=== PATIENT | female | born 1965 | race Caucasian/White ===

== ENCOUNTER 2020-03-30 14:15 | Emergency (ER) | payer MEDICAID ==
[~2020-03-30] VITALS: Ht 160 cm; Wt 90.7 kg
[2020-03-30 14:33] LABS: BASOPHILS % (AUTO) 0 % (0-10); EOSINOPHILS # (AUTO) 0.2 10^3/uL (0.0-0.3); EOSINOPHILS % (AUTO) 3 % (0-10); HEMATOCRIT 41 % (35-52); HEMOGLOBIN 14.3 G/DL (11.5-16.0); LYMPHOCYTES # (AUTO) 2.7 X 10^3 (1.0-4.0); LYMPHOCYTES % (AUTO) 42 % (12-44); MEAN CORPUSCULAR HEMOGLOBIN 31 PG (25-34); MEAN CORPUSCULAR HGB CONC 35 G/DL (32-36); MEAN CORPUSCULAR VOLUME 87 FL (80-99); MEAN PLATELET VOLUME 11.1 FL (7.4-10.4); MONOCYTES # (AUTO) 0.7 X 10^3 (0.0-1.0); MONOCYTES % (AUTO) 10 % (0-12); NEUTROPHILS # (AUTO) 2.9 X 10^3 (1.8-7.8); NEUTROPHILS % (AUTO) 44 % (42-75); PLATELET COUNT 255 10^3/uL (130-400); RED CELL DISTRIBUTION WIDTH 12.6 % (10.0-14.5); WHITE BLOOD COUNT 6.5 10^3/uL (4.3-11.0)
[2020-03-30 14:38] LABS: CHLORIDE 107 MMOL/L (98-107); POTASSIUM 4.1 MMOL/L (3.6-5.0); SODIUM 141 MMOL/L (135-145)
[2020-03-30 14:39] LABS: CALCIUM 9.2 MG/DL (8.5-10.1)
[2020-03-30 14:40] LABS: GLUCOSE 84 MG/DL (70-105)
[2020-03-30 14:41] LABS: TOTAL PROTEIN 7.3 GM/DL (6.4-8.2)
[2020-03-30 14:42] LABS: BILIRUBIN,TOTAL 0.2 MG/DL (0.1-1.0); CARBON DIOXIDE 24 MMOL/L (21-32)
[2020-03-30 14:44] LABS: ALKALINE PHOSPHATASE 76 U/L (40-136); CREATININE SERUM 0.84 MG/DL (0.60-1.30); GFR ESTIMATED > 60
[2020-03-30 14:45] LABS: BUN/CREATININE RATIO 20
[2020-03-30 14:47] LABS: ALANINE AMINOTRANSFERASE 21 U/L (0-55); MAGNESIUM 2.2 MG/DL (1.6-2.4)
--- NOTE | 2020-03-30 14:48 | ED General ---
General Chief Complaint: Neurological Problems Stated Complaint: POSS SEIZURE Nursing Triage Note: PT BROUGHT OVER FROM OUTPT REGISTRATION AFTER HAVING A SEIZURE WHILE CHECKING IN. UPON PT ARRIVAL PT IS POSTICTAL BUT WILL ANSWER QUESTIONS. PT COMPLAINS OF PAIN IN HER NECK AND UPPER BACK. C-COLLAR APPLIED. Nursing Sepsis Screen: No Definite Risk Source of Information: Patient Exam Limitations: No Limitations History of Present Illness Date Seen by Provider: Mar 30, 2020 Time Seen by Provider: 14:15 Initial Comments Here after call to outpatient registration for [facility]. Apparently patient was checking in for MRI of lumbar spine when she suddenly collapsed to her right side onto the floor from a seated position. No obvious injury. Patient was apparently apneic for about 15 seconds with eyes fluttering and then began to breathe. No report of turning blue or vomiting. Patient has seizure disorder and is on 3 different seizure medications. Does have history of syncopal episodes or seizure like episodes in the past. She states it's been a while since her last one. Patient had started to slowly began to respond after a few minutes and was answering questions. Does complain of mild headache and neck pain as well as upper back pain but denies other injury. Over time she was able to answer more questions and states that she's taken her meds as directed. She does admit to being nervous about the MRI. Patient reports that she felt the seizure coming on and did say helps to the judicial clerk before slumping over. Patient seen in outpatient registration area initially and transferred to bed via slide board. C-spine was maintained manually remove. C-collar placed after arrival to the ED. Timing/Duration: 1/2 Hour Severity: Moderate Associated Systoms: No Cough, No Fever/Chills; Headaches; No Nausea/Vomiting; Seizure; No Shortness of Air; Syncope; No Weakness Allergies and Home Medications Allergies Coded Allergies: codeine (Verified Allergy, Severe, ITCH, 03/30/20) hydrocodone (Verified Allergy, Severe, ITCH, 03/30/20) tramadol (Verified Allergy, Severe, ITCH, 03/30/20) Patient Home Medication List Home Medication List Reviewed: Yes Review of Systems Review of Systems Constitutional: No chills, No fever EENTM: no symptoms reported Respiratory: no symptoms reported Cardiovascular: see HPI; No chest pain; syncope Gastrointestinal: No abdominal pain, No nausea, No vomiting Genitourinary: no symptoms reported Musculoskeletal: see HPI, back pain, neck pain All Other Systems Reviewed Negative Unless Noted: Yes Past [place]-Xawhbo-Ygxcoq Hx Past Med/Social Hx: Reviewed Nursing Past Med/Soc Hx Patient Social History Alcohol Use: Denies Use Recreational Drug Use: No Smoking Status: Never a Smoker Recent Foreign Travel: No Contact w/Someone Who Travel: No Recent Infectious Disease Expo: No Past Medical History Surgeries: Yes Appendectomy, Gallbladder, Hysterectomy, Orthopedic Respiratory: Yes Asthma Cardiac: Yes High Cholesterol Neurological: Yes Seizure Disorder Genitourinary: No Gastrointestinal: No Musculoskeletal: No Endocrine: No Cancer: No Psychosocial: No Integumentary: No Blood Disorders: No Family Medical History Reviewed Nursing Family Hx Physical Exam Vital Signs Vital Signs - First Documented 03/30/20 14:15 Temp 36.8 Pulse 75 Resp 16 B/P (MAP) 118/99 (105) Pulse Ox 99 O2 Delivery Room Air Capillary Refill : Less Than 3 Seconds Height, Weight, BMI Height: '" Weight: lbs. oz. kg; 35.00 BMI Method: General Appearance: No Apparent Distress, WD/WN HEENT: PERRL/EOMI, Pharynx Normal Neck: No Lymphadenopathy (L), No Lymphadenopathy (R); Tender Lateral, Tender Midline (mid C-spine), Other (C collar placed) Respiratory: Lungs Clear, Normal Breath Sounds Cardiovascular: Regular Rate, Rhythm, No Murmur Gastrointestinal: Non Tender, Soft Back: No Muscle Spasm; Vertebral Tenderness (upper thoracic spine) Extremity: Non Tender, No Calf Tenderness, No Pedal Edema Neurologic/Psychiatric: Alert, Other (initially disoriented but became more inserted over the first several minutes. States that she can feel her seizures. She did feel like she was having a seizure.) Progress/Results/Core Measures Suspected Sepsis Recent Fever Within 48 Hours: No Infection Criteria Present: None New/Unexplained Altered Menta: No Sepsis Screen: No Definite Risk SIRS Temperature: Pulse: 75 Respiratory Rate: 16 Laboratory Tests 03/30/20 14:18: White Blood Count 6.5 Blood Pressure 118 /99 Mean: 105 Laboratory Tests 03/30/20 14:18: Creatinine 0.84, Platelet Count 255, Total Bilirubin 0.2 Results/Orders Lab Results Laboratory Tests Test 03/30/20 14:18 Range/Units White Blood Count 6.5 4.3-11.0 10^3/uL Red Blood Count 4.68 4.35-5.85 10^6/uL Hemoglobin 14.3 11.5-16.0 G/DL Hematocrit 41 35-52 % Mean Corpuscular Volume 87 80-99 FL Mean Corpuscular Hemoglobin 31 25-34 PG Mean Corpuscular Hemoglobin Concent 35 32-36 G/DL Red Cell Distribution Width 12.6 10.0-14.5 % Platelet Count 255 130-400 10^3/uL Mean Platelet Volume 11.1 H 7.4-10.4 FL Neutrophils (%) (Auto) 44 42-75 % Lymphocytes (%) (Auto) 42 12-44 % Monocytes (%) (Auto) 10 0-12 % Eosinophils (%) (Auto) 3 0-10 % Basophils (%) (Auto) 0 0-10 % Neutrophils # (Auto) 2.9 1.8-7.8 X 10^3 Lymphocytes # (Auto) 2.7 1.0-4.0 X 10^3 Monocytes # (Auto) 0.7 0.0-1.0 X 10^3 Eosinophils # (Auto) 0.2 0.0-0.3 10^3/uL Basophils # (Auto) 0.0 0.0-0.1 10^3/uL Sodium Level 141 135-145 MMOL/L Potassium Level 4.1 3.6-5.0 MMOL/L Chloride Level 107 98-107 MMOL/L Carbon Dioxide Level 24 21-32 MMOL/L Anion Gap 10 5-14 MMOL/L Blood Urea Nitrogen 17 7-18 MG/DL Creatinine 0.84 0.60-1.30 MG/DL Estimat Glomerular Filtration Rate > 60 BUN/Creatinine Ratio 20 Glucose Level 84 70-105 MG/DL Calcium Level 9.2 8.5-10.1 MG/DL Corrected Calcium 9.2 8.5-10.1 MG/DL Magnesium Level 2.2 1.6-2.4 MG/DL Total Bilirubin 0.2 0.1-1.0 MG/DL Aspartate Amino Transf (AST/SGOT) 22 5-34 U/L Alanine Aminotransferase (ALT/SGPT) 21 0-55 U/L Alkaline Phosphatase 76 40-136 U/L Total Protein 7.3 6.4-8.2 GM/DL Albumin 4.0 3.2-4.5 GM/DL My Orders Orders - DUSTIN STEVENS MD Cbc With Automated Diff (03/30/20 14:24) Comprehensive Metabolic Panel (03/30/20 14:24) Magnesium (03/30/20 14:24) Ed Iv/Invasive Line Start (03/30/20 14:24) Ct Head/Cervical Spine Wo (03/30/20 14:24) Ct Thoracic Spine Wo (03/30/20 14:24) Vital Signs/I&O 03/30/20 14:15 Temp 36.8 Pulse 75 Resp 16 B/P (MAP) 118/99 (105) Pulse Ox 99 O2 Delivery Room Air Capillary Refill : Less Than 3 Seconds Blood Pressure Mean: 105 Progress Note : Progress Note Seen and evaluated. IV, labs, CT head, C-spine and thoracic spine ordered. LR 1 L bolus. Monitor patient. 1525: C-collar cleared. Patient does complain of some mild upper back pain. C-spine and thoracic spine films are negative as well as CT head. Toradol 30 mg IV. Patient has care worker here who can get her home. Discharged home with return precautions. Patient verbalize understanding instructions and agreement with plan. Diagnostic Imaging Diagonstic Imaging: CT Plain Films/CT/US/NM/MRI: c-spine, head Comments [facility] [place], [place] NAME: SHELIA CULVER [facility] REC#: [id number] PT STATUS: REG ER : 1965 PHYSICIAN: DUSTIN STEVENS MD ADMIT DATE: 03/30/20/ER Signed Date of Exam:03/30/20 CT HEAD/CERVICAL SPINE WO PROCEDURE: CT head and CT cervical spine without contrast. TECHNIQUE: Multiple contiguous axial images were obtained through the brain and cervical spine without the use of intravenous contrast. Sagittal and coronal reformations through the cervical spine were then performed. Auto Exposure Controls were utilized during the CT exam to meet ALARA standards for radiation dose reduction. INDICATION: Seizure. No prior studies are available for comparison. CT HEAD: Ventricles and sulci are within normal limits. No sulcal effacement or midline shift is identified. No acute intra-axial or extra-axial hemorrhage is detected. Cisterns are patent. Visualized paranasal sinuses appear clear. IMPRESSION: No acute intracranial process is detected. CT CERVICAL SPINE: Curvature and alignment of the cervical spine is normal. There is degenerative disc disease C5-C6 and C6-C7 levels with disc space narrowing and marginal spurring. No fracture is identified. Odontoid is intact. Prevertebral tissues are normal. IMPRESSION: Lower cervical spondylosis. No acute bony abnormality is detected. Dictated by: Dictated on workstation # [id number] Dict: 03/30/20 1452 Trans: 03/30/201516 CVB Interpreted by: KATHERINE FISHER MD Electronically signed by: KATHERINE FISHER MD 03/30/201516 Diagonstic Imaging: CT Plain Films/CT/US/NM/MRI: other Comments [facility] [place] [place] NAME: SHELIA CULVER [facility] REC#: [id number] PT STATUS: REG ER : 1965 PHYSICIAN: DUSTIN STEVENS MD ADMIT DATE: 03/30/20/ER Signed Date of Exam:03/30/20 CT THORACIC SPINE WO PROCEDURE: CT thoracic spine without contrast. TECHNIQUE: Multiple axial computerized tomography images were obtained from the base of the thoracic spine to the vertex without intravenous contrast. Auto Exposure Controls were utilized during the CT exam to meet ALARA standards for radiation dose reduction. INDICATION: Seizure and back pain. FINDINGS: Curvature and alignment of the thoracic spine is normal. Vertebral body heights are maintained. No acute compression fracture is seen. Bony canal is widely patent. There is generalized thoracic spondylosis. Paraspinous tissues demonstrate probable nonobstructing calculi in the left kidney. No paraspinous hematoma is detected. IMPRESSION: 1. Thoracic spondylosis. No acute bony abnormality is detected. 2. Nonobstructing left renal calculi. Dictated by: Dictated on workstation # [id number] Dict: 03/30/20 1455 Trans: 03/30/201516 AS6 Interpreted by: KATHERINE FISHER MD Electronically signed by: KATHERINE FISHER MD 03/30/20 151 Departure Impression Primary Impression: Seizure Additional Impression: Upper back pain Disposition: 01 HOME, SELF-CARE Condition: Stable Departure-Patient Inst. Decision time for Depature: 15:30 Referrals: YADIRA ASIF MD Patient Instructions: Seizures, Adult (DC), Upper Back Pain (DC) Add. Discharge Instructions: All discharge instructions reviewed with patient and/or family. Voiced understanding. You may take ibuprofen 600 mg every 8 hours as needed for pain. You may also take Tylenol/acetaminophen 1000 mg every 8 hours as needed for pain. Drink plenty of fluids and follow-up with your Dr. in a few days for recheck. Call your neurologist today or first thing in the morning for further instructions related to your seizures. Let them know that he had a seizure today. You're CT of your head, C-spine and thoracic spine do not show any acute findings. Return for worse pain, fever, vomiting, weakness, breathing problems or other concerns as needed. Continue home medications as previously prescribed. Copy Copies To 1: YADIRA ASIF MD, TIMOTHY D MD Mar 30, 2020 14:48
--- NOTE | 2020-03-30 14:55 | Diagnostic Imaging Report ---
PROCEDURE: CT head and CT cervical spine without contrast. TECHNIQUE: Multiple contiguous axial images were obtained through the brain and cervical spine without the use of intravenous contrast. Sagittal and coronal reformations through the cervical spine were then performed. Auto Exposure Controls were utilized during the CT exam to meet ALARA standards for radiation dose reduction. INDICATION: Seizure. No prior studies are available for comparison. CT HEAD: Ventricles and sulci are within normal limits. No sulcal effacement or midline shift is identified. No acute intra-axial or extra-axial hemorrhage is detected. Cisterns are patent. Visualized paranasal sinuses appear clear. IMPRESSION: No acute intracranial process is detected. CT CERVICAL SPINE: Curvature and alignment of the cervical spine is normal. There is degenerative disc disease C5-C6 and C6-C7 levels with disc space narrowing and marginal spurring. No fracture is identified. Odontoid is intact. Prevertebral tissues are normal. IMPRESSION: Lower cervical spondylosis. No acute bony abnormality is detected. Dictated by: Dictated on workstation # [id number]
--- NOTE | 2020-03-30 14:59 | Diagnostic Imaging Report ---
PROCEDURE: CT thoracic spine without contrast. TECHNIQUE: Multiple axial computerized tomography images were obtained from the base of the thoracic spine to the vertex without intravenous contrast. Auto Exposure Controls were utilized during the CT exam to meet ALARA standards for radiation dose reduction. INDICATION: Seizure and back pain. FINDINGS: Curvature and alignment of the thoracic spine is normal. Vertebral body heights are maintained. No acute compression fracture is seen. Bony canal is widely patent. There is generalized thoracic spondylosis. Paraspinous tissues demonstrate probable nonobstructing calculi in the left kidney. No paraspinous hematoma is detected. IMPRESSION: 1. Thoracic spondylosis. No acute bony abnormality is detected. 2. Nonobstructing left renal calculi. Dictated by: Dictated on workstation # [id number]
[2020-03-30] MEDS ORDERED: KETOROLAC 30 MG/ML VIAL IVP STA (15:29)
--- NOTE | 2020-03-30 15:35 | NUR ---
C-Collar removed by Dr Nolasco at this time.
[2020-03-30 15:49] VITALS: BP 105/66
--- OUTSIDE RECORDS SUMMARY | 2020-03-30 16:37 | XMS REPORT ---
Author Author Riri FLOYD Organization [facility] [address] Address [address] [place] [address] Care Team Providers Care Bureau Director Name Role Phone OZ FLOYD Unavailable PROBLEMS Type Condition ICD9-CM Code [id number] Code Onset Dates Condition S tatus SNOMED Code Problem Edema, unspecified R60.9 Active 7 2244655 Problem Mikayla-rectal abscess K61.1 Active 89716631 Problem Seizure disorder G40.909 Active 128 055783 Problem Other chronic pain G89.29 Active 8 4001697 Problem Slow transit constipation K59.01 Acti ve 96012332 Problem Cough due to bronchospasm J98.01 Acti ve 4237601 Problem Chronic idiopathic constipation K59.04 Active 96970394 Problem Adolescent idiopathic scoliosis of thoracolumbar region M41.125 Active 707290339 Problem Frequent headaches R51 Active 7 73820926 Problem Low back pain M54.5 Active 701340 007 Problem Mild intermittent asthma without complication J45. 20 Active 528329529 Problem Vertigo R42 Active 382558228 Problem Pain in right knee M25.561 Active 3 8989976 Problem Primary insomnia F51.01 Active 397 2004 Problem Mild intermittent asthma with exacerbation J45.21 Active 352276234 Problem Partial symptomatic epilepsy with complex partial seizures, intractable, 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.219 Active 1 87645539 Problem Obesity (BMI 30-39.9) E66.9 Active 580882251 Problem Duodenitis K29.80 Active 30295910 Problem Severe obesity (BMI 35.0-39.9) with comorbidity E6 6.01 Active 30701495852025 Problem Asthma exacerbation J45.901 Active 899618209 Problem Epigastric pain R10.13 Active 7992 2009 Problem Spastic hemiplegia of right dominant side due to noncerebrovascular etiology G81.11 Active 593425298 Problem Gastroesophageal reflux disease without esophagitis K21.9 Active 141398276 Problem Gastroesophageal reflux disease without esophagitis K21.9 Active 593681729 Problem Moderate episode of recurrent major depressive disorder F33.1 Active 973848218 ALLERGIES No Information ENCOUNTERS Encounter Location Date Diagnosis [facility] [address] [id number] [place] [address] Mar, [address] [id number] [place] [address] Mar, Pes anserinus bursitis of le ft knee M70.52 [facility] [address] [place] [id number] [address] Mar, [address] [id number] [address] Feb, [address] [id number], [place] [address] Feb, [address] [id number] [address] Feb, Left leg pain M79.605 and Pe s anserinus bursitis of left knee M70.52 [facility] [address] [place] [address] [address] Dec, [facility] [address] [address] Dec, Acute nonintractable headache, unspecifi ed headache type R51 [facility] [address] [place] [address] [address] Nov, Seizure disorder G40.909 ; Partial sympt omatic epilepsy with complex partial seizures, intractable, 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.219 and Moderate episode of recurrent major depressive disorder F33.[address] [id number], [place] [address] Aug, [facility] [address] [place] [address] [address] Jul, [facility] [address] [place] [address] [address] Jul, [facility] [address] [place] [address] [place] [id number] [address] 04 Jun, 2019 Epigastric abdominal pain R10.13 ; Gastr oesophageal reflux disease without esophagitis K21.9 and Encounter for immunization Z23 [facility] [address] [place] [id number] [address] 06 May, 2019 Epigastric abdominal pain R10.13 and [place] g term use of drug Z79.899 [facility] [address] [place] [address] [place] [id number] [address] Apr, Epigastric abdominal pain R10.13 ; Low b ack pain M54.5 and Pain in right knee M25.561 [facility] [address] [place] [address] [place] [id number] [address] 18 Feb, 2019 [facility] [address] [place] [address] [place] [address] [address] Feb, Diplopia H53.2 [facility] [address] [place] [address] [place] [address] [address] 11 Feb, 2019 Well woman exam Z01.419 and Pre-op exam Z01.818 [facility] [address] [address] [place] [id number] [address] 06 Feb, 2019 [facility] [address] [place] [address] [place] [id number] [place] [address] January, Breast cancer screening by mammogram Z12 .31 [facility] [address] [place] [address] [place] [id number] [address] 17 Dec, 2018 Dental examination Z01.20 and Dental car ies K02.9 [facility] [address] [place] [address] [place] [address] [address] 16 Dec, 2018 Acute pain of left knee M25.562 [facility] [address] [place] [address] [place] [id number] [address] Dec, [facility] [address] [place] [address] [address] Dec, Double vision H53.2 ; Headache above the eye region R51 and Synovial cyst of left knee M71.22 [facility] [address] [place] [address] [place] [id number] [place] [address] Nov, [facility] [address] [place] [address] [place] [address] [address] Oct, Mild intermittent asthma with exacerbati on J45.21 ; Seizure disorder G40.909 ; 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 ; Partial symptomatic epilepsy with complex partial seizures, intractable, 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.219 and Spastic hemiplegia of right dominant side due to noncerebrovascular etiology G81.11 [facility] [address] [place] [address] [place], [place] [address] [address] Oct, [facility] [address] [place] [address] [address] Sep, Cough R05 and Mild intermittent asthma w ith exacerbation J45.21 [facility] [address] [facility] [address] [place] [address] [address] Aug, [facility] [address] [place] [address] [address] Jul, Tinea corporis B35.4 [facility] [address] [place] [address] [place] [address] [address] Jul, [facility] [address] [place] [address] [address] Jul, [facility] [place] [address] [id number] [place] [address] Feb, [facility] [place] [address] [place] [address] Feb, BMI 40.0-44.9, adult Z68.41 ; Slow transit constipation K59.01 ; Pain in right shoulder M25.511 ; Pain in left shoulder M25.512 ; Other chronic pain G89.29 and Primary insomnia F51.01 [facility] [place] [address] [place] [address] Feb, 18 [facility] [address] [facility] [id number] 100[place] [address] Feb, [facility] [place] [address] [place] [address] Dec, 18 [facility] [place] [address] [place] [address] Dec, 18 [facility] [place] [address] [place] [address] Dec, 18 [facility] [place] [address] [place] [address] Nov, 18 Vertigo R42 and Seizure disorder G40.909 [facility] [address] [place] [address] Aug, 17 Dental examination Z01.20 [facility] [place] [address] [place] [address] Jul, 17 Dental examination Z01.20 [facility] [place] [address] [place] [address] Jul, 17 [facility] [place] [address] [place] [address] Jul, 17 [facility] [place] [address] [place] [address] Jul, 17 Dental examination Z01.20 [facility] [place] [address] [place] [address] Jun, 17 [facility] [place] [address] [place] [address] Jun, 17 Dental examination Z01.20 [facility] [place] [address] [place] [address] Jun, 17 [facility] [place] [address] [place] [address] Jun, 17 Dental examination Z01.20 [facility] [place] [address] [place] [address] Jun, 17 Edema, unspecified R60.9 ; Screening for lipoid disorders Z13.220 and Pericardial effusion I31.[address] [address] May, [address] [address] May, 17 Acute costochondritis M94.0 ; Frequent headaches R51 and Seizure disorder G40.[address] [address] May, 17 Pericardial effusion I31.[address] [address] May, [address] [address] Feb, [address] [address] January, 17 Seizure disorder G40.[address] [address] January, 17 Dental examination Z01.[address] [address] Dec, 17 Seizure disorder G40.909 ; Low back pain M54.5 ; Cervical radiculopathy M54.12 ; Mild intermittent asthma without complication J45.20 ; Frequent headaches R51 ; Adolescent idiopathic scoliosis of thoracolumbar region M41.125 and Pain in right knee M25.[address] [address] Nov, [address] [address] Nov, [address] [address] Nov, 17 Epigastric pain R10.13 ; Asthma exacerbation J45.901 and Seizure disorder G40.[address] [address] Oct, 17 Seizure disorder G40.909 ; Chronic idiopathic constipation K59.04 and Cough due to bronchospasm J98.01 [facility] [place] [address] [place] [address] Oct, 17 Duodenitis K29.80 ; Epigastric pain R10.13 ; Seizure disorder G40.909 and Chronic idiopathic constipation K59.04 [facility] [place] [address] [place] [address] Oct, 17 Dental examination Z01.[address] [address] Sep, 17 Duodenitis K29.80 ; Epigastric pain R10.13 ; Seizure disorder G40.909 and Asthma exacerbation J45.901 [facility] [place] [address] [place] [address] Sep, 17 Epigastric pain R10.13 and Seizure disorder G40.[address] [facility] [address] [address] Sep, [address] [address] [address] Aug, 16 Seizure disorder G40.[address] [address] Aug, 16 Seizure disorder G40.909 ; Asthma exacerbation J45.901 and Epigastric pain R10.[address] [address] Aug, 16 Bronchitis J40 ; Asthma exacerbation J45.901 and Epigastric pain R10.13 [facility] [place] [address] [place] [address] Aug, 16 [facility] [address] [address] Aug, 16 [facility] [place] [address] [place] [address] 02 Aug, 16 [facility] [address] [address] Jul, 16 Dental examination Z01.20 [facility] [address] [place] [address] 25 Jun, 16 Acute pain of left knee M25.562 and Mikayla-rectal abscess K61.1 [facility] [address] [place] [address] 04 Jun, 16 [facility] [place] [address] [place] [address] 04 Jun, 16 Dental examination Z01.20 [facility] [address] [place] [address] May, 16 [facility] [address] [place] [address] May, 16 Seizure disorder G40.909 and Partial symptomatic epilepsy with complex partial seizures, not intractable, 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.209 [facility] [place] [address] [place] [address] May, 16 Screening for lipoid disorders Z13.220 and Edema, unspecified R60.9 [facility] [place] [address] [place] [address] Apr, 16 [facility] [address] [address] Apr, 15 [facility] [address] [facility] [id number] [address] [place] [id number] Apr, Dental examination V72.2 [facility] [place] [address] [facility] [id number] [address] [place] [address] Dec, [facility] [place] [address] [facility] [id number] [address] [place] [address] Dec, [facility] [address] [place] [address] Sep, 15 [facility] [place] [address] [facility] [id number] [address] [place] [address] Sep, [facility] [place] [address] [facility] [id number] [address] [place] [address] Jun, [facility] [place] [address] [id number] [address] [place] [address] Jun, [facility] [place] [address] [facility] [place] [address] Jun, 14 [facility] [address] [id number] [address] [place] [address] Jun, [facility] [address] [facility] [id number] [address] [place] [address], [place] [address] May, [facility] [place] [address] [facility] [place] [address] May, 14 [facility] [place] [address] [facility] [place] [address] May, 14 [facility] [address] [facility] [id number] [address] [place] [address] May, [facility] [address] [facility] [id number] [address] [place] [address] Mar, [facility] [place] [address] [place] [address] Mar, 14 [facility] [address] [facility] [id number] [address] [place] [address] Mar, [facility] [place] [address] [place] [address] Mar, 14 [facility] [address] [facility] [id number] [address] [place] [address] Mar, [facility] [address] [facility] [id number] [address] [place] [address] Feb, [facility] [place] [address] [facility] [place] [address] Feb, 14 [facility] [address] [facility] [id number] [address] [place] [address] Feb, [facility] [place] [address] [place] [address] Feb, 14 [facility] [address] [facility] [id number] [address] [place] [address] Feb, [facility] [address] [place] [address] January, 14 [facility] [place] [address] [place] [address] January, [facility] [place] [address] [place] [address] May, [facility] [place] [address] May, 13 [facility] [place] [address] [place] [address] Oct, [facility] [place] [address] [place] [id number] [address] [place] [address] Aug, [facility] [place] [address] [place] [id number] [address] [place] [address] Nov, [facility] [place] [address] [place] [address] Sep, IMMUNIZATIONS No Known Immunizations SOCIAL HISTORY Never Assessed REASON FOR VISIT PLAN OF CARE VITAL SIGNS MEDICATIONS Unknown Medications RESULTS No Results PROCEDURES No Known procedures INSTRUCTIONS MEDICATIONS ADMINISTERED No Known Medications MEDICAL (GENERAL) HISTORY Type Description Date Medical History seizures Medical History hyperlipidemia Medical History constipation Surgical History cholecystectomy Surgical History hysterectomy Surgical History appendectomy Surgical History cyst removal to back 2018 Hospitalization History seizures Hospitalization History surgeries Hospitalization History seizures 2016 Hospitalization History pneumonia 2015
--- OUTSIDE RECORDS SUMMARY | 2020-03-30 16:37 | XMS REPORT ---
Author Author Riri Rodriguez Doctor Organization [facility] Address Unknown Phone Unavailable Care Team Providers Care Supervisor Of Guidance And Testing Name Role Phone Migration, Doctor Unavailable Unavailable PROBLEMS Type Condition ICD9-CM Code [id number] Code Onset Dates Condition S tatus SNOMED Code Problem Duodenitis K29.80 Active 98851147 Problem Asthma exacerbation J45.901 Active 731711586 Problem Chronic idiopathic constipation K59.04 Active 52637409 Problem Epigastric pain R10.13 Active 7992 2009 Problem Mild intermittent asthma without complication J45. 20 Active 084109287 Problem Cough due to bronchospasm J98.01 Acti ve 2728669 Problem Low back pain M54.5 Active 725040 007 Problem Adolescent idiopathic scoliosis of thoracolumbar region M41.125 Active 284720104 Problem Vertigo R42 Active 254435635 Problem Slow transit constipation K59.01 Acti ve 78811701 Problem Other chronic pain G89.29 Active 8 0279443 Problem Gastroesophageal reflux disease without esophagitis K21.9 Active 110108840 Problem Frequent headaches R51 Active 7 06273558 Problem Seizure disorder G40.909 Active 128 751898 Problem Gastroesophageal reflux disease without esophagitis K21.9 Active 421469808 Problem Pain in right knee M25.561 Active 3 2131583 Problem Edema, unspecified R60.9 Active 7 4148130 Problem Mikayla-rectal abscess K61.1 Active 16596740 Problem Primary insomnia F51.01 Active 397 2004 Problem Mild intermittent asthma with exacerbation J45.21 Active 314518188 Problem Spastic hemiplegia of right dominant side due to noncerebrovascular etiology G81.11 Active 527283495 Problem Partial symptomatic epilepsy with complex partial seizures, intractable, 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.219 Active 1 [id number] ALLERGIES No Information ENCOUNTERS Encounter Location Date Diagnosis [address] [place] [address] Aug, [facility] [address] [place] [address] [facility] [address] Jul, [facility] [address] [place] [address] [id number] [address] Jul, [facility] [address] [id number] [address] Jun, Epigastric abdominal pain R10.13 ; Gastroesophageal reflux disease without esophagitis K21.9 and Encounter for immunization Z23 [facility] [address] [place] [address] [id number] [address] May, Epigastric abdominal pain R10.13 and superintendent terminal use of drug Z79.899 [facility] [address] [place] [id number] [address] Apr, Epigastric abdominal pain R10.13 ; Low back pain M54.5 and Pain in right knee M25.561 [facility] [address] [place] [id number] [address] Feb, [facility] [address] [id number] [address] Feb, Diplopia H53.2 [facility] [address] [id number] [address] Feb, Well woman exam Z01.419 and Pre-op exam Z01.818 [facility] [address] [id number] [address] Feb, [facility] [address] [id number] [address] January, Breast cancer screening by mammogram Z12.31 [facility] [address], [place] [address] 17 Dec, 2018 Dental examination Z01.20 and Dental caries K02.9 [facility] [address] [id number] [address] 16 Dec, 2018 Acute pain of left knee M25.562 [facility] [address] [id number] [address] 16 Dec, 2018 [facility] [address] [id number] [address] 09 Dec, 2018 Double vision H53.2 ; Headache above the eye region R51 and Synovial cyst of left knee M71.22 [facility] [address] [id number] [address] Nov, [facility] [address] [place] [id number] [place] [address] Oct, Mild intermittent asthma with exacerbation J45.21 ; Seizure disorder G40.909 ; 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 ; Partial symptomatic epilepsy with complex partial seizures, intractable, 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.219 and Spastic hemiplegia of right dominant side due to noncerebrovascular etiology G81.11 [facility] [address] [id number] [address] Oct, [facility] [address] [id number] [address] Sep, Cough R05 and Mild intermittent asthma with exacerbation J45.21 [facility] [address] [id number] [address] Aug, [facility] [address] [id number] [address] Jul, Tinea corporis B35.4 [facility] [address] [id number] [address] Jul, [facility] [address] [id number] [address] Jul, [facility] [address] [facility] [place] [address] Feb, [facility] [place] [address] [place] [address] Feb, BMI 40.0-44.9, adult Z68.41 ; Slow transit constipation K59.01 ; Pain in right shoulder M25.511 ; Pain in left shoulder M25.512 ; Other chronic pain G89.29 and Primary insomnia F51.01 [facility] [place] [address] [place] [address] Feb, 18 [facility] [address] [facility] [place] [address] Feb, [facility] [place] [address] [place] [address] Dec, 18 [facility] [place] [address] [place] [address] Dec, 18 [facility] [place] [address] [place] [address] Dec, 18 [facility] [place] [address] [place] [address] Nov, 18 Vertigo R42 and Seizure disorder G40.909 [facility] [address] [place] [address] Aug, 17 Dental examination Z01.20 [facility] [place] [address] [place] [address] 16 Jul, 17 Dental examination Z01.20 [facility] [place] [address] [place] [address] Jul, 17 [facility] [place] [address] [place] [address] Jul, 17 [facility] [place] [address] [place] [address] Jul, 17 Dental examination Z01.20 [facility] [place] [address] [place] [address] 30 Jun, 17 [facility] [place] [address] [place] [address] Jun, 17 Dental examination Z01.20 [facility] [place] [address] [place] [address] Jun, 17 [facility] [place] [address] [place] [address] Jun, 17 Dental examination Z01.20 [facility] [place] [address] [place] [address] Jun, 17 Edema, unspecified R60.9 ; Screening for lipoid disorders Z13.220 and Pericardial effusion I31.[address] [address] May, [address] [address] May, 17 Acute costochondritis M94.0 ; Frequent headaches R51 and Seizure disorder G40.[address] [address] May, 17 Pericardial effusion I31.[address] [address] May, [address] [address] Feb, [address] [address] January, 17 Seizure disorder G40.[address] [address] January, 17 Dental examination Z01.[address] [address] Dec, 17 Seizure disorder G40.909 ; Low back pain M54.5 ; Cervical radiculopathy M54.12 ; Mild intermittent asthma without complication J45.20 ; Frequent headaches R51 ; Adolescent idiopathic scoliosis of thoracolumbar region M41.125 and Pain in right knee M25.[address] [address] Nov, [address] [address] Nov, [address] [address] Nov, 17 Epigastric pain R10.13 ; Asthma exacerbation J45.901 and Seizure disorder G40.[address] [address] Oct, 17 Seizure disorder G40.909 ; Chronic idiopathic constipation K59.04 and Cough due to bronchospasm J98.01 [facility] [place] [address] [place] [address] 01 Oct, 17 Duodenitis K29.80 ; Epigastric pain R10.13 ; Seizure disorder G40.909 and Chronic idiopathic constipation K59.04 [facility] [address] [place] [address] Oct, 17 Dental examination Z01.[address] [address] Sep, 17 Duodenitis K29.80 ; Epigastric pain R10.13 ; Seizure disorder G40.909 and Asthma exacerbation J45.901 [facility] [address] [place] [address] Sep, 17 Epigastric pain R10.13 and Seizure disorder G40.[address] [address] Sep, 17 [facility] [address] [address] Aug, 16 Seizure disorder G40.909 [facility] [address] [place] [address] 26 Aug, 16 Seizure disorder G40.909 ; Asthma exacerbation J45.901 and Epigastric pain R10.[address] [address] Aug, 16 Bronchitis J40 ; Asthma exacerbation J45.901 and Epigastric pain R10.13 [facility] [place] [address] [place] [address] Aug, 16 [facility] [address] [address] Aug, [address] [address] 02 Aug, [address] [address] Jul, 16 Dental examination Z01.20 [address] [place] [address] [place] [address] Jun, 16 Acute pain of left knee M25.562 and Mikayla-rectal abscess K61.1 [facility] [place] [address] [place] [address] Jun, 16 [facility] [place] [address] [place] [address] Jun, 16 Dental examination Z01.20 [facility] [place] [address] [place] [address] May, 16 [facility] [place] [address] [place] [address] May, 16 Seizure disorder G40.909 and Partial symptomatic epilepsy with complex partial seizures, not intractable, 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.209 [facility] [place] [address] [place] [address] May, 16 Screening for lipoid disorders Z13.220 and Edema, unspecified R60.9 [facility] [address] [place] [address] Apr, 16 [facility] [place] [address] [place] [address] Apr, 15 [facility] [address] [facility] [place] [address] Apr, Dental examination V72.2 [facility] [id number] [place] [address] Dec, [facility] [id number] [place] [address] Dec, [facility] [address] [place] [address] Sep, 15 [facility] [address] [address] Sep, [facility] [address] [address] Jun, [facility] [address] [address] Jun, [facility] [place] [address] [place] [address] Jun, 14 [facility] [address] [facility] [place] [address] Jun, [facility] [address] [facility] [place] [address] May, [facility] [place] [address] [place] [address] May, 14 [facility] [place] [address] [place] [address] May, 14 [facility] [address] [facility] [place] [address] May[facility] [address] [facility] [place] [address] Mar, [facility] [place] [address] [place] [address] Mar, 14 [facility] [address] [facility] [place] [address] Mar, [facility] [place] [address] [place] [address] Mar, 14 [facility] [address] [facility] [place] [address] Mar, [facility] [address] [facility] [place] [address] Feb, [facility] [place] [address] [place] [address] Feb, 14 [facility] [address] [facility] [place] [address] Feb, [facility] [place] [address] [place] [address] Feb, 14 [facility] [address] [facility] [place] [address] Feb, [facility] [place] [address] [place] [address] January, 14 [facility] [address] [facility] [place] [address] January, [facility] [address] [place] [address] May, [facility] [place] [address] [place] [address] May, 13 [facility] [address] [facility] [place] [address] Oct, [facility] [address] [facility] [place] [address] Aug, [facility] [address] [facility] [place] [address] Nov, [facility] [address] [facility] [place] [address] Sep, IMMUNIZATIONS No Known Immunizations SOCIAL HISTORY Never Assessed REASON FOR VISIT PLAN OF CARE VITAL SIGNS Height 61 in 2014-03-18 Weight 218.2 lbs 2014-03-18 Temperature 98.2 degrees Fahrenheit 2014-03-18 Heart Rate 72 bpm 2014-03-18 Respiratory Rate 18 2014-03-18 Blood pressure systolic 130 mmHg 2014-03-18 Blood pressure diastolic 80 mmHg 2014-03-18 MEDICATIONS Unknown Medications RESULTS No Results PROCEDURES Procedure Date Ordered Result Body Site MAMMOGRAM, SCREENING March 18, 2014 URINALYSIS, AUTO, W/O SCOPE March 18, 2014 INSTRUCTIONS MEDICATIONS ADMINISTERED No Known Medications MEDICAL (GENERAL) HISTORY Type Description Date Medical History seizures Medical History hyperlipidemia Medical History constipation Surgical History cholecystectomy Surgical History hysterectomy Surgical History appendectomy Surgical History cyst removal to back 2019 Hospitalization History seizures Hospitalization History surgeries Hospitalization History seizures 2016 Hospitalization History pneumonia 2016
--- OUTSIDE RECORDS SUMMARY | 2020-03-30 16:37 | XMS REPORT ---
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 20 Active 450018991 Problem Cough due to bronchospasm J98.01 Acti ve 4400731 Problem Low back pain M54.5 Active 989061 007 Problem Adolescent idiopathic scoliosis of thoracolumbar region M41.125 Active 259382603 Problem Vertigo R42 Active 214325534 Problem Slow transit constipation K59.01 Acti ve 83013804 Problem Other chronic pain G89.29 Active 8 8066098 Problem Gastroesophageal reflux disease without esophagitis K21.9 Active 032398547 Problem Frequent headaches R51 Active 7 74902087 Problem Seizure disorder G40.909 Active 128 588993 Problem Gastroesophageal reflux disease without esophagitis K21.9 Active 694279008 Problem Pain in right knee M25.561 Active 3 3555645 Problem Edema, unspecified R60.9 Active 7 6195367 Problem Mikayla-rectal abscess K61.1 Active 52423342 Problem Primary insomnia F51.01 Active 397 2004 Problem Mild intermittent asthma with exacerbation J45.21 Active 510550722 Problem Spastic hemiplegia of right dominant side due to noncerebrovascular etiology G81.11 Active 150741454 Problem Partial symptomatic epilepsy with complex partial seizures, intractable, 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.219 Active 1 [id number] ALLERGIES No Information ENCOUNTERS Encounter Location Date Diagnosis [facility] [place] [address] [address] [place] [address] 16 Aug, 2019 [facility] [address] [place] [id number] [place] [address] Jul, [facility] [address] [place] [id number] [address] Jul, [facility] [address] [place] [id number] [address] 04 Jun, 2019 Epigastric abdominal pain R10.13 ; Gastroesophageal reflux disease without esophagitis K21.9 and Encounter for immunization Z23 [facility] [address] [place] [id number] [place] [address] 06 May, 2019 Epigastric abdominal pain R10.13 and group home use of drug Z79.899 [facility] [address] [place] [id number] [address] Apr, Epigastric abdominal pain R10.13 ; Low back pain M54.5 and Pain in right knee M25.561 [facility] [address] [place] [id number] [address] 18 Feb, 2019 [facility] [address] [place], [place] [id number] [address] Feb, Diplopia H53.2 [facility] [address] [place] [id number] [address] 11 Feb, 2019 Well woman exam Z01.419 and Pre-op exam Z01.818 [facility] [address] [place] [id number] [address] Feb, [facility] [address] [place] [id number] [address] January, Breast cancer screening by mammogram Z12.31 [facility] [address] [place] [id number] [address] 17 Dec, 2018 Dental examination Z01.20 and Dental caries K02.9 [facility] [address] [place] [id number] [address] 16 Dec, 2018 Acute pain of left knee M25.562 [facility] [address] [place] [id number] [place] [address] 16 Dec, 2018 [facility] [address] [place], [place] [address] [address] Dec, Double vision H53.2 ; Headache above the eye region R51 and Synovial cyst of left knee M71.22 [facility] [address] [place] [id number] [address] Nov, [facility] [address] [place], [place] [address] [address] Oct, Mild intermittent asthma with exacerbation J45.21 ; Seizure disorder G40.909 ; 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 ; Partial symptomatic epilepsy with complex partial seizures, intractable, 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.219 and Spastic hemiplegia of right dominant side due to noncerebrovascular etiology G81.11 [facility] [address] [place] [id number] [address] Oct, [facility] [address] [place] [id number] [address] Sep, Cough R05 and Mild intermittent asthma with exacerbation J45.21 [facility] [address] [place] [id number] [address] Aug, [facility] [address] [place] [id number] [address] Jul, Tinea corporis B35.4 [facility] [address] [place] [id number] [address] Jul, [facility] [address] [place] [address] [address] Jul, [facility] [address] [facility] [place] [address] Feb, [facility] [address] [place] [address] Feb, 18 BMI 40.0-44.9, adult Z68.41 ; Slow transit constipation K59.01 ; Pain in right shoulder M25.511 ; Pain in left shoulder M25.512 ; Other chronic pain G89.29 and Primary insomnia F51.01 [facility] [place] [address] [place] [address] Feb, 18 [facility] [address] [facility] [place] [address] Feb, [facility] [place] [address] [place] [address] Dec, 18 [facility] [place] [address] [place] [address] Dec, 18 [facility] [place] [address] [place] [address] Dec, 18 [facility] [place] [address] [place] [address] Nov, 18 Vertigo R42 and Seizure disorder G40.909 [facility] [place] [address] [place] [address] Aug, 17 Dental examination Z01.20 [facility] [place] [address] [place] [address] Jul, 17 Dental examination Z01.20 [facility] [place] [address] [place] [address] Jul, 17 [facility] [place] [address] [place] [address] Jul, 17 [facility] [place] [address] [place] [address] Jul, 17 Dental examination Z01.20 [facility] [place] [address] [place] [address] Jun, 17 [facility] [place] [address] [place] [address] Jun, 17 Dental examination Z01.20 [facility] [place] [address] [place] [address] Jun, 17 [facility] [place] [address] [place] [address] 05 Jun, 17 [facility] examination Z01.20 [facility] [address] [place] [address] Jun, 17 Edema, unspecified R60.9 ; Screening for lipoid disorders Z13.220 and Pericardial effusion I31.3 [facility] [address] [place] [address] 27 May, 17 [facility] [address] [address] May, 17 Acute costochondritis M94.0 ; Frequent headaches R51 and Seizure disorder G40.909 [facility] [address] [place] [address] May, 17 Pericardial effusion I31.3 [facility] [address] [place] [address] 19 May, 17 [facility] [address] [address] Feb, [address] [address] January, 17 Seizure disorder G40.[address] [address] January, 17 Dental examination Z01.20 [facility] [address] [address] Dec, 17 Seizure disorder G40.909 ; Low back pain M54.5 ; Cervical radiculopathy M54.12 ; Mild intermittent asthma without complication J45.20 ; Frequent headaches R51 ; Adolescent idiopathic scoliosis of thoracolumbar region M41.125 and Pain in right knee M25.[address] [address] Nov, 17 [facility] [address] [address] Nov, [address] [address] Nov, 17 Epigastric pain R10.13 ; Asthma exacerbation J45.901 and Seizure disorder G40.[address] [place] [address] 28 Oct, 17 Seizure disorder G40.909 ; Chronic idiopathic constipation K59.04 and Cough due to bronchospasm J98.[address] [address] Oct, 17 Duodenitis K29.80 ; Epigastric pain R10.13 ; Seizure disorder G40.909 and Chronic idiopathic constipation K59.[address] [address] Oct, 17 Dental examination Z01.[address] [address] Sep, 17 Duodenitis K29.80 ; Epigastric pain R10.13 ; Seizure disorder G40.909 and Asthma exacerbation J45.[address] [address] Sep, 17 Epigastric pain R10.13 and Seizure disorder G40.[address] [address] Sep, [address] [address] Aug, 16 Seizure disorder G40.[address] [address] Aug, 16 Seizure disorder G40.909 ; Asthma exacerbation J45.901 and Epigastric pain R10.[address] [address] 15 Aug, 16 Bronchitis J40 ; Asthma exacerbation J45.901 and Epigastric pain R10.[address] [address] Aug, [address] [address] Aug, [address] [address] Aug, [address] [place] [address] 04 Jul, 16 Dental examination Z01.20 [facility] [address] [place] [address] Jun, 16 Acute pain of left knee M25.562 and Mikayla-rectal abscess K61.1 [facility] [address] [place] [address] Jun, 16 [facility] [address] [place] [address] Jun, 16 Dental examination Z01.20 [facility] [address] [place] [address] May, 16 [facility] [place] [address] [place] [address] May, 16 Seizure disorder G40.909 and Partial symptomatic epilepsy with complex partial seizures, not intractable, 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.209 [facility] [address] [address] May, 16 Screening for lipoid disorders Z13.220 and Edema, unspecified R60.9 [facility] [address] [address] Apr, 16 [facility] [address] [address] Apr, 15 [facility] [address] [facility] [place] [id number] Apr, Dental examination V72.2 [facility] [address] [facility] [place] [address] Dec, [facility] [address] [address] Dec, [facility] [address] [place] [address] Sep, 15 [facility] [address] [address] Sep, [facility] [address] [address] Jun, [facility] [address] [facility] [place] [address] Jun, 2013 [facility] [place] [address] [place] [address] Jun, 14 [facility] [address] [facility] [place] [address] Jun, [facility] [address] [facility] [place] [address] May, [facility] [place] [address] [place] [address] May, 14 [facility] [place] [address] [place] [address] May, 14 [facility] [address] [facility] [place] [address] May, [facility] [address] [facility] [place] [address] Mar, [facility] [place] [address] [place] [address] Mar, 14 [facility] [address] [facility] [place] [address] Mar, [facility] [place] [address] [place] [address] Mar, 14 [facility] [address] [facility] [place] [address] Mar, [facility] [address] [facility] [place] [address] Feb, [facility] [place] [address] [place] [address] Feb, 14 [facility] [id number] [place] [address] Feb, [facility] [place] [address] [place] [address] Feb, 14 [facility] [address] [facility] [place] [address] Feb, [facility] [place] [address] [place] [address] January, 14 [facility] [address] [facility] [place] [address] January, [facility] [address] [place] [address] May, 13 [facility] [place] [address] May, 13 [place] [address] [facility] [place] [address] Oct, [place] [address] [place] [id number] [place] [address] Aug, [place] [address] [facility] [place] [address] Nov, [place] [id number] [place] [address] Sep, IMMUNIZATIONS No Known Immunizations SOCIAL HISTORY [...]
--- OUTSIDE RECORDS SUMMARY | 2020-03-30 16:37 | XMS REPORT ---
Author Author Riri Rodriguez Doctor Organization [facility] Address Unknown Phone Unavailable Care Team Providers Care Suit Maker Name Role Phone Migration, Doctor Unavailable Unavailable PROBLEMS Type Condition ICD9-CM Code VXS16-SE Code Onset Dates Condition S tatus SNOMED Code Problem Duodenitis K29.80 Active 25099337 Problem Asthma exacerbation J45.901 Active 068090912 Problem Chronic idiopathic constipation K59.04 Active 57435527 Problem Epigastric pain R10.13 Active 7992 2009 Problem Mild intermittent asthma without complication J45. 20 Active 762341641 Problem Cough due to bronchospasm J98.01 Acti ve 2962890 Problem Low back pain M54.5 Active 731490 007 Problem Adolescent idiopathic scoliosis of thoracolumbar region M41.125 Active 334761199 Problem Vertigo R42 Active 471852198 Problem Slow transit constipation K59.01 Acti ve 32724642 Problem Other chronic pain G89.29 Active 8 1749579 Problem Gastroesophageal reflux disease without esophagitis K21.9 Active 385420551 Problem Frequent headaches R51 Active 7 37447514 Problem Seizure disorder G40.909 Active 128 488604 Problem Gastroesophageal reflux disease without esophagitis K21.9 Active 143590413 Problem Pain in right knee M25.561 Active 3 4366577 Problem Edema, unspecified R60.9 Active 7 7277438 Problem Mikayla-rectal abscess K61.1 Active 57043713 Problem Primary insomnia F51.01 Active 397 2004 Problem Mild intermittent asthma with exacerbation J45.21 Active 051168761 Problem Spastic hemiplegia of right dominant side due to noncerebrovascular etiology G81.11 Active 570977234 Problem Partial symptomatic epilepsy with complex partial seizures, intractable, 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.219 Active 1 [id number] ALLERGIES No Information ENCOUNTERS Encounter Location Date Diagnosis [address] [place] [address] Aug, [facility] [address] [facility] [address] Jul, [facility] [address] [id number] [address] Jul, [facility] [address] [id number] [address] Jun, Epigastric abdominal pain R10.13 ; Gastroesophageal reflux disease without esophagitis K21.9 and Encounter for immunization Z23 [facility] [address] [id number] [address] May, Epigastric abdominal pain R10.13 and 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 [facility] [address] [place] [address] Apr, Epigastric abdominal pain R10.13 ; Low back pain M54.5 and Pain in right knee M25.561 [facility] [address] [place] [address] Feb, [facility] [address] [id number] [address] Feb, Diplopia H53.2 [facility] [address] [id number] [address] Feb, Well woman exam Z01.419 and Pre-op exam Z01.818 [facility] [address] [id number] [address] Feb, [facility] [address] [id number] [address] January, Breast cancer screening by mammogram Z12.31 [facility] [address] [address] 17 Dec, 2018 Dental examination Z01.20 and Dental caries K02.9 [facility] [address] [id number] [address] 16 Dec, 2018 Acute pain of left knee M25.562 [facility] [address] [place] [address] 16 Dec, 2018 [facility] [address] [place] [address] 09 Dec, 2018 Double vision H53.2 ; Headache above the eye region R51 and Synovial cyst of left knee M71.22 [facility] [address] [id number] [address] Nov, [facility] [address] [place] [id number] [place] [address] Oct, Mild intermittent asthma with exacerbation J45.21 ; Seizure disorder G40.909 ; 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 ; Partial symptomatic epilepsy with complex partial seizures, intractable, 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.219 and Spastic hemiplegia of right dominant side due to noncerebrovascular etiology G81.11 [facility] [address] [id number] [address] Oct, [facility] [address] [place] [address] Sep, Cough R05 and Mild intermittent asthma with exacerbation J45.21 [facility] [address] [place] [address] Aug, [facility] [address] [id number] [address] Jul, Tinea corporis B35.4 [facility] [address] [id number] [address] Jul, [facility] [address] [id number] [address] Jul, [facility] [address] [facility] [place] [address] Feb, [facility] [place] [address] [place] [address] Feb, BMI 40.0-44.9, adult Z68.41 ; Slow transit constipation K59.01 ; Pain in right shoulder M25.511 ; Pain in left shoulder M25.512 ; Other chronic pain G89.29 and Primary insomnia F51.01 [facility] [place] [address] [place] [address] Feb, 18 [facility] [address] [facility] [place] [address] Feb, [facility] [address] [place] [address] Dec, 18 [facility] [address] [place] [address] Dec, 18 [facility] [address] [place] [address] Dec, 18 [facility] [place] [address] [place] [address] Nov, 18 Vertigo R42 and Seizure disorder G40.909 [facility] [address] [place] [address] Aug, 17 Dental examination Z01.20 [facility] [place] [address] [place] [address] 16 Jul, 17 Dental examination Z01.20 [facility] [address] [place] [address] Jul, 17 [facility] [address] [place] [address] Jul, 17 [facility] [address] [place] [address] Jul, 17 Dental examination Z01.20 [facility] [place] [address] [place] [address] 30 Jun, 17 [facility] [address] [place] [address] Jun, 17 Dental examination Z01.20 [facility] [place] [address] [place] [address] Jun, 17 [facility] [address] [place] [address] Jun, 17 Dental examination Z01.20 [facility] [place] [address] [place] [address] Jun, 17 Edema, unspecified R60.9 ; Screening for lipoid disorders Z13.220 and Pericardial effusion I31.[address] [address] May, [address] [address] May, 17 Acute costochondritis M94.0 ; Frequent headaches R51 and Seizure disorder G40.[address] [address] May, 17 Pericardial effusion I31.[address] [address] May, [address] [address] Feb, [address] [address] January, 17 Seizure disorder G40.[address] [address] January, 17 Dental examination Z01.[address] [address] Dec, 17 Seizure disorder G40.909 ; Low back pain M54.5 ; Cervical radiculopathy M54.12 ; Mild intermittent asthma without complication J45.20 ; Frequent headaches R51 ; Adolescent idiopathic scoliosis of thoracolumbar region M41.125 and Pain in right knee M25.[address] [address] Nov, [address] [address] Nov, [address] [address] Nov, 17 Epigastric pain R10.13 ; Asthma exacerbation J45.901 and Seizure disorder G40.[address] [address] Oct, 17 Seizure disorder G40.909 ; Chronic idiopathic constipation K59.04 and Cough due to bronchospasm J98.01 [facility] [place] [address] [place] [address] 01 Oct, 17 Duodenitis K29.80 ; Epigastric pain R10.13 ; Seizure disorder G40.909 and Chronic idiopathic constipation K59.04 [facility] [address] [place] [address] Oct, 17 Dental examination Z01.[address] [address] Sep, 17 Duodenitis K29.80 ; Epigastric pain R10.13 ; Seizure disorder G40.909 and Asthma exacerbation J45.901 [facility] [address] [place] [address] Sep, 17 Epigastric pain R10.13 and Seizure disorder G40.[address] [address] Sep, [facility] [address] [address] Aug, 16 Seizure disorder G40.909 [facility] [address] [place] [address] 26 Aug, 16 Seizure disorder G40.909 ; Asthma exacerbation J45.901 and Epigastric pain R10.[address] [address] Aug, 16 Bronchitis J40 ; Asthma exacerbation J45.901 and Epigastric pain R10.13 [facility] [place] [address] [place] [address] Aug, 16 [facility] [address] [address] Aug, [address] [address] 02 Aug, [address] [address] Jul, 16 Dental examination Z01.20 [address] [place] [address] Jun, 16 Acute pain of left knee M25.562 and Mikayla-rectal abscess K61.1 [facility] [place] [address] [place] [address] Jun, 16 [facility] [place] [address] [place] [address] Jun, 16 Dental examination Z01.20 [facility] [place] [address] [place] [address] May, 16 [facility] [place] [address] [place] [address] May, 16 Seizure disorder G40.909 and Partial symptomatic epilepsy with complex partial seizures, not intractable, 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.209 [facility] [place] [address] [place] [address] May, 16 Screening for lipoid disorders Z13.220 and Edema, unspecified R60.9 [facility] [address] [place] [address] Apr, 16 [facility] [place] [address] [place] [address] Apr, 15 [facility] [address] [facility] [place] [id number] Apr, Dental examination V72.2 [facility] [id number] [place] [address] Dec, [facility] [id number] [place] [address] Dec, [facility] [address] [place] [address] Sep, 15 [facility] [address] [address] Sep, [facility] [address] [address] Jun, [facility] [address] [address] Jun, [facility] [address] [facility] [place] [address] Jun, 14 [facility] [address] [id number] [place] [address] Jun, [facility] [address] [id number] [place] [address] May, [facility] [address] [facility] [place] [address] May, 14 [facility] [address] [facility] [place] [address] May, 14 [facility] [address] [id number] [place] [address] May[facility] [address] [id number] [place] [address] Mar, [facility] [place] [address] [place] [address] Mar, 14 [facility] [address] [id number] [place] [address] Mar, [facility] [address] [place] [address] Mar, 14 [facility] [address] [id number] [place] [address] Mar, [facility] [address] [id number] [place] [address] Feb, [facility] [address] [place] [address] Feb, 14 [facility] [address] [id number] [place] [address] Feb, [facility] [address] [place] [address] Feb, 14 [facility] [address] [id number] [place] [address] Feb, [facility] [address] [place] [address] January, 14 [facility] [address] [id number] [place] [address] January, [facility] [address] [place] [address] May, [facility] [address] [place] [address] May, 13 [facility] [address] [id number] [place] [address] Oct, [facility] [address] [id number] [place] [address] Aug, [facility] [address] [id number] [place] [address] Nov, [facility] [address] [id number] [place] [address] Sep, IMMUNIZATIONS No Known Immunizations SOCIAL HISTORY Never Assessed REASON FOR VISIT PLAN OF CARE VITAL SIGNS Height 61 in 2014-03-14 Weight 218 lbs 2014-03-14 Temperature 97.9 degrees Fahrenheit 2014-03-14 Heart Rate 76 bpm 2014-03-14 Respiratory Rate 18 2014-03-14 Blood pressure systolic 124 mmHg 2014-03-14 Blood pressure diastolic 80 mmHg 2014-03-14 MEDICATIONS Unknown Medications RESULTS No Results PROCEDURES Procedure Date Ordered Result Body Site TEST FOR BLOOD, FECES March 14, 2014 X-RAY EXAM OF WRIST March 14, 2014 INSTRUCTIONS MEDICATIONS ADMINISTERED No Known Medications MEDICAL (GENERAL) HISTORY Type Description Date Medical History seizures Medical History hyperlipidemia Medical History constipation Surgical History cholecystectomy Surgical History hysterectomy Surgical History appendectomy Surgical History cyst removal to back 2019 Hospitalization History seizures Hospitalization History surgeries Hospitalization History seizures 2015 Hospitalization History pneumonia 2015
--- OUTSIDE RECORDS SUMMARY | 2020-03-30 16:37 | XMS REPORT ---
Author Author Riri FLOYD Organization [facility] [address] Address [address] [place] [address] Care Team Providers Care Appointment Scheduler Name Role Phone OZ FLOYD Unavailable PROBLEMS Type Condition ICD9-CM Code TVZ99-KB Code Onset Dates Condition S tatus SNOMED Code Problem Edema, unspecified R60.9 Active 7 9602768 Problem Mikayla-rectal abscess K61.1 Active 64640165 Problem Seizure disorder G40.909 Active 128 381215 Problem Other chronic pain G89.29 Active 8 1880827 Problem Slow transit constipation K59.01 Acti ve 84598892 Problem Cough due to bronchospasm J98.01 Acti ve 5815669 Problem Chronic idiopathic constipation K59.04 Active 97761283 Problem Adolescent idiopathic scoliosis of thoracolumbar region M41.125 Active 800002078 Problem Frequent headaches R51 Active 7 75480170 Problem Low back pain M54.5 Active 961747 007 Problem Mild intermittent asthma without complication J45. 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.219 Active 1 90203855 Problem Obesity (BMI 30-39.9) E66.9 Active 240663534 Problem Duodenitis K29.80 Active 76554993 Problem Severe obesity (BMI 35.0-39.9) with comorbidity E6 6.01 Active 30638500354408 Problem Asthma exacerbation J45.901 Active 167687362 Problem Epigastric pain R10.13 Active 7992 2009 Problem Spastic hemiplegia of right dominant side due to noncerebrovascular etiology G81.11 Active 475214925 Problem Gastroesophageal reflux disease without esophagitis K21.9 Active 724429222 Problem Gastroesophageal reflux disease without esophagitis K21.9 Active 354659753 Problem Moderate episode of recurrent major depressive disorder F33.1 Active 280793335 ALLERGIES No Information ENCOUNTERS Encounter Location Date Diagnosis [facility] [place] [address] [id number] [place] [address] Mar, [address] [id number] [place] [address] Mar, Pes anserinus bursitis of le ft knee M70.52 [facility] [address] [place] [id number] [address] Mar, [address] [id number] [address] Feb, [address] [id number], [place] [address] Feb, [address] [id number] [address] Feb, Left leg pain M79.605 and Pe s anserinus bursitis of left knee M70.52 [facility] [address] [place] [address], [place] [address] Dec, [facility] [address], [place] [address] Dec, Acute nonintractable headache, unspecifi ed headache type R51 [facility] [address] [place] [address]65[address], [place] [address] Nov, Seizure disorder G40.909 ; Partial sympt omatic epilepsy with complex partial seizures, intractable, 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.219 and Moderate episode of recurrent major depressive disorder F33.[address] [id number] [address] Aug, [facility] [address] [place] [address], [place] [address] Jul, [facility] [address] [place] [address], [place] [address] Jul, [facility] [address] [place] [address] [place], [place] [id number] [address] 04 Jun, 2019 Epigastric abdominal pain R10.13 ; Gastr oesophageal reflux disease without esophagitis K21.9 and Encounter for immunization Z23 [facility] [address] [place] [id number] [address] 06 May, 2019 Epigastric abdominal pain R10.13 and Franklin g term use of drug Z79.899 [facility] [address] [place] [address] [place] [id number] [address] Apr, Epigastric abdominal pain R10.13 ; Low b ack pain M54.5 and Pain in right knee M25.561 [facility] [address] [address] [place] [id number] [address] 18 Feb, 2019 [facility] [address] [place] [address] [place] [address] [address] Feb, Diplopia H53.2 [facility] [address] [place] [address] [place] [address] [address] 11 Feb, 2019 Well woman exam Z01.419 and Pre-op exam Z01.818 [facility] [address] [place] [id number] [address] 06 Feb, 2019 [facility] [address] [address] [place] [id number] [address] January, Breast cancer screening by mammogram Z12 .31 [facility] [address] [place] [address] [place] [id number] [address] 17 Dec, 2018 Dental examination Z01.20 and Dental car ies K02.9 [facility] [address] [place] [address] [address] 16 Dec, 2018 Acute pain of left knee M25.562 [facility] [address] [place] [address] [place] [id number] [address] Dec, [facility] [address] [place] [address]65100[place], [place] [address] Dec, Double vision H53.2 ; Headache above the eye region R51 and Synovial cyst of left knee M71.22 [facility] [address] [place] [address] [place] [id number] [address] Nov, [facility] [address] [place] [address] [place] [address], [place] [address] Oct, Mild intermittent asthma with exacerbati on J45.21 ; Seizure disorder G40.909 ; 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 ; Partial symptomatic epilepsy with complex partial seizures, intractable, 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.219 and Spastic hemiplegia of right dominant side due to noncerebrovascular etiology G81.11 [facility] [address] [place] [address] [place] [address], [place] [address] Oct, [facility] [address] [place] [address] [address] Sep, Cough R05 and Mild intermittent asthma w ith exacerbation J45.21 [facility] [address] [facility] [address] [place] [address], [place] [address] Aug, [facility] [address] [place] [address], [place] [address] Jul, Tinea corporis B35.4 [facility] [address] [place] [address] [address] Jul, [facility] [address] [place] [address], [place] [address] Jul, [facility] [place] [id number] [place] [address] Feb, [facility] [place] [address] [place] [address] Feb, BMI 40.0-44.9, adult Z68.41 ; Slow transit constipation K59.01 ; Pain in right shoulder M25.511 ; Pain in left shoulder M25.512 ; Other chronic pain G89.29 and Primary insomnia F51.01 [facility] [place] [address] [place] [address] Feb, 18 [facility] [address] [facility] [id number] [address] [address] Feb, [facility] [place] [address] [place] [address] Dec, 18 [facility] [place] [address] [place] [address] Dec, 18 [facility] [place] [address] [place] [address] Dec, 18 [facility] [place] [address] [place] [address] Nov, 18 Vertigo R42 and Seizure disorder G40.909 [facility] [address] [place] [address] Aug, 17 Dental examination Z01.20 [facility] [place] [address] [place] [address] Jul, 17 Dental examination Z01.20 [facility] [place] [address] [place] [address] Jul, 17 [facility] [place] [address] [place] [address] Jul, 17 [facility] [place] [address] [place] [address] Jul, 17 Dental examination Z01.20 [facility] [place] [address] [place] [address] Jun, 17 [facility] [place] [address] [place] [address] Jun, 17 Dental examination Z01.20 [facility] [place] [address] [place] [address] Jun, 17 [facility] [place] [address] [place] [address] Jun, 17 Dental examination Z01.20 [facility] [place] [address] [place] [address] Jun, 17 Edema, unspecified R60.9 ; Screening for lipoid disorders Z13.220 and Pericardial effusion I31.[address] [address] May, [address] [address] May, 17 Acute costochondritis M94.0 ; Frequent headaches R51 and Seizure disorder G40.[address] [address] May, 17 Pericardial effusion I31.[address] [address] May, [address] [address] Feb, [address] [address] January, 17 Seizure disorder G40.[address] [address] January, 17 Dental examination Z01.[address] [address] Dec, 17 Seizure disorder G40.909 ; Low back pain M54.5 ; Cervical radiculopathy M54.12 ; Mild intermittent asthma without complication J45.20 ; Frequent headaches R51 ; Adolescent idiopathic scoliosis of thoracolumbar region M41.125 and Pain in right knee M25.[address] [address] Nov, [address] [address] Nov, [address] [address] Nov, 17 Epigastric pain R10.13 ; Asthma exacerbation J45.901 and Seizure disorder G40.[address] [address] Oct, 17 Seizure disorder G40.909 ; Chronic idiopathic constipation K59.04 and Cough due to bronchospasm J98.01 [facility] [place] [address] [place] [address] Oct, 17 Duodenitis K29.80 ; Epigastric pain R10.13 ; Seizure disorder G40.909 and Chronic idiopathic constipation K59.04 [facility] [place] [address] [place] [address] Oct, 17 Dental examination Z01.[address] [address] Sep, 17 Duodenitis K29.80 ; Epigastric pain R10.13 ; Seizure disorder G40.909 and Asthma exacerbation J45.901 [facility] [place] [address] [place] [address] Sep, 17 Epigastric pain R10.13 and Seizure disorder G40.909 [facility] [address] [address] Sep, [address] [address] Aug, 16 Seizure disorder G40.[address] [address] Aug, 16 Seizure disorder G40.909 ; Asthma exacerbation J45.901 and Epigastric pain R10.[address] [address] Aug, 16 Bronchitis J40 ; Asthma exacerbation J45.901 and Epigastric pain R10.13 [facility] [place] [address] [place] [address] Aug, 16 [facility] [address] [address] Aug, 16 [facility] [place] [address] [place] [address] 02 Aug, 16 [facility] [address] [address] Jul, 16 Dental examination Z01.20 [facility] [address] [place] [address] 25 Jun, 16 Acute pain of left knee M25.562 and Mikayla-rectal abscess K61.1 [facility] [address] [place] [address] 04 Jun, 16 [facility] [place] [address] [place] [address] 04 Jun, 16 Dental examination Z01.20 [facility] [address] [place] [address] May, 16 [facility] [address] [place] [address] May, 16 Seizure disorder G40.909 and Partial symptomatic epilepsy with complex partial seizures, not intractable, 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.209 [facility] [place] [address] [place] [address] May, 16 Screening for lipoid disorders Z13.220 and Edema, unspecified R60.9 [facility] [place] [address] [place] [address] Apr, 16 [facility] [address] [address] Apr, 15 [facility] [address] [facility] [id number] [address] [place] [id number] Apr, Dental examination V72.2 [facility] [place] [address] [facility] [id number] [address] [place] [address] Dec, [facility] [place] [address] [facility] [id number] [address] [place] [address] Dec, [facility] [address] [place] [address] Sep, 15 [facility] [place] [address] [facility] [id number] [address] [place] [address] Sep, [facility] [place] [address] [facility] [id number] [address] [place] [address] Jun, [facility] [place] [address] [id number] [address] [place] [address] Jun, [facility] [place] [address] [facility] [place] [address] Jun, 14 [facility] [address] [id number] [address] [place] [address] Jun, [facility] [address] [facility] [id number] [address] [place] [address], [place] [address] May, [facility] [place] [address] [place] [facility] [place] [address] May, 14 [facility] [place] [address] [place] [facility] [place] [address] May, 14 [facility] [address] [facility] [id number] [address] [place] [address] May, [facility] [address] [facility] [id number] [address] [place] [address] Mar, [facility] [place] [address] [place] [address] Mar, 14 [facility] [address] [facility] [id number] [address] [place] [address] Mar, [facility] [place] [address] [place] [address] Mar, 14 [facility] [address] [facility] [id number] [address] [place] [address] Mar, [facility] [address] [facility] [id number] [address] [place] [address] Feb, [facility] [place] [address] [facility] [place] [address] Feb, 14 [facility] [address] [facility] [id number] [address] [place] [address] Feb, [facility] [place] [address] [place] [address] Feb, 14 [facility] [address] [facility] [id number] [address] [place] [address] Feb, [facility] [place] [address] [place] [address] January, 14 [facility] [place] [address] [id number] [place] [address] January, [facility] [place] [address] [place] [address] May, [facility] [place] [address] May, 13 [facility] [place] [address] [facility] [id number] [address] [place] [address] Oct, [facility] [place] [address] [facility] [id number] [address] [place] [address] Aug, [facility] [place] [address] [id number] [place] [address] Nov, [facility] [place] [id number] [place] [address] Sep, IMMUNIZATIONS No Known Immunizations SOCIAL HISTORY Never Assessed REASON FOR VISIT PLAN OF CARE VITAL SIGNS Height 61 in 2013-06-02 Weight 200 lbs 2013-06-02 Temperature 98 degrees Fahrenheit 2013-06-02 Heart Rate 76 bpm 2013-06-02 Blood pressure systolic 120 mmHg 2013-06-02 Blood pressure diastolic 62 mmHg 2013-06-02 MEDICATIONS Unknown Medications RESULTS No Results PROCEDURES No Known procedures INSTRUCTIONS MEDICATIONS ADMINISTERED No Known Medications MEDICAL (GENERAL) HISTORY Type Description Date Medical History seizures Medical History hyperlipidemia Medical History constipation Surgical History cholecystectomy Surgical History hysterectomy Surgical History appendectomy Surgical History cyst removal to back 2019 Hospitalization History seizures Hospitalization History surgeries Hospitalization History seizures 2015 Hospitalization History pneumonia 2016
--- OUTSIDE RECORDS SUMMARY | 2020-03-30 16:37 | XMS REPORT ---
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 Problem list No authorized problems tracked for continuity of care are available for this vis it. Encounters No authorized problems tracked for encounter diagnoses are available for this vi sit. Medications No medications recorded for this patient visit Allergies, adverse reactions, alerts No allergy information is available for this patient. Immunizations No immunizations recorded for this patient visit Relevant diagnostic tests and/or laboratory data RESULTS Radiology Results [id number] MRI C-SPINE W/WO CONT PACs Image DATE OF EXAM: Dec 05 2015 MRI 0051-MRI C SPINE W/WO CO NTRAST : RADIOLOGY REPORT DATE OF SERVICE: 12/05/15 HISTORY: Patient has progressive right a rm and hand weakness, degenerative disc disease, questioned sp inal stenosis. Patient fell on October-2014. MRI OF THE CERVICAL SPINE WITH AND WITHO UT CONTRAST 1150 HOURS Multiplanar multisequence study was perf ormed. The patient received 15 mL of Magnevist contrast intravenously f or contrast portion of the study. Vertebrae align normally and have normal signal intensity. There is moderate degenerative spurring anteriorl y at C6-C7. There is mild interspace narrowing at C5-C6 interspace . Facet joints align normally and appear normal. At C5-C6 there is mil d disc bulge of 1 to 2 mm. No spinal canal stenosis is seen and there is no foraminal narrowing at all on either right or left. There is a haris te bulge of the C6-C7 disc not causing any canal stenosis or foraminal narrowing. The cervical cord has normal signal. Remaining discs all appea r normal. There is no central canal stenosis or foraminal narrowing at any other level. Cervicomedullary junction is at normal l evel. No abnormal enhancement is seen following contrast administration. IMPRESSION: Mild disc bulge at C5-C6 and C6-C7 not causing canal stenosis or foraminal narrowing. Degener ative spurring at C6-C7. Otherwise negative study. DO NEVA Ryan/juan 12/05/2015 11:56:11/07 12:00:41 cc:Dr. Kentrell Oh This document has been electronically Signed by: On: DATE OF EXAM: Dec 05 2015 MRI 0051-MRI C SPINE W/WO CO NTRAST : RADIOLOGY REPORT DATE OF SERVICE: 12/05/15 HISTORY: Patient has progressive right a rm and hand weakness, degenerative disc disease, questioned sp inal stenosis. Patient fell on October-2014. MRI OF THE CERVICAL SPINE WITH AND WITHO UT CONTRAST 1150 HOURS Multiplanar multisequence study was perf ormed. The patient received 15 mL of Magnevist contrast intravenously f or contrast portion of the study. Vertebrae align normally and have normal signal intensity. There is moderate degenerative spurring anteriorl y at C6-C7. There is mild interspace narrowing at C5-C6 interspace . Facet joints align normally and appear normal. At C5-C6 there is mil d disc bulge of 1 to 2 mm. No spinal canal stenosis is seen and there is no foraminal narrowing at all on either right or left. There is a haris te bulge of the C6-C7 disc not causing any canal stenosis or foraminal narrowing. The cervical cord has normal signal. Remaining discs all appea r normal. There is no central canal stenosis or foraminal narrowing at any other level. Cervicomedullary junction is at normal l evel. No abnormal enhancement is seen following contrast administration. IMPRESSION: Mild disc bulge at C5-C6 and C6-C7 not causing canal stenosis or foraminal narrowing. Degener ative spurring at C6-C7. Otherwise negative study. DO NEVA Ryan/juan 12/05/2015 11:56:11/07 12:00:41 cc:Dr. Kentrell Oh This document has been electronically Signed by: MANDI LEAVITT DO On: Dec 05 20155:07P Result Amended on 2015-12-05 at 17:07:39 . Previous status was [facility]. History of procedures Procedure Code Code Type Description Date Performed Performing Physician 12901 CPT-4 MRI NECK SPINE W/O & W/DYE 12-05-2015 KENTRELL CARVAJALH 89881 CPT-4 EEG AWAKE AND DROWSY 12-05-2015 [place] A[address]79 CPT-4 DANI-BASE MR CONTRAST NOS,1ML 12-05-2015 KENTRELL CARVAJALH Functional status No functional or cognitive status observations are available for this visit. Vital signs No authorized vital signs are available for this visit. Social history No Social History or smoking status observations were recorded for this visit. ( Unknown if ever smoked.) Treatment Plan No treatment plan text is available for this visit. Hospital discharge instructions No discharge instruction text is available for this visit.
--- OUTSIDE RECORDS SUMMARY | 2020-03-30 16:37 | XMS REPORT ---
Author Author Riri Rodriguez Doctor Organization [facility] Address Unknown Phone Unavailable Care Team Providers Care Lab Technician Name Role Phone Migration, Doctor Unavailable Unavailable PROBLEMS Type Condition ICD9-CM Code LWE35-MY Code Onset Dates Condition S tatus SNOMED Code Problem Epigastric pain R10.13 Active 7992 2009 Problem Duodenitis K29.80 Active 40331812 Problem Cough due to bronchospasm J98.01 Acti ve 4068511 Problem Chronic idiopathic constipation K59.04 Active 04699193 Problem Mild intermittent asthma without complication J45. 20 Active 589402927 Problem Adolescent idiopathic scoliosis of thoracolumbar region M41.125 Active 520466786 Problem Pain in right knee M25.561 Active 3 0584755 Problem Edema, unspecified R60.9 Active 7 6716650 Problem Low back pain M54.5 Active 866744 007 Problem Slow transit constipation K59.01 Acti ve 72252322 Problem Other chronic pain G89.29 Active 8 2279164 Problem Primary insomnia F51.01 Active 397 2004 Problem Gastroesophageal reflux disease without esophagitis K21.9 Active 305355802 Problem Vertigo R42 Active 661542275 Problem Mikayla-rectal abscess K61.1 Active 10350223 Problem Moderate episode of recurrent major depressive disorder F33.1 Active 058597115 Problem Frequent headaches R51 Active 7 77439360 Problem Seizure disorder G40.909 Active 128 549822 Problem Asthma exacerbation J45.901 Active 251549918 Problem Mild intermittent asthma with exacerbation J45.21 Active 540973458 Problem Spastic hemiplegia of right dominant side due to noncerebrovascular etiology G81.11 Active 705501173 Problem Partial symptomatic epilepsy with complex partial seizures, intractable, 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.219 Active 1 55769169 Problem Gastroesophageal reflux disease without esophagitis K21.9 Active 490747483 ALLERGIES No Information ENCOUNTERS Encounter Location Date Diagnosis [facility] [address] [facility] [id number] [place] [address] 16 Nov, 2019 Seizure disorder G40.909 ; Partial sympt omatic epilepsy with complex partial seizures, intractable, 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.219 and Moderate episode of recurrent major depressive disorder F33.1 [facility] [place] [address] [id number] [place] [address] 16 Aug, 2019 [facility] [address] [place] [address] [facility] [id number] [place] [address] Jul, [facility] [address] [place] [address] [facility] [id number] [place] [address] Jul, [facility] [address] [place] [address] [facility] [id number] [place] [address] 04 Jun, 2019 Epigastric abdominal pain R10.13 ; Gastr oesophageal reflux disease without esophagitis K21.9 and Encounter for immunization Z23 [facility] [address] [place] [address] [facility] [id number] [place] [address] May, Epigastric abdominal pain R10.13 and [place] g term use of drug Z79.899 [facility] [address] [place] [address] [facility] [id number] [place] [address] Apr, Epigastric abdominal pain R10.13 ; Low b ack pain M54.5 and Pain in right knee M25.561 [facility] [address] [place] [address] [facility] [id number] [place] [address] 18 Feb, 2019 [facility] [address] [place] [address] [place] [id number] [place] [address] Feb, Diplopia H53.2 [facility] [address] [place] [address] [facility] [id number] [place] [address] 11 Feb, 2019 Well woman exam Z01.419 and Pre-op exam Z01.818 [facility] [address] [place] [address] [place] [id number] [place] [address] 06 Feb, 2019 [facility] [address] [place] [address] [facility] [id number] [place] [address] January, Breast cancer screening by mammogram Z12 .31 [facility] [address] [place] [address] [address] 17 Dec, 2018 Dental examination Z01.20 and Dental car ies K02.9 [facility] [address] [place] [id number] [address] 16 Dec, 2018 Acute pain of left knee M25.562 [facility] [address] [place] [address]00565100[place] [address] Dec, [facility] [address] [place] [address] [place], [place] [id number] [address] 09 Dec, 2018 Double vision H53.2 ; Headache above the eye region R51 and Synovial cyst of left knee M71.22 [facility] [address] [place] [address] [place], [place] [address] [address] Nov, [facility] [address] [place] [address] [place] [address] [address] Oct, Mild intermittent asthma with exacerbati on J45.21 ; Seizure disorder G40.909 ; 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 ; Partial symptomatic epilepsy with complex partial seizures, intractable, 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.219 and Spastic hemiplegia of right dominant side due to noncerebrovascular etiology G81.11 [facility] [address] [place] [address] [place] [id number] [address] Oct, [facility] [address] [place] [address] [place] [address] [address] Sep, Cough R05 and Mild intermittent asthma w ith exacerbation J45.21 [facility] [address] [place] [address] [place] [address] [address] Aug, [facility] [address] [place] [address] [place] [address] [address] Jul, Tinea corporis B35.4 [facility] [address] [place] [address] [place] [address] [address] Jul, [facility] [address] [place] [id number] [place] [address] Jul, [facility] [address] [facility] [id number] [place] [address] Feb, [facility] [address] [address] Feb, 18 BMI 40.0-44.9, adult Z68.41 ; Slow transit constipation K59.01 ; Pain in right shoulder M25.511 ; Pain in left shoulder M25.512 ; Other chronic pain G89.29 and Primary insomnia F51.01 [facility] [address] [place] [address] Feb, 18 [facility] [address] [facility] [id number] [place] [address] Feb, Shanika [address] [address] Dec, 18 [facility] [place] [address] [place] [address] Dec, 18 [facility] [address] [place] [address] Dec, 18 [facility] [address] [place] [address] Nov, 18 Vertigo R42 and Seizure disorder G40.[address] [address] [address] Aug, 17 Dental examination Z01.20 [facility] [address] [place] [address] Jul, 17 Dental examination Z01.20 [facility] [place] [address] [place] [address] Jul, 17 [facility] [place] [address] [place] [address] Jul, 17 [facility] [place] [address] [place] [address] Jul, 17 Dental examination Z01.20 [facility] [address] [place] [address] 30 Oct, 20 17 [facility] [place] [address] [place] [address] Jun, 20 17 Dental examination Z01.20 [facility] [address] [place] [address] Jun, 20 17 [facility] [place] [address] [place] [address] 05 Jun, 20 17 Dental examination Z01.[address] [address] [address] 02 Jun, 20 17 Edema, unspecified R60.9 ; Screening for lipoid disorders Z13.220 and Pericardial effusion I31.[address] [address] [address] Sep, 20 [address] [address] May, 17 Acute costochondritis M94.0 ; Frequent headaches R51 and Seizure disorder G40.909 [facility] [address] [address] Sep, 20 17 Pericardial effusion I31.[address] [address] [address] 19 May, 20 [address] [address] Feb, [address] [address] [address] 27 January, 17 Seizure disorder G40.[address] [address] January, 17 [facility]01.20 [facility] [address] [address] Dec, 17 Seizure disorder G40.909 ; Low back pain M54.5 ; Cervical radiculopathy M54.12 ; Mild intermittent asthma without complication J45.20 ; Frequent headaches R51 ; Adolescent idiopathic scoliosis of thoracolumbar region M41.125 and Pain in right knee M25.561 [facility] [address] [address] Nov, 17 [facility] [address] [place] [address] Nov, [address] [address] Nov, 17 Epigastric pain R10.13 ; Asthma exacerbation J45.901 and Seizure disorder G40.909 [facility] [address] [place] [address] Oct, 17 Seizure disorder G40.909 ; Chronic idiopathic constipation K59.04 and Cough due to bronchospasm J98.[address] [address] Oct, 17 Duodenitis K29.80 ; Epigastric pain R10.13 ; Seizure disorder G40.909 and Chronic idiopathic constipation K59.[address] [address] Oct, 17 Dental examination Z01.[address] [address] Sep, 17 Duodenitis K29.80 ; Epigastric pain R10.13 ; Seizure disorder G40.909 and Asthma exacerbation J45.[address] [address] Sep, 17 Epigastric pain R10.13 and Seizure disorder G40.[address] [address] Sep, [address] [address] Aug, 16 Seizure disorder G40.[address] [address] Aug, 16 Seizure disorder G40.909 ; Asthma exacerbation J45.901 and Epigastric pain R10.13 [facility] [address] [place] [address] Aug, 16 Bronchitis J40 ; Asthma exacerbation J45.901 and Epigastric pain R10.13 [facility] [place] [address] [place] [address] 02 Aug, 16 [facility] [place] [address] [place] [address] 02 Aug, 16 [facility] [place] [address] [place] [address] 02 Aug, 16 [facility] [place] [address] [place] [address] 04 Jul, 16 Dental examination Z01.20 [facility] [place] [address] [place] [address] 25 Jun, 16 Acute pain of left knee M25.562 and Mikayla-rectal abscess K61.1 [facility] [address] [place] [address] 04 Jun, 16 [facility] [place] [address] [place] [address] 04 Jun, 16 Dental examination Z01.20 [facility] [place] [address] [place] [address] 07 May, 16 [facility] [place] [address] [place] [address] 07 May, 16 Seizure disorder G40.909 and Partial symptomatic epilepsy with complex partial seizures, not intractable, 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.209 [facility] [address] [address] 02 May, 16 Screening for lipoid disorders Z13.220 and Edema, unspecified R60.9 [facility] [address] [place] [address] Apr, 16 [facility] [place] [address] [place] [address] Apr, 15 [facility] [address] [facility] [id number] [address] [place] [id number] Apr, Dental examination V72.2 [facility] [address] [facility] [id number] [address] [place] [address] Dec, [facility] [address] [facility] [id number] [address] [place] [address] Dec, [facility] [place] [address] [place] [address] Sep, 15 [facility] [address] [id number] [address] [place] [address] Sep, [facility] [address] [facility] [id number] [address] [place] [address] Jun, [facility] [address] [facility] [id number] [address] [place] [address] Jun, [facility] [place] [address] [place] [address] Jun, 14 [facility] [address] [facility] [id number] [address] [place] [address] Jun, [facility] [address] [facility] [id number] [address] [place] [address] May, [facility] [place] [address] [place] [address] May, 14 [facility] [place] [address] [place] [address] May, 14 [facility] [address] [facility] [id number] [address] [place] [address] May, [facility] [address] [facility] [id number] [address] [place] [address] Mar, [facility] [place] [address] [place] [address] Mar, 14 [facility] [address] [facility] [id number] [address] [place] [address] Mar, [facility] [place] [address] [place] [address] Mar, 14 [facility] [address] [facility] [id number] [address] [place] [address] Mar, [facility] [address] [facility] [id number] [address] [place] [address] Feb, [facility] [place] [address] [place] [address] Feb, 14 [facility] [address] [place] [address] Feb, [facility] [place] [address] [place] [address] Feb, 14 [facility] [address] [place] [address] Feb, [facility] [place] [address] [place] [address] January, 14 [facility] [address] [place] [id number] [address] [place] [address] January, [facility] [place] [address] [place] [address] May, 13 [facility] [address] [place] [address] May, 13 [facility] [address] [place] [address] Oct, [facility] [address] [place] [id number] [address] [place] [address] Aug, [facility] [address] [place] [address] Nov, [facility] [address] [place] [address] Sep, IMMUNIZATIONS No Known Immunizations SOCIAL HISTORY [...]
--- OUTSIDE RECORDS SUMMARY | 2020-03-30 16:37 | XMS REPORT ---
Author Author Riri Rodriguez Doctor Organization [facility] Address Unknown Phone Unavailable Care Team Providers Care Chief Executive Name Role Phone Migration, Doctor Unavailable Unavailable PROBLEMS Type Condition ICD9-CM Code HXI33-ND Code Onset Dates Condition S tatus SNOMED Code Problem Duodenitis K29.80 Active 38268580 Problem Asthma exacerbation J45.901 Active 249043128 Problem Chronic idiopathic constipation K59.04 Active 35663180 Problem Epigastric pain R10.13 Active 7992 2009 Problem Mild intermittent asthma without complication J45. 20 Active 552605265 Problem Cough due to bronchospasm J98.01 Acti ve 3277760 Problem Low back pain M54.5 Active 480841 007 Problem Adolescent idiopathic scoliosis of thoracolumbar region M41.125 Active 800806672 Problem Vertigo R42 Active 111425832 Problem Slow transit constipation K59.01 Acti ve 53173586 Problem Other chronic pain G89.29 Active 8 8864297 Problem Gastroesophageal reflux disease without esophagitis K21.9 Active 841291021 Problem Frequent headaches R51 Active 7 59626215 Problem Seizure disorder G40.909 Active 128 982161 Problem Gastroesophageal reflux disease without esophagitis K21.9 Active 257705132 Problem Pain in right knee M25.561 Active 3 3551551 Problem Edema, unspecified R60.9 Active 7 0047044 Problem Mikayla-rectal abscess K61.1 Active 66686735 Problem Primary insomnia F51.01 Active 397 2004 Problem Mild intermittent asthma with exacerbation J45.21 Active 765906056 Problem Spastic hemiplegia of right dominant side due to noncerebrovascular etiology G81.11 Active 893470214 Problem Partial symptomatic epilepsy with complex partial seizures, intractable, 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.219 Active 1 [id number] ALLERGIES No Information ENCOUNTERS Encounter Location Date Diagnosis [address] [place] [address] Aug, [facility] [address] [place] [address] [facility] [address] Jul, [facility] [address] [place] [address] [address] Jul, [facility] [address] [place], [place] [address] [address] Jun, Epigastric abdominal pain R10.13 ; Gastroesophageal reflux disease without esophagitis K21.9 and Encounter for immunization Z23 [facility] [address] [place] [id number] [address] May, Epigastric abdominal pain R10.13 and 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 [facility] [address] [place] [address] [address] Apr, Epigastric abdominal pain R10.13 ; Low back pain M54.5 and Pain in right knee M25.561 [facility] [address] [place] [id number] [address] Feb, [facility] [address] [place] [address] [address] Feb, Diplopia H53.2 [facility] [address] [place] [address] [address] Feb, Well woman exam Z01.419 and Pre-op exam Z01.818 [facility] [address] [place] [id number] [address] Feb, [facility] [address] [place] [address] [address] January, Breast cancer screening by mammogram Z12.31 [facility] [address], [place] [address] 17 Dec, 2018 Dental examination Z01.20 and Dental caries K02.9 [facility] [address] [place] [id number] [address] 16 Dec, 2018 Acute pain of left knee M25.562 [facility] [address] [place] [id number] [address] 16 Dec, 2018 [facility] [address] [place] [id number] [address] 09 Dec, 2018 Double vision H53.2 ; Headache above the eye region R51 and Synovial cyst of left knee M71.22 [facility] [address] [place] [address] [address] Nov, [facility] [address] [place] [id number] [place] [address] Oct, Mild intermittent asthma with exacerbation J45.21 ; Seizure disorder G40.909 ; 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 ; Partial symptomatic epilepsy with complex partial seizures, intractable, 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.219 and Spastic hemiplegia of right dominant side due to noncerebrovascular etiology G81.11 [facility] [address] [place] [address] [address] Oct, [facility] [address] [place] [address] [address] Sep, Cough R05 and Mild intermittent asthma with exacerbation J45.21 [facility] [address] [place] [id number] [address] Aug, [facility] [address] [place] [address] [address] Jul, Tinea corporis B35.4 [facility] [address] [place] [address] [address] Jul, [facility] [address] [place] [address] [address] Jul, [facility] [address] [facility] [place] [address] Feb, [facility] [place] [address] [place] [address] Feb, BMI 40.0-44.9, adult Z68.41 ; Slow transit constipation K59.01 ; Pain in right shoulder M25.511 ; Pain in left shoulder M25.512 ; Other chronic pain G89.29 and Primary insomnia F51.01 [facility] [place] [address] [place] [address] Feb, 18 [facility] [address] [facility] [place] [address] Feb, [facility] [place] [address] [place] [address] Dec, 18 [facility] [place] [address] [place] [address] Dec, 18 [facility] [place] [address] [place] [address] Dec, 18 [facility] [place] [address] [place] [address] Nov, 18 Vertigo R42 and Seizure disorder G40.909 [facility] [address] [place] [address] Aug, 17 Dental examination Z01.20 [facility] [place] [address] [place] [address] 16 Jul, 17 Dental examination Z01.20 [facility] [place] [address] [place] [address] Jul, 17 [facility] [place] [address] [place] [address] Jul, 17 [facility] [place] [address] [place] [address] Jul, 17 Dental examination Z01.20 [facility] [place] [address] [place] [address] 30 Jun, 17 [facility] [place] [address] [place] [address] Jun, 17 Dental examination Z01.20 [facility] [place] [address] [place] [address] Jun, 17 [facility] [place] [address] [place] [address] Jun, 17 Dental examination Z01.20 [facility] [place] [address] [place] [address] Jun, 17 Edema, unspecified R60.9 ; Screening for lipoid disorders Z13.220 and Pericardial effusion I31.[address] [address] May, [address] [address] May, 17 Acute costochondritis M94.0 ; Frequent headaches R51 and Seizure disorder G40.[address] [address] May, 17 Pericardial effusion I31.[address] [address] May, [address] [address] Feb, [address] [address] January, 17 Seizure disorder G40.[address] [address] January, 17 Dental examination Z01.[address] [address] Dec, 17 Seizure disorder G40.909 ; Low back pain M54.5 ; Cervical radiculopathy M54.12 ; Mild intermittent asthma without complication J45.20 ; Frequent headaches R51 ; Adolescent idiopathic scoliosis of thoracolumbar region M41.125 and Pain in right knee M25.[address] [address] Nov, [address] [address] Nov, [address] [address] Nov, 17 Epigastric pain R10.13 ; Asthma exacerbation J45.901 and Seizure disorder G40.[address] [address] Oct, 17 Seizure disorder G40.909 ; Chronic idiopathic constipation K59.04 and Cough due to bronchospasm J98.01 [facility] [place] [address] [place] [address] 01 Oct, 17 Duodenitis K29.80 ; Epigastric pain R10.13 ; Seizure disorder G40.909 and Chronic idiopathic constipation K59.04 [facility] [address] [place] [address] Oct, 17 Dental examination Z01.[address] [address] Sep, 17 Duodenitis K29.80 ; Epigastric pain R10.13 ; Seizure disorder G40.909 and Asthma exacerbation J45.901 [facility] [address] [place] [address] Sep, 17 Epigastric pain R10.13 and Seizure disorder G40.[address] [address] Sep, [facility] [address] [address] Aug, 16 Seizure disorder G40.909 [facility] [address] [place] [address] 26 Aug, 16 Seizure disorder G40.909 ; Asthma exacerbation J45.901 and Epigastric pain R10.[address] [address] Aug, 16 Bronchitis J40 ; Asthma exacerbation J45.901 and Epigastric pain R10.13 [facility] [place] [address] [place] [address] Aug, 16 [facility] [address] [address] Aug, [address] [address] 02 Aug, [address] [address] Jul, 16 Dental examination Z01.20 [address] [place] [address] Jun, 16 Acute pain of left knee M25.562 and Mikayla-rectal abscess K61.1 [facility] [place] [address] [place] [address] Jun, 16 [facility] [place] [address] [place] [address] Jun, 16 Dental examination Z01.20 [facility] [place] [address] [place] [address] May, 16 [facility] [place] [address] [place] [address] May, 16 Seizure disorder G40.909 and Partial symptomatic epilepsy with complex partial seizures, not intractable, 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.209 [facility] [place] [address] [place] [address] May, 16 Screening for lipoid disorders Z13.220 and Edema, unspecified R60.9 [facility] [address] [place] [address] Apr, 16 [facility] [place] [address] [place] [address] Apr, 15 [facility] [address] [facility] [place] [address] Apr, Dental examination V72.2 [facility] [id number] [place] [address] Dec, [facility] [id number] [place] [address] Dec, [facility] [address] [place] [address] Sep, 15 [facility] [address] [address] Sep, [facility] [address] [address] Jun, [facility] [address] [address] Jun, [facility] [place] [address] [facility] [place] [address] Jun, 14 [facility] [address] [id number] [place] [address] Jun, [facility] [address] [id number] [place] [address] May, [facility] [place] [address] [facility] [place] [address] May, 14 [facility] [place] [address] [facility] [place] [address] May, 14 [facility] [address] [id number] [place] [address] May, [facility] [address] [id number] [place] [address] Mar, [facility] [place] [address] [place] [address] Mar, 14 [facility] [address] [id number] [place] [address] Mar, [facility] [place] [address] [place] [address] Mar, 14 [facility] [address] [id number] [place] [address] Mar, [facility] [address] [id number] [place] [address] Feb, [facility] [place] [address] [place] [address] Feb, 14 [facility] [address] [id number] [place] [address] Feb, [facility] [place] [address] [place] [address] Feb, 14 [facility] [address] [id number] [place] [address] Feb, [facility] [place] [address] [place] [address] January, 14 [facility] [address] [id number] [place] [address] January, [address] [place] [address] [place] [address] May, [facility] [place] [address] [place] [address] May, [facility] [address] [id number] [place] [address] Oct, [facility] [address] [id number] [place] [address] Aug, [facility] [address] [id number] [place] [address] Nov, [facility] [address] [id number] [place] [address] Sep, IMMUNIZATIONS No Known Immunizations SOCIAL HISTORY Never Assessed REASON FOR VISIT PLAN OF CARE VITAL SIGNS Height 61 in 2014-01-18 Weight 218 lbs 2014-01-18 Temperature 98.2 degrees Fahrenheit 2014-01-18 Heart Rate 76 bpm 2014-01-18 Respiratory Rate 20 2014-01-18 Blood pressure systolic 102 mmHg 2014-01-18 Blood pressure diastolic 68 mmHg 2014-01-18 MEDICATIONS Unknown Medications RESULTS No Results PROCEDURES [...]
--- OUTSIDE RECORDS SUMMARY | 2020-03-30 16:37 | XMS REPORT ---
Author Author [facility] Medic al Staff, SHELIA Olivares Organization [facility] Address [address] [place], [place] [address] Phone [phone] Summary purpose TRANSITION OF CARE AUTO GENERATION [...] tests and/or laboratory data RESULTS Radiology Results [id number] MRI C-SPINE W/WO CONT PACs Image DATE [...] 2015-12-05 at 17:07:39 . Previous status was [place]. History of procedures No procedures recorded for this patient visit. Functional status No functional or cognitive status [...]
--- OUTSIDE RECORDS SUMMARY | 2020-03-30 16:37 | XMS REPORT ---
Author Author Riri FLOYD Organization [facility] [address] [facility] Address [address] [place] [address] Care Team Providers Care Infrastructure Architect Name Role Phone OZ FLOYD Unavailable PROBLEMS Type Condition ICD9-CM Code SAJ76-OP Code Onset Dates Condition S tatus SNOMED Code Problem Epigastric pain R10.13 Active 7992 2009 Problem Duodenitis K29.80 Active 75142938 Problem Cough due to bronchospasm J98.01 Acti ve 2006807 Problem Chronic idiopathic constipation K59.04 Active 82443886 Problem Mild intermittent asthma without complication J45. 20 Active 412292760 Problem Adolescent idiopathic scoliosis of thoracolumbar region M41.125 Active 543232035 Problem Pain in right knee M25.561 Active 3 6274471 Problem Edema, unspecified R60.9 Active 7 0034091 Problem Low back pain M54.5 Active 040343 007 Problem Slow transit constipation K59.01 Acti ve 79658705 Problem Other chronic pain G89.29 Active 8 7571651 Problem Primary insomnia F51.01 Active 397 2004 Problem Gastroesophageal reflux disease without esophagitis K21.9 Active 593170244 Problem Vertigo R42 Active 807193217 Problem Mikayla-rectal abscess K61.1 Active 94740571 Problem Moderate episode of recurrent major depressive disorder F33.1 Active 761400898 Problem Frequent headaches R51 Active 7 57190277 Problem Seizure disorder G40.909 Active 128 937063 Problem Asthma exacerbation J45.901 Active 784215426 Problem Mild intermittent asthma with exacerbation J45.21 Active 992106769 Problem Spastic hemiplegia of right dominant side due to noncerebrovascular etiology G81.11 Active 202098362 Problem Partial symptomatic epilepsy with complex partial seizures, intractable, 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.219 Active 1 27654434 Problem Gastroesophageal reflux disease without esophagitis K21.9 Active [id number] ALLERGIES No Information ENCOUNTERS Encounter Location Date Diagnosis [facility] [place] [facility] [address] [facility] [id number] [address] 24 Dec, 2019 Acute nonintractable headache, unspecifi ed headache type R51 [facility] [address] [place] [id number] [address] 16 Nov, 2019 Seizure disorder G40.909 ; Partial sympt omatic epilepsy with complex partial seizures, intractable, 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.219 and Moderate episode of recurrent major depressive disorder F33.[address] [id number] [place] [address] 16 Aug, 2019 [facility] [address] [place] [id number] [address] Jul, [facility] [address] [place] [id number] [address] 06 Jul, 2019 [facility] [address] [place] [id number] [address] 04 Jun, 2019 Epigastric abdominal pain R10.13 ; Gastr oesophageal reflux disease without esophagitis K21.9 and Encounter for immunization Z23 [facility] [address] [place] [address] [address] 06 May, 2019 Epigastric abdominal pain R10.13 and Franklin g term use of drug Z79.899 [facility] [address] [place] [id number] [address] Apr, Epigastric abdominal pain R10.13 ; Low b ack pain M54.5 and Pain in right knee M25.561 [facility] [address] [place] [id number] [address] 18 Feb, 2019 [facility] [address] [place] [address] [address] Feb, Diplopia H53.2 [facility] [address] [place] [id number] [address] 11 Feb, 2019 Well woman exam Z01.419 and Pre-op exam Z01.818 [facility] [address] [place] [address] [place] [id number] [address] Feb, [facility] [address] [place] [address] [place] [id number] [address] January, Breast cancer screening by mammogram Z12 .31 [facility] [address] [place] [address] [place] [id number] [address] 17 Dec, 2018 Dental examination Z01.20 and Dental car ies K02.9 [facility] [address] [place] [address] [place] [id number] [address] 16 Dec, 2018 Acute pain of left knee M25.562 [facility] [address] [place] [address] [place] [id number] [address] Dec, [facility] [address] [place] [address] [place] [id number] [address] Dec, Double vision H53.2 ; Headache above the eye region R51 and Synovial cyst of left knee M71.22 [facility] [address] [place] [address] [place] [id number] [address] Nov, [facility] [address] [place] [address] [place] [id number] [address] Oct, Mild intermittent asthma with exacerbati on J45.21 ; Seizure disorder G40.909 ; 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 ; Partial symptomatic epilepsy with complex partial seizures, intractable, 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.219 and Spastic hemiplegia of right dominant side due to noncerebrovascular etiology G81.11 [facility] [address] [place] [address] [place], [place] [id number] [address] Oct, [facility] [address] [place] [address] [place] [id number] [address] Sep, Cough R05 and Mild intermittent asthma w ith exacerbation J45.21 [facility] [address] [place] [address] [place] [id number] [address] Aug, [facility] [address] [place] [address] [place] [id number] [address] Jul, Tinea corporis B35.4 [facility] [address] [place] [id number] [place] [address] Jul, [facility] [address] [place] [id number] [place] [address] Jul, [place] [id number] [place] [address] Feb, [facility] [place] [address] [place] [address] Feb, 18 BMI 40.0-44.9, adult Z68.41 ; Slow transit constipation K59.01 ; Pain in right shoulder M25.511 ; Pain in left shoulder M25.512 ; Other chronic pain G89.29 and Primary insomnia F51.01 [facility] [place] [address] [place] [address] Feb, 18 [place] [id number] [place] [id number] [place] [address] Feb, [facility] [place] [address] [place] [address] Dec, 18 [facility] [place] [address] [place] [address] Dec, 18 [facility] [place] [address] [place] [address] Dec, 18 [facility] [place] [address] [place] [address] Nov, 18 Vertigo R42 and Seizure disorder G40.909 [facility] [place] [address] [place] [address] Aug, 17 Dental examination Z01.20 [facility] [place] [address] [place] [address] Jul, 17 Dental examination Z01.20 [facility] [place] [address] [place] [address] Jul, [address] [address] Jul, 17 [facility] [address] [address] Jul, 17 Dental examination Z01.[address] [address] 30 Jun, 20 17 [facility] [address] [address] Jun, 17 [facility] examination Z01.20 [facility] [address] [address] Jun, 17 [facility] [address] [address] 05 Jun, 17 Dental examination Z01.20 [facility] [address] [address] 02 Jun, 17 Edema, unspecified R60.9 ; Screening for lipoid disorders Z13.220 and Pericardial effusion I31.[address] [address] May, 20 17 [facility] [address] [address] May, 17 Acute costochondritis M94.0 ; Frequent headaches R51 and Seizure disorder G40.[address] [address] May, 20 17 Pericardial effusion I31.[address] [address] May, 20 17 [facility] [address] [address] Feb, [address] [address] 27 January, 17 Seizure disorder G40.[address] [address] 16 January, 17 Dental examination Z01.[address] [address] Dec, 17 Seizure disorder G40.909 ; Low back pain M54.5 ; Cervical radiculopathy M54.12 ; Mild intermittent asthma without complication J45.20 ; Frequent headaches R51 ; Adolescent idiopathic scoliosis of thoracolumbar region M41.125 and Pain in right knee M25.[address] [address] Nov, [address] [address] Nov, [address] [address] Nov, 17 Epigastric pain R10.13 ; Asthma exacerbation J45.901 and Seizure disorder G40.[address] [address] Oct, 17 Seizure disorder G40.909 ; Chronic idiopathic constipation K59.04 and Cough due to bronchospasm J98.[address] [address] Oct, 17 Duodenitis K29.80 ; Epigastric pain R10.13 ; Seizure disorder G40.909 and Chronic idiopathic constipation K59.[address] [address] Oct, 17 Dental examination Z01.[address] [address] Sep, 17 Duodenitis K29.80 ; Epigastric pain R10.13 ; Seizure disorder G40.909 and Asthma exacerbation J45.[address] [address] Sep, 17 Epigastric pain R10.13 and Seizure disorder G40.[address] [address] Sep, [address] [address] Aug, 16 Seizure disorder G40.[address] [address] Aug, 16 Seizure disorder G40.909 ; Asthma exacerbation J45.901 and Epigastric pain R10.13 [facility] [place] [address] [place] [address] Aug, 16 Bronchitis J40 ; Asthma exacerbation J45.901 and Epigastric pain R10.13 [facility] [place] [address] [place] [address] Aug, 16 [facility] [place] [address] [place] [address] Aug, 16 [facility] [place] [address] [place] [address] Aug, 16 [facility] [place] [address] [place] [address] Jul, 16 Dental examination Z01.20 [facility] [address] [address] Jun, 16 Acute pain of left knee M25.562 and Mikayla-rectal abscess K61.1 [facility] [address] [address] 04 Jun, 16 [facility] [address] [address] 04 Jun, 16 Dental examination Z01.20 [facility] [place] [address] [place] [address] 07 May, 16 [facility] [address] [address] May, 16 Seizure disorder G40.909 and Partial symptomatic epilepsy with complex partial seizures, not intractable, 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.[address] [address] May, 16 Screening for lipoid disorders Z13.220 and Edema, unspecified R60.9 [facility] [place] [address] [place] [address] Apr, 16 [facility] [address] [address] Apr, 15 [facility] [address] [facility] [id number] [address] [place] [id number] Apr, Dental examination V72.2 [facility] [address] [facility] [id number] [address] [place] [address] Dec, [facility] [address] [facility] [id number] [address] [place] [address] Dec, [facility] [place] [address] [place] [address] Sep, 15 [facility] [address] [facility] [id number] [address] [place] [address] Sep, [facility] [address] [facility] [id number] [address] [place] [address] Jun, [facility] [address] [facility] [id number] [address] [place] [address] Jun, [facility] [place] [address] [place] [address] Jun, 14 [facility] [address] [facility] [id number] [address] [place] [address] Jun, [facility] [address] [facility] [id number] [address] [place] [address] May, [facility] [place] [address] [place] [address] May, 14 [facility] [place] [address] [place] [address] May, 14 [facility] [address] [facility] [id number] [address] [place] [address] May, [facility] [address] [facility] [id number] [address] [place] [address] Mar, [facility] [place] [address] [place] [address] Mar, 14 [facility] [address] [facility] [id number] [address] [place] [address] Mar, [facility] [place] [address] [place] [address] Mar, 14 [facility] [address] [facility] [id number] [address] [place] [address] Mar, [facility] [address] [place] [id number] [place] [address] Feb, [facility] [place] [address] [place] [address] Feb, 14 [facility] [address] [place] [address] Feb, [facility] [place] [address] [place] [address] Feb, 14 [facility] [address] [place] [id number] [address] [place] [address] Feb, [facility] [place] [address] [place] [address] January, 14 [facility] [address] [place] [address] January, [facility] [place] [address] [place] [address] May, 13 [facility] [place] [address] [place] [address] May, 13 [facility] [address] [place] [id number] [place] [address] Oct, [facility] [address] [place] [address] Aug, [facility] [address] [place] [id number] [place] [address] Nov, [facility] [address] [place] [address] Sep, IMMUNIZATIONS No Known Immunizations SOCIAL HISTORY Never Assessed REASON FOR VISIT PLAN OF CARE VITAL SIGNS MEDICATIONS No Known Medications RESULTS No Results PROCEDURES No Known [...]
--- OUTSIDE RECORDS SUMMARY | 2020-03-30 16:38 | XMS REPORT ---
Author Author Riri FLOYD Organization [facility] [address] [place] [address] Care Team Providers Care Button Sawyer Name Role Phone OZ FLOYD Unavailable PROBLEMS Type Condition ICD9-CM Code [id number] Code Onset Dates Condition S tatus SNOMED Code Problem Mikayla-rectal abscess K61.1 Active 49717297 Problem Seizure disorder G40.909 Active 128 306849 Problem Duodenitis K29.80 Active 77785406 Problem Asthma exacerbation J45.901 Active 232257509 Problem Chronic idiopathic constipation K59.04 Active 67865872 Problem Epigastric pain R10.13 Active 7992 2009 Problem Adolescent idiopathic scoliosis of thoracolumbar region M41.125 Active 105509982 Problem Cough due to bronchospasm J98.01 Acti ve 3930690 Problem Mild intermittent asthma without complication J45. 20 Active 821426221 Problem Frequent headaches R51 Active 7 59536713 Problem Vertigo R42 Active 635996591 Problem Spastic hemiplegia of right dominant side due to noncerebrovascular etiology G81.11 Active 169817733 Problem Pain in right knee M25.561 Active 3 2298314 Problem Partial symptomatic epilepsy with complex partial seizures, intractable, 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.219 Active 1 61740818 Problem Low back pain M54.5 Active 577281 007 Problem Edema, unspecified R60.9 Active 7 4042724 Problem Slow transit constipation K59.01 Acti ve 84857519 Problem Other chronic pain G89.29 Active 8 0230507 Problem Primary insomnia F51.01 Active 397 2004 Problem Mild intermittent asthma with exacerbation J45.21 Active 206136665 ALLERGIES No Information ENCOUNTERS Encounter Location Date Diagnosis [facility] [address] [place] [address] 18 Feb, [facility] [address] [place] [address] 11 Feb, 19 Diplopia H53.2 [facility] [address] [address] 11 Feb, 19 Well woman exam Z01.419 and Pre-op exam Z01.818 [facility] [address] [place] [address] 06 Feb, 19 [facility] [address] [address] January, 19 Breast cancer screening by mammogram Z12.31 [facility] [address] [address] 17 Dec, 19 Dental examination Z01.20 and Dental caries K02.[address] [address] 16 Dec, 19 Acute pain of left knee M25.562 [facility] [address] [place] [address] 16 Dec, 19 [facility] [address] [place] [address] Dec, 19 Double vision H53.2 ; Headache above the eye region R51 and Synovial cyst of left knee M71.22 [facility] [address] [place] [address] Nov, [address] [address] 27 Oct, 19 Mild intermittent asthma with exacerbation J45.21 ; Seizure disorder G40.909 ; 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 ; Partial symptomatic epilepsy with complex partial seizures, intractable, 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.219 and Spastic hemiplegia of right dominant side due to noncerebrovascular etiology G81.11 [facility] [address] [place] [address] Oct, [address] [address] Sep, 19 Cough R05 and Mild intermittent asthma with exacerbation J45.21 [facility] [address] [place] [address] Aug, 18 [facility] [address] [place] [address] Jul, 18 Tinea corporis B35.[address] [facility] [address] [place] [address] Jul, [address] [facility] [address] [place] [address] Jul, 18 [facility] [address] [place] [id number] [address] [place] [address] Feb, [facility] [address] [place] [address] Feb, 18 BMI 40.0-44.9, adult Z68.41 ; Slow transit constipation K59.01 ; Pain in right shoulder M25.511 ; Pain in left shoulder M25.512 ; Other chronic pain G89.29 and Primary insomnia F51.01 [facility] [place] [address] [place] [address] Feb, 18 [place] [id number] [place] [id number] [address] [place] [address] Feb, [facility] [place] [address] [place] [address] Dec, 18 [facility] [place] [address] [place] [address] Dec, 18 [facility] [place] [address] [place] [address] Dec, 18 [facility] [place] [address] [place] [address] Nov, 18 Vertigo R42 and Seizure disorder G40.909 [facility] [place] [address] [place] [address] Aug, 17 Dental examination Z01.20 [facility] [address] [place] [address] Jul, 17 Dental examination Z01.20 [facility] [address] [place] [address] Jul, 17 [facility] [place] [address] [place] [address] Jul, 17 [facility] [place] [address] [place] [address] Jul, 17 Dental examination Z01.20 [facility] [place] [address] [place] [address] 30 Jun, 17 [facility] [place] [address] [place] [address] Jun, 20 17 Dental examination Z01.20 [facility] [place] [address] [place] [address] Jun, 17 [facility] [place] [address] [place] [address] 05 Jun, 17 Dental examination Z01.[address] [facility] [address] [address] 02 Jun, 17 Edema, unspecified R60.9 ; Screening for lipoid disorders Z13.220 and Pericardial effusion I31.3 [facility] [address] [address] May, 17 [facility] [address] [address] May, 17 Acute costochondritis M94.0 ; Frequent headaches R51 and Seizure disorder G40.909 [facility] [address] [address] May, 17 Pericardial effusion I31.3 [facility] [address] [address] May, 17 [facility] [address] [address] Feb, [address] [address] [address] 27 January, 17 Seizure disorder G40.909 [facility] [address] [address] 16 January, 17 Dental examination Z01.20 [facility] [address] [address] Dec, 17 Seizure disorder G40.909 ; Low back pain M54.5 ; Cervical radiculopathy M54.12 ; Mild intermittent asthma without complication J45.20 ; Frequent headaches R51 ; Adolescent idiopathic scoliosis of thoracolumbar region M41.125 and Pain in right knee M25.[address] [address] Nov, [address] [address] Nov, [address] [address] Nov, 17 Epigastric pain R10.13 ; Asthma exacerbation J45.901 and Seizure disorder G40.[address] [address] Oct, 17 Seizure disorder G40.909 ; Chronic idiopathic constipation K59.04 and Cough due to bronchospasm J98.[address] [address] Oct, 17 Duodenitis K29.80 ; Epigastric pain R10.13 ; Seizure disorder G40.909 and Chronic idiopathic constipation K59.[address] [address] Oct, 17 Dental examination Z01.[address] [address] Sep, 17 Duodenitis K29.80 ; Epigastric pain R10.13 ; Seizure disorder G40.909 and Asthma exacerbation J45.[address] [address] Sep, 17 Epigastric pain R10.13 and Seizure disorder G40.[address] [address] Sep, [address] [address] Aug, 16 Seizure disorder G40.[address] [address] Aug, 16 Seizure disorder G40.909 ; Asthma exacerbation J45.901 and Epigastric pain R10.13 [facility] [place] [address] [place] [address] 15 Aug, 16 Bronchitis J40 ; Asthma exacerbation J45.901 and Epigastric pain R10.13 [facility] [address] [address] [place] [address] 02 Aug, 16 [facility] [address] [address] [place] [address] Aug, 16 [facility] [place] [address] [place] [address] Aug, 16 [facility] [address] [address] Jul, 16 Dental examination Z01.[address] [address] Jun, 16 Acute pain of left knee M25.562 and Mikayla-rectal abscess K61.1 [facility] [address] [address] 04 Jun, 16 [facility] [address] [address] 04 Jun, 16 Dental examination Z01.20 [facility] [place] [address] [place] [address] 07 May, 16 [facility] [address] [address] 07 May, 16 Seizure disorder G40.909 and Partial symptomatic epilepsy with complex partial seizures, not intractable, 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.209 [facility] [address] [address] 02 May, 16 Screening for lipoid disorders Z13.220 and Edema, unspecified R60.9 [facility] [address] [address] Apr, 16 [facility] [address] [address] Apr, 15 [facility] [address] [facility] [id number] [place] [id number] Apr, Dental examination V72.2 [facility] [address] [id number] [address] [place] [address] Dec, [facility] [address] [facility] [id number] [address] [place] [address] Dec, [facility] [place] [address] [place] [address] Sep, 15 [facility] [address] [facility] [id number] [address] [place] [address] Sep, [facility] [address] [facility] [id number] [address] [place] [address] Jun, [facility] [address] [facility] [id number] [address] [place] [address] Jun, [facility] [place] [address] [place] [address] Jun, 14 [facility] [address] [facility] [id number] [address] [place] [address] Jun, [facility] [address] [facility] [id number] [address] [place] [address] May, [facility] [place] [address] [place] [address] May, 14 [facility] [place] [address] [place] [address] May, 14 [facility] [address] [facility] [id number] [address] [place] [address] May, [facility] [address] [facility] [id number] [address] [place] [address] Mar, [facility] [place] [address] [place] [address] Mar, 14 [facility] [address] [facility] [id number] [address] [place] [address] Mar, [facility] [place] [address] [place] [address] Mar, 14 [facility] [address] [facility] [id number] [address] [place] [address] Mar, [facility] [address] [facility] [id number] [address] [place] [phone] Feb, [facility] [place] [address] [place] [address] Feb, 14 [facility] [address] [facility] [id number] [address] [place] [address] Feb, [facility] [place] [address] [place] [address] Feb, 14 [facility] [address] [facility] [id number] [address] [place] [address] Feb, [facility] [place] [address] [place] [address] January, 14 [facility] [address] [place] [id number] [address] [place] [address] January, [facility] [place] [address] May, 13 [facility] [address] [place] [address] May, 13 [facility] [address] [place] [id number] [address] [place] [phone] Oct, [facility] [address] [place] [id number] [address] [place] [address] Aug, [facility] [address] [facility] [id number] [address] [place] [address] Nov, [facility] [address] [facility] [id number] [address] [place] [address] Sep, IMMUNIZATIONS No Known Immunizations SOCIAL HISTORY [...]
--- OUTSIDE RECORDS SUMMARY | 2020-03-30 16:38 | XMS REPORT ---
Author Author Riri Rodriguez Doctor Organization [facility] Address Unknown Phone Unavailable Care Team Providers Care Public Administration Teacher Name Role Phone Migration, Doctor Unavailable Unavailable PROBLEMS Type Condition ICD9-CM Code ZHR85-OD Code Onset Dates Condition S tatus SNOMED Code Problem Mikayla-rectal abscess K61.1 Active 38265814 Problem Seizure disorder G40.909 Active 128 059852 Problem Duodenitis K29.80 Active 11951026 Problem Asthma exacerbation J45.901 Active 741422108 Problem Chronic idiopathic constipation K59.04 Active 01134395 Problem Epigastric pain R10.13 Active 7992 2009 Problem Adolescent idiopathic scoliosis of thoracolumbar region M41.125 Active 408160137 Problem Cough due to bronchospasm J98.01 Acti ve 3954383 Problem Mild intermittent asthma without complication J45. 20 Active 922475916 Problem Frequent headaches R51 Active 7 56398268 Problem Vertigo R42 Active 282224599 Problem Spastic hemiplegia of right dominant side due to noncerebrovascular etiology G81.11 Active 823448338 Problem Pain in right knee M25.561 Active 3 4286137 Problem Partial symptomatic epilepsy with complex partial seizures, intractable, 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.219 Active 1 89797580 Problem Low back pain M54.5 Active 932823 007 Problem Edema, unspecified R60.9 Active 7 4740502 Problem Slow transit constipation K59.01 Acti ve 54722533 Problem Other chronic pain G89.29 Active 8 9569884 Problem Primary insomnia F51.01 Active 397 2004 Problem Mild intermittent asthma with exacerbation J45.21 Active 240884995 ALLERGIES Substance Reaction Event Type Date Status Tramadol Unknown Drug Allergy Dec, Active Surgical Tape And Bandaids Unknown Non Drug Allergy Dec, 15 Active ENCOUNTERS Encounter Location Date Diagnosis [facility] [address] [place] [address] 18 Feb, [facility] [address] [place] [address] 11 Marito, 20 19 Diplopia H53.2 [facility] [address] [address] 11 Feb, 19 Well woman exam Z01.419 and Pre-op exam Z01.818 [facility] [address] [place] [id number] 06 Feb, 19 [facility] [address] [place] [phone] January, 19 Breast cancer screening by mammogram Z12.31 [facility] [address] [address] 17 Dec, 19 Dental examination Z01.20 and Dental caries K02.[address] [address] 16 Dec, 19 Acute pain of left knee M25.562 [facility] [address] [place] [address] 16 Dec, [address] [address] Dec, 19 Double vision H53.2 ; Headache above the eye region R51 and Synovial cyst of left knee M71.22 [facility] [address] [place] [address] Nov, [address] [address] 27 Oct, 19 Mild intermittent asthma with exacerbation J45.21 ; Seizure disorder G40.909 ; 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 ; Partial symptomatic epilepsy with complex partial seizures, intractable, 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.219 and Spastic hemiplegia of right dominant side due to noncerebrovascular etiology G81.11 [facility] [address] [place] [address] Oct, [address] [address] Sep, 19 Cough R05 and Mild intermittent asthma with exacerbation J45.21 [facility] [address] [place] [address] Aug, [address] [address] Jul, 18 Tinea corporis B35.4 [facility] [address] [place] [address] Jul, 18 [facility] [address] [place] [address] Jul, 18 [facility] [address] [id number] [address] [place] [address] Feb, [facility] [address] [place] [address] Feb, 18 BMI 40.0-44.9, adult Z68.41 ; Slow transit constipation K59.01 ; Pain in right shoulder M25.511 ; Pain in left shoulder M25.512 ; Other chronic pain G89.29 and Primary insomnia F51.01 [facility] [address] [place] [address] Feb, 18 [facility] [address] [id number] [address] [place] [address] Feb, [facility] [address] [place] [address] Dec, 18 [facility] [address] [place] [address] Dec, 18 [facility] [place] [address] [place] [address] Dec, 18 [facility] [address] [place] [address] Nov, 18 Vertigo R42 and Seizure disorder G40.909 [facility] [address] [place] [address] Aug, 17 Dental examination Z01.20 [facility] [place] [address] [place] [address] Jul, 17 Dental examination Z01.20 [facility] [place] [address] [place] [address] Jul, 17 [facility] [place] [address] [place] [address] 03 Nov, 20 17 [facility] [place] [address] [place] [address] 03 Jul, 17 Dental examination Z01.20 [facility] [address] [place] [address] 30 Jun, 20 17 [facility] [place] [address] [place] [address] 27 Jun, 20 17 Dental examination Z01.20 [facility] [address] [place] [address] 27 Jun, 20 17 [facility] [address] [place] [address] 05 Jun, 20 17 Dental examination Z01.20 [facility] [address] [address] 02 Jun, 20 17 Edema, unspecified R60.9 ; Screening for lipoid disorders Z13.220 and [facility]icardial effusion I31.3 [facility] [address] [address] Sep, [address] [facility] [address] [address] May, 17 Acute costochondritis M94.0 ; Frequent headaches R51 and Seizure disorder G40.909 [facility] [address] [address] May, 20 17 Pericardial effusion I31.3 [facility] [address] [address] 19 May, 20 17 [facility] [place] [address] [place] [address] Feb, [address] [address] 27 January, 17 Seizure disorder G40.909 [facility] [address] [address] 16 January, 17 Dental examination Z01.20 [facility] [address] [address] Dec, 17 Seizure disorder G40.909 ; Low back pain M54.5 ; Cervical radiculopathy M54.12 ; Mild intermittent asthma without complication J45.20 ; Frequent headaches R51 ; Adolescent idiopathic scoliosis of thoracolumbar region M41.125 and Pain in right knee M25.[address] [address] Nov, [address] [address] Nov, [address] [address] Nov, 17 Epigastric pain R10.13 ; Asthma exacerbation J45.901 and Seizure disorder G40.[address] [address] Oct, 17 Seizure disorder G40.909 ; Chronic idiopathic constipation K59.04 and Cough due to bronchospasm J98.[address] [address] Oct, 17 Duodenitis K29.80 ; Epigastric pain R10.13 ; Seizure disorder G40.909 and Chronic idiopathic constipation K59.[address] [address] Oct, 17 Dental examination Z01.[address] [address] Sep, 17 Duodenitis K29.80 ; Epigastric pain R10.13 ; Seizure disorder G40.909 and Asthma exacerbation J45.[address] [address] Sep, 17 Epigastric pain R10.13 and Seizure disorder G40.[address] [address] Sep, [address] [address] Aug, 16 Seizure disorder G40.[address] [address] Aug, 16 Seizure disorder G40.909 ; Asthma exacerbation J45.901 and Epigastric pain R10.13 [facility] [address] [place] [address] 15 Aug, 16 Bronchitis J40 ; Asthma exacerbation J45.901 and Epigastric pain R10.13 [facility] [address] [place] [address] 02 Aug, 16 [facility] [address] [address] Aug, 16 [facility] [address] [place] [address] Aug, 16 [facility] [address] [address] Jul, 16 Dental examination Z01.20 [facility] [address] [address] Jun, 16 Acute pain of left knee M25.562 and Mikayla-rectal abscess K61.1 [facility] [address] [address] 04 Jun, 16 [facility] [address] [address] 04 Jun, 16 Dental examination Z01.20 [facility] [address] [address] 07 May, 16 [facility] [address] [address] May, 16 Seizure disorder G40.909 and Partial symptomatic epilepsy with complex partial seizures, not intractable, 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.[address] [address] 02 May, 16 Screening for lipoid disorders Z13.220 and Edema, unspecified R60.[address] [address] Apr, 16 [facility] [address] [address] Apr, 15 [facility] [address] [facility] [id number] [place] [id number] Apr, Dental examination V72.2 [facility] [address] [id number] [address] [place] [address] Dec, [facility] [address] [facility] [id number] [address] [place] [address] Dec, [facility] [place] [address] [place] [address] Sep, 15 [facility] [address] [id number] [address] [place] [phone] Sep, [facility] [address] [facility] [facility] [id number] [address] [place] [phone] Jun, [facility] [address] [facility] [address] [facility] [id number] [address] [place] [address] Jun, [facility] [place] [address] [place] [address] Jun, 14 [facility] [address] [facility] [facility] [id number] [address] [place] [phone] Jun, [facility] [address] [facility] [address] [facility] [id number] [address] [place] [phone] May, [facility] [place] [address] [place] [address] May, 14 [facility] [place] [address] [place] [address] May, 14 [facility] [address] [facility] [facility] [id number] [address] [place] [phone] May, [facility] [address] [facility] [address] [facility] [id number] [address] [place] [address] Mar, [facility] [place] [address] [place] [address] Mar, 14 [facility] [address] [facility] [facility] [id number] [address] [place] [phone] Mar, [facility] [place] [address] [place] [address] Mar, 14 [facility] [address] [id number] [address] [place] [address] Mar, [facility] [address] [id number] [address] [place] [address] Feb, [facility] [place] [address] [place] [address] Feb, [address] [place] [address] [id number] [address] [place] [address] Feb, [facility] [address] [place] [address] Feb, 14 [place] [address] [id number] [address] [place] [address] Feb, [facility] [place] [address] [place] [address] January, 14 [place] [address] [place] [address] January, [facility] [address] [place] [address] May, 13 [facility] [place] [address] May, 13 [place] [address] [id number] [address] [place] [address] Oct, [place] [address] [place] [address] Aug, [place] [address] [id number] [address] [place] [address] Nov, [place] [address] [id number] [address] [place] [phone] Sep, IMMUNIZATIONS No Known Immunizations SOCIAL HISTORY Never Assessed REASON FOR VISIT EMR-[facility] [place] PLAN OF CARE VITAL SIGNS MEDICATIONS Medication Instructions Dosage Frequency Start Date End Date Duration S tatus Meloxicam 15 mg 0.5 Tablet 1-2 times per day Take with food as needed for pain and inflamation January, Active Levetiracetam 500 mg Take 1 tablet by mouth q12h May, Active Bactrim DS 800-160 mg 1 tablet by Oral route 2 times p er day for 7 day(s) Feb, Active cetirizine 10 mg 1 tablet by Oral route 1 daily January, Active Neurontin 100 mg 1-3 capsule by Oral route 3 times per day PRN for pain May, Active RESULTS No Results PROCEDURES No Known procedures [...]
--- OUTSIDE RECORDS SUMMARY | 2020-03-30 16:38 | XMS REPORT ---
Author Author Riri FLOYD Organization [facility] [address] [place] [address] Care Team Providers Care Manager Law Name Role Phone OZ FLOYD Unavailable PROBLEMS Type Condition ICD9-CM Code [id number] Code Onset Dates Condition S tatus SNOMED Code Problem Scoliosis (and kyphoscoliosis), idiopathic 737.30 Active 56290805 Problem Pain in joint, ankle and foot 719.47 Active 404562061 Problem Chronic idiopathic constipation K59.04 Active 12807329 Problem Pain in joint, forearm 719.43 Active 120460786 Problem Cough due to bronchospasm J98.01 Acti ve 3249973 Problem Pain in joint, upper arm 719.42 Activ e 353273812 Problem Mild intermittent asthma without complication J45. 20 Active 558040799 Problem Low back pain M54.5 Active 578272 007 Problem Frequent headaches R51 Active 7 68701023 Problem Primary insomnia F51.01 Active 397 2004 Problem Other chronic pain G89.29 Active 8 7674580 Problem Unspecified urinary calculus 592.9 A ctive 854343225 Problem Lumbago 724.2 Active 365352207 Problem Unspecified urticaria 708.9 Active 903578838 Problem Adolescent idiopathic scoliosis of thoracolumbar region M41.125 Active 230761155 Problem Pain in right knee M25.561 Active 3 0619569 Problem Slow transit constipation K59.01 Acti ve 91848660 Problem Vertigo R42 Active 909731049 Problem Edema, unspecified R60.9 Active 7 1444341 Problem Seizure disorder G40.909 Active 128 669875 Problem Unspecified hemorrhoids without mention of complication 45 5.6 Active 35688804 Problem Delirium due to conditions classified elsewhere 293.0 Active 7131670 Problem Duodenitis K29.80 Active 05123950 Problem Epigastric pain R10.13 Active 7992 2009 Problem Mikayla-rectal abscess K61.1 Active 08544897 Problem Asthma exacerbation J45.901 Active 977744332 ALLERGIES No Information ENCOUNTERS Encounter Location Date Diagnosis [facility] [address] [place] [id number] 17 Aug, 18 [facility] [address] [place] [id number] Jul, [address] [facility] [address] [place] [id number] 17 Jul, 18 [facility] [address] [place] [id number] Jul, 18 [facility] [address] [facility] [id number] [address] [place] [address] Feb, [facility] [address] [place] [address] Feb, 18 BMI 40.0-44.9, adult Z68.41 ; Slow transit constipation K59.01 ; Pain in right shoulder M25.511 ; Pain in left shoulder M25.512 ; Other chronic pain G89.29 and Primary insomnia F51.01 [facility] [address] [place] [address] Feb, 18 [facility] [address] [place] [id number] [address] [place] [address] Feb, [facility] [address] [place] [phone] Dec, 18 [facility] [address] [place] [address] Dec, 18 [facility] [address] [place] [id number] Dec, 18 [facility] [address] [place] [address] Nov, 18 Vertigo R42 and Seizure disorder G40.909 [facility] [address] [place] [address] Aug, 17 Dental examination Z01.20 [facility] [address] [place] [address] 16 Nov, 20 17 Dental examination Z01.20 [facility] [address] [place] [address] Jul, 17 [facility] [address] [place] [address] Jul, 17 [facility] [address] [place] [address] Jul, 17 Dental examination Z01.20 [facility] [address] [place] [address] 30 Jun, 20 17 [facility] [address] [place] [address] Jun, 20 17 Dental examination Z01.20 [facility] [address] [place] [address] Jun, 20 17 [facility] [address] [place] [address] Jun, 17 Dental examination Z01.20 [facility] [address] [place] [address] 02 Jun, 20 17 Edema, unspecified R60.9 ; Screening for lipoid disorders Z13.220 and Pericardial effusion I31.[address] [facility] [address] [address] Sep, 20 17 [facility] [address] [place] [address] May, 20 17 Acute costochondritis M94.0 ; Frequent headaches R51 and Seizure disorder G40.909 [facility] [place] [address] [place] [address] Sep, 20 17 Pericardial effusion I31.3 [facility] [address] [place] [address] 19 May, 20 17 [facility] [address] [place] [address] Feb, 17 [facility] [address] [place] [address] 27 January, 17 Seizure disorder G40.909 [facility] [place] [address] [place] [address] January, 17 Dental examination Z01.20 [facility] [address] [place] [address] Dec, 17 Seizure disorder G40.909 ; Low back pain M54.5 ; Cervical radiculopathy M54.12 ; Mild intermittent asthma without complication J45.20 ; Frequent headaches R51 ; Adolescent idiopathic scoliosis of thoracolumbar region M41.125 and Pain in right knee M25.561 [facility] [address] [place] [address] Nov, [address] [address] Nov, [address] [address] Nov, 17 Epigastric pain R10.13 ; Asthma exacerbation J45.901 and Seizure disorder G40.[address] [address] Oct, 17 Seizure disorder G40.909 ; Chronic idiopathic constipation K59.04 and Cough due to bronchospasm J98.[address] [address] Oct, 17 Duodenitis K29.80 ; Epigastric pain R10.13 ; Seizure disorder G40.909 and Chronic idiopathic constipation K59.[address] [address] Oct, 17 Dental examination Z01.20 [facility] [address] [place] [address] Sep, 17 Duodenitis K29.80 ; Epigastric pain R10.13 ; Seizure disorder G40.909 and Asthma exacerbation J45.[address] [address] Sep, 17 Epigastric pain R10.13 and Seizure disorder G40.[address] [address] Sep, [address] [address] Aug, 16 Seizure disorder G40.909 [facility] [address] [place] [address] Aug, 16 Seizure disorder G40.909 ; Asthma exacerbation J45.901 and Epigastric pain R10.13 [facility] [address] [place] [address] 15 Aug, 16 Bronchitis J40 ; Asthma exacerbation J45.901 and Epigastric pain R10.13 [facility] [address] [place] [address] Aug, 16 [facility] [address] [address] Aug, 16 [facility] [address] [address] Aug, 16 [facility] [address] [address] Jul, 16 Dental examination Z01.[address] [address] Jun, 16 Acute pain of left knee M25.562 and Mikayla-rectal abscess K61.[address] [address] 04 Jun, 16 [facility] [address] [address] 04 Jun, 16 Dental examination Z01.20 [facility] [address] [place] [address] May, 16 [facility] [address] [address] 07 May, 16 Seizure disorder G40.909 and Partial symptomatic epilepsy with complex partial seizures, not intractable, 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.209 [facility] [address] [address] May, 16 Screening for lipoid disorders Z13.220 and Edema, unspecified R60.[address] [address] Apr, 16 [facility] [address] [place] [address] Apr, 15 [facility] [address] [id number] [address] [place] [id number] Apr, Dental examination V72.2 [facility] [address] [facility] [id number] [address] [place] [address] Dec, [facility] [address] [facility] [id number] [address] [place] [address] Dec, [facility] [address] [place] [address] Sep, 15 [facility] [address] [id number] [address] [place] [address] Sep, [facility] [address] [facility] [id number] [address] [place] [phone] Jun, [facility] [address] [facility] [id number] [address] [place] [address] Jun, [facility] [address] [place] [address] Jun, 14 [facility] [address] [facility] [id number] [address] [place] [address] Jun, [facility] [address] [facility] [id number] [address] [place] [address] May, [facility] [address] [place] [address] May, 14 [facility] [address] [place] [address] May, [address] [facility] [address] [facility] [id number] [address] [place] [address] May, [facility] [address] [facility] [id number] [address] [place] [address] Mar, [facility] [address] [place] [address] Mar, 14 [facility] [address] [facility] [id number] [address] [place] [address] Mar, [facility] [address] [place] [address] Mar, 14 [facility] [address] [facility] [id number] [address] [place] [address] Mar, [facility] [address] [facility] [id number] [address] [place] [address] Feb, [facility] [address] [place] [address] Feb, 14 [facility] [address] [facility] [id number] [address] [place] [address] Feb, [facility] [address] [place] [address] Feb, 14 [facility] [address] [facility] [id number] [address] [place] [address] Feb, [facility] [address] [place] [address] January, 14 [facility] [address] [facility] [id number] [address] [place] [address] January, [facility] [address] [place] [address] May, 13 [facility] [address] [place] [address] May, 13 [facility] [address] [facility] [id number] [address] [place] [address] Oct, [facility] [address] [facility] [id number] [address] [place] [address] Aug, [facility] [address] [facility] [id number] [address] [place] [address] Nov, [facility] [address] [facility] [id number] [address] [place] [address] Sep, IMMUNIZATIONS No Known Immunizations SOCIAL HISTORY Never Assessed REASON FOR VISIT refill medication PLAN OF CARE VITAL SIGNS MEDICATIONS Medication Instructions Dosage Frequency Start Date End Date Duration S fior Vimpat 200 mg Orally twice a day 1 tablet 12h Feb, 9 0 days Active RESULTS No Results PROCEDURES No Known procedures INSTRUCTIONS MEDICATIONS ADMINISTERED No Known Medications MEDICAL (GENERAL) HISTORY Type Description Date Medical History seizures Medical History hyperlipidemia Medical History constipation Surgical History cholecystectomy Surgical History hysterectomy Surgical History appendectomy Hospitalization History seizures Hospitalization History surgeries Hospitalization History seizures 2015 Hospitalization History pneumonia 2016
--- OUTSIDE RECORDS SUMMARY | 2020-03-30 16:38 | XMS REPORT ---
Author Author Riri Rodriguez Doctor Organization [facility] Address Unknown Phone Unavailable Care Team Providers Care Emergency Physician Name Role Phone Migration, Doctor Unavailable Unavailable PROBLEMS Type Condition ICD9-CM Code GVQ94-PT Code Onset Dates Condition S tatus SNOMED Code Problem Duodenitis K29.80 Active 68720427 Problem Asthma exacerbation J45.901 Active 033192535 Problem Chronic idiopathic constipation K59.04 Active 31584462 Problem Epigastric pain R10.13 Active 7992 2009 Problem Mild intermittent asthma without complication J45. 20 Active 882207276 Problem Cough due to bronchospasm J98.01 Acti ve 8563268 Problem Low back pain M54.5 Active 708212 007 Problem Adolescent idiopathic scoliosis of thoracolumbar region M41.125 Active 937526833 Problem Vertigo R42 Active 562087484 Problem Slow transit constipation K59.01 Acti ve 05433109 Problem Other chronic pain G89.29 Active 8 7674209 Problem Gastroesophageal reflux disease without esophagitis K21.9 Active 940937838 Problem Frequent headaches R51 Active 7 41070613 Problem Seizure disorder G40.909 Active 128 368562 Problem Gastroesophageal reflux disease without esophagitis K21.9 Active 724026990 Problem Pain in right knee M25.561 Active 3 4878361 Problem Edema, unspecified R60.9 Active 7 9292723 Problem Mikayla-rectal abscess K61.1 Active 61356294 Problem Primary insomnia F51.01 Active 397 2004 Problem Mild intermittent asthma with exacerbation J45.21 Active 111829928 Problem Spastic hemiplegia of right dominant side due to noncerebrovascular etiology G81.11 Active 764480691 Problem Partial symptomatic epilepsy with complex partial seizures, intractable, 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.219 Active 1 [id number] ALLERGIES No Information ENCOUNTERS Encounter Location Date Diagnosis [facility] [address] [place] [address] 04 Jun, 19 Epigastric abdominal pain R10.13 ; Gastroesophageal reflux disease without esophagitis K21.9 and Encounter for immunization Z23 [facility] [address] [place] [address] 06 May, 19 Epigastric abdominal pain R10.13 and 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 [facility] [address] [place] [address] Apr, 19 Epigastric abdominal pain R10.13 ; Low back pain M54.5 and Pain in right knee M25.561 [facility] [address] [place] [address] 18 Feb, 19 [facility] [address] [place] [address] Feb, 19 Diplopia H53.2 [facility] [address] [place] [address] Feb, 19 Well woman exam Z01.419 and Pre-op exam Z01.[address] [address] Feb, 19 [facility] [address] [place] [address] January, 19 Breast cancer screening by mammogram Z12.[address] [address] 17 Dec, 19 Dental examination Z01.20 and Dental caries K02.[address] [address] 16 Dec, 19 Acute pain of left knee M25.[address] [address] Dec, [address] [address] Dec, 19 Double vision H53.2 ; Headache above the eye region R51 and Synovial cyst of left knee M71.[address] [address] Nov, [address] [address] Oct, 19 Mild intermittent asthma with exacerbation J45.21 ; Seizure disorder G40.909 ; 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 ; Partial symptomatic epilepsy with complex partial seizures, intractable, 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.219 and Spastic hemiplegia of right dominant side due to noncerebrovascular etiology G81.11 [facility] [address] [place] [address] Oct, 19 [facility] [address] [place] [address] Sep, 19 Cough R05 and Mild intermittent asthma with exacerbation J45.21 [facility] [address] [place] [address] Aug, [address] [address] Jul, 18 Tinea corporis B35.4 [facility] [address] [place] [address] Jul, [address] [address] Jul, 18 [place] [id number] [address] [place] [address] Feb, [address] [address] Feb, 18 BMI 40.0-44.9, adult Z68.41 ; Slow transit constipation K59.01 ; Pain in right shoulder M25.511 ; Pain in left shoulder M25.512 ; Other chronic pain G89.29 and Primary insomnia F51.01 [facility] [address] [place] [address] Feb, [address] [id number] [address] [place] [address] Feb, [facility] [address] [place] [address] Dec, [address] [address] Dec, [address] [address] Dec, [address] [address] 19 Nov, 20 18 Vertigo R42 and Seizure disorder G40.909 [facility] [address] [place] [address] Aug, 17 Dental examination Z01.20 [facility] [place] [address] [place] [address] 16 Jul, 17 Dental examination Z01.20 [facility] [place] [address] [place] [address] Jul, 17 [facility] [place] [address] [place] [address] Jul, [address] [facility] [address] [address] Jul, 17 Dental examination Z01.20 [facility] [place] [address] [place] [address] 30 Jun, 20 [address] [address] [address] Jun, 20 17 Dental examination Z01.20 [facility] [place] [address] [place] [address] 27 Jun, 20 [address] [address] 05 Oct, 20 17 Dental examination Z01.[address] [address] 02 Oct, 20 17 Edema, unspecified R60.9 ; Screening for lipoid disorders Z13.220 and Pericardial effusion I31.3 [facility] [address] [address] 27 Sep, 20 17 [facility] [place] [address] [place] [address] 27 Sep, 20 17 Acute costochondritis M94.0 ; Frequent headaches R51 and Seizure disorder G40.909 [facility] [place] [address] [place] [address] 26 Sep, 20 17 Pericardial effusion I31.3 [facility] [address] [address] 19 Sep, 20 [address] [address] [address] Feb, [address] [address] January, 17 Seizure disorder G40.[address] [address] January, 17 Dental examination Z01.[address] [address] Dec, 17 Seizure disorder G40.909 ; Low back pain M54.5 ; Cervical radiculopathy M54.12 ; Mild intermittent asthma without complication J45.20 ; Frequent headaches R51 ; Adolescent idiopathic scoliosis of thoracolumbar region M41.125 and Pain in right knee M25.[address] [address] Nov, [address] [address] Nov, [address] [address] Nov, 17 Epigastric pain R10.13 ; Asthma exacerbation J45.901 and Seizure disorder G40.[address] [address] Oct, 17 Seizure disorder G40.909 ; Chronic idiopathic constipation K59.04 and Cough due to bronchospasm J98.[address] [address] Oct, 17 Duodenitis K29.80 ; Epigastric pain R10.13 ; Seizure disorder G40.909 and Chronic idiopathic constipation K59.[address] [address] Oct, 17 Dental examination Z01.[address] [address] Sep, 17 Duodenitis K29.80 ; Epigastric pain R10.13 ; Seizure disorder G40.909 and Asthma exacerbation J45.901 [facility] [place] [address] [place] [address] Sep, 17 Epigastric pain R10.13 and Seizure disorder G40.909 [facility] [place] [address] [place] [address] Sep, 17 [facility] [place] [address] [place] [address] Aug, 16 Seizure disorder G40.909 [facility] [address] [place] [address] Aug, 16 Seizure disorder G40.909 ; Asthma exacerbation J45.901 and Epigastric pain R10.13 [facility] [place] [address] [place] [address] Aug, 16 Bronchitis J40 ; Asthma exacerbation J45.901 and Epigastric pain R10.13 [facility] [address] [place] [address] 02 Aug, 16 [facility] [place] [address] [place] [address] Aug, [address] [address] 02 Aug, [address] [address] Jul, 16 Dental examination Z01.[address] [address] Jun, 16 Acute pain of left knee M25.562 and Mikayla-rectal abscess K61.1 [facility] [place] [address] [place] [address] 04 Jun, 16 [facility] [place] [address] [place] [address] 04 Jun, 16 Dental examination Z01.20 [facility] [place] [address] [place] [address] May, 16 [facility] [place] [address] [place] [address] May, 16 Seizure disorder G40.909 and Partial symptomatic epilepsy with complex partial seizures, not intractable, 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.209 [facility] [address] [place] [address] May, 16 Screening for lipoid disorders Z13.220 and Edema, unspecified R60.9 [facility] [address] [address] [place] [address] Apr, 16 [facility] [address] [address] [place] [address] Apr, [address] [facility] [address] [facility] [id number] [address] [place] [id number] Apr, Dental examination V72.2 [facility] [address] [facility] [id number] [address] [place] [address] Dec, [facility] [address] [facility] [id number] [address] [place] [phone] Dec, [facility] [address] [place] [address] Sep, 15 [facility] [address] [facility] [id number] [address] [place] [address] Sep, [facility] [address] [facility] [id number] [address] [place] [address] Jun, [facility] [address] [facility] [id number] [address] [place] [address] Jun, [facility] [place] [address] [place] [address] Jun, 14 [facility] [address] [facility] [id number] [address] [place] [address] Jun, [facility] [address] [facility] [id number] [address] [place] [address] May, [facility] [place] [address] [place] [address] May, 14 [facility] [place] [address] [place] [address] May, 14 [facility] [address] [facility] [id number] [address] [place] [address] May, [facility] [address] [facility] [id number] [address] [place] [address] Mar, [facility] [place] [address] [place] [address] Mar, 14 [facility] [address] [facility] [id number] [address] [place] [address] Mar, [facility] [place] [address] [place] [address] Mar, 14 [facility] [address] [facility] [id number] [address] [place] [address] Mar, [facility] [address] [facility] [id number] [address] [place] [address] Feb, [facility] [place] [address] [place] [address] Feb, 14 [facility] [address] [facility] [id number] [address] [place] [address] Feb, [facility] [place] [address] [place] [address] Feb, 14 [facility] [address] [facility] [id number] [address] [place] [address] Feb, [facility] [place] [address] [place] [address] January, 14 [facility] [address] [facility] [id number] [address] [place] [address] January, [facility] [place] [address] [place] [address] May, 13 [facility] [place] [address] [place] [address] May, 13 [facility] [address] [facility] [id number] [address] [place] [address] Oct, [facility] [address] [facility] [id number] [address] [place] [address] Aug, [facility] [address] [facility] [id number] [address] [place] [phone] Nov, [facility] [address] [facility] [id number] [address] [place] [address] Sep, IMMUNIZATIONS No Known Immunizations SOCIAL HISTORY Never Assessed REASON FOR VISIT PLAN OF CARE VITAL SIGNS Height 61 in 2014-03-07 Weight 214.7 lbs 2014-03-07 Temperature 98.4 degrees Fahrenheit 2014-03-07 Heart Rate 76 bpm 2014-03-07 Respiratory Rate 18 2014-03-07 Blood pressure systolic 108 mmHg 2014-03-07 Blood pressure diastolic 68 mmHg 2014-03-07 MEDICATIONS No Known Medications RESULTS No Results PROCEDURES Procedure Date Ordered Result Body Site X-RAY EXAM OF ELBOW March 07, 2014 INSTRUCTIONS MEDICATIONS ADMINISTERED No Known Medications MEDICAL (GENERAL) HISTORY Type Description Date Medical History seizures Medical History hyperlipidemia Medical History constipation Surgical History cholecystectomy Surgical History hysterectomy Surgical History appendectomy Surgical History cyst removal to back 2018 Hospitalization History seizures Hospitalization History surgeries Hospitalization History seizures 2015 Hospitalization History pneumonia 2015
--- OUTSIDE RECORDS SUMMARY | 2020-03-30 16:38 | XMS REPORT ---
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 Name Role Phone Migration, Doctor Unavailable Unavailable PROBLEMS Type Condition ICD9-CM Code CCE72-WE Code Onset Dates Condition S tatus SNOMED Code Problem Scoliosis (and kyphoscoliosis), idiopathic 737.30 Active 92141236 Problem Pain in joint, forearm 719.43 Active 175912889 Problem Pain in joint, ankle and foot 719.47 Active 005987647 Problem Unspecified urticaria 708.9 Active 740215499 Problem Pain in joint, upper arm 719.42 Activ e 487529588 Problem Unspecified urinary calculus 592.9 A ctive 397033189 Problem Lumbago 724.2 Active 189068513 Problem Pain in right knee M25.561 Active 3 4431243 Problem Low back pain M54.5 Active 988082 007 Problem Mikayla-rectal abscess K61.1 Active 31405549 Problem Seizure disorder G40.909 Active 128 362276 Problem Duodenitis K29.80 Active 87090920 Problem Asthma exacerbation J45.901 Active 659610020 Problem Chronic idiopathic constipation K59.04 Active 41702866 Problem Epigastric pain R10.13 Active 7992 2009 Problem Adolescent idiopathic scoliosis of thoracolumbar region M41.125 Active 156788905 Problem Cough due to bronchospasm J98.01 Acti ve 3816730 Problem Mild intermittent asthma without complication J45. 20 Active 913768037 Problem Frequent headaches R51 Active 7 30394871 Problem Vertigo R42 Active 220104187 Problem Spastic hemiplegia of right dominant side due to noncerebrovascular etiology G81.11 Active 791294618 Problem Delirium due to conditions classified elsewhere 293.0 Active 7969830 Problem Partial symptomatic epilepsy with complex partial seizures, intractable, 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.219 Active 1 93062308 Problem Unspecified hemorrhoids without mention of complication 45 5.6 Active 52234338 Problem Edema, unspecified R60.9 Active 7 3993534 Problem Slow transit constipation K59.01 Acti ve 15933005 Problem Other chronic pain G89.29 Active 8 3162176 Problem Primary insomnia F51.01 Active 397 2004 Problem Mild intermittent asthma with exacerbation J45.21 Active 167616089 ALLERGIES No Information ENCOUNTERS Encounter Location Date Diagnosis [facility] [address] [address] 02 January, Breast cancer screening by mammogram Z12.31 [facility] [address] [address] 17 Dec, 19 Dental examination Z01.20 and Dental caries K02.9 [facility] [address] [place] [address] 16 Dec, 19 Acute pain of left knee M25.562 [facility] [address] [place] [address] 16 Dec, [address] [address] 09 Dec, 19 Double vision H53.2 ; Headache above the eye region R51 and Synovial cyst of left knee M71.22 [facility] [address] [place] [address] Nov, [address] [address] 27 Oct, 19 Mild intermittent asthma with exacerbation J45.21 ; Seizure disorder G40.909 ; 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 ; Partial symptomatic epilepsy with complex partial seizures, intractable, 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.219 and Spastic hemiplegia of right dominant side due to noncerebrovascular etiology G81.11 [facility] [address] [place] [address] 26 Oct, [address] [address] Sep, 19 Cough R05 and Mild intermittent asthma with exacerbation J45.21 [facility] [address] [place] [address] Aug, [address] [address] Jul, 18 Tinea corporis B35.4 [facility] [address] [place] [address] Jul, 18 [facility] [address] [place] [address] Jul, 18 [facility] [address] [id number] [place] [address] Feb, [facility] [place] [address] [place] [address] Feb, 18 BMI 40.0-44.9, adult Z68.41 ; Slow transit constipation K59.01 ; Pain in right shoulder M25.511 ; Pain in left shoulder M25.512 ; Other chronic pain G89.29 and Primary insomnia F51.01 [facility] [place] [address] [place] [address] Feb, 18 [facility] [place] [address] [facility] [id number] [place], [place] [address] Feb, [facility] [place] [place] [address] [place] [address] Dec, 18 [facility] [place] [address] [place] [address] Dec, 18 [facility] [place] [address] [place] [address] Dec, 18 [facility] [place] [address] [place] [address] Nov, 18 Vertigo R42 and Seizure disorder G40.909 [facility] [place] [address] [place] [address] Aug, 17 Dental examination Z01.20 [facility] [place] [address] [place] [address] Jul, 17 Dental examination Z01.20 [facility] [place] [address] [place] [address] Jul, 17 [facility] [place] [address] [place] [address] Jul, 17 [facility] [place] [address] [place] [address] Jul, 17 Dental examination Z01.[address] [address] Jun, 17 [facility] [address] [address] Jun, 17 Dental examination Z01.20 [facility] [address] [address] Jun, 17 [facility] [address] [address] Jun, 17 Dental examination Z01.20 [facility] [address] [address] 02 Jun, 17 Edema, unspecified R60.9 ; Screening for lipoid disorders Z13.220 and Pericardial effusion I31.3 [facility] [address] [address] May, 17 [facility] [address] [address] May, 17 Acute costochondritis M94.0 ; Frequent headaches R51 and Seizure disorder G40.[address] [address] May, 17 Pericardial effusion I31.[address] [address] May, 20 17 [facility] [address] [address] Feb, [address] [address] 27 January, 17 Seizure disorder G40.[address] [address] January, 17 Dental examination Z01.20 [facility] [address] [address] Dec, 17 Seizure disorder G40.909 ; Low back pain M54.5 ; Cervical radiculopathy M54.12 ; Mild intermittent asthma without complication J45.20 ; Frequent headaches R51 ; Adolescent idiopathic scoliosis of thoracolumbar region M41.125 and Pain in right knee M25.561 [facility] [address] [place] [address] Nov, 17 [facility] [address] [place] [address] Nov, 17 [facility] [address] [place] [address] Nov, 17 Epigastric pain R10.13 ; Asthma exacerbation J45.901 and Seizure disorder G40.909 [facility] [address] [place] [address] Oct, 17 Seizure disorder G40.909 ; Chronic idiopathic constipation K59.04 and Cough due to bronchospasm J98.[address] [address] Oct, 17 Duodenitis K29.80 ; Epigastric pain R10.13 ; Seizure disorder G40.909 and Chronic idiopathic constipation K59.04 [facility] [address] [place] [address] Oct, 17 Dental examination Z01.[address] [address] Sep, 17 Duodenitis K29.80 ; Epigastric pain R10.13 ; Seizure disorder G40.909 and Asthma exacerbation J45.[address] [address] Sep, 17 Epigastric pain R10.13 and Seizure disorder G40.[address] [address] Sep, [address] [address] Aug, 16 Seizure disorder G40.[address] [address] Aug, 16 Seizure disorder G40.909 ; Asthma exacerbation J45.901 and Epigastric pain R10.[address] [place] [address] 15 Aug, 16 Bronchitis J40 ; Asthma exacerbation J45.901 and Epigastric pain R10.13 [facility] [place] [address] [place] [address] 02 Aug, 16 [facility] [address] [place] [address] 02 Aug, 16 [facility] [place] [address] [place] [address] 02 Aug, 16 [facility] [place] [address] [place] [address] 04 Jul, 16 Dental examination Z01.20 Br[facility] [place] [address] [place] [address] Jun, 16 Acute pain of left knee M25.562 and Mikayla-rectal abscess K61.1 [facility] [place] [address] [place] [address] 04 Jun, 16 [facility] [place] [address] [place] [address] 04 Jun, 16 Dental examination Z01.20 Br[facility] [place] [address] [place] [address] 07 May, 16 [facility] [address] [address] 07 May, 16 Seizure disorder G40.909 and Partial symptomatic epilepsy with complex partial seizures, not intractable, 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.209 [facility] [place] [address] [place] [address] 02 May, 16 Screening for lipoid disorders Z13.220 and Edema, unspecified R60.9 [facility] [place] [address] [place] [address] Apr, 16 [facility] [address] [address] Apr, 15 [facility] [address] [id number] [address] [place] [phone] Apr, Dental examination V72.2 [facility] [place] [address] [facility] [id number] [address] [place] [address] 14 Dec, 2014 [facility] [address] [facility] [id number] [address] [place] [address] Dec, [facility] [place] [address] [place] [address] Sep, 15 [facility] [address] [facility] [id number] [address] [place] [address] Sep, [facility] [address] [facility] [id number] [address] [place] [address] Jun, [facility] [address] [facility] [id number] [address] [place] [address] Jun, [facility] [place] [address] [place] [address] Jun, 14 [facility] [address] [facility] [id number] [address] [place] [address] Jun, [facility] [address] [facility] [id number] [address] [place] [address] May, [facility] [place] [address] [place] [address] May, 14 [facility] [place] [address] [place] [address] May, 14 [facility] [address] [facility] [id number] [address] [place] [address] May, [facility] [address] [facility] [id number] [address] [place] [address] Mar, [facility] [place] [address] [place] [address] Mar, 14 [facility] [address] [facility] [id number] [address] [place] [address] Mar, [facility] [place] [address] [place] [address] Mar, 14 [facility] [address] [facility] [id number] [address] [place] [address] Mar, [facility] [address] [facility] [id number] [address] [place] [address] Feb, Brinda [place] [address] [place] [address] Feb, 14 [facility] [address] [facility] [id number] [address] [place] [address] Feb, [facility] [address] [place] [address] Feb, 14 [facility] [address] [facility] [id number] [address] [place] [address] Feb, [facility] [place] [address] January, 14 [facility] [address] [facility] [id number] [address] [place] [address] January, [facility] [place] [address] [place] [address] May, 13 [facility] [place] [address] [place] [address] May, 13 [facility] [address] [facility] [id number] [address] [place] [address] Oct, [facility] [address] [facility] [id number] [address] [place] [address] Aug, [facility] [address] [facility] [id number] [address] [place] [address] Nov, [facility] [address] [facility] [id number] [address] [place] [address] Sep, IMMUNIZATIONS No Known Immunizations SOCIAL HISTORY Never Assessed REASON FOR VISIT [place] [place] VITAL SIGNS MEDICATIONS Unknown [...]
--- OUTSIDE RECORDS SUMMARY | 2020-03-30 16:38 | XMS REPORT ---
Author Author Riri FLOYD Organization [facility] [address] [facility] Address [address] [place] [address] Care Team Providers Care Prop Sawyer Name Role Phone OZ FLOYD Unavailable PROBLEMS Type Condition ICD9-CM Code [id number] Code Onset Dates Condition S tatus SNOMED Code Problem Mikayla-rectal abscess K61.1 Active 01134041 Problem Seizure disorder G40.909 Active 128 825273 Problem Duodenitis K29.80 Active 60766732 Problem Asthma exacerbation J45.901 Active 605993310 Problem Chronic idiopathic constipation K59.04 Active 09567091 Problem Epigastric pain R10.13 Active 7992 2009 Problem Adolescent idiopathic scoliosis of thoracolumbar region M41.125 Active 210683655 Problem Cough due to bronchospasm J98.01 Acti ve 6871605 Problem Mild intermittent asthma without complication J45. 20 Active 662594698 Problem Frequent headaches R51 Active 7 97754334 Problem Vertigo R42 Active 514943993 Problem Spastic hemiplegia of right dominant side due to noncerebrovascular etiology G81.11 Active 536122489 Problem Pain in right knee M25.561 Active 3 1780426 Problem Partial symptomatic epilepsy with complex partial seizures, intractable, 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.219 Active 1 78441224 Problem Low back pain M54.5 Active 414396 007 Problem Edema, unspecified R60.9 Active 7 8426406 Problem Slow transit constipation K59.01 Acti ve 59362333 Problem Other chronic pain G89.29 Active 8 3703681 Problem Primary insomnia F51.01 Active 397 2004 Problem Mild intermittent asthma with exacerbation J45.21 Active 753369278 ALLERGIES Substance Reaction Event Type Date Status Codeine Sulfate itching Drug Allergy Oct, Active Tramadol Unknown Drug Allergy Oct, Active Surgical Tape And Bandaids Unknown Non Drug Allergy Oct, 20 19 Active ENCOUNTERS Encounter Location Date Diagnosis [facility] [address] [address] 18 Feb, 19 [facility] [address] [address] Feb, 19 Diplopia H53.[address] [facility] [address] [address] 11 Feb, 19 Well woman exam Z01.419 and Pre-op exam Z01.[address] [facility] [address] [address] 06 Feb, [address] [facility] [address] [address] January, 19 Breast cancer screening by mammogram Z12.[address] [facility] [address] [place] [phone] 17 Dec, 19 Dental examination Z01.20 and Dental caries K02.[address] [facility] [address] [place] [address] Dec, 19 Acute pain of left knee M25.[address] [facility] [address] [place] [address] Dec, [address] [address] Dec, 19 Double vision H53.2 ; Headache above the eye region R51 and Synovial cyst of left knee M71.[address] 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 [address] [place] [address] Oct, [address] [facility] [address] [address] Sep, 19 Cough R05 and Mild intermittent asthma with exacerbation J45.[address] [facility] [address] [place] [address] 17 Aug, [address] [facility] [address] [place] [address] Jul, 18 Tinea corporis B35.[address] [facility] [address] [place] [address] Jul, [address] [facility] [address] [place] [address] Jul, 18 [facility] [address] [facility] [id number] [address] [place] [address] Feb, [address] [address] Feb, 18 BMI 40.0-44.9, adult Z68.41 ; Slow transit constipation K59.01 ; Pain in right shoulder M25.511 ; Pain in left shoulder M25.512 ; Other chronic pain G89.29 and Primary insomnia F51.01 [facility] [address] [place] [address] Feb, 18 [facility] [address] [facility] [id number] [address] [place] [address] Feb, [facility] [address] [place] [address] Dec, [address] [address] Dec, 18 [facility] [address] [place] [address] Dec, 18 [facility] [address] [place] [address] Nov, 18 Vertigo R42 and Seizure disorder G40.909 [facility] [address] [place] [address] Aug, 17 Dental examination Z01.20 [facility] [address] [place] [address] Jul, 17 Dental examination Z01.20 [facility] [address] [place] [address] Jul, 17 [facility] [address] [place] [address] Jul, 17 [facility] [address] [place] [address] Jul, 17 Dental examination Z01.20 [facility] [address] [place] [address] 30 Jun, 20 17 [facility] [address] [place] [address] Jun, 20 17 Dental examination Z01.20 [facility] [address] [place] [address] Jun, 17 [facility] [address] [place] [address] Jun, 17 Dental examination Z01.20 [facility] [address] [place] [address] 02 Jun, 20 17 Edema, unspecified R60.9 ; Screening for lipoid disorders Z13.220 and Pericardial effusion I31.3 [facility] [address] [place] [address] Sep, 20 17 [facility] [address] [place] [address] May, 20 17 Acute costochondritis M94.0 ; Frequent headaches R51 and Seizure disorder G40.[address] [facility] [address] [address] Sep, 20 17 Pericardial effusion I31.3 [facility] [address] [place] [address] 19 May, 20 17 [facility] [address] [place] [address] Feb, 17 [facility] [address] [place] [address] 27 January, 17 Seizure disorder G40.909 [facility] [address] [place] [address] 16 January, 17 Dental examination Z01.20 [facility] [address] [place] [address] Dec, 17 Seizure disorder G40.909 ; Low back pain M54.5 ; Cervical radiculopathy M54.12 ; Mild intermittent asthma without complication J45.20 ; Frequent headaches R51 ; Adolescent idiopathic scoliosis of thoracolumbar region M41.125 and Pain in right knee M25.[address] [address] Nov, [address] [address] Nov, [address] [address] Nov, 17 Epigastric pain R10.13 ; Asthma exacerbation J45.901 and Seizure disorder G40.[address] [address] Oct, 17 Seizure disorder G40.909 ; Chronic idiopathic constipation K59.04 and Cough due to bronchospasm J98.[address] [address] Oct, 17 Duodenitis K29.80 ; Epigastric pain R10.13 ; Seizure disorder G40.909 and Chronic idiopathic constipation K59.[address] [address] Oct, 17 Dental examination Z01.[address] [address] Sep, 17 Duodenitis K29.80 ; Epigastric pain R10.13 ; Seizure disorder G40.909 and Asthma exacerbation J45.[address] [address] Sep, 17 Epigastric pain R10.13 and Seizure disorder G40.[address] [address] Sep, [address] [address] Aug, 16 Seizure disorder G40.909 [facility] [address] [place] [address] Aug, 16 Seizure disorder G40.909 ; Asthma exacerbation J45.901 and Epigastric pain R10.13 [facility] [address] [place] [address] Aug, 16 Bronchitis J40 ; Asthma exacerbation J45.901 and Epigastric pain R10.13 [facility] [address] [place] [address] Aug, 16 [facility] [address] [place] [address] Aug, 16 [facility] [address] [address] Aug, 16 [facility] [address] [address] Jul, 16 Dental examination Z01.20 [facility] [address] [address] Jun, 16 Acute pain of left knee M25.562 and Mikayla-rectal abscess K61.1 [facility] [address] [address] 04 Jun, 16 [facility] [address] [address] 04 Jun, 16 Dental examination Z01.[address] [address] 07 May, 16 [facility] [address] [address] May, 16 Seizure disorder G40.909 and Partial symptomatic epilepsy with complex partial seizures, not intractable, 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.209 [facility] [address] [address] May, 16 Screening for lipoid disorders Z13.220 and Edema, unspecified R60.[address] [facility] [address] [place] [address] Apr, 16 [facility] [address] [place] [address] Apr, 15 [facility] [address] [id number] [address] [place] [id number] Apr, Dental examination V72.2 [facility] [address] [id number] [address] [place] [phone] Dec, [facility] [address] [facility] [id number] [address] [place] [phone] Dec, [facility] [address] [place] [address] Sep, 15 [facility] [address] [id number] [address] [place] [address] Sep, [facility] [address] [facility] [id number] [address] [place] [address] Jun, [facility] [address] [facility] [id number] [address] [place] [address] Jun, [facility] [address] [place] [address] Jun, 14 [facility] [address] [id number] [address] [place] [address] Jun, [facility] [address] [facility] [id number] [address] [place] [address] May, [facility] [address] [place] [address] May, 14 [facility] [address] [place] [address] May, 14 [facility] [address] [facility] [id number] [address] [place] [address] May, [facility] [address] [facility] [id number] [address] [place] [address] Mar, [facility] [address] [place] [address] Mar, 14 [facility] [address] [facility] [id number] [address] [place] [address] Mar, [facility] [address] [place] [address] Mar, 14 [facility] [address] [facility] [id number] [address] [place] [address] Mar, [facility] [address] [facility] [id number] [address] [place] [address] Feb, [facility] [address] [place] [address] Feb, 14 [facility] [address] [facility] [id number] [address] [place] [phone] Feb, [facility] [address] [place] [address] Feb, 14 [facility] [address] [facility] [id number] [address] [place] [address] Feb, [facility] [address] [place] [address] January, 14 [facility] [address] [facility] [id number] [address] [place] [address] January, [facility] [place] [address] May, 13 [facility] [address] [place] [address] May, 13 [facility] [address] [facility] [id number] [address] [place] [phone] Oct, [facility] [address] [facility] [id number] [address] [place] [phone] Aug, [facility] [address] [facility] [id number] [address] [place] [address] Nov, [facility] [address] [facility] [id number] [address] [place] [phone] Sep, IMMUNIZATIONS No Known Immunizations SOCIAL HISTORY Never Assessed REASON FOR VISIT needs papework filled out to see about getting home health-amorrisonlpn PLAN OF CARE Activity Details Follow Up prn Reason:seizure VITAL SIGNS Height 61 in 2018-11-04 Weight 198.2 lbs 2018-11-04 Temperature 96.8 degrees Fahrenheit 2018-11-04 Heart Rate 70 bpm 2018-11-04 Respiratory Rate 18 2018-11-04 BMI 37.45 kg/m2 2018-11-04 Blood pressure systolic 102 mmHg 2018-11-04 Blood pressure diastolic 76 mmHg 2018-11-04 MEDICATIONS Medication Instructions Dosage Frequency Start Date End Date Duration S tatus Potassium Chloride ER 10 MEQ TAKE 1 CAPS ULE BY MOUTH THREE TIMES DAILY WITH FOOD 30 Active PredniSONE 10 MG Orally Once a day Take 4 tabs po x3 da ys, 3 tabs po x3 days, 2 tabs po x3 days, 1 tab po x3 days. 24h Sep, 12 day s Active Cetirizine HCl 10 MG TAKE 1 TABLET BY MOUTH DAILY 30 Active Baclofen 10 mg Orally 2 times a day 1 tablet with food or milk 12h Active Naproxen 500 MG TAKE 1 TABLET BY MOUTH TWICE DAILY WITH FOOD 30 Active Levetiracetam 500 mg Orally Twice a day take 3 tabs 12h May, Active Simvastatin 20 MG TAKE 1 TABLET BY MOUTH DAILY AT BEDTIME 30 Active Aspirin Adult Low Dose 81 MG Orally Once a day 1 tablet 24h Active Vimpat 200 mg Orally twice a day 1 tablet 12h Feb, 9 0 days Active Augmentin 875-125 MG Orally every 12 hrs 1 tablet 12h Sep, 10 day(s) Active Diphenhydramine 25 Oral at hs 1 tab Ac tive B12 Fast Dissolve 1000 Orally daily OTC 1 tablet Active Citalopram Hydrobromide 40 MG TAKE 1 TABLET BY MOUTH DAILY 30 Active Meloxicam 15 MG TAKE 1 TABLET BY MOUTH DAILY 30 Active Nortriptyline HCl Active Montelukast Sodium 10 MG TAKE 1 TABLET BY MOUTH IN THE EVENING 90 Active Zonisamide 100 MG Orally Once a day 1 capsule 24h Active Lorazepam 2 MG Orally Once a day 1 tablet as needed 24h Active Albuterol Sulfate (2.5 MG/3ML) 0.083% Inhalation Three times a day 3 ml as needed 8h Sep, Active Hydrochlorothiazide 25 MG TAKE 1 TABLET BY MOUTH DAILY NEEDED FOR SWELLING. 90 Active RESULTS No Results PROCEDURES No Known [...]
--- OUTSIDE RECORDS SUMMARY | 2020-03-30 16:38 | XMS REPORT ---
Author Author Riri FLOYD Organization [facility] [address] Address [address] [place] [address] Care Team Providers Care Clerk Of Works Name Role Phone OZ FLOYD Unavailable PROBLEMS Type Condition ICD9-CM Code [id number] Code Onset Dates Condition S tatus SNOMED Code Problem Mikayla-rectal abscess K61.1 Active 69024158 Problem Seizure disorder G40.909 Active 128 579864 Problem Duodenitis K29.80 Active 30303107 Problem Asthma exacerbation J45.901 Active 558801565 Problem Chronic idiopathic constipation K59.04 Active 00635491 Problem Epigastric pain R10.13 Active 7992 2009 Problem Adolescent idiopathic scoliosis of thoracolumbar region M41.125 Active 400548461 Problem Cough due to bronchospasm J98.01 Acti ve 1009355 Problem Mild intermittent asthma without complication J45. 20 Active 776947866 Problem Frequent headaches R51 Active 7 49109923 Problem Vertigo R42 Active 218487523 Problem Spastic hemiplegia of right dominant side due to noncerebrovascular etiology G81.11 Active 729475027 Problem Pain in right knee M25.561 Active 3 3816790 Problem Partial symptomatic epilepsy with complex partial seizures, intractable, 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.219 Active 1 86541490 Problem Low back pain M54.5 Active 240280 007 Problem Edema, unspecified R60.9 Active 7 6571799 Problem Slow transit constipation K59.01 Acti ve 21836792 Problem Other chronic pain G89.29 Active 8 0122665 Problem Primary insomnia F51.01 Active 397 2004 Problem Mild intermittent asthma with exacerbation J45.21 Active 259171325 ALLERGIES No Information ENCOUNTERS Encounter Location Date Diagnosis [facility] [address] [place] [address] May, [facility] [address] [place] [address] 23 Aug, 20 19 Epigastric abdominal pain R10.13 ; Low back pain M54.5 and Pain in right knee M25.561 [facility] [address] [address] Feb, 19 [facility] [address] [place] [address] Feb, 19 Diplopia H53.2 [facility] [address] [address] Feb, 19 Well woman exam Z01.419 and Pre-op exam Z01.818 [facility] [address] [place] [address] Feb, 19 [facility] [address] [address] January, 19 Breast cancer screening by mammogram Z12.31 [facility] [address] [address] 17 Dec, 19 Dental examination Z01.20 and Dental caries K02.9 [facility] [address] [address] Dec, 19 Acute pain of left knee M25.562 [facility] [address] [address] Dec, 19 [facility] [address] [place] [address] Dec, 19 Double vision H53.2 ; Headache above the eye region R51 and Synovial cyst of left knee M71.22 [facility] [address] [address] Nov, 19 [facility] [address] [place] [address] Oct, 19 Mild intermittent asthma with exacerbation J45.21 ; Seizure disorder G40.909 ; 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 ; Partial symptomatic epilepsy with complex partial seizures, intractable, 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.219 and Spastic hemiplegia of right dominant side due to noncerebrovascular etiology G81.11 [facility] [address] [address] Oct, 19 [facility] [address] [place] [address] Sep, 19 Cough R05 and Mild intermittent asthma with exacerbation J45.21 [facility] [address] [place] [address] Aug, 18 [facility] [address] [place] [address] Jul, 18 Tinea corporis B35.4 [facility] [address] [place] [address] Jul, 18 [facility] [address] [place] [address] Jul, 18 [facility] [address] [place] [id number] [address] [place] [address] Feb, [facility] [address] [place] [address] Feb, 18 BMI 40.0-44.9, adult Z68.41 ; Slow transit constipation K59.01 ; Pain in right shoulder M25.511 ; Pain in left shoulder M25.512 ; Other chronic pain G89.29 and Primary insomnia F51.[address] [facility] [address] [place] [address] Feb, 18 [facility] [address] [place] [id number] [address] [place] [phone] Feb, [address] [address] Dec, 18 [facility] [place] [address] [place] [address] Dec, 18 [facility] [place] [address] [place] [address] Dec, 18 [facility] [place] [address] [place] [address] Nov, 18 Vertigo R42 and Seizure disorder G40.909 [facility] [place] [address] [place] [address] Aug, 17 Dental examination Z01.20 [facility] [place] [address] [place] [address] 16 Jul, 20 17 Dental examination Z01.20 [facility] [place] [address] [place] [address] Jul, 20 17 [facility] [place] [address] [place] [address] Jul, 20 17 [facility] [place] [address] [place] [address] Jul, 17 Dental examination Z01.20 [facility] [place] [address] [place] [address] 30 Oct, 20 17 [facility] [place] [address] [place] [address] 27 Oct, 20 17 Dental examination Z01.20 [facility] [place] [address] [place] [address] 27 Oct, 20 17 [facility] [place] [address] [place] [address] 05 Jun, 20 17 Dental examination Z01.20 [facility] [place] [address] [place] [address] 02 Jun, 20 17 Edema, unspecified R60.9 ; Screening for lipoid disorders Z13.220 and Pericardial effusion I31.[address] [facility] [address] [address] 27 Sep, 20 [address] [facility] [address] [address] Sep, 20 17 Acute costochondritis M94.0 ; Frequent headaches R51 and Seizure disorder G40.[address] [facility] [address] [address] 26 Sep, 20 17 Pericardial effusion I31.3 [facility] [place] [address] [place] [address] 19 Sep, 20 17 [facility] [place] [address] [place] [address] Feb, 20 17 [facility] [place] [address] [place] [address] 27 January, 17 Seizure disorder G40.909 [facility] [place] [address] [place] [address] January, 17 Dental examination Z01.[address] [address] Dec, 17 Seizure disorder G40.909 ; Low back pain M54.5 ; Cervical radiculopathy M54.12 ; Mild intermittent asthma without complication J45.20 ; Frequent headaches R51 ; Adolescent idiopathic scoliosis of thoracolumbar region M41.125 and Pain in right knee M25.[address] [address] Nov, [address] [address] Nov, [address] [address] Nov, 17 Epigastric pain R10.13 ; Asthma exacerbation J45.901 and Seizure disorder G40.[address] [address] Oct, 17 Seizure disorder G40.909 ; Chronic idiopathic constipation K59.04 and Cough due to bronchospasm J98.[address] [address] Oct, 17 Duodenitis K29.80 ; Epigastric pain R10.13 ; Seizure disorder G40.909 and Chronic idiopathic constipation K59.[address] [address] Oct, 17 Dental examination Z01.[address] [address] Sep, 17 Duodenitis K29.80 ; Epigastric pain R10.13 ; Seizure disorder G40.909 and Asthma exacerbation J45.[address] [address] Sep, 17 Epigastric pain R10.13 and Seizure disorder G40.[address] [address] Sep, 17 [facility] [place] [address] [place] [address] Aug, 16 Seizure disorder G40.909 [facility] [place] [address] [place] [address] Aug, 16 Seizure disorder G40.909 ; Asthma exacerbation J45.901 and Epigastric pain R10.13 [facility] [place] [address] [place] [address] Aug, 16 Bronchitis J40 ; Asthma exacerbation J45.901 and Epigastric pain R10.13 [facility] [place] [address] [place] [address] Aug, 16 [facility] [place] [address] [place] [address] Aug, 16 [facility] [place] [address] [place] [address] Aug, 16 [facility] [place] [address] [place] [address] Jul, 16 Dental examination Z01.20 [facility] [place] [address] [place] [address] Jun, 16 Acute pain of left knee M25.562 and Mikayla-rectal abscess K61.[address] [facility] [address] [address] 04 Jun, 16 [facility] [address] [address] 04 Jun, 16 Dental examination Z01.20 [facility] [place] [address] [place] [address] May, 16 [facility] [place] [address] [place] [address] 07 May, 16 Seizure disorder G40.909 and Partial symptomatic epilepsy with complex partial seizures, not intractable, 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.209 [facility] [place] [address] [place] [address] 02 May, 16 Screening for lipoid disorders Z13.220 and Edema, unspecified R60.9 [facility] [place] [address] [place] [address] [place] [address] Apr, 16 [facility] [place] [address] [place] [address] Apr, 15 [facility] [address] [id number] [address] [place] [id number] Apr, Dental examination V72.2 [facility] [address] [facility] [id number] [address] [place] [phone] Dec, [facility] [address] [facility] [id number] [address] [place] [phone] Dec, [facility] [place] [address] [place] [address] Sep, 15 [facility] [address] [facility] [id number] [address] [place] [phone] Sep, [facility] [address] [facility] [id number] [address] [place] [phone] Jun, [facility] [address] [facility] [id number] [address] [place] [phone] Jun, [facility] [place] [address] [place] [address] Jun, 14 [facility] [address] [facility] [id number] [address] [place] [phone] Jun, [facility] [address] [facility] [id number] [address] [place] [phone] May, [facility] [place] [address] [place] [address] May, 14 [facility] [place] [address] [place] [address] May, 14 [facility] [address] [facility] [id number] [address] [place] [phone] May, [facility] [address] [facility] [id number] [address] [place] [phone] Mar, [facility] [place] [address] [place] [address] Mar, 14 [facility] [address] [facility] [id number] [address] [place] [phone] Mar, [facility] [place] [address] [place] [address] Mar, 14 [facility] [address] [facility] [id number] [address] [place] [address], [place] [address] Mar, [facility] [address] [facility] [id number] [address] [place] [phone] Feb, [facility] [place] [address] [place] [address] Feb, 14 [facility] [address] [facility] [id number] [address] [place] [phone] Feb, [facility] [place] [address] [place] [address] Feb, 14 [facility] [address] [facility] [id number] [address] [place] [phone] Feb, [facility] [place] [address] [place] [address] January, 14 [facility] [address] [facility] [id number] [address] [place] [phone] January, [facility] [place] [address] [place] [address] May, 13 [facility] [place] [address] [place] [address] May, 13 [facility] [address] [facility] [id number] [address] [place] [phone] Oct, [facility] [address] [facility] [id number] [address] [place] [phone] Aug, [facility] [address] [facility] [id number] [address] [place] [phone] Nov, [facility] [address] [facility] [id number] [address] [place] [phone] Sep, IMMUNIZATIONS No Known Immunizations SOCIAL HISTORY [...]
--- OUTSIDE RECORDS SUMMARY | 2020-03-30 16:38 | XMS REPORT ---
Author Author Riri Rodriguez Doctor Organization [facility] Address Unknown Phone Unavailable Care Team Providers Care [facility] Name Role Phone Migration, Doctor Unavailable Unavailable PROBLEMS Type Condition ICD9-CM Code NHL51-DJ Code Onset Dates Condition S tatus SNOMED Code Problem Mikayla-rectal abscess K61.1 Active 36976527 Problem Seizure disorder G40.909 Active 128 053889 Problem Duodenitis K29.80 Active 41210117 Problem Asthma exacerbation J45.901 Active 745331247 Problem Chronic idiopathic constipation K59.04 Active 13130530 Problem Epigastric pain R10.13 Active 7992 2009 Problem Adolescent idiopathic scoliosis of thoracolumbar region M41.125 Active 712753606 Problem Cough due to bronchospasm J98.01 Acti ve 4408185 Problem Mild intermittent asthma without complication J45. 20 Active 573763639 Problem Frequent headaches R51 Active 7 95700129 Problem Vertigo R42 Active 303346944 Problem Spastic hemiplegia of right dominant side due to noncerebrovascular etiology G81.11 Active 617210351 Problem Pain in right knee M25.561 Active 3 4487970 Problem Partial symptomatic epilepsy with complex partial seizures, intractable, 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.219 Active 1 74328593 Problem Low back pain M54.5 Active 310255 007 Problem Edema, unspecified R60.9 Active 7 4295455 Problem Slow transit constipation K59.01 Acti ve 00193962 Problem Other chronic pain G89.29 Active 8 3714347 Problem Primary insomnia F51.01 Active 397 2004 Problem Mild intermittent asthma with exacerbation J45.21 Active 843928851 ALLERGIES No Information ENCOUNTERS Encounter Location Date Diagnosis [facility] [address] [place] [address] 18 Feb, [facility] [address] [place] [address] Feb, Diplopia H53.2 [facility] [address] [place] [address] Feb, 19 Well woman exam Z01.419 and Pre-op exam Z01.818 [facility] [address] [address] 06 Feb, 19 [facility] [address] [place] [address] January, 19 Breast cancer screening by mammogram Z12.31 [facility] [address] [address] 17 Dec, 19 Dental examination Z01.20 and Dental caries K02.9 [facility] [address] [address] 16 Dec, 19 Acute pain of left knee M25.562 [facility] [address] [place] [address] 16 Dec, 19 [facility] [address] [place] [address] Dec, 19 Double vision H53.2 ; Headache above the eye region R51 and Synovial cyst of left knee M71.22 [facility] [address] [address] Nov, 19 [facility] [address] [place] [address] Oct, 19 Mild intermittent asthma with exacerbation J45.21 ; Seizure disorder G40.909 ; 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 ; Partial symptomatic epilepsy with complex partial seizures, intractable, 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.219 and Spastic hemiplegia of right dominant side due to noncerebrovascular etiology G81.11 [facility] [address] [place] [address] Oct, 19 [facility] [address] [place] [address] Sep, 19 Cough R05 and Mild intermittent asthma with exacerbation J45.21 [facility] [address] [address] Aug, 18 [facility] [address] [place] [address] Jul, 18 Tinea corporis B35.4 [facility] [address] [place], [place] [address], [place] [address] Jul, [address] [place] [address] Jul, 18 [facility] [address] [facility] [id number] [address] [place] [address] Feb, [facility] [address] [place] [address] Feb, 18 BMI 40.0-44.9, adult Z68.41 ; Slow transit constipation K59.01 ; Pain in right shoulder M25.511 ; Pain in left shoulder M25.512 ; Other chronic pain G89.29 and Primary insomnia F51.01 [facility] [place] [address] [place] [address] Feb, 18 [facility] [address] [facility] [id number] [address] [address] Feb, [facility] [place] [address] [place] [phone] Dec, 18 [facility] [place] [address] [place] [address] Dec, 18 [facility] [place] [address] [place] [address] Dec, 18 [facility] [place] [address] [place] [address] Nov, 18 Vertigo R42 and Seizure disorder G40.909 [facility] [place] [address] [place] [address] Aug, 17 Dental examination Z01.20 [facility] [address] [place] [address] Jul, 17 Dental examination Z01.20 [facility] [place] [address] [place] [address] Jul, 17 [facility] [address] [address] [place] [address] Jul, 17 [facility] [place] [place] [address] 03 Nov, 20 17 Dental examination Z01.20 [facility] [place] [address] [place] [address] 30 Jun, 20 17 [facility] [address] [address] Jun, 20 17 Dental examination Z01.20 [facility]Shan[facility] [place] [address] [place] [address] 27 Jun, 20 17 [facility] [address] [address] 05 Jun, 20 17 Dental examination Z01.[address] [address] 02 Jun, 20 17 Edema, unspecified R60.9 ; Screening for lipoid disorders Z13.220 and Pericardial effusion I31.3 [facility] [address] [address] 27 Sep, 20 17 [facility] [address] [address] May, 20 17 Acute costochondritis M94.0 ; Frequent headaches R51 and Seizure disorder G40.909 [facility] [address] [address] 26 Sep, 20 17 Pericardial effusion I31.3 [facility] [address] [address] 19 May, 20 17 [facility] [address] [address] Feb, 17 [facility] [address] [address] 27 January, 17 Seizure disorder G40.909 [facility] [address] [address] 16 January, 17 Dental examination Z01.20 [facility] [address] [address] Dec, 17 Seizure disorder G40.909 ; Low back pain M54.5 ; Cervical radiculopathy M54.12 ; Mild intermittent asthma without complication J45.20 ; Frequent headaches R51 ; Adolescent idiopathic scoliosis of thoracolumbar region M41.125 and Pain in right knee M25.561 [facility] [place] [address] [place] [address] Nov, 17 [facility] [address] [place] [address] Nov, 17 [facility] [place] [address] [place] [address] Nov, 17 Epigastric pain R10.13 ; Asthma exacerbation J45.901 and Seizure disorder G40.909 [facility] [address] [place] [address] Oct, 17 Seizure disorder G40.909 ; Chronic idiopathic constipation K59.04 and Cough due to bronchospasm J98.[address] [address] Oct, 17 Duodenitis K29.80 ; Epigastric pain R10.13 ; Seizure disorder G40.909 and Chronic idiopathic constipation K59.04 [facility] [address] [place] [address] Oct, 17 Dental examination Z01.20 [facility] [address] [place] [address] Sep, 17 Duodenitis K29.80 ; Epigastric pain R10.13 ; Seizure disorder G40.909 and Asthma exacerbation J45.[address] [address] Sep, 17 Epigastric pain R10.13 and Seizure disorder G40.[address] [address] 04 Sep, [address] [address] Aug, 16 Seizure disorder G40.909 [facility] [address] [place] [address] Aug, 16 Seizure disorder G40.909 ; Asthma exacerbation J45.901 and Epigastric pain R10.13 [facility] [address] [place] [address] 15 Aug, 16 Bronchitis J40 ; Asthma exacerbation J45.901 and Epigastric pain R10.13 [facility] [place] [address] [place] [id number] 02 Aug, 16 [facility] [place] [address] [place] [address] 02 Aug, 16 [facility] [place] [address] [place] [address] 02 Aug, 16 [facility] [place] [address] [place] [address] Jul, 16 Dental examination Z01.20 [facility] [place] [address] [place] [address] Jun, 16 Acute pain of left knee M25.562 and Mikayla-rectal abscess K61.1 [facility] [place] [address] [place] [address] 04 Jun, 16 [facility] [place] [address] [place] [address] 04 Jun, 16 Dental examination Z01.20 [facility] [place] [address] [place] [address] 07 May, 16 [facility] [address] [address] 07 May, 16 Seizure disorder G40.909 and Partial symptomatic epilepsy with complex partial seizures, not intractable, 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.209 [facility] [address] [address] 02 May, 16 Screening for lipoid disorders Z13.220 and Edema, unspecified R60.9 [facility] [place] [address] [place] [address] Apr, 16 [facility] [place] [address] [place] [address] Apr, 15 [facility] [address] [id number] [place] [id number] 04 Apr, 2015 Dental examination V72.2 [facility] [address] [id number] [address] [address] Dec, [facility] [address] [facility] [id number] [address] [place] [address] Dec, [facility] [address] [place] [address] Sep, 15 [facility] [address] [id number] [address] [place] [phone] Sep, [facility] [address] [facility] [id number] [address] [place] [phone] Jun, [facility] [address] [facility] [id number] [address] [place] [phone] Jun, [facility] [address] [place] [address] Jun, 14 [facility] [address] [facility] [id number] [address] [place] [phone] Jun, [facility] [address] [facility] [id number] [address] [place] [address] May, [facility] [address] [place] [address] May, 14 [facility] [address] [place] [address] May, 14 [facility] [address] [facility] [id number] [address] [place] [phone] May, [facility] [address] [facility] [id number] [address] [place] [phone] Mar, [facility] [address] [place] [address] Mar, 14 [facility] [address] [facility] [id number] [address] [place] [phone] Mar, [facility] [address] [place] [address] Mar, 14 [facility] [address] [facility] [id number] [address] [place] [phone] Mar, [facility] [address] [facility] [id number] [address] [place] [phone] Feb, [facility] [address] [place] [address] Feb, 14 [facility] [address] [facility] [id number] [address] [place] [phone] Feb, [facility] [address] [place] [address] Feb, 14 [facility] [address] [facility] [id number] [address] [place] [phone] Feb, [facility] [address] [place] [address] January, 14 [facility] [address] [facility] [id number] [address] [place] [phone] January, [facility] [address] May, 13 [facility] [address] [place] [address] May, 13 [facility] [address] [facility] [id number] [address] [place] [phone] Oct, [facility] [address] [facility] [id number] [address] [place] [phone] Aug, [facility] [address] [place] [id number] [address] [place] [phone] Nov, [facility] [address] [place] [id number] [address] [place] [address] Sep, IMMUNIZATIONS No Known Immunizations SOCIAL HISTORY [...]
--- OUTSIDE RECORDS SUMMARY | 2020-03-30 16:38 | XMS REPORT ---
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 20 Active 159412360 Problem Cough due to bronchospasm J98.01 Acti ve 3847123 Problem Low back pain M54.5 Active 973113 007 Problem Adolescent idiopathic scoliosis of thoracolumbar region M41.125 Active 477085706 Problem Vertigo R42 Active 146965325 Problem Slow transit constipation K59.01 Acti ve 36923682 Problem Other chronic pain G89.29 Active 8 3821815 Problem Gastroesophageal reflux disease without esophagitis K21.9 Active 149922535 Problem Frequent headaches R51 Active 7 24312155 Problem Seizure disorder G40.909 Active 128 713426 Problem Gastroesophageal reflux disease without esophagitis K21.9 Active 368800586 Problem Pain in right knee M25.561 Active 3 7564557 Problem Edema, unspecified R60.9 Active 7 9831401 Problem Mikayla-rectal abscess K61.1 Active 93039427 Problem Primary insomnia F51.01 Active 397 2004 Problem Mild intermittent asthma with exacerbation J45.21 Active 346528861 Problem Spastic hemiplegia of right dominant side due to noncerebrovascular etiology G81.11 Active 714917694 Problem Partial symptomatic epilepsy with complex partial seizures, intractable, 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.219 Active 1 24068423 ALLERGIES No Information ENCOUNTERS Encounter Location Date Diagnosis [facility] [address] [place] [place] [address] 16 Aug, 2019 [facility] [address] [place] [id number] [address] Jul, [facility] [address] [place] [id number] [address] Jul, [facility] [address] [place] [id number] [address] 04 Jun, 2019 Epigastric abdominal pain R10.13 ; Gastroesophageal reflux disease without esophagitis K21.9 and Encounter for immunization Z23 [facility] [address] [place] [id number] [address] 06 May, 2019 Epigastric abdominal pain R10.13 and FCI use of drug Z79.899 [facility] [address] [place] [id number] [address] Apr, Epigastric abdominal pain R10.13 ; Low back pain M54.5 and Pain in right knee M25.561 [facility] [address] [place] [id number] [address] 18 Feb, 2019 [facility] [address] [place] [id number] [address] Feb, Diplopia H53.2 [facility] [address] [place] [id number] [address] 11 Feb, 2019 Well woman exam Z01.419 and Pre-op exam Z01.818 [facility] [address] [place] [id number] [address] Feb, [facility] [address] [place] [id number] [address] January, Breast cancer screening by mammogram Z12.31 [facility] [address] [place] [id number] [address] 17 Dec, 2018 Dental examination Z01.20 and Dental caries K02.9 [facility] [address] [place] [id number] [address] 16 Dec, 2018 Acute pain of left knee M25.562 [facility] [address] [place] [id number] [address] 16 Dec, 2018 [facility] [address] [place] [id number] [address] Dec, Double vision H53.2 ; Headache above the eye region R51 and Synovial cyst of left knee M71.22 [facility] [address] [place] [id number] [address] Nov, [facility] [address] [place] [address] [address] Oct, Mild intermittent asthma with exacerbation J45.21 ; Seizure disorder G40.909 ; 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 ; Partial symptomatic epilepsy with complex partial seizures, intractable, 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.219 and Spastic hemiplegia of right dominant side due to noncerebrovascular etiology G81.11 [facility] [address] [place] [id number] [address] Oct, [facility] [address] [place] [id number] [address] Sep, Cough R05 and Mild intermittent asthma with exacerbation J45.21 [facility] [address] [place] [id number] [address] Aug, [facility] [address] [place] [id number] [address] Jul, Tinea corporis B35.4 [facility] [address] [place] [id number] [address] Jul, [facility] [address] [place] [id number] [address] Jul, [facility] [address] [facility] [place] [address] Feb, [facility] [address] [place] [address] Feb, 18 BMI 40.0-44.9, adult Z68.41 ; Slow transit constipation K59.01 ; Pain in right shoulder M25.511 ; Pain in left shoulder M25.512 ; Other chronic pain G89.29 and Primary insomnia F51.01 [facility] [place] [address] [place] [address] Feb, 18 [facility] [address] [facility] [place] [address] Feb, [facility] [place] [address] [place] [address] Dec, 18 [facility] [place] [address] [place] [address] Dec, 18 [facility] [place] [address] [place] [address] Dec, 18 [facility] [place] [address] [place] [address] Nov, 18 Vertigo R42 and Seizure disorder G40.909 [facility] [place] [address] [place] [address] Aug, 17 Dental examination Z01.20 [facility] [place] [address] [place] [address] Jul, 17 Dental examination Z01.20 [facility] [place] [address] [place] [address] Jul, 17 [facility] [place] [address] [place] [address] Jul, 17 [facility] [place] [address] [place] [address] Jul, 17 Dental examination Z01.20 [facility] [place] [address] [place] [address] Jun, 17 [facility] [place] [address] [place] [address] Jun, 17 Dental examination Z01.20 [facility] [place] [address] [place] [address] Jun, 17 [facility] [place] [address] [place] [address] 05 Jun, 17 [facility] examination Z01.20 [facility] [address] [place] [address] Jun, 17 Edema, unspecified R60.9 ; Screening for lipoid disorders Z13.220 and Pericardial effusion I31.3 [facility] [address] [place] [address] 27 May, 17 [facility] [address] [address] May, 17 Acute costochondritis M94.0 ; Frequent headaches R51 and Seizure disorder G40.909 [facility] [address] [place] [address] May, 17 Pericardial effusion I31.3 [facility] [address] [place] [address] 19 May, 17 [facility] [address] [address] Feb, [address] [address] January, 17 Seizure disorder G40.[address] [address] January, 17 Dental examination Z01.20 [facility] [address] [address] Dec, 17 Seizure disorder G40.909 ; Low back pain M54.5 ; Cervical radiculopathy M54.12 ; Mild intermittent asthma without complication J45.20 ; Frequent headaches R51 ; Adolescent idiopathic scoliosis of thoracolumbar region M41.125 and Pain in right knee M25.[address] [address] Nov, 17 [facility] [address] [address] Nov, [address] [address] Nov, 17 Epigastric pain R10.13 ; Asthma exacerbation J45.901 and Seizure disorder G40.[address] [place] [address] 28 Oct, 17 Seizure disorder G40.909 ; Chronic idiopathic constipation K59.04 and Cough due to bronchospasm J98.[address] [address] Oct, 17 Duodenitis K29.80 ; Epigastric pain R10.13 ; Seizure disorder G40.909 and Chronic idiopathic constipation K59.[address] [address] Oct, 17 Dental examination Z01.[address] [address] Sep, 17 Duodenitis K29.80 ; Epigastric pain R10.13 ; Seizure disorder G40.909 and Asthma exacerbation J45.[address] [address] Sep, 17 Epigastric pain R10.13 and Seizure disorder G40.[address] [address] Sep, [address] [address] Aug, 16 Seizure disorder G40.[address] [address] Aug, 16 Seizure disorder G40.909 ; Asthma exacerbation J45.901 and Epigastric pain R10.[address] [address] 15 Aug, 16 Bronchitis J40 ; Asthma exacerbation J45.901 and Epigastric pain R10.[address] [address] Aug, [address] [address] Aug, [address] [address] Aug, [address] [place] [address] 04 Jul, 16 Dental examination Z01.20 [address] [address] [place] [address] Jun, 16 Acute pain of left knee M25.562 and Mikayla-rectal abscess K61.1 [facility] [address] [place] [address] Jun, 16 [facility] [place] [address] [place] [address] Jun, 16 Dental examination Z01.20 [facility] [address] [place] [address] May, 16 [facility] [place] [address] [place] [address] May, 16 Seizure disorder G40.909 and Partial symptomatic epilepsy with complex partial seizures, not intractable, 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.209 [facility] [address] [address] May, 16 Screening for lipoid disorders Z13.220 and Edema, unspecified R60.9 [facility] [address] [address] Apr, 16 [facility] [address] [address] Apr, 15 [facility] [address] [facility] [place] [address] Apr, Dental examination V72.2 [facility] [address] [facility] [place] [address] Dec, [facility] [address] [address] Dec, [facility] [address] [place] [address] Sep, 15 [facility] [address] [address] Sep, [facility] [address] [address] Jun, [facility] [address] [id number] [place] [address] Jun, 2013 [facility] [place] [address] [place] [address] Jun, 14 [facility] [address] [id number] [place] [address] Jun, [facility] [address] [facility] [place] [address] May, [facility] [place] [address] [place] [address] May, 14 [facility] [place] [address] [place] [address] May, 14 [facility] [address] [facility] [place] [address] May, [facility] [address] [facility] [place] [address] Mar, [facility] [place] [address] [place] [address] Mar, 14 [facility] [address] [id number] [place] [address] Mar, [facility] [place] [address] [place] [address] Mar, 14 [facility] [address] [facility] [place] [address] Mar, [facility] [address] [id number] [place] [address] Feb, [facility] [place] [address] [place] [address] Feb, 14 [facility] [id number] [place] [address] Feb, [facility] [place] [address] [place] [address] Feb, 14 [facility] [address] [facility] [place] [address] Feb, [facility] [place] [address] [place] [address] January, 14 [facility] [address] [facility] [place] [address] January, [facility] [address] [place] [address] May, 13 [facility] [place] [address] May, 13 [facility] [address] [facility] [place] [address] Oct, [facility] [id number] [place] [address] Aug, [facility] [address] [facility] [place] [address] Nov, [facility] [address] [facility] [place] [address] Sep, IMMUNIZATIONS No Known Immunizations SOCIAL HISTORY Never Assessed REASON FOR VISIT PLAN OF CARE VITAL SIGNS Height 61 in 2014-02-08 Weight 219.2 lbs 2014-02-08 Temperature 98.3 degrees Fahrenheit 2014-02-08 Heart Rate 76 bpm 2014-02-08 Respiratory Rate 20 2014-02-08 Blood pressure systolic 140 mmHg 2014-02-08 Blood pressure diastolic 80 mmHg 2014-02-08 MEDICATIONS Unknown Medications RESULTS No Results PROCEDURES Procedure Date Ordered Result Body Site URINE CULTURE/COLONY COUNT February 08, 2014 URINALYSIS, AUTO, W/O SCOPE February 08, 2014 INSTRUCTIONS MEDICATIONS ADMINISTERED No Known Medications MEDICAL (GENERAL) HISTORY Type Description Date Medical History seizures Medical History hyperlipidemia Medical History constipation Surgical History cholecystectomy Surgical History hysterectomy Surgical History appendectomy Surgical History cyst removal to back 2019 Hospitalization History seizures Hospitalization History surgeries Hospitalization History seizures 2016 Hospitalization History pneumonia 2016
--- OUTSIDE RECORDS SUMMARY | 2020-03-30 16:39 | XMS REPORT ---
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 OZ FLOYD Unavailable PROBLEMS Type Condition ICD9-CM Code RNA07-JQ Code Onset Dates Condition S tatus SNOMED Code Problem Duodenitis K29.80 Active 10447857 Problem Chronic idiopathic constipation K59.04 Active 26378455 Problem Epigastric pain R10.13 Active 7992 2009 Problem Pain in right knee M25.561 Active 3 7086861 Problem Pain in joint, forearm 719.43 Active 668862998 Problem Low back pain M54.5 Active 806656 007 Problem Pain in joint, ankle and foot 719.47 Active 843853391 Problem Scoliosis (and kyphoscoliosis), idiopathic 737.30 Active 26376895 Problem Adolescent idiopathic scoliosis of thoracolumbar region M41.125 Active 096109666 Problem Cough due to bronchospasm J98.01 Acti ve 2715437 Problem Frequent headaches R51 Active 7 41074483 Problem Mild intermittent asthma without complication J45. 20 Active 420160366 Problem Lumbago 724.2 Active 089506679 Problem Unspecified urinary calculus 592.9 A ctive 668431213 Problem Pain in joint, upper arm 719.42 Activ e 995918203 Problem Unspecified urticaria 708.9 Active 623951953 Problem Edema, unspecified R60.9 Active 7 4204093 Problem Seizure disorder G40.909 Active 128 097959 Problem Unspecified hemorrhoids without mention of complication 45 5.6 Active 36111942 Problem Mikayla-rectal abscess K61.1 Active 19440191 Problem Delirium due to conditions classified elsewhere 293.0 Active 4989586 Problem Asthma exacerbation J45.901 Active 256743656 ALLERGIES Substance Reaction Event Type Date Status Tramadol Unknown Drug Allergy Aug, Active Surgical Tape And Bandaids Unknown Non Drug Allergy Aug, 16 Active SOCIAL HISTORY No smoking Hx information available PLAN OF CARE Activity Details Follow Up 4 Weeks Reason: VITAL SIGNS Height 61 in 2016-09-02 Weight 250.2 lbs 2016-09-02 Temperature 98.2 degrees Fahrenheit 2016-09-02 Heart Rate 84 bpm 2016-09-02 Respiratory Rate 16 2016-09-02 Oximetry 95 % 2016-09-02 BMI 47.27 kg/m2 2016-09-02 Blood pressure systolic 118 mmHg 2016-09-02 Blood pressure diastolic 78 mmHg 2016-09-02 MEDICATIONS Medication Instructions Dosage Frequency Start Date End Date Duration S anthonyus Ergocalciferol 69815 iu Orally 1 time per week Active Montelukast Sodium 10 MG Orally Once a day 1 tablet in the evening 24h Active Baclofen 10 mg Orally 2 times a day 1 tablet with food or milk 12h Active Citalopram Hydrobromide 40 mg Orally Once a day 1 tablet 24h Active Potassium Chloride 10 MEQ Orally three times per day 1 capsule with fo od Active Hydrochlorothiazide 25 MG TAKE 1 TABLET DAILY NEEDED FOR SWELLING. 90 Active Lacosamide 200 MG Orally twice a day 1 tablet 12h Active cetirizine 10 mg 1 tablet by Oral route 1 daily January, Active Ramelteon 8 MG Orally Once a day 1 tablet at bedtime as needed 24h Active Melatonin 3 MG Orally Once a day 2tablet at bedtime as needed with frank d 24h Active Simvastatin 20 MG Orally Once a day 1 tablet in the evening 24h Active Aspirin Adult Low Dose 81 MG Orally Once a day 1 tablet 24h Active Levetiracetam 500 mg Orally Twice a day take 3 tabs 12h May, Active Senna Concentrate 8.6 MG Orally three times per day 1 tablet Active Zonisamide 100 MG Orally Once a day 1 capsule 24h Active Pregabalin 200 mg Orally three times a day 1 capsule 8h Active RESULTS No Results PROCEDURES Procedure Date Ordered Related Diagnosis Body Site MEASURE BLOOD OXYGEN LEVEL Sep 02, 2016 Office Visit, Est Pt., Level 3 Sep 02, 2016 IMMUNIZATIONS No Known Immunizations
--- OUTSIDE RECORDS SUMMARY | 2020-03-30 16:39 | XMS REPORT ---
Author Author Riri FLOYD Organization [facility] [address] [place] Address [address] [place] [address] Care Team Providers Care Field Radio Technician Name Role Phone OZ FLOYD Unavailable PROBLEMS Type Condition ICD9-CM Code BCT22-BK Code Onset Dates Condition S tatus SNOMED Code Problem Scoliosis (and kyphoscoliosis), idiopathic 737.30 Active 97416979 Problem Pain in joint, ankle and foot 719.47 Active 304073942 Problem Chronic idiopathic constipation K59.04 Active 12544965 Problem Pain in joint, forearm 719.43 Active 120188487 Problem Cough due to bronchospasm J98.01 Acti ve 4760002 Problem Pain in joint, upper arm 719.42 Activ e 766135229 Problem Mild intermittent asthma without complication J45. 20 Active 989357749 Problem Low back pain M54.5 Active 769372 007 Problem Frequent headaches R51 Active 7 79599336 Problem Primary insomnia F51.01 Active 397 2004 Problem Other chronic pain G89.29 Active 8 8434871 Problem Unspecified urinary calculus 592.9 A ctive 197132216 Problem Lumbago 724.2 Active 549589966 Problem Unspecified urticaria 708.9 Active 221344917 Problem Adolescent idiopathic scoliosis of thoracolumbar region M41.125 Active 157598248 Problem Pain in right knee M25.561 Active 3 4546717 Problem Slow transit constipation K59.01 Acti ve 07225833 Problem Vertigo R42 Active 775884252 Problem Edema, unspecified R60.9 Active 7 7685188 Problem Seizure disorder G40.909 Active 128 663850 Problem Unspecified hemorrhoids without mention of complication 45 5.6 Active 14143450 Problem Delirium due to conditions classified elsewhere 293.0 Active 8155445 Problem Duodenitis K29.80 Active 64110221 Problem Epigastric pain R10.13 Active 7992 2009 Problem Mikayla-rectal abscess K61.1 Active 32844738 Problem Asthma exacerbation J45.901 Active 221000132 ALLERGIES Substance Reaction Event Type Date Status Codeine Sulfate itching Drug Allergy Nov, Active Tramadol Unknown Drug Allergy Nov, Active Surgical Tape And Bandaids Unknown Non Drug Allergy Nov, 18 Active ENCOUNTERS Encounter Location Date Diagnosis [facility] [address] [facility] [id number] [address] [place] [phone] Feb, [facility] [address] [address] Feb, BMI 40.0-44.9, adult Z68.41 ; Slow transit constipation K59.01 ; Pain in right shoulder M25.511 ; Pain in left shoulder M25.512 ; Other chronic pain G89.29 and Primary insomnia F51.01 [facility] [place] [address] [place] [phone] Feb, [facility] [address] [facility] [id number] [address] [place] [phone] Feb, [facility] [place] [address] [place] [phone] Dec, [facility] [place] [address] [place] [phone] Dec, [facility] [place] [address] [place] [address] Dec, [facility] [place] [address] [place] [address] Nov, Vertigo R42 and Seizure disorder G40.909 [facility] [place] [address] [place] [phone] Aug, Dental examination Z01.20 [facility] [place] [address] [place] [address] Jul, Dental examination Z01.20 [facility] [place] [address] [place] [phone] Jul, [facility] [place] [address] [place] [phone] Jul, [facility] [place] [address] [place] [address] Jul, Dental examination Z01.20 [facility] [place] [address] [place] [address] Jun, [facility] [place] [address] [place] [address] Jun, Dental examination Z01.20 [facility] [place] [address] [place] [phone] Jun, [facility] [place] [address] [place] [phone] Jun, Dental examination Z01.20 [facility] [place] [address] [place] [phone] 02 Jun, 2017 Edema, unspecified R60.9 ; Screening for lipoid disorders Z13.220 and Pericardial effusion I31.3 [facility] [place] [address] [place] [phone] May, [facility] [place] [address] [place] [address] May, Acute costochondritis M94.0 ; Frequent headaches R51 and Seizure disorder G40.909 [facility] [address] [address] May, Pericardial effusion I31.3 [facility] [address] [address] May, [facility] [place] [address] [place] [phone] Feb, [facility] [place] [address] [place] [address] January, Seizure disorder G40.909 [facility] [address] [address] January, Dental examination Z01.20 [facility] [place] [address] [place] [address] Dec, Seizure disorder G40.909 ; Low back pain M54.5 ; Cervical radiculopathy M54.12 ; Mild intermittent asthma without complication J45.20 ; Frequent headaches R51 ; Adolescent idiopathic scoliosis of thoracolumbar region M41.125 and Pain in right knee M25.561 [facility] [place] [address] [place] [phone] Nov, [facility] [place] [address] [place] [address] Nov, [facility] [place] [address] [place] [address] Nov, Epigastric pain R10.13 ; Asthma exacerbation J45.901 and Seizure disorder G40.909 [facility] [place] [address] [place] [address] Oct, Seizure disorder G40.909 ; Chronic idiopathic constipation K59.04 and Cough due to bronchospasm J98.01 [facility] [place] [address] [place] [address] Oct, Duodenitis K29.80 ; Epigastric pain R10.13 ; Seizure disorder G40.909 and Chronic idiopathic constipation K59.04 [facility] [address] [address] Oct, Dental examination Z01.20 [facility] [address] [address] Sep, Duodenitis K29.80 ; Epigastric pain R10.13 ; Seizure disorder G40.909 and Asthma exacerbation J45.901 [facility] [address] [address] Sep, Epigastric pain R10.13 and Seizure disorder G40.[address] [address] Sep, [facility] [address] [address] Aug, Seizure disorder G40.909 [facility] [address] [address] Aug, Seizure disorder G40.909 ; Asthma exacerbation J45.901 and Epigastric pain R10.13 [facility] [address] [address] Aug, Bronchitis J40 ; Asthma exacerbation J45.901 and Epigastric pain R10.13 [facility] [address] [address] Aug, [facility] [place] [address] Aug, [facility] [address] [address] Aug, [facility] [address] [address] Jul, Dental examination Z01.[address] [address] Jun, Acute pain of left knee M25.562 and Mikayla-rectal abscess K61.1 [facility] [place] [address] [place] [address] Jun, [facility] [place] [address] [place] [phone] Jun, Dental examination Z01.20 [facility] [place] [address] [place] [address] May, [facility] [place] [address] [place] [address] May, Seizure disorder G40.909 and Partial symptomatic epilepsy with complex partial seizures, not intractable, 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.209 [facility] [place] [address] [place] [address] May, Screening for lipoid disorders Z13.220 and Edema, unspecified R60.9 [facility] [place] [address] [place] [phone] Apr, [facility] [place] [address] [place] [phone] Apr, [facility] [address] [id number] [address] [place] [id number] Apr, Dental examination V72.2 [facility] [address] [id number] [address] [place] [phone] Dec, [facility] [address] [id number] [address] [place] [phone] Dec, [facility] [place] [address] [place] [phone] Sep, [facility] [address] [id number] [address] [place] [phone] Sep, [facility] [address] [facility] [id number] [address] [place] [phone] Jun, [facility] [address] [id number] [address] [place] [phone] Jun, [facility] [place] [address] [place] [phone] Jun, [facility] [address] [id number] [address] [place] [phone] Jun, [facility] [address] [id number] [address] [place] [address], [place] [address] May, [facility] [place] [address] [place] [address] May, [facility] [place] [address] [facility] [place] [address] May, [facility] [address] [id number] [address] [place] [address], [place] [address] May, [facility] [address] [id number] [address] [place] [address], [place] [address] Mar, [facility] [place] [address] [place] [address] Mar, [facility] [address] [id number] [address] [place] [address], [place] [address] Mar, [facility] [place] [address] [place] [address] Mar, [facility] [address] [id number] [address] [place] [phone] Mar, [facility] [address] [id number] [address] [place] [address], [place] [address] Feb, [facility] [place] [address] [place] [address] Feb, [facility] [address] [id number] [address] [place] [phone] Feb, [facility] [place] [address] [facility] [place] [address] Feb, [facility] [address] [id number] [address] [place] [phone] Feb, [facility] [place] [address] [facility] [place] [address] January, [facility] [address] [id number] [address] [place] [address], [place] [address] January, [facility] [place] [address] [facility] [place] [address] May, [facility] [place] [address] [facility] [place] [address] May, [facility] [address] [id number] [address] [place] [phone] Oct, [facility] [address] [facility] [id number] [address] [place] [phone] Aug, [facility] [address] [facility] [id number] [address] [place] [phone] Nov, [facility] [address] [facility] [id number] [address] [place] [phone] Sep, IMMUNIZATIONS No Known Immunizations SOCIAL HISTORY Never Assessed REASON FOR VISIT Dizziness- feels like the room is spinning for a few weeks Shima Lopez RN, Fell o ut of bed this am when getting up to go to the bathroom PLAN OF CARE Activity Details Follow Up 4 Weeks Reason:vertigo VITAL SIGNS Height 61 in 2017-11-24 Weight 207 lbs 2017-11-24 Temperature 98.8 degrees Fahrenheit 2017-11-24 Heart Rate 88 bpm 2017-11-24 Respiratory Rate 18 2017-11-24 BMI 39.11 kg/m2 2017-11-24 Blood pressure systolic 98 mmHg 2017-11-24 Blood pressure diastolic 62 mmHg 2017-11-24 MEDICATIONS Medication Instructions Dosage Frequency Start Date End Date Duration S tatus Ranitidine HCl 150 MG TAKE 1 TABLET BY MOUTH TWICE DAILY 30 Not-Taking Cetirizine HCl 10 MG TAKE 1 TABLET BY MOUTH DAILY 30 Active Melatonin 3 MG Orally Once a day 2tablet at bedtime as needed with frank d 24h Active Hydrochlorothiazide 25 MG TAKE 1 TABLET BY MOUTH DAILY NEEDED FOR SWELLING. 90 Active Ramelteon 8 MG Orally Once a day 1 tablet at bedtime as needed 24h Not-Taking Levetiracetam 500 mg Orally Twice a day take 3 tabs 12h May, Active Baclofen 10 mg Orally 2 times a day 1 tablet with food or milk 12h Active PredniSONE 20 MG two a day for 3 days then one a day Not-Taking Potassium Chloride 10 MEQ Orally three times per day 1 capsule with fo od Active cetirizine 10 mg 1 tablet by Oral route 1 daily January, Active Zonisamide 100 MG Orally Once a day 1 capsule 24h Active Potassium Chloride ER 10 MEQ TAKE 1 CAPSULE BY MOUTH THREE T IMES DAILY 30 Not-Taking Senna Concentrate 8.6 MG Orally three times per day 1 tablet Active Citalopram Hydrobromide 40 MG TAKE 1 TABLET BY MOUTH DAILY 30 Active Vimpat 200 mg Orally twice a day 1 tablet 12h Feb, 9 0 days Active Simvastatin 20 mg TAKE 1 TABLET AT BEDTIME. Active Aspirin Adult Low Dose 81 MG Orally Once a day 1 tablet 24h Active Magic Mouthwash Apply medicated swab to sore areas of the mouth to numb the pain As needed Dip cotton swab into medication January, As needed Not-Taking Meloxicam 15 MG TAKE 1 TABLET BY MOUTH DAILY 30 Active Lacosamide 200 mg Orally twice a day 1 tablet 12h 30 days Not-Taking Diphenhydramine 25 Oral at hs 1 tab Ac tive Nortriptyline HCl Active Ergocalciferol 98824 iu Orally 1 time per week Not-Taking Symbicort 160-4.5 MCG/ACT Inhalation Twice a day 2 puffs 12h Sep, Not-Taking Pregabalin 200 mg Orally three times a day 1 capsule 8h Not-Taking Montelukast Sodium 10 mg TAKE 1 TABLET BY MOUTH DAILY IN [facility] Active Sucralfate 1 GM 1 tablet on an empty stomach 30 minutes before meals and at bedtime Orally 9 Not-Taking Lorazepam 2 MG Orally Once a day 1 tablet as needed 24h Active Lansoprazole 30 MG Orally 2 times a day 1 capsule 12h Not-Taking Omeprazole 40 MG Orally Once a day 1 capsule 24h Not-Taking Potassium Chloride 10 MEQ Orally three times per day 1 capsule with fo od Not-Taking RESULTS No Results PROCEDURES No Known procedures INSTRUCTIONS MEDICATIONS ADMINISTERED No Known Medications MEDICAL (GENERAL) HISTORY Type Description Date Medical History seizures Medical History hyperlipidemia Medical History constipation Surgical History cholecystectomy Surgical History hysterectomy Surgical History appendectomy Hospitalization History seizures Hospitalization History surgeries Hospitalization History seizures 2015 Hospitalization History pneumonia 2015
--- OUTSIDE RECORDS SUMMARY | 2020-03-30 16:39 | XMS REPORT ---
Author Author Riir FLOYD Organization [facility] Address [address] [place] [address] Care Team Providers Care Intake Specialist Name Role Phone OZ FLOYD Unavailable PROBLEMS Type Condition ICD9-CM Code [id number] Code Onset Dates Condition S tatus SNOMED Code Problem Duodenitis K29.80 Active 85863932 Problem Chronic idiopathic constipation K59.04 Active 29551048 Problem Epigastric pain R10.13 Active 7992 2009 Problem Pain in right knee M25.561 Active 3 8927037 Problem Pain in joint, forearm 719.43 Active 519294438 Problem Low back pain M54.5 Active 677105 007 Problem Pain in joint, ankle and foot 719.47 Active 532586788 Problem Scoliosis (and kyphoscoliosis), idiopathic 737.30 Active 50599386 Problem Adolescent idiopathic scoliosis of thoracolumbar region M41.125 Active 274933668 Problem Cough due to bronchospasm J98.01 Acti ve 6483403 Problem Frequent headaches R51 Active 7 43282940 Problem Mild intermittent asthma without complication J45. 20 Active 543108729 Problem Lumbago 724.2 Active 949694525 Problem Unspecified urinary calculus 592.9 A ctive 183920882 Problem Pain in joint, upper arm 719.42 Activ e 768506552 Problem Unspecified urticaria 708.9 Active 857324146 Problem Edema, unspecified R60.9 Active 7 8692137 Problem Seizure disorder G40.909 Active 128 599682 Problem Unspecified hemorrhoids without mention of complication 45 5.6 Active 86138549 Problem Mikayla-rectal abscess K61.1 Active 76040243 Problem Delirium due to conditions classified elsewhere 293.0 Active 8709179 Problem Asthma exacerbation J45.901 Active 952253143 ALLERGIES Substance Reaction Event Type Date Status Tramadol Unknown Drug Allergy Oct, Active Surgical Tape And Bandaids Unknown Non Drug Allergy 01 Feb, 20 17 Active SOCIAL HISTORY Never Assessed PLAN OF CARE Activity Details Follow Up 4 Weeks Reason:BOWELS AND ME DS VITAL SIGNS Height 61 in 2016-10-09 Weight 245 lbs 2016-10-09 Temperature 98.2 degrees Fahrenheit 2016-10-09 Heart Rate 71 bpm 2016-10-09 Respiratory Rate 20 2016-10-09 BMI 46.29 kg/m2 2016-10-09 Blood pressure systolic 124 mmHg 2016-10-09 Blood pressure diastolic 86 mmHg 2016-10-09 MEDICATIONS Medication Instructions Dosage Frequency Start Date End Date Duration S tatus Ergocalciferol 81385 iu Orally 1 time per week Active Sucralfate 1 GM Orally 30 minutes before meals and at be dtime 1 tablet on an empty stomach Active Hydrochlorothiazide 25 MG TAKE 1 TABLET DAILY NEEDED FOR SWELLING. 90 Active Potassium Chloride 10 MEQ Orally three times per day 1 capsule with fo od Active Zonisamide 100 MG Orally Once a day 1 capsule 24h Active Melatonin 3 MG Orally Once a day 2tablet at bedtime as needed with frank d 24h Active Simvastatin 20 MG Orally Once a day 1 tablet in the evening 24h Active cetirizine 10 mg 1 tablet by Oral route 1 daily January, Active Lacosamide 200 mg Orally twice a day 1 tablet 12h 30 days Active Meloxicam 15 MG TAKE 1 TABLET BY MOUTH DAILY 30 Active Ramelteon 8 MG Orally Once a day 1 tablet at bedtime as needed 24h Active Citalopram Hydrobromide 40 MG TAKE 1 TABLET BY MOUTH DAILY 30 Active Pregabalin 200 mg Orally three times a day 1 capsule 8h Active Aspirin Adult Low Dose 81 MG Orally Once a day 1 tablet 24h Active Symbicort 160-4.5 MCG/ACT Inhalation Twice a day 2 puffs 12h Sep, Active Senna Concentrate 8.6 MG Orally three times per day 1 tablet Active Baclofen 10 mg Orally 2 times a day 1 tablet with food or milk 12h Active Montelukast Sodium 10 MG TAKE 1 TABLET BY MOUTH IN THE EVENING 30 Active Ranitidine 1 tablet Oral 2 times a day 1 tab 150 mg 12h Active Levetiracetam 500 mg Orally Twice a day take 3 tabs 12h May, Active Omeprazole 40 MG Orally Once a day 1 capsule 24h Active RESULTS No Results PROCEDURES No Known procedures IMMUNIZATIONS No Known Immunizations MEDICAL (GENERAL) HISTORY Type Description Date Medical History seizures Medical History hyperlipidemia Medical History constipation Surgical History cholecystectomy Surgical History hysterectomy Surgical History appendectomy Hospitalization History seizures Hospitalization History surgeries Hospitalization History seizures 2016 Hospitalization History pneumonia 2016
--- OUTSIDE RECORDS SUMMARY | 2020-03-30 16:39 | XMS REPORT ---
Author Author Riri FLOYD Organization [facility] [address] [place] Address [address] [place] [address] Care Team Providers Care Phlebotomist Medical Lab Assistant Name Role Phone OZ FLOYD Unavailable PROBLEMS Type Condition ICD9-CM Code UKP89-GQ Code Onset Dates Condition S tatus SNOMED Code Problem Scoliosis (and kyphoscoliosis), idiopathic 737.30 Active 17634793 Problem Pain in joint, ankle and foot 719.47 Active 032079054 Problem Chronic idiopathic constipation K59.04 Active 82190408 Problem Pain in joint, forearm 719.43 Active 749757391 Problem Cough due to bronchospasm J98.01 Acti ve 2755321 Problem Pain in joint, upper arm 719.42 Activ e 002759374 Problem Mild intermittent asthma without complication J45. 20 Active 402323437 Problem Low back pain M54.5 Active 059360 007 Problem Frequent headaches R51 Active 7 25602859 Problem Primary insomnia F51.01 Active 397 2004 Problem Other chronic pain G89.29 Active 8 8091022 Problem Unspecified urinary calculus 592.9 A ctive 283532514 Problem Lumbago 724.2 Active 440843596 Problem Unspecified urticaria 708.9 Active 086725109 Problem Adolescent idiopathic scoliosis of thoracolumbar region M41.125 Active 097300784 Problem Pain in right knee M25.561 Active 3 9573995 Problem Slow transit constipation K59.01 Acti ve 56678220 Problem Vertigo R42 Active 200857314 Problem Edema, unspecified R60.9 Active 7 1843423 Problem Seizure disorder G40.909 Active 128 796827 Problem Unspecified hemorrhoids without mention of complication 45 5.6 Active 93453897 Problem Delirium due to conditions classified elsewhere 293.0 Active 9477967 Problem Duodenitis K29.80 Active 56575559 Problem Epigastric pain R10.13 Active 7992 2009 Problem Mikayla-rectal abscess K61.1 Active 97834194 Problem Asthma exacerbation J45.901 Active 070637462 ALLERGIES No Information ENCOUNTERS Encounter Location Date Diagnosis [facility] [address] [facility] [id number] [address] [place] [address] Feb, [facility] [address] [address] Feb, BMI 40.0-44.9, adult Z68.41 ; Slow transit constipation K59.01 ; Pain in right shoulder M25.511 ; Pain in left shoulder M25.512 ; Other chronic pain G89.29 and Primary insomnia F51.01 [facility] [place] [address] [place] [address] Feb, [facility] [address] [facility] [id number] [address] [place] [address] Feb, [facility] [place] [address] [place] [address] Dec, [facility] [place] [address] [place] [address] Dec, [facility] [place] [address] [place] [address] Dec, [facility] [place] [address] [place] [address] Nov, Vertigo R42 and Seizure disorder G40.909 [facility] [place] [address] [place] [address] Aug, Dental examination Z01.20 [facility] [place] [address] [place] [address] Jul, Dental examination Z01.20 [facility] [place] [address] [place] [address] Jul, [facility] [place] [address] [place] [address] Jul, [facility] [place] [address] [place] [address] Jul, Dental examination Z01.20 [facility] [place] [address] [place] [address] Jun, [facility] [place] [address] [place] [address] Jun, Dental examination Z01.20 [facility] [place] [address] [place] [address] Jun, [facility] [place] [address] [place] [address] Jun, Dental examination Z01.20 [facility] [place] [address] [place] [address] 02 Jun, 2017 Edema, unspecified R60.9 ; Screening for lipoid disorders Z13.220 and Pericardial effusion I31.3 [facility] [address] [address] May, [facility] [address] [address] May, Acute costochondritis M94.0 ; Frequent headaches R51 and Seizure disorder G40.909 [facility] [address] [address] May, Pericardial effusion I31.3 [facility] [address] [address] May, [facility] [address] [address] Feb, [facility] [address] [address] January, Seizure disorder G40.[address] [address] January, Dental examination Z01.[address] [address] Dec, Seizure disorder G40.909 ; Low back pain M54.5 ; Cervical radiculopathy M54.12 ; Mild intermittent asthma without complication J45.20 ; Frequent headaches R51 ; Adolescent idiopathic scoliosis of thoracolumbar region M41.125 and Pain in right knee M25.[address] [address] Nov, [facility] [address] [address] Nov, [address] [address] Nov, Epigastric pain R10.13 ; Asthma exacerbation J45.901 and Seizure disorder G40.[address] [address] Oct, Seizure disorder G40.909 ; Chronic idiopathic constipation K59.04 and Cough due to bronchospasm J98.01 [facility] [place] [address] [place] [address] Oct, Duodenitis K29.80 ; Epigastric pain R10.13 ; Seizure disorder G40.909 and Chronic idiopathic constipation K59.04 [facility] [place] [address] [place] [address] Oct, Dental examination Z01.20 [facility] [place] [address] [place] [address] Sep, Duodenitis K29.80 ; Epigastric pain R10.13 ; Seizure disorder G40.909 and Asthma exacerbation J45.901 [facility] [address] [address] Sep, Epigastric pain R10.13 and Seizure disorder G40.909 [facility] [address] [address] Sep, [facility] [address] [address] Aug, Seizure disorder G40.909 [facility] [address] [address] Aug, Seizure disorder G40.909 ; Asthma exacerbation J45.901 and Epigastric pain R10.13 [facility] [address] [address] Aug, Bronchitis J40 ; Asthma exacerbation J45.901 and Epigastric pain R10.13 [facility] [address] [address] Aug, [facility] [address] [address] Aug, [facility] [address] [address] Aug, [facility] [address] [address] Jul, Dental examination Z01.[address] [address] Jun, Acute pain of left knee M25.562 and Mikayla-rectal abscess K61.1 [facility] [address] [address] Jun, [facility] [address] [address] Jun, Dental examination Z01.20 [facility] [place] [address] [place] [address] May, [facility] [place] [address] [place] [address] May, Seizure disorder G40.909 and Partial symptomatic epilepsy with complex partial seizures, not intractable, 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.209 [facility] [place] [address] [place] [address] May, Screening for lipoid disorders Z13.220 and Edema, unspecified R60.9 [facility] [place] [address] [place] [address] Apr, [facility] [place] [address] [place] [address] Apr, [facility] [address] [facility] [id number] [address] [place] [id number] Apr, Dental examination V72.2 [facility] [address] [facility] [id number] [address] [place] [address] Dec, [facility] [address] [facility] [id number] [address] [place] [address] Dec, [facility] [place] [address] [place] [address] Sep, [facility] [address] [facility] [id number] [address] [place] [address] Sep, [facility] [address] [facility] [id number] [address] [place] [address] Jun, [facility] [address] [facility] [id number] [address] [place] [address] Jun, [facility] [place] [address] [place] [address] Jun, [facility] [address] [facility] [id number] [address] [place] [address] Jun, [facility] [address] [facility] [id number] [address] [place] [address] May, [facility] [place] [address] [place] [address] May, [facility] [place] [address] [place] [address] May, [facility] [address] [id number] [address] [place] [address], [place] [address] May, [facility] [address] [id number] [address] [place] [address], [place] [address] Mar, [facility] [place] [address] [place] [address] Mar, [facility] [address] [id number] [address] [place] [address], [place] [address] Mar, [facility] [place] [address] [place] [address] Mar, [facility] [address] [id number] [address] [place] [address] Mar, [facility] [address] [id number] [address] [place] [address], [place] [address] Feb, [facility] [place] [address] [place] [address] Feb, [facility] [address] [facility] [id number] [address] [place] [address] Feb, [facility] [place] [address] [place] [address] Feb, [facility] [address] [id number] [address] [place] [address] Feb, [facility] [place] [address] [place] [address] January, [facility] [address] [id number] [address] [place] [address], [place] [address] January, [facility] [place] [address] [facility] [place] [address] May, [facility] [place] [address] [facility] [place] [address] May, [facility] [address] [id number] [address] [place] [address] Oct, [facility] [address] [id number] [address] [place] [address] Aug, [facility] [address] [facility] [id number] [address] [place] [address] Nov, [facility] [address] [facility] [id number] [address] [place] [address] Sep, IMMUNIZATIONS No Known Immunizations SOCIAL HISTORY Never Assessed REASON FOR VISIT Repository meds PLAN OF CARE VITAL SIGNS MEDICATIONS Medication Instructions Dosage Frequency Start Date End Date Duration S tatus Zonisamide 100 MG Orally Once a day 1 capsule 24h Active Levetiracetam 500 mg Orally Twice a day take 3 tabs 12h 25 May, 2013 Active RESULTS No Results PROCEDURES No Known procedures INSTRUCTIONS MEDICATIONS ADMINISTERED No Known Medications MEDICAL (GENERAL) HISTORY Type Description Date Medical History seizures Medical History hyperlipidemia Medical History constipation Surgical History cholecystectomy Surgical History hysterectomy Surgical History appendectomy Hospitalization History seizures Hospitalization History surgeries Hospitalization History seizures 2015 Hospitalization History pneumonia 2015
--- OUTSIDE RECORDS SUMMARY | 2020-03-30 16:39 | XMS REPORT ---
Author Author Riri FLOYD Organization [facility] [address] Address [address] [place] [address] Care Team Providers Care Patient Observation Assistant Name Role Phone OZ FLOYD Unavailable PROBLEMS Type Condition ICD9-CM Code DGF21-ZG Code Onset Dates Condition S tatus SNOMED Code Problem Scoliosis (and kyphoscoliosis), idiopathic 737.30 Active 51248378 Problem Pain in joint, ankle and foot 719.47 Active 566049734 Problem Chronic idiopathic constipation K59.04 Active 55765022 Problem Pain in joint, forearm 719.43 Active 898863280 Problem Cough due to bronchospasm J98.01 Acti ve 4347021 Problem Pain in joint, upper arm 719.42 Activ e 275461242 Problem Mild intermittent asthma without complication J45. 20 Active 842646432 Problem Low back pain M54.5 Active 955449 007 Problem Frequent headaches R51 Active 7 08814390 Problem Primary insomnia F51.01 Active 397 2004 Problem Other chronic pain G89.29 Active 8 0101584 Problem Unspecified urinary calculus 592.9 A ctive 900195848 Problem Lumbago 724.2 Active 171282123 Problem Unspecified urticaria 708.9 Active 478390892 Problem Adolescent idiopathic scoliosis of thoracolumbar region M41.125 Active 697242264 Problem Pain in right knee M25.561 Active 3 6713595 Problem Slow transit constipation K59.01 Acti ve 32860604 Problem Vertigo R42 Active 519166282 Problem Edema, unspecified R60.9 Active 7 5005043 Problem Seizure disorder G40.909 Active 128 916223 Problem Unspecified hemorrhoids without mention of complication 45 5.6 Active 69786185 Problem Delirium due to conditions classified elsewhere 293.0 Active 2194532 Problem Duodenitis K29.80 Active 28636221 Problem Epigastric pain R10.13 Active 7992 2009 Problem Mikayla-rectal abscess K61.1 Active 20827021 Problem Asthma exacerbation J45.901 Active 512725901 ALLERGIES No Information ENCOUNTERS Encounter Location Date Diagnosis [facility] [address] [facility] [id number] [address] [place] [address] Feb, [address] [address] Feb, 18 BMI 40.0-44.9, adult Z68.41 ; Slow transit constipation K59.01 ; Pain in right shoulder M25.511 ; Pain in left shoulder M25.512 ; Other chronic pain G89.29 and Primary insomnia F51.[address] [address] Feb, 18 [facility] [address] [facility] [id number] [address] [place] [address] Feb, [address] [address] Dec, [address] [address] Dec, [address] [address] Dec, [address] [address] Nov, 18 Vertigo R42 and Seizure disorder G40.[address] [address] Aug, 17 Dental examination Z01.[address] [address] Jul, 17 Dental examination Z01.[address] [address] Jul, [address] [address] Jul, [address] [address] Jul, 17 Dental examination Z01.[address] [address] Jun, [address] [address] 27 Jun, 20 17 Dental examination Z01.[address] [address] 27 Jun, [address] [address] 05 Jun, 20 17 Dental examination Z01.[address] [address] 02 Jun, 20 17 Edema, unspecified R60.9 ; Screening for lipoid disorders Z13.220 and Pericardial effusion I31.[address] [address] 27 Sep, [address] [address] 27 May, 20 17 Acute costochondritis M94.0 ; Frequent headaches R51 and Seizure disorder G40.[address] [address] 26 May, 20 17 Pericardial effusion I31.[address] [address] 19 May, [address] [address] Feb, [address] [address] 27 January, 17 Seizure disorder G40.[address] [address] 16 January, 17 Dental examination Z01.[address] [address] Dec, 17 Seizure disorder G40.909 ; Low back pain M54.5 ; Cervical radiculopathy M54.12 ; Mild intermittent asthma without complication J45.20 ; Frequent headaches R51 ; Adolescent idiopathic scoliosis of thoracolumbar region M41.125 and Pain in right knee M25.[address] [address] Nov, [address] [address] Nov, [address] [address] Nov, 17 Epigastric pain R10.13 ; Asthma exacerbation J45.901 and Seizure disorder G40.[address] [address] 28 Oct, 17 Seizure disorder G40.909 ; Chronic idiopathic constipation K59.04 and Cough due to bronchospasm J98.[address] [address] Oct, 17 Duodenitis K29.80 ; Epigastric pain R10.13 ; Seizure disorder G40.909 and Chronic idiopathic constipation K59.[address] [address] Oct, 17 Dental examination Z01.[address] [address] Sep, 17 Duodenitis K29.80 ; Epigastric pain R10.13 ; Seizure disorder G40.909 and Asthma exacerbation J45.[address] [address] Sep, 17 Epigastric pain R10.13 and Seizure disorder G40.[address] [address] Sep, [address] [address] Aug, 16 Seizure disorder G40.[address] [address] Aug, 16 Seizure disorder G40.909 ; Asthma exacerbation J45.901 and Epigastric pain R10.[address] [address] 15 Aug, 16 Bronchitis J40 ; Asthma exacerbation J45.901 and Epigastric pain R10.[address] [address] Aug, [address] [address] Aug, [address] [address] 02 Aug, 16 [facility] [address] [place] [address] 04 Jul, 16 Dental examination Z01.[address] [address] Jun, 16 Acute pain of left knee M25.562 and Mikayla-rectal abscess K61.[address] [address] 04 Jun, [address] [address] 04 Jun, 16 Dental examination Z01.[address] [address] 07 May, [address] [address] 07 May, 16 Seizure disorder G40.909 and Partial symptomatic epilepsy with complex partial seizures, not intractable, 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.[address] [address] 02 May, 16 Screening for lipoid disorders Z13.220 and Edema, unspecified R60.[address] [address] Apr, [address] [address] Apr, 15 [facility] [address] [place] [id number] [address] [place] [id number] Apr, Dental examination V72.2 [facility] [address] [place] [id number] [address] [place] [address] Dec, [facility] [address] [place] [id number] [address] [place] [address] Dec, [address] [address] Sep, 15 [facility] [address] [place] [id number] [address] [place] [address] Sep, [facility] [address] [place] [id number] [address] [place] [address] Jun, [facility] [address] [facility] [id number] [address] [place] [address] Jun, [facility] [place] [address] [facility] [place] [address] Jun, 14 [facility] [address] [facility] [id number] [address] [place] [address] Jun, [facility] [address] [facility] [id number] [address] [place] [address] May, [facility] [place] [address] [place] [address] May, 14 [facility] [place] [address] [place] [address] May, 14 [facility] [address] [facility] [id number] [address] [place] [address] May, [facility] [address] [facility] [id number] [address] [place] [address] Mar, [facility] [place] [address] [place] [address] Mar, 14 [facility] [address] [facility] [id number] [address] [place] [address] Mar, [facility] [place] [address] [place] [address] Mar, 14 [facility] [address] [facility] [id number] [address] [place] [address] Mar, [facility] [address] [facility] [id number] [address] [place] [address] Feb, [facility] [place] [address] [place] [address] Feb, 14 [facility] [address] [facility] [id number] [address] [place] [address] Feb, [facility] [place] [address] [place] [address] Feb, 14 [facility] [address] [facility] [id number] [address] [place] [address] Feb, [facility] [address] [place] [address] January, [address] [place] [address] [facility] [id number] [address] [place] [address] January, [facility] [place] [address] May, [place] [address] [place] [address] May, [address] [place] [address] [facility] [id number] [address] [place] [address] Oct, [place] [address] [facility] [id number] [address] [place] [address] Aug, [place] [address] [facility] [id number] [address] [place] [address] Nov, [place] [address] [facility] [id number] [address] [place] [address] Sep, IMMUNIZATIONS No Known Immunizations SOCIAL HISTORY Never Assessed REASON FOR VISIT medication PLAN OF CARE VITAL SIGNS MEDICATIONS Medication Instructions Dosage Frequency Start Date End Date Duration S tatus Melatonin 3 MG Orally Once a day 2tablet at bedtime as needed with frank d 24h Unknown Aspirin Adult Low Dose 81 MG Orally Once a day 1 tablet 24h Unknown Sucralfate 1 GM 1 tablet on an empty stomach 30 minutes before meals and at bedtime Orally 9 Unknown Potassium Chloride ER 10 MEQ TAKE 1 CAPS ULE BY MOUTH THREE TIMES DAILY WITH FOOD 30 Unknown Omeprazole 40 MG Orally Once a day 1 capsule 24h Unknown Simvastatin 20 MG TAKE 1 TABLET BY MOUTH DAILY AT BEDTIME 30 Unknown Levetiracetam 500 mg Orally Twice a day take 3 tabs 12h 25 May, 2013 Unknown Lansoprazole 30 MG Orally 2 times a day 1 capsule 12h Unknown Meloxicam 15 MG TAKE 1 TABLET BY MOUTH DAILY 30 Unknown Zonisamide 100 MG Orally Once a day 1 capsule 24h Unknown Citalopram Hydrobromide 40 MG TAKE 1 TABLET BY MOUTH DAILY 30 Unknown Diphenhydramine 25 Oral at hs 1 tab Un known Potassium Chloride 10 MEQ Orally three times per day 1 capsule with fo od Unknown Magic Mouthwash Apply medicated swab to sore areas of the mouth to numb the pain As needed Dip cotton swab into medication January, As needed Unknown Baclofen 10 mg Orally 2 times a day 1 tablet with food or milk 12h Unknown Pregabalin 200 mg Orally three times a day 1 capsule 8h Unknown B12 Fast Dissolve 1000 Orally daily OTC 1 tablet Unknown Vimpat 200 mg Orally twice a day 1 tablet 12h 21 Feb, 2017 9 0 days Unknown Montelukast Sodium 10 mg TAKE 1 TABLET BY MOUTH DAILY IN THE KATY STEPHANE Unknown Potassium Chloride 10 MEQ Orally three times per day 1 capsule with fo od Unknown Ramelteon 8 MG Orally Once a day 1 tablet at bedtime as needed 24h Unknown Nortriptyline HCl Unknow n cetirizine 10 mg 1 tablet by Oral route 1 daily January, Unknown Cetirizine HCl 10 MG TAKE 1 TABLET BY MOUTH DAILY 30 Unknown Symbicort 160-4.5 MCG/ACT Inhalation Twice a day 2 puffs 12h Sep, Unknown Ranitidine HCl 150 MG TAKE 1 TABLET BY MOUTH TWICE DAILY 30 Unknown PredniSONE 20 MG two a day for 3 days then one a day Unknown Senokot S 8.6-50 MG Orally Once a day 1 tablet in the evening as ne eded 24h Feb, Unknown Potassium Chloride ER 10 MEQ TAKE 1 CAPSULE BY MOUTH THREE T IMES DAILY 30 Unknown Ergocalciferol 36053 iu Orally 1 time per week Unknown Senna Concentrate 8.6 MG Orally three times per day 1 tablet Unknown Lacosamide 200 mg Orally twice a day 1 tablet 12h 30 days Unknown Hydrochlorothiazide 25 MG TAKE 1 TABLET BY MOUTH DAILY NEEDED FOR SWELLING. 90 Unknown Lorazepam 2 MG Orally Once a day 1 tablet as needed 24h Unknown RESULTS No Results PROCEDURES No Known procedures INSTRUCTIONS MEDICATIONS ADMINISTERED No Known Medications MEDICAL (GENERAL) HISTORY Type Description Date Medical History seizures Medical History hyperlipidemia Medical History constipation Surgical History cholecystectomy Surgical History hysterectomy Surgical History appendectomy Hospitalization History seizures Hospitalization History surgeries Hospitalization History seizures 2015 Hospitalization History pneumonia 2015
--- OUTSIDE RECORDS SUMMARY | 2020-03-30 16:39 | XMS REPORT ---
Author Author Riri FLOYD Organization [facility] [address] Address [address] [place] [address] Care Team Providers Care Loan Assistant Name Role Phone OZ FLOYD Unavailable PROBLEMS Type Condition ICD9-CM Code [id number] Code Onset Dates Condition S tatus SNOMED Code Problem Scoliosis (and kyphoscoliosis), idiopathic 737.30 Active 47634871 Problem Pain in joint, ankle and foot 719.47 Active 948773386 Problem Chronic idiopathic constipation K59.04 Active 35002908 Problem Pain in joint, forearm 719.43 Active 135935812 Problem Cough due to bronchospasm J98.01 Acti ve 6867994 Problem Pain in joint, upper arm 719.42 Activ e 241790656 Problem Mild intermittent asthma without complication J45. 20 Active 783396584 Problem Low back pain M54.5 Active 884571 007 Problem Frequent headaches R51 Active 7 72843901 Problem Primary insomnia F51.01 Active 397 2004 Problem Other chronic pain G89.29 Active 8 7854123 Problem Unspecified urinary calculus 592.9 A ctive 533533648 Problem Lumbago 724.2 Active 673170464 Problem Unspecified urticaria 708.9 Active 507489760 Problem Adolescent idiopathic scoliosis of thoracolumbar region M41.125 Active 303308235 Problem Pain in right knee M25.561 Active 3 6497620 Problem Slow transit constipation K59.01 Acti ve 61941559 Problem Vertigo R42 Active 876080347 Problem Edema, unspecified R60.9 Active 7 7432755 Problem Seizure disorder G40.909 Active 128 862719 Problem Unspecified hemorrhoids without mention of complication 45 5.6 Active 20367433 Problem Delirium due to conditions classified elsewhere 293.0 Active 9951080 Problem Duodenitis K29.80 Active 23042579 Problem Epigastric pain R10.13 Active 7992 2009 Problem Mikayla-rectal abscess K61.1 Active 83430163 Problem Asthma exacerbation J45.901 Active 824524877 ALLERGIES No Information ENCOUNTERS Encounter Location Date Diagnosis [facility] [address] [facility] [id number] [address] [place] [address] Feb, [facility] [address] [address] Feb, BMI 40.0-44.9, adult Z68.41 ; Slow transit constipation K59.01 ; Pain in right shoulder M25.511 ; Pain in left shoulder M25.512 ; Other chronic pain G89.29 and Primary insomnia F51.01 [facility] [place] [address] [place] [address] Feb, [facility] [address] [facility] [id number] [address] [place] [address] Feb, [facility] [place] [address] [place] [address] Dec, [facility] [place] [address] [place] [address] Dec, [facility] [place] [address] [place] [address] Dec, [facility] [place] [address] [place] [address] Nov, Vertigo R42 and Seizure disorder G40.909 [facility] [place] [address] [place] [address] Aug, Dental examination Z01.20 [facility] [place] [address] [place] [address] Jul, Dental examination Z01.20 [facility] [place] [address] [place] [address] Jul, [facility] [place] [address] [place] [address] Jul, [facility] [place] [address] [place] [address] Jul, Dental examination Z01.20 [facility] [place] [address] [place] [address] Jun, [facility] [place] [address] [place] [address] Jun, Dental examination Z01.20 [facility] [place] [address] [place] [address] Jun, [facility] [place] [address] [place] [address] Jun, Dental examination Z01.20 [facility] [place] [address] [place] [address] 02 Jun, 2017 Edema, unspecified R60.9 ; Screening for lipoid disorders Z13.220 and Pericardial effusion I31.3 [facility] [address] [address] May, [facility] [address] [address] May, Acute costochondritis M94.0 ; Frequent headaches R51 and Seizure disorder G40.909 [facility] [address] [address] May, Pericardial effusion I31.3 [facility] [address] [address] May, [facility] [address] [address] Feb, [facility] [address] [address] January, Seizure disorder G40.[address] [address] January, Dental examination Z01.[address] [address] Dec, Seizure disorder G40.909 ; Low back pain M54.5 ; Cervical radiculopathy M54.12 ; Mild intermittent asthma without complication J45.20 ; Frequent headaches R51 ; Adolescent idiopathic scoliosis of thoracolumbar region M41.125 and Pain in right knee M25.[address] [address] Nov, [facility] [address] [address] Nov, [address] [address] Nov, Epigastric pain R10.13 ; Asthma exacerbation J45.901 and Seizure disorder G40.[address] [address] Oct, Seizure disorder G40.909 ; Chronic idiopathic constipation K59.04 and Cough due to bronchospasm J98.01 [facility] [place] [address] [place] [address] Oct, Duodenitis K29.80 ; Epigastric pain R10.13 ; Seizure disorder G40.909 and Chronic idiopathic constipation K59.04 [facility] [place] [address] [place] [address] Oct, Dental examination Z01.20 [facility] [place] [address] [place] [address] Sep, Duodenitis K29.80 ; Epigastric pain R10.13 ; Seizure disorder G40.909 and Asthma exacerbation J45.901 [facility] [address] [address] Sep, Epigastric pain R10.13 and Seizure disorder G40.909 [facility] [address] [address] Sep, [facility] [address] [address] Aug, Seizure disorder G40.909 [facility] [address] [address] Aug, Seizure disorder G40.909 ; Asthma exacerbation J45.901 and Epigastric pain R10.13 [facility] [address] [address] Aug, Bronchitis J40 ; Asthma exacerbation J45.901 and Epigastric pain R10.13 [facility] [address] [address] Aug, [facility] [address] [address] Aug, [facility] [address] [address] Aug, [facility] [address] [address] Jul, Dental examination Z01.[address] [address] Jun, Acute pain of left knee M25.562 and Mikayla-rectal abscess K61.1 [facility] [address] [address] Jun, [facility] [address] [address] Jun, Dental examination Z01.20 [facility] [place] [address] [place] [address] May, [facility] [place] [address] [place] [address] May, Seizure disorder G40.909 and Partial symptomatic epilepsy with complex partial seizures, not intractable, 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.209 [facility] [place] [address] [place] [address] May, Screening for lipoid disorders Z13.220 and Edema, unspecified R60.9 [facility] [place] [address] [place] [address] Apr, [facility] [place] [address] [place] [address] Apr, [facility] [address] [facility] [id number] [address] [place] [phone] Apr, Dental examination V72.2 [facility] [address] [facility] [id number] [address] [place] [phone] Dec, [facility] [address] [facility] [id number] [address] [place] [address] Dec, [facility] [place] [address] [place] [address] Sep, [facility] [address] [facility] [id number] [address] [place] [phone] Sep, [facility] [address] [facility] [id number] [address] [place] [phone] Jun, [facility] [address] [facility] [id number] [address] [place] [phone] Jun, [facility] [place] [address] [place] [address] Jun, [facility] [address] [facility] [id number] [address] [place] [phone] Jun, [facility] [address] [facility] [id number] [address] [place] [address] May, [facility] [place] [address] [place] [address] May, [facility] [place] [address] [place] [address] May, [facility] [address] [id number] [address] [place] [address], [place] [address] May, [facility] [address] [id number] [address] [place] [address], [place] [address] Mar, [facility] [place] [address] [place] [address] Mar, [facility] [address] [id number] [address] [place] [address], [place] [address] Mar, [facility] [place] [address] [place] [address] Mar, [facility] [address] [id number] [address] [place] [phone] Mar, [facility] [address] [id number] [address] [place] [address], [place] [address] Feb, [facility] [place] [address] [place] [address] Feb, [facility] [address] [facility] [id number] [address] [place] [address] Feb, [facility] [place] [address] [place] [address] Feb, [facility] [address] [id number] [address] [place] [phone] Feb, [facility] [place] [address] [place] [address] January, [facility] [address] [id number] [address] [place] [address], [place] [address] January, [facility] [place] [address] [place] [address] May, [facility] [place] [address] [place] [address] May, [facility] [address] [id number] [address] [place] [phone] Oct, [facility] [address] [id number] [address] [place] [address] Aug, [facility] [address] [facility] [id number] [address] [place] [phone] Nov, [facility] [address] [facility] [id number] [address] [place] [address] Sep, IMMUNIZATIONS No Known Immunizations SOCIAL HISTORY Never Assessed REASON FOR VISIT refill vimpat PLAN OF CARE VITAL SIGNS MEDICATIONS Medication [...]
--- OUTSIDE RECORDS SUMMARY | 2020-03-30 16:39 | XMS REPORT ---
Author Author Riri FLOYD Organization [facility] [address] Address [address] [place] [address] Care Team Providers Care Tank Setter Helper Name Role Phone OZ FLOYD Unavailable PROBLEMS Type Condition ICD9-CM Code [id number] Code Onset Dates Condition S tatus SNOMED Code Problem Scoliosis (and kyphoscoliosis), idiopathic 737.30 Active 28386379 Problem Pain in joint, ankle and foot 719.47 Active 076750862 Problem Chronic idiopathic constipation K59.04 Active 73838297 Problem Pain in joint, forearm 719.43 Active 516625739 Problem Cough due to bronchospasm J98.01 Acti ve 2327522 Problem Pain in joint, upper arm 719.42 Activ e 404002323 Problem Mild intermittent asthma without complication J45. 20 Active 487251743 Problem Low back pain M54.5 Active 734603 007 Problem Frequent headaches R51 Active 7 32500261 Problem Primary insomnia F51.01 Active 397 2004 Problem Other chronic pain G89.29 Active 8 2379906 Problem Unspecified urinary calculus 592.9 A ctive 804140363 Problem Lumbago 724.2 Active 739702095 Problem Unspecified urticaria 708.9 Active 162343580 Problem Adolescent idiopathic scoliosis of thoracolumbar region M41.125 Active 523435064 Problem Pain in right knee M25.561 Active 3 5505076 Problem Slow transit constipation K59.01 Acti ve 65994627 Problem Vertigo R42 Active 920398139 Problem Edema, unspecified R60.9 Active 7 2780470 Problem Seizure disorder G40.909 Active 128 547167 Problem Unspecified hemorrhoids without mention of complication 45 5.6 Active 59883075 Problem Delirium due to conditions classified elsewhere 293.0 Active 7039252 Problem Duodenitis K29.80 Active 78542661 Problem Epigastric pain R10.13 Active 7992 2009 Problem Mikayla-rectal abscess K61.1 Active 47421657 Problem Asthma exacerbation J45.901 Active 264428135 ALLERGIES Substance Reaction Event Type Date Status Codeine Sulfate itching Drug Allergy Feb, Active Tramadol Unknown Drug Allergy Feb, Active Surgical Tape And Bandaids Unknown Non Drug Allergy Feb, 18 Active ENCOUNTERS Encounter Location Date Diagnosis [facility] [address] [place] [id number] [place] [address] Feb, [address] [address] Feb, 18 BMI 40.0-44.9, adult Z68.41 ; Slow transit constipation K59.01 ; Pain in right shoulder M25.511 ; Pain in left shoulder M25.512 ; Other chronic pain G89.29 and Primary insomnia F51.[address] [address] Feb, [address] [id number] [address] [place] [address] Feb, [address] [address] Dec, [address] [address] Dec, [address] [address] Dec, [address] [address] Nov, 18 Vertigo R42 and Seizure disorder G40.[address] [address] Aug, 17 Dental examination Z01.[address] [address] Jul, 17 Dental examination Z01.[address] [address] 03 Jul, [address] [address] Jul, [address] [address] Jul, 17 Dental examination Z01.[address] [address] 30 Oct, [address] [address] 27 Jun, 20 17 Dental examination Z01.[address] [address] 27 Oct, [address] [address] 05 Jun, 20 17 Dental examination Z01.[address] [address] 02 Oct, 20 17 Edema, unspecified R60.9 ; Screening for lipoid disorders Z13.220 and Pericardial effusion I31.[address] [address] 27 Sep, [address] [address] 27 Sep, 17 Acute costochondritis M94.0 ; Frequent headaches R51 and Seizure disorder G40.[address] [address] 26 Sep, 20 17 Pericardial effusion I31.[address] [address] 19 May, [address] [address] Feb, [address] [address] 27 January, 17 Seizure disorder G40.[address] [address] 16 January, 17 Dental examination Z01.[address] [address] 10 Dec, 17 Seizure disorder G40.909 ; Low back pain M54.5 ; Cervical radiculopathy M54.12 ; Mild intermittent asthma without complication J45.20 ; Frequent headaches R51 ; Adolescent idiopathic scoliosis of thoracolumbar region M41.125 and Pain in right knee M25.[address] [address] Nov, 17 [facility] [address] [place] [address] Nov, [address] [address] Nov, 17 Epigastric pain R10.13 ; Asthma exacerbation J45.901 and Seizure disorder G40.[address] [address] Oct, 17 Seizure disorder G40.909 ; Chronic idiopathic constipation K59.04 and Cough due to bronchospasm J98.[address] [address] Oct, 17 Duodenitis K29.80 ; Epigastric pain R10.13 ; Seizure disorder G40.909 and Chronic idiopathic constipation K59.[address] [address] Oct, 17 Dental examination Z01.[address] [address] Sep, 17 Duodenitis K29.80 ; Epigastric pain R10.13 ; Seizure disorder G40.909 and Asthma exacerbation J45.[address] [address] Sep, 17 Epigastric pain R10.13 and Seizure disorder G40.[address] [address] Sep, [address] [address] Aug, 16 Seizure disorder G40.[address] [address] Aug, 16 Seizure disorder G40.909 ; Asthma exacerbation J45.901 and Epigastric pain R10.[address] [address] Aug, 16 Bronchitis J40 ; Asthma exacerbation J45.901 and Epigastric pain R10.[address] [address] Aug, 16 [place] [address] [place] [address] 02 Aug, [address] [address] Aug, [address] [address] 04 Jul, 16 Dental examination Z01.[address] [address] 25 Jun, 16 Acute pain of left knee M25.562 and Mikayla-rectal abscess K61.[address] [address] Jun, [address] [address] 04 Jun, 16 Dental examination Z01.[address] [address] 07 May, [address] [address] 07 May, 16 Seizure disorder G40.909 and Partial symptomatic epilepsy with complex partial seizures, not intractable, 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.[address] [address] May, 16 Screening for lipoid disorders Z13.220 and Edema, unspecified R60.[address] [address] Apr, [address] [address] Apr, 15 [facility] [address] [facility] [id number] [address] [place] [id number] Apr, Dental examination V72.2 [facility] [address] [facility] [id number] [address] [place] [address] Dec, [facility] [address] [facility] [id number] [address] [place] [address] Dec, [address] [address] Sep, 15 [facility] [address] [facility] [id number] [address] [place] [address] Sep, [facility] [address] [id number] [address] [place] [address], [place] [address] Jun, [facility] [address] [facility] [id number] [address] [place] [address], [place] [address] Jun, [facility] [place] [address] [place] [address] Jun, 14 [facility] [address] [facility] [id number] [address] [place] [address] Jun, [facility] [address] [id number] [address] [place] [address] May, [facility] [place] [address] [place] [address] May, 14 [facility] [place] [address] [place] [address] May, 14 [facility] [address] [facility] [id number] [address] [place] [address] May, [facility] [address] [facility] [id number] [address] [place] [address] Mar, [facility] [place] [address] [place] [address] Mar, 14 [facility] [address] [facility] [id number] [address] [place] [address] Mar, [facility] [place] [address] [place] [address] Mar, 14 [facility] [address] [facility] [id number] [address] [place] [address] Mar, [facility] [address] [facility] [id number] [address] [place] [address] Feb, [facility] [place] [address] [place] [address] Feb, 14 [facility] [address] [facility] [id number] [address] [place] [address] Feb, [facility] [place] [address] [place] [address] Feb, 14 [place] [address] [facility] [id number] [address] [place] [address] Feb, [facility] [address] January, 14 [place] [address] [facility] [id number] [address] [place] [address] January, [facility] [place] [address] May, [address] [address] May, 13 [place] [address] [facility] [id number] [address] [place] [address] Oct, [place] [address] [place] [id number] [address] [place] [address] Aug, [place] [address] [place] [id number] [address] [place] [address] Nov, [place] [address] [place] [id number] [address] [place] [address] Sep, IMMUNIZATIONS No Known Immunizations SOCIAL HISTORY Never Assessed REASON FOR VISIT Has recently gotten health insurance needs medication refills, bilateral shoulde r roberta Lopez RN PLAN OF CARE Activity Details Follow Up 4 Weeks Reason: VITAL SIGNS Height 61 in 2018-03-03 Weight 213.6 lbs 2018-03-03 Temperature 98 degrees Fahrenheit 2018-03-03 Heart Rate 78 bpm 2018-03-03 Respiratory Rate 20 2018-03-03 BMI 40.35 kg/m2 2018-03-03 Blood pressure systolic 128 mmHg 2018-03-03 Blood pressure diastolic 86 mmHg 2018-03-03 MEDICATIONS Medication Instructions Dosage Frequency Start Date End Date Duration S tatus Melatonin 3 MG Orally Once a day 2tablet at bedtime as needed with frank d 24h Active B12 Fast Dissolve 1000 Orally daily OTC 1 tablet Active Symbicort 160-4.5 MCG/ACT Inhalation Twice a day 2 puffs 12h 25 Sep, 2016 Not-Taking Potassium Chloride ER 10 MEQ TAKE 1 CAPS ULE BY MOUTH THREE TIMES DAILY WITH FOOD 30 Active Omeprazole 40 MG Orally Once a day 1 capsule 24h Not-Taking Citalopram Hydrobromide 40 MG TAKE 1 TABLET BY MOUTH DAILY 30 Active Montelukast Sodium 10 mg TAKE 1 TABLET BY MOUTH DAILY IN THE KATY STEPHANE Active Lacosamide 200 mg Orally twice a day 1 tablet 12h 30 days Not-Taking Levetiracetam 500 mg Orally Twice a day take 3 tabs 12h 25 May, 2013 Active Simvastatin 20 MG TAKE 1 TABLET BY MOUTH DAILY AT BEDTIME 30 Active Nortriptyline HCl Active Hydrochlorothiazide 25 MG TAKE 1 TABLET BY MOUTH DAILY NEEDED FOR SWELLING. 90 Active Potassium Chloride 10 MEQ Orally three times per day 1 capsule with fo od Active Sucralfate 1 GM 1 tablet on an empty stomach 30 minutes before meals and at bedtime Orally 9 Not-Taking Aspirin Adult Low Dose 81 MG Orally Once a day 1 tablet 24h Active Diphenhydramine 25 Oral at hs 1 tab Ac tive Meloxicam 15 MG TAKE 1 TABLET BY MOUTH DAILY 30 Active Senokot S 8.6-50 MG Orally Once a day 1 tablet in the evening as ne eded 24h Feb, Active Zonisamide 100 MG Orally Once a day 1 capsule 24h Active Lansoprazole 30 MG Orally 2 times a day 1 capsule 12h Not-Taking Ramelteon 8 MG Orally Once a day 1 tablet at bedtime as needed 24h Not-Taking Baclofen 10 mg Orally 2 times a day 1 tablet with food or milk 12h Active Ergocalciferol 31288 iu Orally 1 time per week Not-Taking Cetirizine HCl 10 MG TAKE 1 TABLET BY MOUTH DAILY 30 Active Magic Mouthwash Apply medicated swab to sore areas of the mouth to numb the pain As needed Dip cotton swab into medication January, As needed Not-Taking Potassium Chloride 10 MEQ Orally three times per day 1 capsule with fo od Not-Taking PredniSONE 20 MG two a day for 3 days then one a day Not-Taking Vimpat 200 mg Orally twice a day 1 tablet 12h Feb, 9 0 days Active Potassium Chloride ER 10 MEQ TAKE 1 CAPSULE BY MOUTH THREE T IMES DAILY 30 Not-Taking Pregabalin 200 mg Orally three times a day 1 capsule 8h Not-Taking Lorazepam 2 MG Orally Once a day 1 tablet as needed 24h Active Ranitidine HCl 150 MG TAKE 1 TABLET BY MOUTH TWICE DAILY 30 Not-Taking cetirizine 10 mg 1 tablet by Oral route 1 daily January, Active Senna Concentrate 8.6 MG Orally three times per day 1 tablet Active RESULTS No Results PROCEDURES No Known procedures INSTRUCTIONS MEDICATIONS ADMINISTERED No Known Medications MEDICAL (GENERAL) HISTORY Type Description Date Medical History seizures Medical History hyperlipidemia Medical History constipation Surgical History cholecystectomy Surgical History hysterectomy Surgical History appendectomy Hospitalization History seizures Hospitalization History surgeries Hospitalization History seizures 2015 Hospitalization History pneumonia 2015
--- OUTSIDE RECORDS SUMMARY | 2020-03-30 16:39 | XMS REPORT ---
Author Author Riri FLOYD Organization [facility] [address] Address [address] [place] [address] Care Team Providers Care Gas Mask Inspector Name Role Phone OZ FLOYD Unavailable PROBLEMS Type Condition ICD9-CM Code VZI48-UX Code Onset Dates Condition S tatus SNOMED Code Problem Scoliosis (and kyphoscoliosis), idiopathic 737.30 Active 27032134 Problem Pain in joint, ankle and foot 719.47 Active 876358892 Problem Chronic idiopathic constipation K59.04 Active 89436100 Problem Pain in joint, forearm 719.43 Active 424575953 Problem Cough due to bronchospasm J98.01 Acti ve 6990786 Problem Pain in joint, upper arm 719.42 Activ e 944607749 Problem Mild intermittent asthma without complication J45. 20 Active 297335166 Problem Low back pain M54.5 Active 468899 007 Problem Frequent headaches R51 Active 7 35227336 Problem Primary insomnia F51.01 Active 397 2004 Problem Other chronic pain G89.29 Active 8 6034651 Problem Unspecified urinary calculus 592.9 A ctive 583038682 Problem Lumbago 724.2 Active 797495071 Problem Unspecified urticaria 708.9 Active 292661940 Problem Adolescent idiopathic scoliosis of thoracolumbar region M41.125 Active 348726546 Problem Pain in right knee M25.561 Active 3 7129748 Problem Slow transit constipation K59.01 Acti ve 10530291 Problem Vertigo R42 Active 458250671 Problem Edema, unspecified R60.9 Active 7 3099517 Problem Seizure disorder G40.909 Active 128 763075 Problem Unspecified hemorrhoids without mention of complication 45 5.6 Active 13970095 Problem Delirium due to conditions classified elsewhere 293.0 Active 6234092 Problem Duodenitis K29.80 Active 92489887 Problem Epigastric pain R10.13 Active 7992 2009 Problem Mikayla-rectal abscess K61.1 Active 77541840 Problem Asthma exacerbation J45.901 Active 361684093 ALLERGIES No Information ENCOUNTERS Encounter Location Date Diagnosis [facility] [address] [facility] [id number] [address] [place] [address] Feb, [facility] [address] [address] Feb, BMI 40.0-44.9, adult Z68.41 ; Slow transit constipation K59.01 ; Pain in right shoulder M25.511 ; Pain in left shoulder M25.512 ; Other chronic pain G89.29 and Primary insomnia F51.01 [facility] [place] [address] [place] [address] Feb, [facility] [address] [facility] [id number] [address] [place] [address] Feb, [facility] [place] [address] [place] [address] Dec, [facility] [place] [address] [place] [address] Dec, [facility] [place] [address] [place] [address] Dec, [facility] [place] [address] [place] [address] Nov, Vertigo R42 and Seizure disorder G40.909 [facility] [place] [address] [place] [address] Aug, Dental examination Z01.20 [facility] [place] [address] [place] [address] Jul, Dental examination Z01.20 [facility] [place] [address] [place] [address] Jul, [facility] [place] [address] [place] [address] Jul, [facility] [place] [address] [place] [address] Jul, Dental examination Z01.20 [facility] [place] [address] [place] [address] Jun, [facility] [place] [address] [place] [address] Jun, Dental examination Z01.20 [facility] [place] [address] [place] [address] Jun, [facility] [place] [address] [place] [address] Jun, Dental examination Z01.20 [facility] [place] [address] [place] [address] 02 Jun, 2017 Edema, unspecified R60.9 ; Screening for lipoid disorders Z13.220 and Pericardial effusion I31.3 [facility] [address] [address] May, [facility] [address] [address] May, Acute costochondritis M94.0 ; Frequent headaches R51 and Seizure disorder G40.909 [facility] [address] [address] May, Pericardial effusion I31.3 [facility] [address] [address] May, [facility] [address] [address] Feb, [facility] [address] [address] January, Seizure disorder G40.[address] [address] January, Dental examination Z01.[address] [address] Dec, Seizure disorder G40.909 ; Low back pain M54.5 ; Cervical radiculopathy M54.12 ; Mild intermittent asthma without complication J45.20 ; Frequent headaches R51 ; Adolescent idiopathic scoliosis of thoracolumbar region M41.125 and Pain in right knee M25.[address] [address] Nov, [facility] [address] [address] Nov, [address] [address] Nov, Epigastric pain R10.13 ; Asthma exacerbation J45.901 and Seizure disorder G40.[address] [address] Oct, Seizure disorder G40.909 ; Chronic idiopathic constipation K59.04 and Cough due to bronchospasm J98.01 [facility] [place] [address] [place] [address] Oct, Duodenitis K29.80 ; Epigastric pain R10.13 ; Seizure disorder G40.909 and Chronic idiopathic constipation K59.04 [facility] [place] [address] [place] [address] Oct, Dental examination Z01.20 [facility] [place] [address] [place] [address] Sep, Duodenitis K29.80 ; Epigastric pain R10.13 ; Seizure disorder G40.909 and Asthma exacerbation J45.901 [facility] [address] [address] Sep, Epigastric pain R10.13 and Seizure disorder G40.909 [facility] [address] [address] Sep, [facility] [address] [address] Aug, Seizure disorder G40.909 [facility] [address] [address] Aug, Seizure disorder G40.909 ; Asthma exacerbation J45.901 and Epigastric pain R10.13 [facility] [address] [address] Aug, Bronchitis J40 ; Asthma exacerbation J45.901 and Epigastric pain R10.13 [facility] [address] [address] Aug, [facility] [address] [address] Aug, [facility] [address] [address] Aug, [facility] [address] [address] Jul, Dental examination Z01.[address] [address] Jun, Acute pain of left knee M25.562 and Mikayla-rectal abscess K61.1 [facility] [address] [address] Jun, [facility] [address] [address] Jun, Dental examination Z01.20 [facility] [place] [address] [place] [address] May, [facility] [place] [address] [place] [address] May, Seizure disorder G40.909 and Partial symptomatic epilepsy with complex partial seizures, not intractable, 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.209 [facility] [place] [address] [place] [address] May, Screening for lipoid disorders Z13.220 and Edema, unspecified R60.9 [facility] [place] [address] [place] [address] Apr, [facility] [place] [address] [place] [address] Apr, [facility] [address] [facility] [id number] [address] [place] [id number] Apr, Dental examination V72.2 [facility] [address] [facility] [id number] [address] [place] [address] Dec, [facility] [address] [facility] [id number] [address] [place] [address] Dec, [facility] [place] [address] [place] [address] Sep, [facility] [address] [facility] [id number] [address] [place] [address] Sep, [facility] [address] [facility] [id number] [address] [place] [address] Jun, [facility] [address] [facility] [id number] [address] [place] [address] Jun, [facility] [place] [address] [place] [address] Jun, [facility] [address] [facility] [id number] [address] [place] [address] Jun, [facility] [address] [facility] [id number] [address] [place] [address] May, [facility] [place] [address] [place] [address] May, [facility] [place] [address] [place] [address] May, [facility] [address] [id number] [address] [place] [address], [place] [address] May, [facility] [address] [id number] [address] [place] [address], [place] [address] Mar, [facility] [place] [address] [place] [address] Mar, [facility] [address] [id number] [address] [place] [address], [place] [address] Mar, [facility] [place] [address] [place] [address] Mar, [facility] [address] [id number] [address] [place] [address] Mar, [facility] [address] [id number] [address] [place] [address], [place] [address] Feb, [facility] [place] [address] [place] [address] Feb, [facility] [address] [facility] [id number] [address] [place] [address] Feb, [facility] [place] [address] [place] [address] Feb, [facility] [address] [id number] [address] [place] [address] Feb, [facility] [place] [address] [place] [address] January, [facility] [address] [id number] [address] [place] [address], [place] [address] January, [facility] [place] [address] [place] [address] May, [facility] [place] [address] [place] [address] May, [facility] [address] [id number] [address] [place] [address] Oct, [facility] [address] [id number] [address] [place] [address] Aug, [facility] [address] [facility] [id number] [address] [place] [address] Nov, [facility] [address] [facility] [id number] [address] [place] [address] Sep, IMMUNIZATIONS No Known Immunizations SOCIAL HISTORY Never Assessed REASON FOR VISIT PALS script PLAN OF CARE VITAL SIGNS MEDICATIONS Unknown [...]
--- OUTSIDE RECORDS SUMMARY | 2020-03-30 16:39 | XMS REPORT ---
Author Author Riri FLOYD Organization [facility] [address] Address [address] [place] [address] Care Team Providers Care Program Director Air Talent Name Role Phone OZ FLOYD Unavailable PROBLEMS Type Condition ICD9-CM Code GDN07-AB Code Onset Dates Condition S tatus SNOMED Code Problem Scoliosis (and kyphoscoliosis), idiopathic 737.30 Active 70893127 Problem Pain in joint, ankle and foot 719.47 Active 081814216 Problem Chronic idiopathic constipation K59.04 Active 08690460 Problem Pain in joint, forearm 719.43 Active 180345952 Problem Cough due to bronchospasm J98.01 Acti ve 4695817 Problem Pain in joint, upper arm 719.42 Activ e 694864086 Problem Mild intermittent asthma without complication J45. 20 Active 846548671 Problem Low back pain M54.5 Active 204766 007 Problem Frequent headaches R51 Active 7 96172911 Problem Primary insomnia F51.01 Active 397 2004 Problem Other chronic pain G89.29 Active 8 7091202 Problem Unspecified urinary calculus 592.9 A ctive 034911662 Problem Lumbago 724.2 Active 823387781 Problem Unspecified urticaria 708.9 Active 404928720 Problem Adolescent idiopathic scoliosis of thoracolumbar region M41.125 Active 609808926 Problem Pain in right knee M25.561 Active 3 0191974 Problem Slow transit constipation K59.01 Acti ve 58276873 Problem Vertigo R42 Active 455557410 Problem Edema, unspecified R60.9 Active 7 4419150 Problem Seizure disorder G40.909 Active 128 841161 Problem Unspecified hemorrhoids without mention of complication 45 5.6 Active 07962850 Problem Delirium due to conditions classified elsewhere 293.0 Active 9957794 Problem Duodenitis K29.80 Active 66858136 Problem Epigastric pain R10.13 Active 7992 2009 Problem Mikayla-rectal abscess K61.1 Active 24990914 Problem Asthma exacerbation J45.901 Active 094766185 ALLERGIES No Information ENCOUNTERS Encounter Location Date Diagnosis [facility] [address] [place] [address] Jul, 18 [facility] [address] [place] [address] Jul, 18 [facility] [id number] [place] [address] Feb, [facility] [address] [place] [address] Feb, 18 BMI 40.0-44.9, adult Z68.41 ; Slow transit constipation K59.01 ; Pain in right shoulder M25.511 ; Pain in left shoulder M25.512 ; Other chronic pain G89.29 and Primary insomnia F51.01 [facility] [address] [place] [address] Feb, 18 [facility] [address] [id number] [place] [address] Feb, [facility] [place] [address] [place] [address] Dec, 18 [facility] [place] [address] [place] [address] Dec, 18 [facility] [place] [address] [place] [address] Dec, 18 [facility] [address] [place] [address] Nov, 18 Vertigo R42 and Seizure disorder G40.[address] [address] Aug, 17 Dental examination Z01.20 [facility] [place] [address] [place] [address] Jul, 17 Dental examination Z01.20 [facility] [place] [address] [place] [address] Jul, 17 [facility] [place] [address] [place] [address] Jul, 17 [facility] [place] [address] [place] [address] Jul, 17 Dental examination Z01.20 [facility] [place] [address] [place] [address] 30 Jun, [address] [address] [address] Jun, 17 Dental examination Z01.20 [facility] [place] [address] [place] [address] Jun, 17 [facility] [address] [address] 05 Jun, 17 Dental examination Z01.[address] [facility] [address] [address] 02 Jun, 17 Edema, unspecified R60.9 ; Screening for lipoid disorders Z13.220 and Pericardial effusion I31.3 [facility] [address] [address] Sep, 17 [facility] [address] [address] May, 17 Acute costochondritis M94.0 ; Frequent headaches R51 and Seizure disorder G40.909 [facility] [address] [address] May, 20 17 Pericardial effusion I31.3 [facility] [address] [address] May, 20 17 [facility] [address] [address] Feb, 17 [facility] [address] [address] 27 January, 17 Seizure disorder G40.909 [facility] [address] [address] 16 January, 17 Dental examination Z01.20 [facility] [address] [address] Dec, 17 Seizure disorder G40.909 ; Low back pain M54.5 ; Cervical radiculopathy M54.12 ; Mild intermittent asthma without complication J45.20 ; Frequent headaches R51 ; Adolescent idiopathic scoliosis of thoracolumbar region M41.125 and Pain in right knee M25.[address] [address] Nov, [address] [address] Nov, [address] [address] Nov, 17 Epigastric pain R10.13 ; Asthma exacerbation J45.901 and Seizure disorder G40.[address] [address] Oct, 17 Seizure disorder G40.909 ; Chronic idiopathic constipation K59.04 and Cough due to bronchospasm J98.[address] [address] Oct, 17 Duodenitis K29.80 ; Epigastric pain R10.13 ; Seizure disorder G40.909 and Chronic idiopathic constipation K59.[address] [address] Oct, 17 Dental examination Z01.[address] [address] Sep, 17 Duodenitis K29.80 ; Epigastric pain R10.13 ; Seizure disorder G40.909 and Asthma exacerbation J45.[address] [address] Sep, 17 Epigastric pain R10.13 and Seizure disorder G40.[address] [address] Sep, [address] [address] Aug, 16 Seizure disorder G40.[address] [address] Aug, 16 Seizure disorder G40.909 ; Asthma exacerbation J45.901 and Epigastric pain R10.[address] [facility] [address] [place] [address] 15 Aug, 16 Bronchitis J40 ; Asthma exacerbation J45.901 and Epigastric pain R10.[address] [facility] [address] [place] [address] 02 Aug, 16 [facility] [place] [address] [place] [address] Aug, 16 [facility] [place] [address] [place] [address] 02 Aug, 16 [facility] [address] [address] Jul, 16 Dental examination Z01.20 [facility] [place] [address] [place] [address] Jun, 16 Acute pain of left knee M25.562 and Mikayla-rectal abscess K61.1 [facility] [address] [address] 04 Jun, 16 [facility] [address] [address] 04 Jun, 16 Dental examination Z01.[address] [address] 07 May, 16 [facility] [address] [address] 07 May, 16 Seizure disorder G40.909 and Partial symptomatic epilepsy with complex partial seizures, not intractable, 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.209 [facility] [address] [address] 02 May, 16 Screening for lipoid disorders Z13.220 and Edema, unspecified R60.9 [facility] [address] [address] Apr, 16 [facility] [address] [address] Apr, 15 [facility] [address] [facility] [id number] [place] [id number] Apr, Dental examination V72.2 [facility] [address] [id number] [address] [place] [address] Dec, [facility] [address] [facility] [id number] [address] [place] [address] Dec, [facility] [place] [address] [place] [address] Sep, 15 [facility] [address] [id number] [address] [place] [address] Sep, [facility] [address] [facility] [id number] [address] [place] [address] Jun, [facility] [address] [facility] [id number] [address] [place] [address] Jun, [facility] [place] [address] [place] [address] Jun, 14 [facility] [address] [facility] [id number] [address] [place] [address] Jun, [facility] [address] [facility] [id number] [address] [place] [address] May, [facility] [place] [address] [place] [address] May, 14 [facility] [place] [address] [place] [address] May, 14 [facility] [address] [facility] [id number] [address] [place] [address] May, [facility] [address] [facility] [id number] [address] [place] [address] Mar, [facility] [place] [address] [place] [address] Mar, 14 [facility] [address] [facility] [id number] [address] [place] [address] Mar, [facility] [place] [address] [place] [address] Mar, 14 [facility] [address] [place] [address] Mar, [facility] [address] [id number] [address] [place] [address] Feb, [facility] [place] [address] [place] [address] Feb, 14 [facility] [address] [id number] [address] [place] [address] Feb, [facility] [place] [address] [place] [address] Feb, 14 [facility] [address] [id number] [address] [place] [address] Feb, [facility] [place] [address] [place] [address] January, 14 [facility] [address] [id number] [address] [place] [address] January, [facility] [place] [address] [place] [address] May, [address] [facility] [address] [place] [address] May, 13 [facility] [address] [place] [address] Oct, [facility] [address] [place] [address] Aug, [facility] [address] [id number] [address] [place] [address] Nov, [facility] [address] [place] [address] Sep, IMMUNIZATIONS No Known Immunizations SOCIAL HISTORY Never Assessed REASON FOR VISIT Requests return call PLAN OF CARE VITAL SIGNS MEDICATIONS Unknown [...]
--- OUTSIDE RECORDS SUMMARY | 2020-03-30 16:39 | XMS REPORT ---
Author Author Riri FLOYD Organization [facility] [address] Address [address] [place] [address] Care Team Providers Care Monotyper Name Role Phone OZ FLOYD Unavailable PROBLEMS Type Condition ICD9-CM Code CPU07-NS Code Onset Dates Condition S tatus SNOMED Code Problem Scoliosis (and kyphoscoliosis), idiopathic 737.30 Active 30360403 Problem Pain in joint, ankle and foot 719.47 Active 057056139 Problem Chronic idiopathic constipation K59.04 Active 76345429 Problem Pain in joint, forearm 719.43 Active 208371232 Problem Cough due to bronchospasm J98.01 Acti ve 1509692 Problem Pain in joint, upper arm 719.42 Activ e 504085368 Problem Mild intermittent asthma without complication J45. 20 Active 560719680 Problem Low back pain M54.5 Active 178204 007 Problem Frequent headaches R51 Active 7 68200295 Problem Primary insomnia F51.01 Active 397 2004 Problem Other chronic pain G89.29 Active 8 4809841 Problem Unspecified urinary calculus 592.9 A ctive 513490237 Problem Lumbago 724.2 Active 727843893 Problem Unspecified urticaria 708.9 Active 415045545 Problem Adolescent idiopathic scoliosis of thoracolumbar region M41.125 Active 580096418 Problem Pain in right knee M25.561 Active 3 6736632 Problem Slow transit constipation K59.01 Acti ve 90063491 Problem Vertigo R42 Active 375758025 Problem Edema, unspecified R60.9 Active 7 8360605 Problem Seizure disorder G40.909 Active 128 339676 Problem Unspecified hemorrhoids without mention of complication 45 5.6 Active 37248874 Problem Delirium due to conditions classified elsewhere 293.0 Active 0327326 Problem Duodenitis K29.80 Active 10850837 Problem Epigastric pain R10.13 Active 7992 2009 Problem Mikayla-rectal abscess K61.1 Active 17898686 Problem Asthma exacerbation J45.901 Active 708667685 ALLERGIES No Information ENCOUNTERS Encounter Location Date Diagnosis [facility] [address] [facility] [id number] [address] [place] [address] Feb, [address] [address] Feb, 18 BMI 40.0-44.9, adult Z68.41 ; Slow transit constipation K59.01 ; Pain in right shoulder M25.511 ; Pain in left shoulder M25.512 ; Other chronic pain G89.29 and Primary insomnia F51.[address] [address] Feb, 18 [facility] [address] [facility] [id number] [address] [place] [address] Feb, [address] [address] Dec, [address] [address] Dec, [address] [address] Dec, [address] [address] Nov, 18 Vertigo R42 and Seizure disorder G40.[address] [address] Aug, 17 Dental examination Z01.[address] [address] Jul, 17 Dental examination Z01.[address] [address] Jul, [address] [address] Jul, [address] [address] Jul, 17 Dental examination Z01.[address] [address] Jun, [address] [address] 27 Jun, 20 17 Dental examination Z01.[address] [address] 27 Jun, [address] [address] 05 Jun, 20 17 Dental examination Z01.[address] [address] 02 Jun, 20 17 Edema, unspecified R60.9 ; Screening for lipoid disorders Z13.220 and Pericardial effusion I31.[address] [address] 27 Sep, [address] [address] 27 May, 20 17 Acute costochondritis M94.0 ; Frequent headaches R51 and Seizure disorder G40.[address] [address] 26 May, 20 17 Pericardial effusion I31.[address] [address] 19 May, [address] [address] Feb, [address] [address] 27 January, 17 Seizure disorder G40.[address] [address] 16 January, 17 Dental examination Z01.[address] [address] Dec, 17 Seizure disorder G40.909 ; Low back pain M54.5 ; Cervical radiculopathy M54.12 ; Mild intermittent asthma without complication J45.20 ; Frequent headaches R51 ; Adolescent idiopathic scoliosis of thoracolumbar region M41.125 and Pain in right knee M25.[address] [address] Nov, [address] [address] Nov, [address] [address] Nov, 17 Epigastric pain R10.13 ; Asthma exacerbation J45.901 and Seizure disorder G40.[address] [address] 28 Oct, 17 Seizure disorder G40.909 ; Chronic idiopathic constipation K59.04 and Cough due to bronchospasm J98.[address] [address] Oct, 17 Duodenitis K29.80 ; Epigastric pain R10.13 ; Seizure disorder G40.909 and Chronic idiopathic constipation K59.[address] [address] Oct, 17 Dental examination Z01.[address] [address] Sep, 17 Duodenitis K29.80 ; Epigastric pain R10.13 ; Seizure disorder G40.909 and Asthma exacerbation J45.[address] [address] Sep, 17 Epigastric pain R10.13 and Seizure disorder G40.[address] [address] Sep, [address] [address] Aug, 16 Seizure disorder G40.[address] [address] Aug, 16 Seizure disorder G40.909 ; Asthma exacerbation J45.901 and Epigastric pain R10.[address] [address] 15 Aug, 16 Bronchitis J40 ; Asthma exacerbation J45.901 and Epigastric pain R10.[address] [address] Aug, [address] [address] Aug, [address] [address] 02 Aug, 16 [facility] [address] [place] [address] 04 Jul, 16 Dental examination Z01.[address] [address] Jun, 16 Acute pain of left knee M25.562 and Mikayla-rectal abscess K61.[address] [address] 04 Jun, [address] [address] 04 Jun, 16 Dental examination Z01.[address] [address] 07 May, [address] [address] 07 May, 16 Seizure disorder G40.909 and Partial symptomatic epilepsy with complex partial seizures, not intractable, 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.[address] [address] 02 May, 16 Screening for lipoid disorders Z13.220 and Edema, unspecified R60.[address] [address] Apr, [address] [address] Apr, 15 [facility] [address] [id number] [address] [place] [id number] Apr, Dental examination V72.2 [facility] [address] [place] [id number] [address] [place] [address] Dec, [facility] [address] [place] [id number] [address] [place] [address] Dec, [address] [address] Sep, 15 [facility] [address] [place] [id number] [address] [place] [address] Sep, [facility] [address] [place] [id number] [address] [place] [address] Jun, [facility] [address] [facility] [id number] [address] [place] [address] Jun, [facility] [address] [place] [facility] [place] [address] Jun, 14 [facility] [address] [facility] [id number] [address] [place] [address] Jun, [facility] [address] [facility] [id number] [address] [place] [address] May, [facility] [address] [place] [address] May, 14 [facility] [address] [facility] [place] [address] May, 14 [facility] [address] [facility] [id number] [address] [place] [address] May, [facility] [address] [facility] [id number] [address] [place] [address] Mar, [facility] [address] [place] [address] Mar, 14 [facility] [address] [facility] [id number] [address] [place] [address] Mar, [facility] [address] [place] [address] Mar, 14 [facility] [address] [facility] [id number] [address] [place] [address] Mar, [facility] [address] [facility] [id number] [address] [place] [address] Feb, [facility] [address] [place] [address] Feb, 14 [facility] [address] [facility] [id number] [address] [place] [address] Feb, [facility] [address] [place] [address] Feb, 14 [facility] [address] [facility] [id number] [address] [place] [address] Feb, [facility] [address] [place] [address] January, 14 [facility] [address] [facility] [id number] [address] [place] [address] January, [place] [address] May, [address] [place] [address] [place] [address] May, 13 [facility] [address] [facility] [id number] [address] [place] [address] Oct, [place] [address] [facility] [id number] [address] [place] [address] Aug, [place] [address] [facility] [id number] [address] [place] [address] Nov, [place] [address] [facility] [id number] [address] [place] [address] Sep, IMMUNIZATIONS No Known Immunizations SOCIAL HISTORY Never Assessed REASON FOR VISIT Refill request PLAN OF CARE VITAL SIGNS MEDICATIONS Medication [...]
--- OUTSIDE RECORDS SUMMARY | 2020-03-30 16:40 | XMS REPORT ---
Author Author Riri FLOYD Organization [facility] Address [address] [place] [address] Care Team Providers Care Flatcar Whacker Name Role Phone OZ FLOYD Unavailable PROBLEMS Type Condition ICD9-CM Code GBD28-SC Code Onset Dates Condition S tatus SNOMED Code Problem Duodenitis K29.80 Active 62711748 Problem Chronic idiopathic constipation K59.04 Active 25043255 Problem Epigastric pain R10.13 Active 7992 2009 Problem Pain in right knee M25.561 Active 3 5517480 Problem Pain in joint, forearm 719.43 Active 938870796 Problem Low back pain M54.5 Active 841804 007 Problem Pain in joint, ankle and foot 719.47 Active 664053684 Problem Scoliosis (and kyphoscoliosis), idiopathic 737.30 Active 40423790 Problem Adolescent idiopathic scoliosis of thoracolumbar region M41.125 Active 246316137 Problem Cough due to bronchospasm J98.01 Acti ve 9197176 Problem Frequent headaches R51 Active 7 80587357 Problem Mild intermittent asthma without complication J45. 20 Active 308875604 Problem Lumbago 724.2 Active 572875832 Problem Unspecified urinary calculus 592.9 A ctive 022856118 Problem Pain in joint, upper arm 719.42 Activ e 690684476 Problem Unspecified urticaria 708.9 Active 076910382 Problem Edema, unspecified R60.9 Active 7 0432317 Problem Seizure disorder G40.909 Active 128 919527 Problem Unspecified hemorrhoids without mention of complication 45 5.6 Active 79911167 Problem Mikayla-rectal abscess K61.1 Active 58661414 Problem Delirium due to conditions classified elsewhere 293.0 Active 9081387 Problem Asthma exacerbation J45.901 Active 952978713 ALLERGIES Substance Reaction Event Type Date Status Tramadol Unknown Drug Allergy Sep, Active Surgical Tape And Bandaids Unknown Non Drug Allergy 10 Abdulkadir, 20 17 Active SOCIAL HISTORY No smoking Hx information available PLAN OF CARE Activity Details Follow Up 1 Weeks Reason: VITAL SIGNS Height 61 in 2016-09-17 Weight 250.1 lbs 2016-09-17 Temperature 98.6 degrees Fahrenheit 2016-09-17 Heart Rate 100 bpm 2016-09-17 Respiratory Rate 16 2016-09-17 BMI 47.25 kg/m2 2016-09-17 Blood pressure systolic 120 mmHg 2016-09-17 Blood pressure diastolic 86 mmHg 2016-09-17 MEDICATIONS Medication Instructions Dosage Frequency Start Date End Date Duration S tatus Hydrochlorothiazide 25 MG TAKE 1 TABLET DAILY NEEDED FOR SWELLING. 90 Active Senna Concentrate 8.6 MG Orally three times per day 1 tablet Active Meloxicam 15 MG TAKE 1 TABLET BY MOUTH DAILY 30 Active Citalopram Hydrobromide 40 MG TAKE 1 TABLET BY MOUTH DAILY 30 Active Simvastatin 20 MG Orally Once a day 1 tablet in the evening 24h Active Omeprazole 40 MG Orally Once a day 1 capsule 24h Active Ramelteon 8 MG Orally Once a day 1 tablet at bedtime as needed 24h Active Baclofen 10 mg Orally 2 times a day 1 tablet with food or milk 12h Active Aspirin Adult Low Dose 81 MG Orally Once a day 1 tablet 24h Active Montelukast Sodium 10 MG TAKE 1 TABLET BY MOUTH IN THE EVENING 30 Active Nexium 40 MG Orally Once a day 1 capsule 24h Sep, 30 day(s) Active Lacosamide 200 mg Orally twice a day 1 tablet 12h 30 days Active Potassium Chloride 10 MEQ Orally three times per day 1 capsule with fo od Active Levetiracetam 500 mg Orally Twice a day take 3 tabs 12h May, Active Pregabalin 200 mg Orally three times a day 1 capsule 8h Active Ergocalciferol 57391 iu Orally 1 time per week Active Zonisamide 100 MG Orally Once a day 1 capsule 24h Active Melatonin 3 MG Orally Once a day 2tablet at bedtime as needed with frank d 24h Active cetirizine 10 mg 1 tablet by Oral route 1 daily January, Active RESULTS No Results PROCEDURES Procedure Date Ordered Related Diagnosis Body Site Office Visit, Est Pt., Level 3 Sep 17, 2016 IMMUNIZATIONS No Known Immunizations
--- OUTSIDE RECORDS SUMMARY | 2020-03-30 16:40 | XMS REPORT ---
Author Author Riri FLOYD Organization [facility] Address [address] [place] [address] Care Team Providers Care Can Capper Name Role Phone OZ FLOYD Unavailable PROBLEMS Type Condition ICD9-CM Code ZKI70-QF Code Onset Dates Condition S tatus SNOMED Code Problem Duodenitis K29.80 Active 54283493 Problem Chronic idiopathic constipation K59.04 Active 67800784 Problem Epigastric pain R10.13 Active 7992 2009 Problem Pain in right knee M25.561 Active 3 8463202 Problem Pain in joint, forearm 719.43 Active 352254506 Problem Low back pain M54.5 Active 001992 007 Problem Pain in joint, ankle and foot 719.47 Active 419489271 Problem Scoliosis (and kyphoscoliosis), idiopathic 737.30 Active 66786697 Problem Adolescent idiopathic scoliosis of thoracolumbar region M41.125 Active 437096134 Problem Cough due to bronchospasm J98.01 Acti ve 5075650 Problem Frequent headaches R51 Active 7 41383452 Problem Mild intermittent asthma without complication J45. 20 Active 317312203 Problem Lumbago 724.2 Active 748689076 Problem Unspecified urinary calculus 592.9 A ctive 002251939 Problem Pain in joint, upper arm 719.42 Activ e 566785390 Problem Unspecified urticaria 708.9 Active 017837392 Problem Edema, unspecified R60.9 Active 7 4399369 Problem Seizure disorder G40.909 Active 128 725845 Problem Unspecified hemorrhoids without mention of complication 45 5.6 Active 92364973 Problem Mikayla-rectal abscess K61.1 Active 87979852 Problem Delirium due to conditions classified elsewhere 293.0 Active 1118539 Problem Asthma exacerbation J45.901 Active 677124074 ALLERGIES No Information SOCIAL HISTORY Never Assessed PLAN OF CARE VITAL SIGNS MEDICATIONS No [...]
--- OUTSIDE RECORDS SUMMARY | 2020-03-30 16:40 | XMS REPORT ---
Author Author Riri DUMAS Organization [facility] [place] Address [address] [place] [address] Care Team Providers Care Nutrition Services Worker Name Role Phone PUSHPA DUMAS Unavailable PROBLEMS Type Condition ICD9-CM Code ANE14-XZ Code Onset Dates Condition S tatus SNOMED Code Problem Epigastric pain R10.13 Active 7992 2009 Problem Cough due to bronchospasm J98.01 Acti ve 2163776 Problem Chronic idiopathic constipation K59.04 Active 25296340 Problem Vertigo R42 Active 825390177 Problem Pain in joint, upper arm 719.42 Activ e 884240871 Problem Adolescent idiopathic scoliosis of thoracolumbar region M41.125 Active 872640632 Problem Pain in joint, forearm 719.43 Active 618992948 Problem Pain in joint, ankle and foot 719.47 Active 621550407 Problem Frequent headaches R51 Active 7 52941241 Problem Mild intermittent asthma without complication J45. 20 Active 917090904 Problem Pain in right knee M25.561 Active 3 6827298 Problem Low back pain M54.5 Active 972842 007 Problem Unspecified urinary calculus 592.9 A ctive 954357004 Problem Unspecified hemorrhoids without mention of complication 45 5.6 Active 23205912 Problem Unspecified urticaria 708.9 Active 909925189 Problem Lumbago 724.2 Active 814506725 Problem Seizure disorder G40.909 Active 128 106219 Problem Mikayla-rectal abscess K61.1 Active 53650824 Problem Delirium due to conditions classified elsewhere 293.0 Active 1608106 Problem Asthma exacerbation J45.901 Active 178516920 Problem Scoliosis (and kyphoscoliosis), idiopathic 737.30 Active 62529727 Problem Edema, unspecified R60.9 Active 7 9060972 Problem Duodenitis K29.80 Active 02656909 ALLERGIES Substance Reaction Event Type Date Status Codeine Sulfate itching Drug Allergy Jun, Active Tramadol Unknown Drug Allergy Jun, Active Surgical Tape And Bandaids Unknown Non Drug Allergy Jun, 17 Active ENCOUNTERS Encounter Location Date Diagnosis [facility] [place] [address] [facility] [address] [id number] [place] [address] 195906 Dec, [facility] [place] [address] [facility] [address] [id number] [place] [address] 560792 Dec, [facility] [place] [address] [facility] [address] [id number] [place] [address] 428148 Dec, [facility] [place] [address] [facility] [address] [id number] [place] [address] 304133 Nov, Vertigo R42 and Seizure disorder G40.[address] [facility] [place] [address] [facility] [address] [id number] [place] [address] 863926 Aug, Dental examination Z01.[address] [facility] [place] [address] [facility] [address] [id number] [place] [address] 381020 Jul, Dental examination Z01.[address] [facility] [place] [address] [facility] [address] [id number] [place] [address] 004605 Jul, [facility] [place] [address] [facility] [address] [id number] [place] [address] 165997 Jul, [facility] [place] [address] [facility] [address] [id number] [place] [address] 094167 Jul, Dental examination Z01.[address] [facility] [place] [address] [facility] [address] [id number] [place] [address] 467668 Jun, [facility] [place] [address] [facility] [address] [id number] [place] [address] 985224 Jun, Dental examination Z01.[address] [facility] [place] [address] [facility] [address] [id number] [place] [address] 684366 Jun, [facility] [place] [address] [facility] [address] [id number] [place] [address] 067677 Jun, Dental examination Z01.[address] [facility] [place] [address] [facility] [address] [id number] [place] [address] 697382 Jun, Edema, unspecified R60.9 ; Screening for lipoid disorders Z13.220 and Pericardial effusion I31.[address] [facility] [place] [address] [facility] [address] [id number] [place] [address] 393944 May, [facility] [place] [address] [place] [address] [address] [id number] [place] [address] 582752 May, Acute costochondritis M94.0 ; Frequent headaches R51 and Seizure disorder G40.909 [facility] [place] [address] [place] [address] [address] [id number] [place] [address] 247662 May, Pericardial effusion I31.3 [facility] [place] [address] [place] [address] [address] [id number] [place] [address] 943706 May, [facility] [place] [address] [place] [address] [address] [id number] [place] [address] 645906 Feb, [facility] [place] [address] [place] [address] [address] [id number] [place] [address] 553571 January, Seizure disorder G40.909 [facility] [place] [address] [place] [address] [address] [id number] [place] [address] 862832 January, Dental examination Z01.20 [facility] [place] [address] [place] [address] [address] [id number] [place] [address] 185317 Dec, Seizure disorder G40.909 ; Low back pain M54.5 ; Cervical radiculopathy M54.12 ; Mild intermittent asthma without complication J45.20 ; Frequent headaches R51 ; Adolescent idiopathic scoliosis of thoracolumbar region M41.125 and Pain in right knee M25.561 [facility] [place] [address] [place] [address] [address] [id number] [place] [address] 744593 Nov, [facility] [place] [address] [place] [address] [address] [id number] [place] [address] 877474 Nov, [facility] [place] [address] [place] [address] [address] [id number] [place] [address] 601847 Nov, Epigastric pain R10.13 ; Asthma exacerbation J45.901 and Seizure disorder G40.909 [facility] [place] [address] [place] [address] [address] [id number] [place] [address] 642896 Oct, Seizure disorder G40.909 ; Chronic idiopathic constipation K59.04 and Cough due to bronchospasm J98.[address] [facility] [place] [address] [facility] [address] [id number] [place] [address] 061743 Oct, Duodenitis K29.80 ; Epigastric pain R10.13 ; Seizure disorder G40.909 and Chronic idiopathic constipation K59.[address] [facility] [place] [address] [facility] [address] [id number] [place] [address] 675958 Oct, Dental examination Z01.[address] [facility] [place] [address] [facility] [address] [id number] [place] [address] 226289 Sep, Duodenitis K29.80 ; Epigastric pain R10.13 ; Seizure disorder G40.909 and Asthma exacerbation J45.[address] [facility] [place] [address] [facility] [address] [id number] [place] [address] 526846 Sep, Epigastric pain R10.13 and Seizure disorder G40.[address] [facility] [place] [address] [facility] [address] [id number] [place] [address] 016670 Sep, [facility] [place] [address] [facility] [address] [id number] [place] [address] 376144 Aug, Seizure disorder G40.[address] [facility] [place] [address] [facility] [address] [id number] [place] [address] 985395 Aug, Seizure disorder G40.909 ; Asthma exacerbation J45.901 and Epigastric pain R10.[address] [facility] [place] [address] [facility] [address] [id number] [place] [address] 824997 Aug, Bronchitis J40 ; Asthma exacerbation J45.901 and Epigastric pain R10.[address] [facility] [place] [address] [facility] [address] [id number] [place] [address] 245372 Aug, [facility] [place] [address] [facility] [address] [id number] [place] [address] 944120 Aug, [facility] [place] [address] [facility] [address] [id number] [place] [address] 477758 Aug, [facility] [place] [address] [facility] [address] [id number] [place] [address] 964773 Jul, Dental examination Z01.[address] [facility] [place] [address] [facility] [address] [id number] [place] [address] 043440 Jun, Acute pain of left knee M25.562 and Mikayla-rectal abscess K61.[address] [facility] [place] [address] [facility] [address] [id number] [place] [address] 750048 Jun, [facility] [place] [address] [facility] [address] [id number] [place] [address] 462378 Jun, Dental examination Z01.[address] [facility] [place] [address] [facility] [address] [id number] [place] [address] 383585 May, [facility] [place] [address] [facility] [address] [id number] [place] [address] 112346 May, Seizure disorder G40.909 and Partial symptomatic epilepsy with complex partial seizures, not intractable, 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.[address] [facility] [place] [address] [facility] [address] [id number] [place] [address] 042246 May, Screening for lipoid disorders Z13.220 and Edema, unspecified R60.[address] [facility] [place] [address] [facility] [address] [id number] [place] [address] 797232 Apr, [facility] [place] [address] [facility] [address] [id number] [place] [address] 781190 Apr, [facility] [address] [facility] [id number] [address] [place] [address] [id number] Apr, Dental examination V72.2 [facility] [address] [facility] [id number] [address] [place] [phone] Dec, [facility] [address] [facility] [id number] [address] [place] [phone] Dec, [facility] [address] [facility] [address] [id number] [place] [address] 452523 Sep, [facility] [address] [facility] [id number] [address] [place] [phone] Sep, [facility] [address] [facility] [id number] [address] [place] [phone] Jun, [facility] [address] [facility] [id number] [address] [place] [phone] Jun, [facility] [place] [address] [id number] [place] [address] 651573 Jun, [facility] [address] [id number] [address] [place] [address], [place] [address] Jun, [facility] [address] [id number] [address] [place] [address], [place] [address] May, [facility] [place] [address] [id number] [place] [address] 288950 May, [facility] [place] [address] [id number] [place] [address] [id number] May, [facility] [address] [id number] [address] [place] [address], [place] [address] May, [facility] [address] [id number] [address] [place] [address], [place] [address] Mar, [facility] [place] [address] [id number] [place] [address] [id number] Mar, [facility] [address] [id number] [address] [place] [address], [place] [address] Mar, [facility] [place] [address] [facility] [address] [id number] [place] [address] 732813 Mar, [facility] [address] [id number] [address] [place] [phone] Mar, [facility] [address] [id number] [address] [place] [address], [place] [address] Feb, [facility] [place] [address] [id number] [place] [address] 909027 Feb, [facility] [address] [id number] [address] [place] [address], [place] [address] Feb, [facility] [place] [address] [id number] [place] [address] 182121 Feb, [facility] [address] [id number] [address] [place] [phone] Feb, [facility] [place] [address] [facility] [address] [id number] [place] [address] 163864 January, [facility] [address] [facility] [id number] [address] [place] [phone] January, [facility] [place] [address] [facility] [address] [id number] [place] [address] 228448 May, [facility] [place] [address] [facility] [address] [id number] [place] [address] 938844 May, [facility] [address] [facility] [id number] [address] [place] [phone] Oct, [facility] [address] [facility] [id number] [address] [place] [phone] Aug, [facility] [address] [facility] [id number] [address] [place] [phone] Nov, [facility] [address] [facility] [id number] [address] [place] [phone] Sep, IMMUNIZATIONS No Known Immunizations SOCIAL HISTORY Never Assessed REASON FOR VISIT Extractions PLAN OF CARE Activity Details Follow Up prn Reason:45 min extraction VITAL SIGNS Height 61 in 2017-06-12 Blood pressure systolic 131 mmHg 2017-06-12 Blood pressure diastolic 91 mmHg 2017-06-12 MEDICATIONS Medication Instructions Dosage Frequency Start Date End Date Duration S tatus Symbicort 160-4.5 MCG/ACT Inhalation Twice a day 2 puffs 12h Sep, Active Ranitidine HCl 150 MG TAKE 1 TABLET BY MOUTH TWICE DAILY 30 Active Melatonin 3 MG Orally Once a day 2tablet at bedtime as needed with frank d 24h Active Montelukast Sodium 10 MG TAKE 1 TABLET BY MOUTH DAILY IN [facility] Active Ergocalciferol 05710 iu Orally 1 time per week Active cetirizine 10 mg 1 tablet by Oral route 1 daily January, Active Simvastatin 20 MG TAKE 1 TABLET AT BEDTIME. 30 Active Levetiracetam 500 mg Orally Twice a day take 3 tabs 12h May, Active Baclofen 10 mg Orally 2 times a day 1 tablet with food or milk 12h Active Zonisamide 100 MG Orally Once a day 1 capsule 24h Active Lacosamide 200 mg Orally twice a day 1 tablet 12h 30 days Active PredniSONE 20 MG two a day for 3 days then one a day Active Senna Concentrate 8.6 MG Orally three times per day 1 tablet Active Pregabalin 200 mg Orally three times a day 1 capsule 8h Active Aspirin Adult Low Dose 81 MG Orally Once a day 1 tablet 24h Active Vimpat 200 mg Orally twice a day 1 tablet 12h Feb, 9 0 days Active Magic Mouthwash Apply medicated swab to sore areas of the mouth to numb the pain As needed Dip cotton swab into medication January, As needed Active Omeprazole 40 MG Orally Once a day 1 capsule 24h Active Potassium Chloride 10 MEQ Orally three times per day 1 capsule with fo od Active Citalopram Hydrobromide 40 MG TAKE 1 TABLET BY MOUTH DAILY 30 Active Meloxicam 15 MG TAKE 1 TABLET BY MOUTH DAILY 30 Active Hydrochlorothiazide 25 MG TAKE 1 TABLET BY MOUTH DAILY NEEDED FOR SWELLING. 90 Active Ramelteon 8 MG Orally Once a day 1 tablet at bedtime as needed 24h Active Lansoprazole 30 MG Orally 2 times a day 1 capsule 12h Active Sucralfate 1 GM 1 tablet on an empty stomach 30 minutes before meals and at bedtime Orally 9 Active Cetirizine HCl 10 MG TAKE 1 TABLET BY MOUTH DAILY 30 Active RESULTS No Results PROCEDURES Procedure Date Ordered Result Body Site EXTRAC ERUPTED TOOTH/EXPOSED ROOT Jun 12, 2017 EXTRAC ERUPTED TOOTH/EXPOSED ROOT Jun 12, 2017 EXTRAC ERUPTED TOOTH/EXPOSED ROOT Jun 12, 2017 EXTRAC ERUPTED TOOTH/EXPOSED ROOT Jun 12, 2017 Billing Notes on claim Jun 12, 2017 INSTRUCTIONS MEDICATIONS ADMINISTERED No Known Medications MEDICAL (GENERAL) HISTORY Type Description Date Medical History seizures Medical History hyperlipidemia Medical History constipation Surgical History cholecystectomy Surgical History hysterectomy Surgical History appendectomy Hospitalization History seizures Hospitalization History surgeries Hospitalization History seizures 2015 Hospitalization History pneumonia 2015
--- OUTSIDE RECORDS SUMMARY | 2020-03-30 16:40 | XMS REPORT ---
Author Author Riri DUMAS [facility] [place] Address [address] [place] [address] Care Team Providers Care County Director Name Role Phone PUSHPA DUMAS Unavailable PROBLEMS Type Condition ICD9-CM Code AWZ36-CO Code Onset Dates Condition S tatus SNOMED Code Problem Epigastric pain R10.13 Active 7992 2009 Problem Cough due to bronchospasm J98.01 Acti ve 3593019 Problem Chronic idiopathic constipation K59.04 Active 90590626 Problem Vertigo R42 Active 980805536 Problem Pain in joint, upper arm 719.42 Activ e 525933576 Problem Adolescent idiopathic scoliosis of thoracolumbar region M41.125 Active 963065839 Problem Pain in joint, forearm 719.43 Active 900292527 Problem Pain in joint, ankle and foot 719.47 Active 360253090 Problem Frequent headaches R51 Active 7 38235472 Problem Mild intermittent asthma without complication J45. 20 Active 612374346 Problem Pain in right knee M25.561 Active 3 0380146 Problem Low back pain M54.5 Active 493271 007 Problem Unspecified urinary calculus 592.9 A ctive 431734107 Problem Unspecified hemorrhoids without mention of complication 45 5.6 Active 29432502 Problem Unspecified urticaria 708.9 Active 097863025 Problem Lumbago 724.2 Active 047305222 Problem Seizure disorder G40.909 Active 128 383759 Problem Mikayla-rectal abscess K61.1 Active 83185134 Problem Delirium due to conditions classified elsewhere 293.0 Active 2234887 Problem Asthma exacerbation J45.901 Active 650483062 Problem Scoliosis (and kyphoscoliosis), idiopathic 737.30 Active 96958412 Problem Edema, unspecified R60.9 Active 7 1010366 Problem Duodenitis K29.80 Active 67001252 ALLERGIES Substance Reaction Event Type Date Status Codeine Sulfate itching Drug Allergy Jul, Active Tramadol Unknown Drug Allergy Jul, Active Surgical Tape And Bandaids Unknown Non Drug Allergy Jul, 17 Active ENCOUNTERS Encounter Location Date Diagnosis [facility] [place] [address] [facility] [address] [id number] [place] [address] 902116 Dec, [facility] [place] [address] [facility] [address] [id number] [place] [address] 157057 Dec, [facility] [place] [address] [facility] [address] [id number] [place] [address] 155094 Dec, [facility] [place] [address] [facility] [address] [id number] [place] [address] 264453 Nov, Vertigo R42 and Seizure disorder G40.909 [facility] [place] [address] [facility] [address] [id number] [place] [address] 303228 Aug, Dental examination Z01.20 [facility] [place] [address] [facility] [address] [id number] [place] [address] 613305 Jul, Dental examination Z01.20 [facility] [place] [address] [facility] [address] [id number] [place] [address] 327142 Jul, [facility] [place] [address] [facility] [address] [id number] [place] [address] 161000 Jul, [facility] [place] [address] [facility] [address] [id number] [place] [address] 177712 Jul, Dental examination Z01.20 [facility] [place] [address] [facility] [address] [id number] [place] [address] 140599 Jun, [facility] [place] [address] [facility] [address] [id number] [place] [address] 883189 Jun, Dental examination Z01.20 [facility] [place] [address] [facility] [address] [id number] [place] [address] 625914 Jun, [facility] [place] [address] [facility] [address] [id number] [place] [address] 860344 Jun, Dental examination Z01.20 [facility] [place] [address] [facility] [address] [id number] [place] [address] 831991 Jun, Edema, unspecified R60.9 ; Screening for lipoid disorders Z13.220 and Pericardial effusion I31.3 [facility] [place] [address] [facility] [address] [id number] [place] [address] 163228 May, [facility] [place] [address] [place] [address] [address] [id number] [place] [address] 588500 May, Acute costochondritis M94.0 ; Frequent headaches R51 and Seizure disorder G40.909 [facility] [place] [address] [place] [address] [address] [id number] [place] [address] 636086 May, Pericardial effusion I31.[address] [facility] [place] [address] [place] [address] [address] [id number] [place] [address] 961800 May, [facility] [place] [address] [place] [address] [address] [id number] [place] [address] 663962 Feb, [facility] [place] [address] [place] [address] [address] [id number] [place] [address] 049460 January, Seizure disorder G40.909 [facility] [place] [address] [place] [address] [address] [id number] [place] [address] 458489 January, Dental examination Z01.20 [facility] [place] [address] [place] [address] [address] [id number] [place] [address] 778691 Dec, Seizure disorder G40.909 ; Low back pain M54.5 ; Cervical radiculopathy M54.12 ; Mild intermittent asthma without complication J45.20 ; Frequent headaches R51 ; Adolescent idiopathic scoliosis of thoracolumbar region M41.125 and Pain in right knee M25.561 [facility] [place] [address] [place] [address] [address] [id number] [place] [address] 376699 Nov, [facility] [place] [address] [place] [address] [address] [id number] [place] [address] 791809 Nov, [facility] [place] [address] [place] [address] [address] [id number] [place] [address] 779014 Nov, Epigastric pain R10.13 ; Asthma exacerbation J45.901 and Seizure disorder G40.909 [facility] [place] [address] [place] [address] [address] [id number] [place] [address] 343033 Oct, Seizure disorder G40.909 ; Chronic idiopathic constipation K59.04 and Cough due to bronchospasm J98.01 [facility] [place] [address] [facility] [address] [id number] [place] [address] 834697 Oct, Duodenitis K29.80 ; Epigastric pain R10.13 ; Seizure disorder G40.909 and Chronic idiopathic constipation K59.04 [facility] [place] [address] [facility] [address] [id number] [place] [address] 171419 Oct, Dental examination Z01.20 [facility] [place] [address] [facility] [address] [id number] [place] [address] 042667 Sep, Duodenitis K29.80 ; Epigastric pain R10.13 ; Seizure disorder G40.909 and Asthma exacerbation J45.901 [facility] [place] [address] [facility] [address] [id number] [place] [address] 137879 Sep, Epigastric pain R10.13 and Seizure disorder G40.909 [facility] [place] [address] [facility] [address] [id number] [place] [address] 130054 Sep, [facility] [place] [address] [facility] [address] [id number] [place] [address] 691090 Aug, Seizure disorder G40.909 [facility] [place] [address] [facility] [address] [id number] [place] [address] 400480 Aug, Seizure disorder G40.909 ; Asthma exacerbation J45.901 and Epigastric pain R10.13 [facility] [place] [address] [facility] [address] [id number] [place] [address] 073010 Aug, Bronchitis J40 ; Asthma exacerbation J45.901 and Epigastric pain R10.13 [facility] [place] [address] [facility] [address] [id number] [place] [address] 211399 Aug, [facility] [place] [address] [facility] [address] [id number] [place] [address] 886830 Aug, [facility] [place] [address] [facility] [address] [id number] [place] [address] 213262 Aug, [facility] [place] [address] [facility] [address] [id number] [place] [address] 386753 Jul, Dental examination Z01.20 [facility] [place] [address] [facility] [address] [id number] [place] [address] 338311 Jun, Acute pain of left knee M25.562 and Mikayla-rectal abscess K61.1 [facility] [place] [address] [facility] [address] [id number] [place] [address] 451697 Jun, [facility] [place] [address] [facility] [address] [id number] [place] [address] 507766 Jun, Dental examination Z01.20 [facility] [place] [address] [facility] [address] [id number] [place] [address] 993362 May, [facility] [place] [address] [facility] [address] [id number] [place] [address] 166590 May, Seizure disorder G40.909 and Partial symptomatic epilepsy with complex partial seizures, not intractable, 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.209 [facility] [place] [address] [facility] [address] [id number] [place] [address] 744701 May, Screening for lipoid disorders Z13.220 and Edema, unspecified R60.9 [facility] [place] [address] [facility] [address] [id number] [place] [address] 306921 Apr, [facility] [place] [address] [facility] [address] [id number] [place] [address] 919428 Apr, [facility] [address] [facility] [id number] [address] [place] [address] [id number] Apr, Dental examination V72.2 [facility] [address] [facility] [id number] [address] [place] [phone] Dec, [facility] [address] [facility] [id number] [address] [place] [phone] Dec, [facility] [address] [facility] [id number] [place], [place] [address] 994551 Sep, [facility] [address] [facility] [id number] [address] [place] [phone] Sep, [facility] [address] [facility] [id number] [address] [place] [phone] Jun, [facility] [address] [facility] [id number] [address] [place] [phone] Jun, [facility] [place] [address] [id number] [place] [address] 678201 Jun, [facility] [address] [id number] [address] [place] [address], [place] [address] Jun, [facility] [address] [id number] [address] [place] [address], [place] [address] May, [facility] [place] [address] [id number] [place] [address] 751496 May, [facility] [place] [address] [id number] [place] [address] 421782 May, [facility] [address] [id number] [address] [place] [address], [place] [address] May, [facility] [address] [id number] [address] [place] [address], [place] [address] Mar, [facility] [place] [address] [id number] [place] [address] [id number] Mar, [facility] [address] [id number] [address] [place] [address], [place] [address] Mar, [facility] [place] [address] [facility] [address] [id number] [place] [address] [id number] Mar, [facility] [address] [id number] [address] [place] [phone] Mar, [facility] [address] [id number] [address] [place] [address], [place] [address] Feb, [facility] [place] [address] [id number] [place] [address] 765165 Feb, [facility] [address] [id number] [address] [place] [address], [place] [address] Feb, [facility] [place] [address] [id number] [place] [address] 475834 Feb, [facility] [address] [id number] [address] [place] [phone] Feb, [facility] [place] [address] [facility] [id number] [place] [address] [id number] January, [facility] [address] [facility] [id number] [address] [place] [phone] January, [facility] [place] [address] [facility] [address] [id number] [place], [place] [address] 644869 May, [facility] [place] [address] [facility] [id number] [place] [address] 159692 May, [facility] [address] [facility] [id number] [address] [place] [phone] Oct, [facility] [address] [facility] [id number] [address] [place] [phone] Aug, [facility] [address] [facility] [id number] [address] [place] [phone] Nov, [facility] [address] [facility] [id number] [address] [place] [phone] Sep, IMMUNIZATIONS No Known Immunizations SOCIAL HISTORY Never Assessed REASON FOR VISIT bone spur PLAN OF CARE Activity Details Follow Up prn Reason:As needed VITAL SIGNS MEDICATIONS Medication Instructions Dosage Frequency Start Date End Date Duration S tatus Omeprazole 40 MG Orally Once a day 1 capsule 24h Active Zonisamide 100 MG Orally Once a day 1 capsule 24h Active Baclofen 10 mg Orally 2 times a day 1 tablet with food or milk 12h Active Hydrochlorothiazide 25 MG TAKE 1 TABLET BY MOUTH DAILY NEEDED FOR SWELLING. 90 Active cetirizine 10 mg 1 tablet by Oral route 1 daily January, Active Magic Mouthwash Apply medicated swab to sore areas of the mouth to numb the pain As needed Dip cotton swab into medication January, As needed Active Lacosamide 200 mg Orally twice a day 1 tablet 12h 30 days Active Pregabalin 200 mg Orally three times a day 1 capsule 8h Active Ranitidine HCl 150 MG TAKE 1 TABLET BY MOUTH TWICE DAILY 30 Active Sucralfate 1 GM 1 tablet on an empty stomach 30 minutes before meals and at bedtime Orally 9 Active Symbicort 160-4.5 MCG/ACT Inhalation Twice a day 2 puffs 12h 25 Sep, 2016 Active Ergocalciferol 20230 iu Orally 1 time per week Active Citalopram Hydrobromide 40 MG TAKE 1 TABLET BY MOUTH DAILY 30 Active Meloxicam 15 MG TAKE 1 TABLET BY MOUTH DAILY 30 Active Cetirizine HCl 10 MG TAKE 1 TABLET BY MOUTH DAILY 30 Active PredniSONE 20 MG two a day for 3 days then one a day Active Potassium Chloride 10 MEQ Orally three times per day 1 capsule with fo od Active Montelukast Sodium 10 mg TAKE 1 TABLET BY MOUTH DAILY IN [facility] Active Simvastatin 20 MG TAKE 1 TABLET AT BEDTIME. 30 Active Lansoprazole 30 MG Orally 2 times a day 1 capsule 12h Active Aspirin Adult Low Dose 81 MG Orally Once a day 1 tablet 24h Active Melatonin 3 MG Orally Once a day 2tablet at bedtime as needed with frank d 24h Active Levetiracetam 500 mg Orally Twice a day take 3 tabs 12h 25 May, 2013 Active Vimpat 200 mg Orally twice a day 1 tablet 12h Feb, 9 0 days Active Ramelteon 8 MG Orally Once a day 1 tablet at bedtime as needed 24h Active Potassium Chloride ER 10 MEQ TAKE 1 CAPSULE BY MOUTH THREE T IMES DAILY 30 Active Senna Concentrate 8.6 MG Orally three times per day 1 tablet Active RESULTS No Results PROCEDURES Procedure Date Ordered Result Body Site Dental no charge Jul 24, 2017 INSTRUCTIONS MEDICATIONS ADMINISTERED No Known Medications MEDICAL (GENERAL) HISTORY Type Description Date Medical History seizures Medical History hyperlipidemia Medical History constipation Surgical History cholecystectomy Surgical History hysterectomy Surgical History appendectomy Hospitalization History seizures Hospitalization History surgeries Hospitalization History seizures 2015 Hospitalization History pneumonia 2015
--- OUTSIDE RECORDS SUMMARY | 2020-03-30 16:40 | XMS REPORT ---
Author Author Riri FLOYD Organization [facility] Address [address] [place] [address] Care Team Providers Care Spinning Doffer Name Role Phone OZ FLOYD Unavailable PROBLEMS Type Condition ICD9-CM Code [id number] Code Onset Dates Condition S tatus SNOMED Code Problem Epigastric pain R10.13 Active 7992 2009 Problem Cough due to bronchospasm J98.01 Acti ve 9417420 Problem Chronic idiopathic constipation K59.04 Active 53762703 Problem Vertigo R42 Active 905544134 Problem Pain in joint, upper arm 719.42 Activ e 178909937 Problem Adolescent idiopathic scoliosis of thoracolumbar region M41.125 Active 210464619 Problem Pain in joint, forearm 719.43 Active 764041102 Problem Pain in joint, ankle and foot 719.47 Active 483518490 Problem Frequent headaches R51 Active 7 29596719 Problem Mild intermittent asthma without complication J45. 20 Active 789499507 Problem Pain in right knee M25.561 Active 3 8622067 Problem Low back pain M54.5 Active 169998 007 Problem Unspecified urinary calculus 592.9 A ctive 683836708 Problem Unspecified hemorrhoids without mention of complication 45 5.6 Active 16288803 Problem Unspecified urticaria 708.9 Active 241812026 Problem Lumbago 724.2 Active 574569789 Problem Seizure disorder G40.909 Active 128 145870 Problem Mikayla-rectal abscess K61.1 Active 74981782 Problem Delirium due to conditions classified elsewhere 293.0 Active 6183790 Problem Asthma exacerbation J45.901 Active 050263358 Problem Scoliosis (and kyphoscoliosis), idiopathic 737.30 Active 46747101 Problem Edema, unspecified R60.9 Active 7 5215650 Problem Duodenitis K29.80 Active 90353362 ALLERGIES No Information ENCOUNTERS Encounter Location Date Diagnosis [facility] [place] [address] [facility] [address] [id number] [place] [address] 091952 Dec, [facility] [place] [address] [facility] [address] [id number] [place] [address] 856773 Dec, [facility] [place] [address] [facility] [address] [id number] [place] [address] 569165 Dec, [facility] [place] [address] [facility] [address] [id number] [place] [address] 189614 Nov, Vertigo R42 and Seizure disorder G40.909 [facility] [place] [address] [facility] [address] [id number] [place] [address] 340732 Aug, Dental examination Z01.20 [facility] [place] [address] [facility] [address] [id number] [place] [address] 532024 Jul, Dental examination Z01.20 [facility] [place] [address] [facility] [address] [id number] [place] [address] 241253 Jul, [facility] [place] [address] [facility] [address] [id number] [place] [address] 161191 Jul, [facility] [place] [address] [facility] [address] [id number] [place] [address] 791004 Jul, Dental examination Z01.20 [facility] [place] [address] [facility] [address] [id number] [place] [address] 234046 Jun, [facility] [place] [address] [facility] [address] [id number] [place] [address] 869661 Jun, Dental examination Z01.20 [facility] [place] [address] [facility] [address] [id number] [place] [address] 557792 Jun, [facility] [place] [address] [facility] [address] [id number] [place] [address] 497930 Jun, Dental examination Z01.20 [facility] [place] [address] [id number] [place] [address] 632072 Jun, Edema, unspecified R60.9 ; Screening for lipoid disorders Z13.220 and Pericardial effusion I31.3 [facility] [place] [address] [facility] [address] [id number] [place] [address] 106044 May, [facility] [place] [address] [facility] [address] [id number] [place], [place] [address] 448280 27 May, 2017 Acute costochondritis M94.0 ; Frequent headaches R51 and Seizure disorder G40.909 [facility] [place] [address] [facility] [address] [id number] [place] [address] 976143 May, Pericardial effusion I31.3 [facility] [place] [address] [place] [address] [address] [id number] [place] [address] 337459 May, [facility] [place] [address] [place] [address] [address] [id number] [place] [address] 282005 Feb, [facility] [place] [address] [place] [address] [address] [id number] [place] [address] 033175 January, Seizure disorder G40.909 [facility] [place] [address] [place] [address] [address] [id number] [place] [address] 100299 January, Dental examination Z01.20 [facility] [place] [address] [place] [address] [address] [id number] [place] [address] 529108 Dec, Seizure disorder G40.909 ; Low back pain M54.5 ; Cervical radiculopathy M54.12 ; Mild intermittent asthma without complication J45.20 ; Frequent headaches R51 ; Adolescent idiopathic scoliosis of thoracolumbar region M41.125 and Pain in right knee M25.561 [facility] [place] [address] [place] [address] [address] [id number] [place] [address] 345685 Nov, [facility] [place] [address] [place] [address] [address] [id number] [place] [address] 868383 Nov, [facility] [place] [address] [place] [address] [address] [id number] [place] [address] 350509 Nov, Epigastric pain R10.13 ; Asthma exacerbation J45.901 and Seizure disorder G40.909 [facility] [place] [address] [place] [address] [address] [id number] [place] [address] 427196 Oct, Seizure disorder G40.909 ; Chronic idiopathic constipation K59.04 and Cough due to bronchospasm J98.01 [facility] [place] [address] [place] [address] [address] [id number] [place] [address] 556389 Oct, Duodenitis K29.80 ; Epigastric pain R10.13 ; Seizure disorder G40.909 and Chronic idiopathic constipation K59.04 [facility] [place] [address] [facility] [address] [id number] [place] [address] 731255 Oct, Dental examination Z01.20 [facility] [place] [address] [facility] [address] [id number] [place] [address] 533373 Sep, Duodenitis K29.80 ; Epigastric pain R10.13 ; Seizure disorder G40.909 and Asthma exacerbation J45.901 [facility] [place] [address] [facility] [address] [id number] [place] [address] 540261 Sep, Epigastric pain R10.13 and Seizure disorder G40.909 [facility] [place] [address] [facility] [address] [id number] [place] [address] 908684 Sep, [facility] [place] [address] [facility] [address] [id number] [place] [address] 728894 Aug, Seizure disorder G40.909 [facility] [place] [address] [place] [address] [address] [id number] [place] [address] 056539 Aug, Seizure disorder G40.909 ; Asthma exacerbation J45.901 and Epigastric pain R10.13 [facility] [place] [address] [facility] [address] [id number] [place] [address] 508013 Aug, Bronchitis J40 ; Asthma exacerbation J45.901 and Epigastric pain R10.13 [facility] [place] [address] [facility] [address] [id number] [place] [address] 890774 Aug, [facility] [place] [address] [facility] [address] [id number] [place] [address] 291913 Aug, [facility] [place] [address] [facility] [address] [id number] [place] [address] 304192 Aug, [facility] [place] [address] [facility] [address] [id number] [place] [address] 097475 Jul, Dental examination Z01.20 [facility] [place] [address] [facility] [address] [id number] [place] [address] 017029 Jun, Acute pain of left knee M25.562 and Mikayla-rectal abscess K61.1 [facility] [place] [address] [place] [address] [address] [id number] [place] [address] 167737 Jun, [facility] [place] [address] [facility] [address] [id number] [place] [address] 906623 Jun, Dental examination Z01.20 [facility] [place] [address] [facility] [address] [id number] [place] [address] 223683 May, [facility] [place] [address] [facility] [address] [id number] [place] [address] 037674 May, Seizure disorder G40.909 and Partial symptomatic epilepsy with complex partial seizures, not intractable, 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.209 [facility] [place] [address] [facility] [address] [id number] [place] [address] 663558 May, Screening for lipoid disorders Z13.220 and Edema, unspecified R60.9 [facility] [place] [address] [facility] [address] [id number] [place] [address] 165437 Apr, [facility] [place] [address] [facility] [address] [id number] [place] [address] 691043 Apr, [facility] [address] [id number] [address] [place] [address] [id number] Apr, Dental examination V72.2 [facility] [address] [facility] [id number] [address] [place] [phone] Dec, [facility] [address] [facility] [id number] [address] [place] [phone] Dec, [facility] [place] [address] [facility] [address] [id number] [place] [address] 008478 Sep, [facility] [address] [facility] [id number] [address] [place] [phone] Sep, [facility] [address] [facility] [id number] [address] [place] [phone] Jun, [facility] [address] [facility] [id number] [address] [place] [phone] Jun, [facility] [place] [address] [facility] [address] [id number] [place] [address] 101867 Jun, [facility] [address] [id number] [facility] [place] [address] Jun, [facility] [address] [id number] [facility] [place] [address] May, [facility] [place] [address] [id number] [place] [address] 335865 May, [facility] [place] [address] [id number] [place] [address] 532070 May, [facility] [address] [id number] [address] [place] [address], [place] [address] May, [facility] [address] [id number] [address] [place] [address], [place] [address] Mar, [facility] [place] [address] [id number] [place] [address] 290402 Mar, [facility] [address] [id number] [address] [place] [address], [place] [address] Mar, [facility] [place] [address] [id number] [place] [address] 414395 Mar, [facility] [address] [id number] [address] [place] [address], [place] [address] Mar, [facility] [address] [id number] [address] [place] [address], [place] [address] Feb, [facility] [place] [address] [id number] [place] [address] 015317 Feb, [facility] [address] [id number] [address] [place] [address], [place] [address] Feb, [facility] [place] [address] [id number] [place] [address] 935801 Feb, [facility] [address] [id number] [address] [place] [address], [place] [address] Feb, [facility] [place] [address] [id number] [place] [address] [id number] January, [facility] [address] [facility] [id number] [address] [place] [address] January, [facility] [place] [address] [facility] [address] [id number] [place] [address] 580548 May, [facility] [place] [address] [facility] [address] [id number] [place] [address] 667056 May, [facility] [address] [facility] [id number] [address] [place] [phone] Oct, [facility] [address] [facility] [id number] [address] [place] [phone] Aug, [facility] [address] [facility] [id number] [address] [place] [phone] Nov, [facility] [address] [facility] [id number] [address] [place] [phone] Sep, IMMUNIZATIONS No Known Immunizations SOCIAL HISTORY Never Assessed REASON FOR VISIT labs. Radha PLAN OF CARE Activity Details Follow Up prn Reason: VITAL SIGNS MEDICATIONS Unknown Medications RESULTS No Results PROCEDURES Procedure Date Ordered Result Body Site ROUTINE VENIPUNCTURE 2017-06-09 N/A LAB NOT BILLED BY [facility] Jun 09, 2017 INSTRUCTIONS MEDICATIONS ADMINISTERED No Known Medications MEDICAL (GENERAL) HISTORY Type Description Date Medical History seizures Medical History hyperlipidemia Medical History constipation Surgical History cholecystectomy Surgical History hysterectomy Surgical History appendectomy Hospitalization History seizures Hospitalization History surgeries Hospitalization History seizures 2016 Hospitalization History pneumonia 2015
--- OUTSIDE RECORDS SUMMARY | 2020-03-30 16:40 | XMS REPORT ---
Author Author Riri FLOYD Organization [facility] Address [address] [place] [address] Care Team Providers Care Track Repairer Helper Name Role Phone OZ FLOYD Unavailable PROBLEMS Type Condition ICD9-CM Code ENF94-GA Code Onset Dates Condition S tatus SNOMED Code Problem Duodenitis K29.80 Active 50876140 Problem Chronic idiopathic constipation K59.04 Active 69403277 Problem Epigastric pain R10.13 Active 7992 2009 Problem Pain in right knee M25.561 Active 3 1124208 Problem Pain in joint, forearm 719.43 Active 386324115 Problem Low back pain M54.5 Active 552038 007 Problem Pain in joint, ankle and foot 719.47 Active 105530761 Problem Scoliosis (and kyphoscoliosis), idiopathic 737.30 Active 99055925 Problem Adolescent idiopathic scoliosis of thoracolumbar region M41.125 Active 857295995 Problem Cough due to bronchospasm J98.01 Acti ve 0183945 Problem Frequent headaches R51 Active 7 63398380 Problem Mild intermittent asthma without complication J45. 20 Active 840879658 Problem Lumbago 724.2 Active 173993924 Problem Unspecified urinary calculus 592.9 A ctive 864164489 Problem Pain in joint, upper arm 719.42 Activ e 937467805 Problem Unspecified urticaria 708.9 Active 128131833 Problem Edema, unspecified R60.9 Active 7 7706856 Problem Seizure disorder G40.909 Active 128 122413 Problem Unspecified hemorrhoids without mention of complication 45 5.6 Active 70323946 Problem Mikayla-rectal abscess K61.1 Active 06324515 Problem Delirium due to conditions classified elsewhere 293.0 Active 1237836 Problem Asthma exacerbation J45.901 Active 369146533 ALLERGIES Unknown Allergies SOCIAL HISTORY No smoking Hx information available PLAN OF CARE VITAL SIGNS MEDICATIONS Unknown Medications RESULTS No Results PROCEDURES No Known procedures IMMUNIZATIONS No Known Immunizations
--- OUTSIDE RECORDS SUMMARY | 2020-03-30 16:40 | XMS REPORT ---
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 Name Role Phone PUSHPA DUMAS Unavailable PROBLEMS Type Condition ICD9-CM Code JXH23-TB Code Onset Dates Condition S tatus SNOMED Code Problem Epigastric pain R10.13 Active 7992 2009 Problem Cough due to bronchospasm J98.01 Acti ve 6522538 Problem Chronic idiopathic constipation K59.04 Active 32462059 Problem Vertigo R42 Active 462804936 Problem Pain in joint, upper arm 719.42 Activ e 886000569 Problem Adolescent idiopathic scoliosis of thoracolumbar region M41.125 Active 032628013 Problem Pain in joint, forearm 719.43 Active 458471016 Problem Pain in joint, ankle and foot 719.47 Active 042935932 Problem Frequent headaches R51 Active 7 22317818 Problem Mild intermittent asthma without complication J45. 20 Active 752123117 Problem Pain in right knee M25.561 Active 3 9279988 Problem Low back pain M54.5 Active 353826 007 Problem Unspecified urinary calculus 592.9 A ctive 488250258 Problem Unspecified hemorrhoids without mention of complication 45 5.6 Active 67898640 Problem Unspecified urticaria 708.9 Active 693635127 Problem Lumbago 724.2 Active 163948444 Problem Seizure disorder G40.909 Active 128 149659 Problem Mikayla-rectal abscess K61.1 Active 07269021 Problem Delirium due to conditions classified elsewhere 293.0 Active 9481669 Problem Asthma exacerbation J45.901 Active 311939603 Problem Scoliosis (and kyphoscoliosis), idiopathic 737.30 Active 52875980 Problem Edema, unspecified R60.9 Active 7 8837105 Problem Duodenitis K29.80 Active 29291409 ALLERGIES Substance Reaction Event Type Date Status Codeine Sulfate itching Drug Allergy January, Active Tramadol Unknown Drug Allergy January, Active Surgical Tape And Bandaids Unknown Non Drug Allergy January, 17 Active ENCOUNTERS Encounter Location Date Diagnosis [facility] [place] [address] [facility] [address] [id number] [place] [address] 952348 Nov, Vertigo R42 and Seizure disorder G40.909 [facility] [place] [address] [facility] [address] [id number] [place] [address] 935090 Aug, Dental examination Z01.20 [facility] [place] [address] [facility] [address] [id number] [place] [address] 007197 Jul, Dental examination Z01.20 [facility] [place] [address] [facility] [address] [id number] [place] [address] 133061 Jul, [facility] [place] [address] [facility] [address] [id number] [place] [address] 473025 Jul, [facility] [place] [address] [facility] [address] [id number] [place] [address] 046429 Jul, Dental examination Z01.20 [facility] [place] [address] [facility] [address] [id number] [place] [address] 250508 Jun, [facility] [place] [address] [facility] [address] [id number] [place] [address] 072329 Jun, Dental examination Z01.20 [facility] [place] [address] [facility] [address] [id number] [place] [address] 794604 Jun, [facility] [place] [address] [facility] [address] [id number] [place] [address] 060308 Jun, Dental examination Z01.20 [facility] [place] [address] [facility] [address] [id number] [place] [address] 743987 Jun, Edema, unspecified R60.9 ; Screening for lipoid disorders Z13.220 and Pericardial effusion I31.3 [facility] [place] [address] [facility] [address] [id number] [place] [address] 015612 May, [facility] [place] [address] [facility] [address] [id number] [place] [address] 644051 May, Acute costochondritis M94.0 ; Frequent headaches R51 and Seizure disorder G40.909 [facility] [place] [address] [facility] [address] [id number] [place] [address] 919674 May, Pericardial effusion I31.3 [facility] [place] [address] [place] [address] [address] [id number] [place] [address] 700473 May, [facility] [place] [address] [place] [address] [address] [id number] [place] [address] 870335 Feb, [facility] [place] [address] [place] [address] [address] [id number] [place] [address] 526362 January, Seizure disorder G40.909 [facility] [place] [address] [place] [address] [address] [id number] [place] [address] 020132 January, Dental examination Z01.20 [facility] [place] [address] [place] [address] [address] [id number] [place] [address] 016834 Dec, Seizure disorder G40.909 ; Low back pain M54.5 ; Cervical radiculopathy M54.12 ; Mild intermittent asthma without complication J45.20 ; Frequent headaches R51 ; Adolescent idiopathic scoliosis of thoracolumbar region M41.125 and Pain in right knee M25.561 [facility] [place] [address] [place] [address] [address] [id number] [place] [address] 244180 Nov, [facility] [place] [address] [place] [address] [address] [id number] [place] [address] 666151 Nov, [facility] [place] [address] [place] [address] [address] [id number] [place] [address] 553203 Nov, Epigastric pain R10.13 ; Asthma exacerbation J45.901 and Seizure disorder G40.909 [facility] [place] [address] [place] [address] [address] [id number] [place] [address] 064494 Oct, Seizure disorder G40.909 ; Chronic idiopathic constipation K59.04 and Cough due to bronchospasm J98.01 [facility] [place] [address] [place] [address] [address] [id number] [place] [address] 051137 Oct, Duodenitis K29.80 ; Epigastric pain R10.13 ; Seizure disorder G40.909 and Chronic idiopathic constipation K59.04 [facility] [place] [address] [place] [address] [address] [id number] [place] [address] 530003 Oct, Dental examination Z01.20 [facility] [place] [address] [facility] [address] [id number] [place] [address] 782675 Sep, Duodenitis K29.80 ; Epigastric pain R10.13 ; Seizure disorder G40.909 and Asthma exacerbation J45.901 [facility] [place] [address] [facility] [address] [id number] [place] [address] 152605 Sep, Epigastric pain R10.13 and Seizure disorder G40.909 [facility] [place] [address] [facility] [address] [id number] [place] [address] 125126 Sep, [facility] [place] [address] [facility] [address] [id number] [place] [address] 119173 Aug, Seizure disorder G40.909 [facility] [place] [address] [facility] [address] [id number] [place] [address] 566432 Aug, Seizure disorder G40.909 ; Asthma exacerbation J45.901 and Epigastric pain R10.13 [facility] [place] [address] [facility] [address] [id number] [place] [address] 412501 Aug, Bronchitis J40 ; Asthma exacerbation J45.901 and Epigastric pain R10.13 [facility] [place] [address] [facility] [address] [id number] [place] [address] 108066 Aug, [facility] [place] [address] [facility] [address] [id number] [place] [address] 026767 Aug, [facility] [place] [address] [facility] [address] [id number] [place] [address] 468041 Aug, [facility] [place] [address] [facility] [address] [id number] [place] [address] 270444 Jul, Dental examination Z01.20 [facility] [place] [address] [facility] [address] [id number] [place] [address] 201759 Jun, Acute pain of left knee M25.562 and Mikayla-rectal abscess K61.1 [facility] [place] [address] [facility] [address] [id number] [place] [address] 455759 Jun, [facility] [place] [address] [facility] [address] [id number] [place] [address] 468301 Jun, Dental examination Z01.20 [facility] [place] [address] [facility] [address] [id number] [place] [address] 250795 May, [facility] [place] [address] [facility] [address] [id number] [place] [address] 422831 May, Seizure disorder G40.909 and Partial symptomatic epilepsy with complex partial seizures, not intractable, 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.209 [facility] [place] [address] [facility] [address] [id number] [place] [address] 000408 May, Screening for lipoid disorders Z13.220 and Edema, unspecified R60.9 [facility] [place] [address] [facility] [address] [id number] [place] [address] 258195 Apr, [facility] [place] [address] [facility] [address] [id number] [place] [address] 258982 Apr, [facility] [address] [id number] [address] [place] [address] [id number] Apr, Dental examination V72.2 [facility] [address] [facility] [id number] [address] [place] [address] Dec, [facility] [address] [facility] [id number] [address] [place] [address] Dec, [facility] [place] [address] [facility] [address] [id number] [place] [address] 436053 Sep, [facility] [address] [facility] [id number] [address] [place] [address] Sep, [facility] [address] [facility] [id number] [address] [place] [address] Jun, [facility] [address] [facility] [id number] [address] [place] [address] Jun, [facility] [place] [address] [facility] [address] [id number] [place] [address] 267354 Jun, [facility] [address] [facility] [id number] [address] [place] [address] Jun, [facility] [address] [id number] [address] [place] [address] May, [facility] [place] [address] [id number] [place] [address] 152968 May, [facility] [place] [address] [id number] [place] [address] 381709 May, [facility] [address] [id number] [address] [address] May, [facility] [address] [id number] [address] [place] [address], [place] [address] Mar, [facility] [place] [address] [facility] [address] [id number] [place] [address] 009343 Mar, [facility] [address] [id number] [address] [place] [address], [place] [address] Mar, [facility] [place] [address] [facility] [address] [id number] [place] [address] [id number] Mar, [facility] [address] [id number] [address] [place] [address], [place] [address] Mar, [facility] [address] [id number] [address] [place] [address], [place] [address] Feb, [facility] [place] [address] [facility] [address] [id number] [place] [address] 825872 Feb, [facility] [address] [id number] [address] [address] Feb, [facility] [place] [address] [facility] [address] [id number] [place] [address] 945428 Feb, [facility] [address] [id number] [place] [address] Feb, [facility] [place] [address] [id number] [place] [address] 587883 January, [facility] [address] [id number] [place] [address] January, [facility] [place] [address] [id number] [place] [address] [id number] May, [facility] [address] [facility] [address] [id number] [place] [address] 861523 May, [facility] [address] [facility] [id number] [address] [place] [address] Oct, [facility] [address] [facility] [id number] [address] [place] [address] Aug, [facility] [address] [facility] [id number] [address] [place] [address] Nov, [facility] [address] [facility] [id number] [address] [place] [address] Sep, IMMUNIZATIONS No Known Immunizations SOCIAL HISTORY Never Assessed REASON FOR VISIT Extractions PLAN OF CARE Activity Details Follow Up TE Reason: VITAL SIGNS Height 61 in 2017-01-16 Blood pressure systolic 115 mmHg 2017-01-16 Blood pressure diastolic 75 mmHg 2017-01-16 MEDICATIONS Medication Instructions Dosage Frequency Start Date End Date Duration S tatus Ranitidine HCl 150 MG Orally 2 times a day 1 tablet 12h Active Simvastatin 20 MG Orally Once a day 1 tablet in the evening 24h Active PredniSONE 20 MG two a day for 3 days then one a day Active Ramelteon 8 MG Orally Once a day 1 tablet at bedtime as needed 24h Active Hydrochlorothiazide 25 MG TAKE 1 TABLET DAILY NEEDED FOR SWELLING. 90 Active cetirizine 10 mg 1 tablet by Oral route 1 daily January, Active Zonisamide 100 MG Orally Once a day 1 capsule 24h Active Sucralfate 1 GM 1 tablet on an empty stomach 30 minutes before meals and at bedtime Orally 9 Active Levetiracetam 500 mg Orally Twice a day take 3 tabs 12h May, Active Aspirin Adult Low Dose 81 MG Orally Once a day 1 tablet 24h Active Potassium Chloride ER 10 MEQ TAKE 1 CAPSULE BY MOUTH THREE T IMES DAILY 30 Active Lacosamide 200 mg Orally twice a day 1 tablet 12h 30 days Active Magic Mouthwash Apply medicated swab to sore areas of the mouth to numb the pain As needed Dip cotton swab into medication January, As needed Active Baclofen 10 mg Orally 2 times a day 1 tablet with food or milk 12h Active Potassium Chloride 10 MEQ Orally three times per day 1 capsule with fo od Active Meloxicam 15 MG TAKE 1 TABLET BY MOUTH DAILY 30 Active Citalopram Hydrobromide 40 MG TAKE 1 TABLET BY MOUTH DAILY 30 Active Montelukast Sodium 10 MG TAKE 1 TABLET BY MOUTH IN THE EVENING 30 Active Senna Concentrate 8.6 MG Orally three times per day 1 tablet Active Ergocalciferol 64478 iu Orally 1 time per week Active Symbicort 160-4.5 MCG/ACT Inhalation Twice a day 2 puffs 12h Sep, Active Cetirizine HCl 10 MG TAKE 1 TABLET BY MOUTH DAILY 30 Active Omeprazole 40 MG Orally Once a day 1 capsule 24h Active Melatonin 3 MG Orally Once a day 2tablet at bedtime as needed with frank d 24h Active Nexium 40 MG Orally Once a day 1 capsule 24h Sep, 30 day(s) Active Pregabalin 200 mg Orally three times a day 1 capsule 8h Active Lansoprazole 30 MG Orally 2 times a day 1 capsule 12h Active RESULTS No Results PROCEDURES Procedure Date Ordered Result Body Site EXTRAC ERUPTED TOOTH/EXPOSED ROOT January 16, 2017 EXTRAC ERUPTED TOOTH/EXPOSED ROOT January 16, 2017 EXTRAC ERUPTED TOOTH/EXPOSED ROOT January 16, 2017 EXTRAC ERUPTED TOOTH/EXPOSED ROOT January 16, 2017 EXTRAC ERUPTED TOOTH/EXPOSED ROOT January 16, 2017 INSTRUCTIONS MEDICATIONS ADMINISTERED No Known Medications MEDICAL (GENERAL) HISTORY Type Description Date Medical History seizures Medical History hyperlipidemia Medical History constipation Surgical History cholecystectomy Surgical History hysterectomy Surgical History appendectomy Hospitalization History seizures Hospitalization History surgeries Hospitalization History seizures 2015 Hospitalization History pneumonia 2015
--- OUTSIDE RECORDS SUMMARY | 2020-03-30 16:40 | XMS REPORT ---
Author Author Riri DUMAS Organization [facility] Address [address] [place] [address] Care Team Providers Care Sewage Disposal Worker Name Role Phone PUSHPA DUMAS Unavailable PROBLEMS Type Condition ICD9-CM Code CKR39-AY Code Onset Dates Condition S tatus SNOMED Code Problem Epigastric pain R10.13 Active 7992 2009 Problem Cough due to bronchospasm J98.01 Acti ve 9034348 Problem Chronic idiopathic constipation K59.04 Active 34114903 Problem Vertigo R42 Active 419193845 Problem Pain in joint, upper arm 719.42 Activ e 284062952 Problem Adolescent idiopathic scoliosis of thoracolumbar region M41.125 Active 087129740 Problem Pain in joint, forearm 719.43 Active 532659738 Problem Pain in joint, ankle and foot 719.47 Active 540138891 Problem Frequent headaches R51 Active 7 16766188 Problem Mild intermittent asthma without complication J45. 20 Active 904913095 Problem Pain in right knee M25.561 Active 3 9524219 Problem Low back pain M54.5 Active 993788 007 Problem Unspecified urinary calculus 592.9 A ctive 764466960 Problem Unspecified hemorrhoids without mention of complication 45 5.6 Active 95714535 Problem Unspecified urticaria 708.9 Active 520295668 Problem Lumbago 724.2 Active 364454776 Problem Seizure disorder G40.909 Active 128 330364 Problem Mikayla-rectal abscess K61.1 Active 08588161 Problem Delirium due to conditions classified elsewhere 293.0 Active 1736536 Problem Asthma exacerbation J45.901 Active 560646277 Problem Scoliosis (and kyphoscoliosis), idiopathic 737.30 Active 91687224 Problem Edema, unspecified R60.9 Active 7 0131016 Problem Duodenitis K29.80 Active 62058968 ALLERGIES Substance Reaction Event Type Date Status Codeine Sulfate itching Drug Allergy Aug, Active Tramadol Unknown Drug Allergy Aug, Active Surgical Tape And Bandaids Unknown Non Drug Allergy Aug, 17 Active ENCOUNTERS Encounter Location Date Diagnosis [facility] [place] [address] [id number] [place] [address]83[address] Feb, [facility] [address] [facility] [id number] [address] [place], [place] [address] Feb, [facility] [place] [address] [id number] [place] [address] 846407 Dec, [facility] [place] [address] [facility] [address] [id number] [place] [address] 636436 Dec, [facility] [place] [address] [id number] [place] [address] 380414 Dec, [facility] [place] [address] [facility] [address] [id number] [place] [address] 238873 Nov, Vertigo R42 and Seizure disorder G40.909 [facility] [place] [address] [facility] [address] [id number] [place] [address] 736279 Aug, Dental examination Z01.20 [facility] [place] [address] [id number] [place] [address] 962801 Jul, Dental examination Z01.20 [facility] [place] [address] [id number] [place] [address] 735760 Jul, [facility] [place] [address] [facility] [address] [id number] [place] [address] 471837 Jul, [facility] [place] [address] [facility] [address] [id number] [place] [address] 053819 Jul, Dental examination Z01.20 [facility] [place] [address] [id number] [place] [address] 126759 Jun, [facility] [place] [address] [id number] [place] [address] 251396 Jun, Dental examination Z01.20 [facility] [place] [address] [id number] [place] [address] 397276 Jun, [facility] [place] [address] [id number] [place] [address] 490525 05 Oct, 2017 Dental examination Z01.20 [facility] [place] [address] [facility] [address] [id number] [place] [address] 660471 02 Jun, 2017 Edema, unspecified R60.9 ; Screening for lipoid disorders Z13.220 and Pericardial effusion I31.3 [facility] [place] [address] [facility] [address] [id number] [place] [address] 120537 May, [facility] [place] [address] [facility] [address] [id number] [place] [address] 228751 May, Acute costochondritis M94.0 ; Frequent headaches R51 and Seizure disorder G40.909 [facility] [place] [address] [facility] [address] [id number] [place] [address] 720178 May, Pericardial effusion I31.3 [facility] [place] [address] [facility] [address] [id number] [place] [address] 348566 May, [facility] [place] [address] [facility] [address] [id number] [place] [address] 265850 Feb, [facility] [place] [address] [facility] [address] [id number] [place] [address] 217873 January, Seizure disorder G40.909 [facility] [place] [address] [facility] [address] [id number] [place] [address] 568035 January, Dental examination Z01.20 [facility] [place] [address] [facility] [address] [id number] [place] [address] 351145 Dec, Seizure disorder G40.909 ; Low back pain M54.5 ; Cervical radiculopathy M54.12 ; Mild intermittent asthma without complication J45.20 ; Frequent headaches R51 ; Adolescent idiopathic scoliosis of thoracolumbar region M41.125 and Pain in right knee M25.561 [facility] [place] [address] [facility] [address] [id number] [place] [address] 145979 Nov, [facility] [place] [address] [facility] [address] [id number] [place] [address] 653991 Nov, [facility] [place] [address] [facility] [address] [id number] [place] [address] 857970 Nov, Epigastric pain R10.13 ; Asthma exacerbation J45.901 and Seizure disorder G40.909 [facility] [place] [address] [facility] [address] [id number] [place] [address] 815020 Oct, Seizure disorder G40.909 ; Chronic idiopathic constipation K59.04 and Cough due to bronchospasm J98.01 [facility] [place] [address] [facility] [address] [id number] [place] [address] 250268 Oct, Duodenitis K29.80 ; Epigastric pain R10.13 ; Seizure disorder G40.909 and Chronic idiopathic constipation K59.04 [facility] [place] [address] [facility] [address] [id number] [place] [address] 553538 Oct, Dental examination Z01.20 [facility] [place] [address] [facility] [address] [id number] [place] [address] 394987 Sep, Duodenitis K29.80 ; Epigastric pain R10.13 ; Seizure disorder G40.909 and Asthma exacerbation J45.901 [facility] [place] [address] [facility] [address] [id number] [place] [address] 151043 Sep, Epigastric pain R10.13 and Seizure disorder G40.909 [facility] [place] [address] [facility] [address] [id number] [place] [address] 820247 Sep, [facility] [place] [address] [facility] [address] [id number] [place] [address] 625307 Aug, Seizure disorder G40.909 [facility] [place] [address] [facility] [address] [id number] [place] [address] 331668 Aug, Seizure disorder G40.909 ; Asthma exacerbation J45.901 and Epigastric pain R10.13 [facility] [place] [address] [facility] [address] [id number] [place] [address] 318653 Aug, Bronchitis J40 ; Asthma exacerbation J45.901 and Epigastric pain R10.13 [facility] [place] [address] [facility] [address] [id number] [place] [address] 072910 Aug, [facility] [place] [address] [facility] [address] [id number] [place] [address] 029777 Aug, [facility] [place] [address] [facility] [address] [id number] [place] [address] 710951 Aug, [facility] [place] [address] [facility] [address] [id number] [place] [address] 647635 Jul, Dental examination Z01.20 [facility] [place] [address] [facility] [address] [id number] [place] [address] 630472 Jun, Acute pain of left knee M25.562 and Mikayla-rectal abscess K61.1 [facility] [place] [address] [facility] [address] [id number] [place] [address] 355791 Jun, [facility] [place] [address] [facility] [address] [id number] [place] [address] 511245 Jun, Dental examination Z01.20 [facility] [place] [address] [facility] [address] [id number] [place] [address] 612114 May, [facility] [place] [address] [facility] [address] [id number] [place] [address] 686168 May, Seizure disorder G40.909 and Partial symptomatic epilepsy with complex partial seizures, not intractable, 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.209 [facility] [place] [address] [facility] [address] [id number] [place] [address] 923570 May, Screening for lipoid disorders Z13.220 and Edema, unspecified R60.9 [facility] [place] [address] [facility] [address] [id number] [place] [address] 396688 Apr, [facility] [place] [address] [facility] [address] [id number] [place] [address] 259832 Apr, [facility] [address] [facility] [id number] [address] [place] [address] [id number] Apr, Dental examination V72.2 [facility] [address] [facility] [id number] [address] [place] [address] Dec, [facility] [address] [facility] [id number] [address] [place] [address] Dec, [facility] [place] [address] [facility] [address] [id number] [place] [address] 129018 Sep, [facility] [address] [facility] [id number] [address] [place] [address] Sep, [facility] [address] [id number] [address] [place] [address], [place] [address] Jun, [facility] [address] [id number] [address] [place] [address], [place] [address] Jun, [facility] [place] [address] [id number] [place] [address] 908812 Jun, [facility] [address] [id number] [address] [place] [address], [place] [address] Jun, [facility] [address] [id number] [address] [place] [address], [place] [address] May, [facility] [place] [address] [id number] [place] [address] 571149 May, [facility] [place] [address] [id number] [place] [address] 554132 May, [facility] [address] [id number] [address] [place] [address], [place] [address] May, [facility] [address] [id number] [address] [place] [address], [place] [address] Mar, [facility] [place] [address] [id number] [place] [address] 377792 Mar, [facility] [address] [id number] [address] [place] [address], [place] [address] Mar, [facility] [place] [address] [id number] [place] [address] 871064 Mar, [facility] [address] [id number] [address] [place] [address], [place] [address] Mar, [facility] [address] [id number] [address] [place] [address], [place] [address] Feb, [facility] [place] [address] [id number] [place] [address] 732254 Feb, [facility] [address] [id number] [address] [place] [address] Feb, [facility] [place] [address] [id number] [place] [address] [id number] Feb, [facility] [address] [facility] [id number] [address] [place] [address] Feb, [facility] [place] [address] [id number] [place] [address] 707060 January, [facility] [address] [facility] [id number] [address] [place] [address] January, [facility] [place] [address] [id number] [place] [address] 687593 May, [facility] [place] [address] [facility] [address] [id number] [place] [address] [id number] May, [facility] [address] [facility] [id number] [address] [place] [address] Oct, [facility] [address] [facility] [id number] [address] [place] [address] Aug, [facility] [address] [facility] [id number] [address] [place] [address] Nov, [facility] [address] [facility] [id number] [address] [place] [address] Sep, IMMUNIZATIONS No Known Immunizations SOCIAL HISTORY Never Assessed REASON FOR VISIT bone fragments PLAN OF CARE Activity Details Follow Up TE Reason: VITAL SIGNS Height 61 in 2017-08-28 Blood pressure systolic 112 mmHg 2017-08-28 Blood pressure diastolic 72 mmHg 2017-08-28 MEDICATIONS Medication Instructions Dosage Frequency Start Date End Date Duration S tatus Hydrochlorothiazide 25 MG TAKE 1 TABLET BY MOUTH DAILY NEEDED FOR SWELLING. 90 Active Baclofen 10 mg Orally 2 times a day 1 tablet with food or milk 12h Active Potassium Chloride 10 MEQ Orally three times per day 1 capsule with fo od Active Zonisamide 100 MG Orally Once a day 1 capsule 24h Active Senna Concentrate 8.6 MG Orally three times per day 1 tablet Active Simvastatin 20 MG TAKE 1 TABLET AT BEDTIME. 30 Active Vimpat 200 mg Orally twice a day 1 tablet 12h Feb, 9 0 days Active Sucralfate 1 GM 1 tablet on an empty stomach 30 minutes before meals and at bedtime Orally 9 Active Meloxicam 15 MG TAKE 1 TABLET BY MOUTH DAILY 30 Active Citalopram Hydrobromide 40 MG TAKE 1 TABLET BY MOUTH DAILY 30 Active Cetirizine HCl 10 MG TAKE 1 TABLET BY MOUTH DAILY 30 Active Omeprazole 40 MG Orally Once a day 1 capsule 24h Active Ergocalciferol 06973 iu Orally 1 time per week Active Potassium Chloride ER 10 MEQ TAKE 1 CAPSULE BY MOUTH THREE T IMES DAILY 30 Active Levetiracetam 500 mg Orally Twice a day take 3 tabs 12h 25 May, 2013 Active Lansoprazole 30 MG Orally 2 times a day 1 capsule 12h Active Symbicort 160-4.5 MCG/ACT Inhalation Twice a day 2 puffs 12h Sep, Active cetirizine 10 mg 1 tablet by Oral route 1 daily January, Active Aspirin Adult Low Dose 81 MG Orally Once a day 1 tablet 24h Active Nortriptyline HCl Active Ramelteon 8 MG Orally Once a day 1 tablet at bedtime as needed 24h Active Lacosamide 200 mg Orally twice a day 1 tablet 12h 30 days Active Pregabalin 200 mg Orally three times a day 1 capsule 8h Active Montelukast Sodium 10 mg TAKE 1 TABLET BY MOUTH DAILY IN [facility] Active PredniSONE 20 MG two a day for 3 days then one a day Active Melatonin 3 MG Orally Once a day 2tablet at bedtime as needed with frank d 24h Active Ranitidine HCl 150 MG TAKE 1 TABLET BY MOUTH TWICE DAILY 30 Active Magic Mouthwash Apply medicated swab to sore areas of the mouth to numb the pain As needed Dip cotton swab into medication January, As needed Active RESULTS No Results PROCEDURES Procedure Date Ordered Result Body Site Dental no charge Aug 28, 2017 INSTRUCTIONS MEDICATIONS ADMINISTERED No Known Medications MEDICAL (GENERAL) HISTORY Type Description Date Medical History seizures Medical History hyperlipidemia Medical History constipation Surgical History cholecystectomy Surgical History hysterectomy Surgical History appendectomy Hospitalization History seizures Hospitalization History surgeries Hospitalization History seizures 2015 Hospitalization History pneumonia 2015
--- OUTSIDE RECORDS SUMMARY | 2020-03-30 16:40 | XMS REPORT ---
Author Author Riri FLOYD Organization [facility] Address [address] [place] [address] Care Team Providers Care Computer Forensics Technician Name Role Phone OZ FLOYD Unavailable PROBLEMS Type Condition ICD9-CM Code MRC03-TE Code Onset Dates Condition S tatus SNOMED Code Problem Epigastric pain R10.13 Active 7992 2009 Problem Cough due to bronchospasm J98.01 Acti ve 8655964 Problem Chronic idiopathic constipation K59.04 Active 51284764 Problem Vertigo R42 Active 727595872 Problem Pain in joint, upper arm 719.42 Activ e 020109533 Problem Adolescent idiopathic scoliosis of thoracolumbar region M41.125 Active 709299947 Problem Pain in joint, forearm 719.43 Active 542422174 Problem Pain in joint, ankle and foot 719.47 Active 582194647 Problem Frequent headaches R51 Active 7 57908532 Problem Mild intermittent asthma without complication J45. 20 Active 704072030 Problem Pain in right knee M25.561 Active 3 1914452 Problem Low back pain M54.5 Active 083956 007 Problem Unspecified urinary calculus 592.9 A ctive 795936135 Problem Unspecified hemorrhoids without mention of complication 45 5.6 Active 88843512 Problem Unspecified urticaria 708.9 Active 420362032 Problem Lumbago 724.2 Active 304862208 Problem Seizure disorder G40.909 Active 128 760081 Problem Mikayla-rectal abscess K61.1 Active 41412829 Problem Delirium due to conditions classified elsewhere 293.0 Active 1195320 Problem Asthma exacerbation J45.901 Active 940165563 Problem Scoliosis (and kyphoscoliosis), idiopathic 737.30 Active 86891481 Problem Edema, unspecified R60.9 Active 7 6995211 Problem Duodenitis K29.80 Active 37563383 ALLERGIES No Information ENCOUNTERS Encounter Location Date Diagnosis [facility] [place] [address] [facility] [address] [id number] [place] [address] 156443 Dec, [facility] [place] [address] [facility] [address] [id number] [place] [address] 278775 Dec, [facility] [place] [address] [facility] [address] [id number] [place] [address] 513437 Dec, [facility] [place] [address] [facility] [address] [id number] [place] [address] 500369 Nov, Vertigo R42 and Seizure disorder G40.[address] [facility] [place] [address] [facility] [address] [id number] [place] [address] 806502 Aug, Dental examination Z01.[address] [facility] [place] [address] [facility] [address] [id number] [place] [address] 790444 Jul, Dental examination Z01.[address] [facility] [place] [address] [facility] [address] [id number] [place] [address] 123814 Jul, [facility] [place] [address] [facility] [address] [id number] [place] [address] 089337 Jul, [facility] [place] [address] [facility] [address] [id number] [place] [address] 453990 Jul, Dental examination Z01.[address] [facility] [place] [address] [facility] [address] [id number] [place] [address] 604236 Jun, [facility] [place] [address] [facility] [address] [id number] [place] [address] 725950 Jun, Dental examination Z01.[address] [facility] [place] [address] [facility] [address] [id number] [place] [address] 320140 Jun, [facility] [place] [address] [facility] [address] [id number] [place] [address] 448268 Jun, Dental examination Z01.20 [facility] [place] [address] [id number] [place] [address] 039409 Jun, Edema, unspecified R60.9 ; Screening for lipoid disorders Z13.220 and Pericardial effusion I31.[address] [facility] [place] [address] [facility] [address] [id number] [place] [address] 199506 May, [facility] [place] [address] [facility] [address] [id number] [place] [address] 221662 27 May, 2017 Acute costochondritis M94.0 ; Frequent headaches R51 and Seizure disorder G40.909 [facility] [place] [address] [facility] [address] [id number] [place] [address] 361404 May, Pericardial effusion I31.[address] [facility] [place] [address] [place] [address] [address] [id number] [place] [address] 344343 May, [facility] [place] [address] [place] [address] [address] [id number] [place] [address] 076565 Feb, [facility] [place] [address] [place] [address] [address] [id number] [place] [address] 480194 January, Seizure disorder G40.909 [facility] [place] [address] [place] [address] [address] [id number] [place] [address] 735634 January, Dental examination Z01.20 [facility] [place] [address] [place] [address] [address] [id number] [place] [address] 083802 Dec, Seizure disorder G40.909 ; Low back pain M54.5 ; Cervical radiculopathy M54.12 ; Mild intermittent asthma without complication J45.20 ; Frequent headaches R51 ; Adolescent idiopathic scoliosis of thoracolumbar region M41.125 and Pain in right knee M25.561 [facility] [place] [address] [place] [address] [address] [id number] [place] [address] 654761 Nov, [facility] [place] [address] [place] [address] [address] [id number] [place] [address] 729074 Nov, [facility] [place] [address] [place] [address] [address] [id number] [place] [address] 702525 Nov, Epigastric pain R10.13 ; Asthma exacerbation J45.901 and Seizure disorder G40.909 [facility] [place] [address] [place] [address] [address] [id number] [place] [address] 995684 Oct, Seizure disorder G40.909 ; Chronic idiopathic constipation K59.04 and Cough due to bronchospasm J98.01 [facility] [place] [address] [place] [address] [address] [id number] [place] [address] 164467 Oct, Duodenitis K29.80 ; Epigastric pain R10.13 ; Seizure disorder G40.909 and Chronic idiopathic constipation K59.[address] [facility] [place] [address] [facility] [address] [id number] [place] [address] 077675 Oct, Dental examination Z01.[address] [facility] [place] [address] [facility] [address] [id number] [place] [address] 505906 Sep, Duodenitis K29.80 ; Epigastric pain R10.13 ; Seizure disorder G40.909 and Asthma exacerbation J45.[address] [facility] [place] [address] [facility] [address] [id number] [place] [address] 374741 Sep, Epigastric pain R10.13 and Seizure disorder G40.[address] [facility] [place] [address] [facility] [address] [id number] [place] [address] 562215 Sep, [facility] [place] [address] [facility] [address] [id number] [place] [address] 215324 Aug, Seizure disorder G40.909 [facility] [place] [address] [place] [address] [address] [id number] [place] [address] 493740 Aug, Seizure disorder G40.909 ; Asthma exacerbation J45.901 and Epigastric pain R10.[address] [facility] [place] [address] [facility] [address] [id number] [place] [address] 307687 Aug, Bronchitis J40 ; Asthma exacerbation J45.901 and Epigastric pain R10.[address] [facility] [place] [address] [facility] [address] [id number] [place] [address] 827673 Aug, [facility] [place] [address] [facility] [address] [id number] [place] [address] 429208 Aug, [facility] [place] [address] [facility] [address] [id number] [place] [address] 737889 Aug, [facility] [place] [address] [facility] [address] [id number] [place] [address] 148334 Jul, Dental examination Z01.20 [facility] [place] [address] [facility] [address] [id number] [place] [address] 783621 Jun, Acute pain of left knee M25.562 and Mikayla-rectal abscess K61.1 [facility] [place] [address] [place] [address] [address] [id number] [place] [address] 613731 Jun, [facility] [place] [address] [facility] [address] [id number] [place] [address] 238489 Jun, Dental examination Z01.[address] [facility] [place] [address] [facility] [address] [id number] [place] [address] 137449 May, [facility] [place] [address] [facility] [address] [id number] [place] [address] 427570 May, Seizure disorder G40.909 and Partial symptomatic epilepsy with complex partial seizures, not intractable, 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.[address] [facility] [place] [address] [facility] [address] [id number] [place] [address] 228965 May, Screening for lipoid disorders Z13.220 and Edema, unspecified R60.[address] [facility] [place] [address] [facility] [address] [id number] [place] [address] 932405 Apr, [facility] [place] [address] [facility] [address] [id number] [place] [address] 888942 Apr, [facility] [address] [id number] [address] [place] [address] [id number] Apr, Dental examination V72.2 [facility] [address] [facility] [id number] [address] [place] [address] Dec, [facility] [address] [facility] [id number] [address] [place] [phone] Dec, [facility] [place] [address] [facility] [address] [id number] [place] [address] 772409 Sep, [facility] [address] [facility] [id number] [address] [place] [address] Sep, [facility] [address] [facility] [id number] [address] [place] [address] Jun, [facility] [address] [facility] [id number] [address] [place] [address] Jun, [facility] [place] [address] [facility] [address] [id number] [place] [address] 915788 Jun, [facility] [address] [id number] [facility] [place] [address] Jun, [facility] [address] [id number] [facility] [address] May, [facility] [place] [address] [id number] [place] [address] 757888 May, [facility] [place] [address] [id number] [place] [address] 025077 May, [facility] [address] [id number] [address] [place] [address], [place] [address] May, [facility] [address] [id number] [address] [place] [address], [place] [address] Mar, [facility] [place] [address] [id number] [place] [address] 369402 Mar, [facility] [address] [id number] [address] [place] [address], [place] [address] Mar, [facility] [place] [address] [id number] [place] [address] 792728 Mar, [facility] [address] [id number] [address] [place] [address], [place] [address] Mar, [facility] [address] [id number] [address] [place] [address], [place] [address] Feb, [facility] [place] [address] [id number] [place] [address] 476492 Feb, [facility] [address] [id number] [address] [place] [address], [place] [address] Feb, [facility] [place] [address] [id number] [place] [address] 499269 Feb, [facility] [address] [id number] [address] [place] [address], [place] [address] Feb, [facility] [place] [address] [id number] [place] [address] 265830 January, [facility] [address] [facility] [id number] [address] [place] [address] January, [facility] [address] [facility] [address] [id number] [place] [address] 673067 May, [facility] [place] [address] [facility] [id number] [place] [address] 714982 May, [facility] [address] [facility] [id number] [address] [place] [phone] Oct, [facility] [address] [facility] [id number] [address] [place] [phone] Aug, [facility] [address] [facility] [id number] [address] [place] [phone] Nov, [facility] [address] [facility] [id number] [address] [place] [address] Sep, IMMUNIZATIONS No Known Immunizations SOCIAL HISTORY Never Assessed REASON FOR VISIT PT Assit Vimpat PLAN OF CARE VITAL SIGNS MEDICATIONS Medication Instructions Dosage Frequency Start Date End Date Duration S tatus Vimpat 200 mg Orally twice a day [...]
--- OUTSIDE RECORDS SUMMARY | 2020-03-30 16:40 | XMS REPORT ---
Author Author Riri FLOYD Organization [employer] Address Unknown Phone Unavailable Care Team Providers Care Clearing Inspector Name Role Phone OZ FLOYD CP Unavailable Allergies No Known Allergies Problems Problem Type Condition Code Onset Dates Condition Statu s Problem Unspecified urinary calculus 592.9 Active Problem Edema 782.3 Active Problem Delirium due to conditions classified elsewhere 293.0 Active Problem Hematuria, unspecified 599.70 Activ e Problem Other screening mammogram V76.12 Ac tive Problem Urinary tract infection, site not specified 599.0 Active Problem Unspecified urticaria 708.9 Active Problem Unspecified hemorrhoids without mention of complicatio n 455.6 Active Problem Other screening breast examination V76.19 Active Problem Routine gynecological examination V72.31 Active Problem Pain in joint, forearm 719.43 Activ e Problem Lumbago 724.2 Active Problem Scoliosis (and kyphoscoliosis), idiopathic 737.30 Active Problem Pain in joint, upper arm 719.42 Act uzair Problem Pain in joint, ankle and foot 719.47 Active Medications No Known Medications Results No Known Results Summary Purpose [employer] Submission
--- OUTSIDE RECORDS SUMMARY | 2020-03-30 16:40 | XMS REPORT ---
Author Author Riri SHARMA [facility] Address [address] [place] [address] Care Team Providers Care Fire And Safety Helper Name Role Phone KARINA SHARMA Unavailable PROBLEMS Type Condition ICD9-CM Code KAR66-KN Code Onset Dates Condition S tatus SNOMED Code Problem Epigastric pain R10.13 Active 7992 2009 Problem Cough due to bronchospasm J98.01 Acti ve 7905613 Problem Chronic idiopathic constipation K59.04 Active 15350207 Problem Vertigo R42 Active 328414704 Problem Pain in joint, upper arm 719.42 Activ e 760212866 Problem Adolescent idiopathic scoliosis of thoracolumbar region M41.125 Active 133233476 Problem Pain in joint, forearm 719.43 Active 659416220 Problem Pain in joint, ankle and foot 719.47 Active 807615390 Problem Frequent headaches R51 Active 7 82267501 Problem Mild intermittent asthma without complication J45. 20 Active 366006377 Problem Pain in right knee M25.561 Active 3 7237643 Problem Low back pain M54.5 Active 552823 007 Problem Unspecified urinary calculus 592.9 A ctive 650270101 Problem Unspecified hemorrhoids without mention of complication 45 5.6 Active 51870911 Problem Unspecified urticaria 708.9 Active 021946604 Problem Lumbago 724.2 Active 706726172 Problem Seizure disorder G40.909 Active 128 385582 Problem Mikayla-rectal abscess K61.1 Active 40685011 Problem Delirium due to conditions classified elsewhere 293.0 Active 1153421 Problem Asthma exacerbation J45.901 Active 932027603 Problem Scoliosis (and kyphoscoliosis), idiopathic 737.30 Active 66046821 Problem Edema, unspecified R60.9 Active 7 5828143 Problem Duodenitis K29.80 Active 75976099 ALLERGIES No Information ENCOUNTERS Encounter Location Date Diagnosis [facility] [place] [address] [facility] [address] [id number] [place] [address] 418347 Dec, [facility] [place] [address] [facility] [address] [id number] [place] [address] 058260 Dec, [facility] [place] [address] [facility] [address] [id number] [place] [address] 547509 Dec, [facility] [place] [address] [facility] [address] [id number] [place] [address] 148580 Nov, Vertigo R42 and Seizure disorder G40.909 [facility] [place] [address] [facility] [address] [id number] [place] [address] 581259 Aug, Dental examination Z01.20 [facility] [place] [address] [facility] [address] [id number] [place] [address] 276999 Jul, Dental examination Z01.20 [facility] [place] [address] [facility] [address] [id number] [place] [address] 420329 Jul, [facility] [place] [address] [facility] [address] [id number] [place] [address] 615288 Jul, [facility] [place] [address] [facility] [address] [id number] [place] [address] 317338 Jul, Dental examination Z01.20 [facility] [place] [address] [facility] [address] [id number] [place] [address] 282385 Jun, [facility] [place] [address] [facility] [address] [id number] [place] [address] 524671 Jun, Dental examination Z01.20 [facility] [place] [address] [facility] [address] [id number] [place] [address] 969192 Jun, [facility] [place] [address] [facility] [address] [id number] [place] [address] 988613 Jun, Dental examination Z01.20 [facility] [place] [address] [facility] [address] [id number] [place] [address] 491541 Jun, Edema, unspecified R60.9 ; Screening for lipoid disorders Z13.220 and Pericardial effusion I31.3 [facility] [place] [address] [facility] [address] [id number] [place] [address] 108585 May, [facility] [place] [address] [facility] [address] [id number] [place] [address] 301838 27 May, 2017 Acute costochondritis M94.0 ; Frequent headaches R51 and Seizure disorder G40.909 [facility] [place] [address] [facility] [address] [id number] [place] [address] 275744 May, Pericardial effusion I31.3 [facility] [place] [address] [facility] [address] [id number] [place] [address] 431332 May, [facility] [place] [address] [place] [address] [address] [id number] [place] [address] 226047 Feb, [facility] [place] [address] [place] [address] [address] [id number] [place] [address] 885837 January, Seizure disorder G40.909 [facility] [place] [address] [place] [address] [address] [id number] [place] [address] 140386 January, Dental examination Z01.20 [facility] [place] [address] [place] [address] [address] [id number] [place] [address] 086396 Dec, Seizure disorder G40.909 ; Low back pain M54.5 ; Cervical radiculopathy M54.12 ; Mild intermittent asthma without complication J45.20 ; Frequent headaches R51 ; Adolescent idiopathic scoliosis of thoracolumbar region M41.125 and Pain in right knee M25.561 [facility] [place] [address] [place] [address] [address] [id number] [place] [address] 228710 Nov, [facility] [place] [address] [place] [address] [address] [id number] [place] [address] 849174 Nov, [facility] [place] [address] [place] [address] [address] [id number] [place] [address] 224421 Nov, Epigastric pain R10.13 ; Asthma exacerbation J45.901 and Seizure disorder G40.909 [facility] [place] [address] [place] [address] [address] [id number] [place] [address] 457642 Oct, Seizure disorder G40.909 ; Chronic idiopathic constipation K59.04 and Cough due to bronchospasm J98.01 [facility] [place] [address] [facility] [address] [id number] [place] [address] 011042 Oct, Duodenitis K29.80 ; Epigastric pain R10.13 ; Seizure disorder G40.909 and Chronic idiopathic constipation K59.04 [facility] [place] [address] [facility] [address] [id number] [place] [address] 799334 Oct, Dental examination Z01.20 [facility] [place] [address] [facility] [address] [id number] [place] [address] 995708 Sep, Duodenitis K29.80 ; Epigastric pain R10.13 ; Seizure disorder G40.909 and Asthma exacerbation J45.901 [facility] [place] [address] [facility] [address] [id number] [place] [address] 962452 Sep, Epigastric pain R10.13 and Seizure disorder G40.909 [facility] [place] [address] [facility] [address] [id number] [place] [address] 464669 Sep, [facility] [place] [address] [facility] [address] [id number] [place] [address] 767328 Aug, Seizure disorder G40.909 [facility] [place] [address] [facility] [address] [id number] [place] [address] 974066 Aug, Seizure disorder G40.909 ; Asthma exacerbation J45.901 and Epigastric pain R10.13 [facility] [place] [address] [facility] [address] [id number] [place] [address] 632488 Aug, Bronchitis J40 ; Asthma exacerbation J45.901 and Epigastric pain R10.13 [facility] [place] [address] [facility] [address] [id number] [place] [address] 885936 Aug, [facility] [place] [address] [facility] [address] [id number] [place] [address] 462142 Aug, [facility] [place] [address] [facility] [address] [id number] [place] [address] 819411 Aug, [facility] [place] [address] [facility] [address] [id number] [place] [address] 483157 Jul, Dental examination Z01.20 [facility] [place] [address] [facility] [address] [id number] [place] [address] 561403 Jun, Acute pain of left knee M25.562 and Mikayla-rectal abscess K61.1 [facility] [place] [address] [facility] [address] [id number] [place] [address] 130212 Jun, [facility] [place] [address] [facility] [address] [id number] [place] [address] 037021 Jun, Dental examination Z01.20 [facility] [place] [address] [facility] [address] [id number] [place] [address] 879999 May, [facility] [place] [address] [facility] [address] [id number] [place] [address] 937089 May, Seizure disorder G40.909 and Partial symptomatic epilepsy with complex partial seizures, not intractable, 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.209 [facility] [place] [address] [facility] [address] [id number] [place] [address] 699573 May, Screening for lipoid disorders Z13.220 and Edema, unspecified R60.9 [facility] [place] [address] [facility] [address] [id number] [place] [address] 567502 Apr, [facility] [place] [address] [facility] [address] [id number] [place] [address] 093185 Apr, [facility] [address] [id number] [address] [place] [address] [phone] Apr, Dental examination V72.2 [facility] [address] [facility] [id number] [address] [place] [phone] Dec, [facility] [address] [facility] [id number] [address] [place] [address] Dec, [facility] [place] [address] [facility] [address] [id number] [place] [address] 241691 Sep, [facility] [address] [facility] [id number] [address] [place] [address] Sep, [facility] [address] [facility] [id number] [address] [place] [phone] Jun, [facility] [address] [facility] [id number] [address] [place] [address] Jun, [facility] [place] [address] [facility] [address] [id number] [place] [address] 317252 Jun, [facility] [address] [id number] [facility] [place] [place] [address] Jun, [facility] [address] [id number] [facility] [place] [place] [address] May, [facility] [place] [address] [id number] [place] [address] 038132 May, [facility] [place] [address] [id number] [place] [address] 204197 May, [facility] [address] [id number] [facility] [place] [place] [address] May, [facility] [address] [id number] [address] [place] [address], [place] [address] Mar, [facility] [place] [address] [id number] [place] [address] 912402 Mar, [facility] [address] [id number] [address] [place] [address], [place] [address] Mar, [facility] [place] [address] [id number] [place] [address] 174402 Mar, [facility] [address] [id number] [address] [place] [address], [place] [address] Mar, [facility] [address] [id number] [address] [place] [address], [place] [address] Feb, [facility] [place] [address] [id number] [place] [address] 770563 Feb, [facility] [address] [id number] [address] [place] [address], [place] [address] Feb, [facility] [place] [address] [id number] [place] [address] 745734 Feb, [facility] [address] [id number] [address] [place] [address], [place] [address] Feb, [facility] [place] [address] [id number] [place] [address] 012618 January, [facility] [address] [facility] [id number] [address] [place] [address] January, [facility] [address] [facility] [address] [id number] [place] [address] 725406 May, [facility] [place] [address] [facility] [address] [id number] [place] [address] 228120 May, [facility] [address] [facility] [id number] [address] [place] [address] Oct, [facility] [address] [facility] [id number] [address] [place] [address] Aug, [facility] [address] [facility] [id number] [address] [place] [phone] Nov, [facility] [address] [facility] [id number] [address] [place] [phone] Sep, IMMUNIZATIONS No Known Immunizations SOCIAL HISTORY [...]
--- OUTSIDE RECORDS SUMMARY | 2020-03-30 16:41 | XMS REPORT ---
Author Author Riri SHARMA Organization [facility] Address [address] [place] [address] Care Team Providers Care Assistant Shift Supervisor Name Role Phone KARINA SHARMA Unavailable PROBLEMS Type Condition ICD9-CM Code REX70-NI Code Onset Dates Condition S tatus SNOMED Code Problem Duodenitis K29.80 Active 75090961 Problem Chronic idiopathic constipation K59.04 Active 95509894 Problem Epigastric pain R10.13 Active 7992 2009 Problem Low back pain M54.5 Active 446180 007 Problem Lumbago 724.2 Active 078005397 Problem Mild intermittent asthma without complication J45. 20 Active 228385805 Problem Pain in joint, forearm 719.43 Active 793122739 Problem Pain in joint, upper arm 719.42 Activ e 593936361 Problem Pain in right knee M25.561 Active 3 7406991 Problem Cough due to bronchospasm J98.01 Acti ve 1255629 Problem Frequent headaches R51 Active 7 88351678 Problem Adolescent idiopathic scoliosis of thoracolumbar region M41.125 Active 044924084 Problem Unspecified urinary calculus 592.9 A ctive 840610293 Problem Delirium due to conditions classified elsewhere 293.0 Active 7396397 Problem Scoliosis (and kyphoscoliosis), idiopathic 737.30 Active 90837674 Problem Pain in joint, ankle and foot 719.47 Active 959206871 Problem Edema, unspecified R60.9 Active 7 5011870 Problem Seizure disorder G40.909 Active 128 296670 Problem Unspecified hemorrhoids without mention of complication 45 5.6 Active 67922557 Problem Mikayla-rectal abscess K61.1 Active 04969593 Problem Unspecified urticaria 708.9 Active 460122538 Problem Asthma exacerbation J45.901 Active 515321716 ALLERGIES Substance Reaction Event Type Date Status Tramadol Unknown Drug Allergy Aug, Active Surgical Tape And Bandaids Unknown Non Drug Allergy Aug, 16 Active SOCIAL HISTORY No smoking Hx information available PLAN OF CARE Activity Details Follow Up prn Reason: VITAL SIGNS Height 61 in 2016-08-22 Weight 248.5 lbs 2016-08-22 Temperature 99.0 degrees Fahrenheit 2016-08-22 Heart Rate 90 bpm 2016-08-22 Respiratory Rate 16 2016-08-22 Head Circumference 90 cm 2016-08-22 BMI 46.95 kg/m2 2016-08-22 Blood pressure systolic 138 mmHg 2016-08-22 Blood pressure diastolic 76 mmHg 2016-08-22 MEDICATIONS Medication Instructions Dosage Frequency Start Date End Date Duration S anthonyus Ergocalciferol 70189 iu Orally 1 time per week Active Ramelteon 8 MG Orally Once a day 1 tablet at bedtime as needed 24h Active Citalopram Hydrobromide 40 mg Orally Once a day 1 tablet 24h Active Melatonin 3 MG Orally Once a day 2tablet at bedtime as needed with frank d 24h Active Montelukast Sodium 10 MG Orally Once a day 1 tablet in the evening 24h Active Hydrochlorothiazide 25 MG TAKE 1 TABLET DAILY NEEDED FOR SWELLING. 90 Active Lacosamide 200 MG Orally twice a day 1 tablet 12h Active Aspirin Adult Low Dose 81 MG Orally Once a day 1 tablet 24h Active Senna Concentrate 8.6 MG Orally three times per day 1 tablet Active Potassium Chloride 10 MEQ Orally three times per day 1 capsule with fo od Active cetirizine 10 mg 1 tablet by Oral route 1 daily January, Active Simvastatin 20 MG Orally Once a day 1 tablet in the evening 24h Active Baclofen 10 mg Orally 2 times a day 1 tablet with food or milk 12h Active Zonisamide 100 MG Orally Once a day 1 capsule 24h Active Amoxicillin 500 MG Orally 4 times a day 1 capsule 6h 10 days Active Levetiracetam 500 mg Orally Twice a day take 3 tabs 12h May, Active Pregabalin 200 mg Orally three times a day 1 capsule 8h Active RESULTS No Results PROCEDURES Procedure Date Ordered Related Diagnosis Body Site Office Visit, Est Pt., Level 3 Aug 22, 2016 IMMUNIZATIONS No Known Immunizations
--- OUTSIDE RECORDS SUMMARY | 2020-03-30 16:41 | XMS REPORT ---
Author Author Riri FLOYD [employer] Address Unknown Phone Unavailable Care Team Providers Care Integrated Program Teacher Name Role Phone OZ FLOYD CP Unavailable Allergies, Adverse Reactions, Alerts Substance Reaction Event Type Tramadol Info Not Available Drug Allergy Surgical Tape And Bandaids Info Not Available Non Drug Priyank rgy Problems Problem Type Condition Code Onset Dates Condition Statu s Problem Unspecified urticaria 708.9 Active Problem Other screening breast examination V76.19 Active Problem Routine gynecological examination V72.31 Active Problem Mikayla-rectal abscess K61.1 Active Assessment Mikayla-rectal abscess K61.1 Active Problem Seizure disorder G40.909 Active Problem Acute pain of left knee M25.562 Acti ve Problem Hematuria, unspecified 599.70 Activ e Problem Other screening mammogram V76.12 Ac tive Problem Edema, unspecified R60.9 Active Problem Urinary tract infection, site not specified 599.0 Active Problem Pain in joint, forearm 719.43 Activ e Problem Lumbago 724.2 Active Assessment Acute pain of left knee M25.562 Acti ve Problem Pain in joint, upper arm 719.42 Act uzair Problem Unspecified urinary calculus 592.9 Active Problem Delirium due to conditions classified elsewhere 293.0 Active Problem Scoliosis (and kyphoscoliosis), idiopathic 737.30 Active Problem Edema 782.3 Active Problem Pain in joint, ankle and foot 719.47 Active Problem Unspecified hemorrhoids without mention of complicatio n 455.6 Active Medications Medication Code System Code Instructions Start Date End Date Status Dosage Hydrochlorothiazide [facility] 28802773845 25 MG TAKE 1 TABLET DAILY NEEDED FOR SWELLING. Citalopram Hydrobromide [facility] [address]-03 40 mg Orally Once a day 1 tablet Montelukast Sodium [facility] [address]-22 10 MG Orally Once a day 1 tablet in the evening cetirizine [facility] [address]-13 10 mg January 18, 2014 1 tablet by Oral route 1 daily Senna Concentrate NDC 0 8.6 MG Orally three times per day 1 tablet Baclofen [facility] [address]-92 10 mg Orally 2 times a day 1 tablet with food or milk Lacosamide [facility] [address]-03 150 MG Orally twice a day 1 tablet Simvastatin [facility] [address]-89 20 MG Orally Once a day 1 tablet in the evening Ramelteon [facility] [address]-38 8 MG Orally Once a day 1 tablet at bedtime as needed Potassium Chloride [facility] [address]-49 10 MEQ Orally three times per d ay 1 capsule with food Cipro [facility] [address]-51 500 MG Orally Twice a day Jul 02, 2016 Jul 12, 2016 1 tablet Levetiracetam [facility] [address]-77 500 mg Orally Twice a day Jun 02 013 take 3 tabs Melatonin [facility] [address]-33 3 MG Orally Once a day 2tablet at bedtime as needed with food Pregabalin [facility] [address]-00 200 mg Orally three times a day 1 capsule Aspirin Adult Low Dose [facility] [address]-70 81 MG Orally Once a day 1 tablet Meloxicam [facility] [address]-58 15 mg Orally 2 times a day January 18, 2014 0.5 Tablet Ergocalciferol [facility] 0 19298 iu Orally 1 time per week not defined Procedures Procedure Coding System Code Date Office Visit, Est Pt., Level 3 CPT-[address] 2015 X-RAY EXAM OF KNEE, 1 OR 2 CPT-4 94404 Jun 092015 Vital Signs Date/Time: Jul 02, 2016 Cardiac Monitoring Heart Rate 84 bpm Weight 255.8 lbs Height 61 in BMI 48.33 Index Blood Pressure Diastolic 70 mmHg Blood Pressure Systolic 118 mmHg Results No Known Results Summary Purpose [employer]ClinicalWorks Submission
--- OUTSIDE RECORDS SUMMARY | 2020-03-30 16:41 | XMS REPORT ---
Author Author Riri FLOYD Organization [facility] Address [address] [place] [address] Care Team Providers Care [place] Attendant Name Role Phone OZ FLOYD Unavailable PROBLEMS Type Condition ICD9-CM Code OJK86-VI Code Onset Dates Condition S tatus SNOMED Code Problem Epigastric pain R10.13 Active 7992 2009 Problem Cough due to bronchospasm J98.01 Acti ve 4276432 Problem Chronic idiopathic constipation K59.04 Active 52089533 Problem Vertigo R42 Active 370285944 Problem Pain in joint, upper arm 719.42 Activ e 961569613 Problem Adolescent idiopathic scoliosis of thoracolumbar region M41.125 Active 554865006 Problem Pain in joint, forearm 719.43 Active 354936920 Problem Pain in joint, ankle and foot 719.47 Active 903924100 Problem Frequent headaches R51 Active 7 63255591 Problem Mild intermittent asthma without complication J45. 20 Active 919432466 Problem Pain in right knee M25.561 Active 3 2375693 Problem Low back pain M54.5 Active 208682 007 Problem Unspecified urinary calculus 592.9 A ctive 107675288 Problem Unspecified hemorrhoids without mention of complication 45 5.6 Active 59936761 Problem Unspecified urticaria 708.9 Active 498423124 Problem Lumbago 724.2 Active 644876324 Problem Seizure disorder G40.909 Active 128 822743 Problem Mikayla-rectal abscess K61.1 Active 80886080 Problem Delirium due to conditions classified elsewhere 293.0 Active 5185584 Problem Asthma exacerbation J45.901 Active 839580546 Problem Scoliosis (and kyphoscoliosis), idiopathic 737.30 Active 32800621 Problem Edema, unspecified R60.9 Active 7 4252573 Problem Duodenitis K29.80 Active 12726342 ALLERGIES No Information ENCOUNTERS Encounter Location Date Diagnosis [facility] [place] [address] [facility] [address] [id number] [place] [address] 6387[address] Dec, [facility] [place] [address] [facility] [address] [id number] [place] [address] 461108 Dec, [facility] [place] [address] [facility] [address] [id number] [place] [address] 857044 Dec, [facility] [place] [address] [facility] [address] [id number] [place] [address] 102936 Nov, Vertigo R42 and Seizure disorder G40.909 [facility] [place] [address] [facility] [address] [id number] [place] [address] 963570 Aug, Dental examination Z01.20 [facility] [place] [address] [facility] [address] [id number] [place] [address] 971824 Jul, Dental examination Z01.20 [facility] [place] [address] [facility] [address] [id number] [place] [address] 022417 Jul, [facility] [place] [address] [facility] [address] [id number] [place] [address] 685630 Jul, [facility] [place] [address] [facility] [address] [id number] [place] [address] 794186 Jul, Dental examination Z01.20 [facility] [place] [address] [facility] [address] [id number] [place] [address] 584315 Jun, [facility] [place] [address] [facility] [address] [id number] [place] [address] 335435 Jun, Dental examination Z01.20 [facility] [place] [address] [facility] [address] [id number] [place] [address] 469318 Jun, [facility] [place] [address] [facility] [address] [id number] [place] [address] 372285 Jun, Dental examination Z01.20 [facility] [place] [address] [id number] [place] [address] 645808 Jun, Edema, unspecified R60.9 ; Screening for lipoid disorders Z13.220 and Pericardial effusion I31.3 [facility] [place] [address] [facility] [address] [id number] [place] [address] 582222 May, [facility] [place] [address] [facility] [address] [id number] [place] [address] 502255 27 May, 2017 Acute costochondritis M94.0 ; Frequent headaches R51 and Seizure disorder G40.909 [facility] [place] [address] [facility] [address] [id number] [place] [address] 809098 May, Pericardial effusion I31.3 [facility] [place] [address] [place] [address] [address] [id number] [place] [address] 836036 May, [facility] [place] [address] [place] [address] [address] [id number] [place] [address] 589620 Feb, [facility] [place] [address] [place] [address] [address] [id number] [place] [address] 046454 January, Seizure disorder G40.909 [facility] [place] [address] [place] [address] [address] [id number] [place] [address] 135056 January, Dental examination Z01.20 [facility] [place] [address] [place] [address] [address] [id number] [place] [address] 099229 Dec, Seizure disorder G40.909 ; Low back pain M54.5 ; Cervical radiculopathy M54.12 ; Mild intermittent asthma without complication J45.20 ; Frequent headaches R51 ; Adolescent idiopathic scoliosis of thoracolumbar region M41.125 and Pain in right knee M25.561 [facility] [place] [address] [place] [address] [address] [id number] [place] [address] 724939 Nov, [facility] [place] [address] [place] [address] [address] [id number] [place] [address] 301272 Nov, [facility] [place] [address] [place] [address] [address] [id number] [place] [address] 438302 Nov, Epigastric pain R10.13 ; Asthma exacerbation J45.901 and Seizure disorder G40.909 [facility] [place] [address] [place] [address] [address] [id number] [place] [address] 150433 Oct, Seizure disorder G40.909 ; Chronic idiopathic constipation K59.04 and Cough due to bronchospasm J98.01 [facility] [place] [address] [place] [address] [address] [id number] [place] [address] 384161 Oct, Duodenitis K29.80 ; Epigastric pain R10.13 ; Seizure disorder G40.909 and Chronic idiopathic constipation K59.04 [facility] [place] [address] [facility] [address] [id number] [place] [address] 950985 Oct, Dental examination Z01.20 [facility] [place] [address] [facility] [address] [id number] [place] [address] 667404 Sep, Duodenitis K29.80 ; Epigastric pain R10.13 ; Seizure disorder G40.909 and Asthma exacerbation J45.901 [facility] [place] [address] [facility] [address] [id number] [place] [address] 980317 Sep, Epigastric pain R10.13 and Seizure disorder G40.909 [facility] [place] [address] [facility] [address] [id number] [place] [address] 891721 Sep, [facility] [place] [address] [facility] [address] [id number] [place] [address] 899829 Aug, Seizure disorder G40.909 [facility] [place] [address] [place] [address] [address] [id number] [place] [address] 189655 Aug, Seizure disorder G40.909 ; Asthma exacerbation J45.901 and Epigastric pain R10.13 [facility] [place] [address] [facility] [address] [id number] [place] [address] 839926 Aug, Bronchitis J40 ; Asthma exacerbation J45.901 and Epigastric pain R10.13 [facility] [place] [address] [facility] [address] [id number] [place] [address] 197174 Aug, [facility] [place] [address] [facility] [address] [id number] [place] [address] 500979 Aug, [facility] [place] [address] [facility] [address] [id number] [place] [address] 335937 Aug, [facility] [place] [address] [facility] [address] [id number] [place] [address] 187301 Jul, Dental examination Z01.20 [facility] [place] [address] [facility] [address] [id number] [place] [address] 296926 Jun, Acute pain of left knee M25.562 and Mikayla-rectal abscess K61.1 [facility] [place] [address] [place] [address] [address] [id number] [place] [address] 428387 Jun, [facility] [place] [address] [facility] [address] [id number] [place] [address] 243681 Jun, Dental examination Z01.20 [facility] [place] [address] [facility] [address] [id number] [place] [address] 394739 May, [facility] [place] [address] [facility] [address] [id number] [place] [address] 152100 May, Seizure disorder G40.909 and Partial symptomatic epilepsy with complex partial seizures, not intractable, 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.209 [facility] [place] [address] [facility] [address] [id number] [place] [address] 931896 May, Screening for lipoid disorders Z13.220 and Edema, unspecified R60.9 [facility] [place] [address] [facility] [address] [id number] [place] [address] 020967 Apr, [facility] [place] [address] [facility] [address] [id number] [place] [address] 581300 Apr, [facility] [address] [id number] [address] [place] [address] [id number] Apr, Dental examination V72.2 [facility] [address] [facility] [id number] [address] [place] [address] Dec, [facility] [address] [facility] [id number] [address] [place] [address] Dec, [facility] [place] [address] [facility] [address] [id number] [place] [address] 384029 Sep, [facility] [address] [facility] [id number] [address] [place] [address] Sep, [facility] [address] [facility] [id number] [address] [place] [address] Jun, [facility] [address] [facility] [id number] [address] [place] [address] Jun, [facility] [place] [address] [facility] [address] [id number] [place] [address] 978774 Jun, [facility] [address] [id number] [facility] [place] [address] Jun, [facility] [address] [id number] [facility] [place] [address] May, [facility] [place] [address] [id number] [place] [address] 435190 May, [facility] [place] [address] [id number] [place] [address] 987731 May, [facility] [address] [id number] [address] [place] [address], [place] [address] May, [facility] [address] [id number] [address] [place] [address], [place] [address] Mar, [facility] [place] [address] [id number] [place] [address] 065402 Mar, [facility] [address] [id number] [address] [place] [address], [place] [address] Mar, [facility] [place] [address] [id number] [place] [address] 102904 Mar, [facility] [address] [id number] [address] [place] [address], [place] [address] Mar, [facility] [address] [id number] [address] [place] [address], [place] [address] Feb, [facility] [place] [address] [id number] [place] [address] 274005 Feb, [facility] [address] [id number] [address] [place] [address], [place] [address] Feb, [facility] [place] [address] [id number] [place] [address] 792681 Feb, [facility] [address] [id number] [address] [place] [address], [place] [address] Feb, [facility] [place] [address] [id number] [place] [address] 942517 January, [facility] [address] [facility] [id number] [address] [place] [address] January, [facility] [address] [facility] [address] [id number] [place] [address] 852423 May, [facility] [place] [address] [facility] [id number] [place] [address] 620730 May, [facility] [address] [facility] [id number] [address] [place] [address] Oct, [facility] [address] [facility] [id number] [address] [place] [address] Aug, [facility] [address] [facility] [id number] [address] [place] [address] Nov, [facility] [address] [facility] [id number] [address] [place] [address] Sep, IMMUNIZATIONS No Known Immunizations SOCIAL HISTORY Never Assessed REASON FOR VISIT PLAN OF CARE VITAL SIGNS MEDICATIONS Medication Instructions Dosage Frequency Start Date End Date Duration S tatus Montelukast Sodium 10 mg TAKE 1 TABLET BY MOUTH DAILY IN THE [facility] Active RESULTS No Results PROCEDURES No Known procedures INSTRUCTIONS MEDICATIONS ADMINISTERED No Known Medications MEDICAL (GENERAL) HISTORY Type Description Date Medical History seizures Medical History hyperlipidemia Medical History constipation Surgical History cholecystectomy Surgical History hysterectomy Surgical History appendectomy Hospitalization History seizures Hospitalization History surgeries Hospitalization History seizures 2016 Hospitalization History pneumonia 2016
--- OUTSIDE RECORDS SUMMARY | 2020-03-30 16:41 | XMS REPORT ---
Author Author Riri MAGALLANES [employer] Address Unknown Phone Unavailable Care Team Providers Care Business Services Representative Name Role Phone GREG MAGALLANES Unavailable Allergies No Known Allergies Problems Problem Type Condition ICD-9 Code Onset Dates Condition Statu s Problem [...] Activ e Problem Lumbago 724.2 Active Assessment Dental examination V72.2 Active Problem Scoliosis (and kyphoscoliosis), idiopathic 737.30 Active Problem Pain in joint, upper arm 719.42 Act uzair Problem Pain in joint, ankle and foot 719.47 Active Medications No Known Medications Procedures Procedure Coding System Code Date INTRAORL-PERIAPICAL 1 FILM 67616 CPT-4 D0220 Apr 11, 2015 INTRAORL-PERIAPICAL EA ADD FILM CPT-4 D0230 Apr 11, 2015 LTD ORAL EVALUATION - PROBLEM FOCUS CPT-4 D0140 Apr 11, 2015 BITEWING - SINGLE FILM CPT-4 D0270 Apr 11, 2 015 Results No Known Results Summary Purpose [employer] Submission
--- OUTSIDE RECORDS SUMMARY | 2020-03-30 16:41 | XMS REPORT ---
Author Author Riri DUMAS Organization [facility] [place] Address [address] [place] [address] Care Team Providers Care Color Checker Roving Or Yarn Name Role Phone PUSHPA DUMAS Unavailable PROBLEMS Type Condition ICD9-CM Code LEU07-[place] Code Onset Dates Condition S tatus SNOMED Code Problem Epigastric pain R10.13 Active 7992 2009 Problem Cough due to bronchospasm J98.01 Acti ve 5360252 Problem Chronic idiopathic constipation K59.04 Active 51487149 Problem Vertigo R42 Active 880428658 Problem Pain in joint, upper arm 719.42 Activ e 817812580 Problem Adolescent idiopathic scoliosis of thoracolumbar region M41.125 Active 274386607 Problem Pain in joint, forearm 719.43 Active 595747447 Problem Pain in joint, ankle and foot 719.47 Active 088491381 Problem Frequent headaches R51 Active 7 62191424 Problem Mild intermittent asthma without complication J45. 20 Active 680683612 Problem Pain in right knee M25.561 Active 3 0227294 Problem Low back pain M54.5 Active 793157 007 Problem Unspecified urinary calculus 592.9 A ctive 869211286 Problem Unspecified hemorrhoids without mention of complication 45 5.6 Active 94523612 Problem Unspecified urticaria 708.9 Active 207612120 Problem Lumbago 724.2 Active 796969357 Problem Seizure disorder G40.909 Active 128 188360 Problem Mikayla-rectal abscess K61.1 Active 23618755 Problem Delirium due to conditions classified elsewhere 293.0 Active 3755478 Problem Asthma exacerbation J45.901 Active 061056240 Problem Scoliosis (and kyphoscoliosis), idiopathic 737.30 Active 73903588 Problem Edema, unspecified R60.9 Active 7 7529830 Problem Duodenitis K29.80 Active 80938104 ALLERGIES Substance Reaction Event Type Date Status Codeine Sulfate itching Drug Allergy Jun, Active Tramadol Unknown Drug Allergy Jun, Active Surgical Tape And Bandaids Unknown Non Drug Allergy Jun, 17 Active ENCOUNTERS Encounter Location Date Diagnosis [facility] [place] [address] [facility] [address] [id number] [place] [address] [id number] Dec, [facility] [place] [address] [facility] [address] [id number] [place] [address] 699576 Dec, [facility] [place] [address] [facility] [address] [id number] [place] [address] 739202 Dec, [facility] [place] [address] [facility] [address] [id number] [place] [address] 119531 Nov, Vertigo R42 and Seizure disorder G40.909 [facility] [place] [address] [facility] [address] [id number] [place] [address] 657087 Aug, Dental examination Z01.20 [facility] [place] [address] [facility] [address] [id number] [place] [address] 531939 Jul, Dental examination Z01.20 [facility] [place] [address] [facility] [address] [id number] [place] [address] 420261 Jul, [facility] [place] [address] [facility] [address] [id number] [place] [address] 046223 Jul, [facility] [place] [address] [facility] [address] [id number] [place] [address] 151301 Jul, Dental examination Z01.20 [facility] [place] [address] [facility] [address] [id number] [place] [address] 748384 Jun, [facility] [place] [address] [facility] [address] [id number] [place] [address] 681529 Jun, Dental examination Z01.20 [facility] [place] [address] [facility] [address] [id number] [place] [address] 069140 Jun, [facility] [place] [address] [facility] [address] [id number] [place] [address] 237262 Jun, Dental examination Z01.20 [facility] [place] [address] [facility] [address] [id number] [place] [address] 810385 Jun, Edema, unspecified R60.9 ; Screening for lipoid disorders Z13.220 and Pericardial effusion I31.3 [facility] [place] [address] [facility] [address] [id number] [place] [address] 289016 May, [facility] [place] [address] [place] [address] [address] [id number] [place] [address] 381281 May, Acute costochondritis M94.0 ; Frequent headaches R51 and Seizure disorder G40.909 [facility] [place] [address] [place] [address] [address] [id number] [place] [address] 257956 May, Pericardial effusion I31.3 [facility] [place] [address] [place] [address] [address] [id number] [place] [address] 281039 May, [facility] [place] [address] [place] [address] [address] [id number] [place] [address] 639709 Feb, [facility] [place] [address] [place] [address] [address] [id number] [place] [address] 541457 January, Seizure disorder G40.909 [facility] [place] [address] [place] [address] [address] [id number] [place] [address] 284910 January, Dental examination Z01.20 [facility] [place] [address] [place] [address] [address] [id number] [place] [address] 745719 Dec, Seizure disorder G40.909 ; Low back pain M54.5 ; Cervical radiculopathy M54.12 ; Mild intermittent asthma without complication J45.20 ; Frequent headaches R51 ; Adolescent idiopathic scoliosis of thoracolumbar region M41.125 and Pain in right knee M25.561 [facility] [place] [address] [place] [address] [address] [id number] [place] [address] 324516 Nov, [facility] [place] [address] [place] [address] [address] [id number] [place] [address] 307142 Nov, [facility] [place] [address] [place] [address] [address] [id number] [place] [address] 188351 Nov, Epigastric pain R10.13 ; Asthma exacerbation J45.901 and Seizure disorder G40.909 [facility] [place] [address] [place] [address] [address] [id number] [place] [address] 504831 Oct, Seizure disorder G40.909 ; Chronic idiopathic constipation K59.04 and Cough due to bronchospasm J98.01 [facility] [place] [address] [facility] [address] [id number] [place] [address] 312420 Oct, Duodenitis K29.80 ; Epigastric pain R10.13 ; Seizure disorder G40.909 and Chronic idiopathic constipation K59.04 [facility] [place] [address] [facility] [address] [id number] [place] [address] 122826 Oct, Dental examination Z01.20 [facility] [place] [address] [facility] [address] [id number] [place] [address] 698466 Sep, Duodenitis K29.80 ; Epigastric pain R10.13 ; Seizure disorder G40.909 and Asthma exacerbation J45.901 [facility] [place] [address] [facility] [address] [id number] [place] [address] 227375 Sep, Epigastric pain R10.13 and Seizure disorder G40.909 [facility] [place] [address] [facility] [address] [id number] [place] [address] 102081 Sep, [facility] [place] [address] [facility] [address] [id number] [place] [address] 952720 Aug, Seizure disorder G40.909 [facility] [place] [address] [facility] [address] [id number] [place] [address] 517664 Aug, Seizure disorder G40.909 ; Asthma exacerbation J45.901 and Epigastric pain R10.13 [facility] [place] [address] [facility] [address] [id number] [place] [address] 556856 Aug, Bronchitis J40 ; Asthma exacerbation J45.901 and Epigastric pain R10.13 [facility] [place] [address] [facility] [address] [id number] [place] [address] 520963 Aug, [facility] [place] [address] [facility] [address] [id number] [place] [address] 150206 Aug, [facility] [place] [address] [facility] [address] [id number] [place] [address] 162960 Aug, [facility] [place] [address] [facility] [address] [id number] [place] [address] 660210 Jul, Dental examination Z01.20 [facility] [place] [address] [facility] [address] [id number] [place] [address] 709199 Jun, Acute pain of left knee M25.562 and Mikayla-rectal abscess K61.1 [facility] [place] [address] [facility] [address] [id number] [place] [address] 256330 Jun, [facility] [place] [address] [facility] [address] [id number] [place] [address] 467154 Jun, Dental examination Z01.20 [facility] [place] [address] [facility] [address] [id number] [place] [address] 609399 May, [facility] [place] [address] [facility] [address] [id number] [place] [address] 096688 May, Seizure disorder G40.909 and Partial symptomatic epilepsy with complex partial seizures, not intractable, 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.209 [facility] [place] [address] [facility] [address] [id number] [place] [address] 077200 May, Screening for lipoid disorders Z13.220 and Edema, unspecified R60.9 [facility] [place] [address] [facility] [address] [id number] [place] [address] 227467 Apr, [facility] [place] [address] [facility] [address] [id number] [place] [address] 787175 Apr, [facility] [address] [facility] [id number] [address] [place] [address] [id number] Apr, Dental examination V72.2 [facility] [place] [address] [facility] [id number] [address] [place] [phone] Dec, [facility] [place] [address] [facility] [id number] [address] [place] [phone] Dec, [facility] [address] [facility] [address] [id number] [place], [place] [address] 502135 Sep, [facility] [place] [address] [facility] [id number] [address] [place] [phone] Sep, [facility] [place] [address] [facility] [id number] [address] [place] [phone] Jun, [facility] [place] [address] [facility] [id number] [address] [place] [phone] Jun, [facility] [place] [address] [id number] [place] [address] 504874 Jun, [facility] [address] [id number] [address] [place] [address], [place] [address] Jun, [facility] [place] [address] [id number] [place] [address] 134044 May, [facility] [address] [id number] [address] [place] [address], [place] [address] May, [facility] [place] [address] [id number] [place] [address] 900440 May, [facility] [address] [id number] [address] [place] [address], [place] [address] May, [facility] [address] [id number] [address] [place] [address], [place] [address] Mar, [facility] [place] [address] [id number] [place] [address] [id number] Mar, [facility] [address] [id number] [address] [place] [address], [place] [address] Mar, [facility] [place] [address] [facility] [address] [id number] [place] [address] 244482 Mar, [facility] [address] [id number] [address] [place] [address], [place] [address] Mar, [facility] [address] [id number] [address] [place] [address], [place] [address] Feb, [facility] [place] [address] [id number] [place] [address] 635920 Feb, [facility] [address] [id number] [address] [place] [address], [place] [address] Feb, [facility] [place] [address] [id number] [place] [address] [id number] Feb, [facility] [address] [facility] [id number] [address] [place] [phone] Feb, [facility] [place] [address] [facility] [address] [id number] [place] [address] 152703 January, [facility] [place] [address] [facility] [id number] [address] [place] [phone] January, [facility] [place] [address] [facility] [address] [id number] [place] [address] 891940 May, [facility] [place] [address] [facility] [address] [id number] [place] [address] 925497 May, [facility] [place] [address] [facility] [id number] [address] [place] [phone] Oct, [facility] [place] [address] [facility] [id number] [address] [place] [phone] Aug, [facility] [place] [address] [facility] [id number] [address] [place] [phone] Nov, [facility] [place] [address] [facility] [id number] [address] [place] [phone] Sep, IMMUNIZATIONS No Known Immunizations SOCIAL HISTORY Never Assessed REASON FOR VISIT pain/thinks its abcess PLAN OF CARE Activity Details Follow Up 1 Week Reason:RECHECK VITAL SIGNS MEDICATIONS Medication Instructions Dosage Frequency Start Date End Date Duration S tatus Zonisamide 100 MG Orally Once a day 1 capsule 24h Active PredniSONE 20 MG two a day for 3 days then one a day Active Hydrochlorothiazide 25 MG TAKE 1 TABLET BY MOUTH DAILY NEEDED FOR SWELLING. 90 Active Potassium Chloride 10 MEQ Orally three times per day 1 capsule with fo od Active Cetirizine HCl 10 MG TAKE 1 TABLET BY MOUTH DAILY 30 Active cetirizine 10 mg 1 tablet by Oral route 1 daily January, Active Ergocalciferol 22411 iu Orally 1 time per week Active Montelukast Sodium 10 MG TAKE 1 TABLET BY MOUTH DAILY IN THE KATY STEPHANE 30 Active Melatonin 3 MG Orally Once a day 2tablet at bedtime as needed with frank d 24h Active Aspirin Adult Low Dose 81 MG Orally Once a day 1 tablet 24h Active Levetiracetam 500 mg Orally Twice a day take 3 tabs 12h May, Active Meloxicam 15 MG TAKE 1 TABLET BY MOUTH DAILY 30 Active Lacosamide 200 mg Orally twice a day 1 tablet 12h 30 days Active Pregabalin 200 mg Orally three times a day 1 capsule 8h Active Ramelteon 8 MG Orally Once a day 1 tablet at bedtime as needed 24h Active Baclofen 10 mg Orally 2 times a day 1 tablet with food or milk 12h Active Simvastatin 20 MG TAKE 1 TABLET AT BEDTIME. 30 Active Magic Mouthwash Apply medicated swab to sore areas of the mouth to numb the pain As needed Dip cotton swab into medication January, As needed Active Symbicort 160-4.5 MCG/ACT Inhalation Twice a day 2 puffs 12h Sep, Active Senna Concentrate 8.6 MG Orally three times per day 1 tablet Active Ranitidine HCl 150 MG TAKE 1 TABLET BY MOUTH TWICE DAILY 30 Active Citalopram Hydrobromide 40 MG TAKE 1 TABLET BY MOUTH DAILY 30 Active Vimpat 200 mg Orally twice a day 1 tablet 12h Feb, 9 0 days Active Omeprazole 40 MG Orally Once a day 1 capsule 24h Active Lansoprazole 30 MG Orally 2 times a day 1 capsule 12h Active Sucralfate 1 GM 1 tablet on an empty stomach 30 minutes before meals and at bedtime Orally 9 Active Potassium Chloride ER 10 MEQ TAKE 1 CAPSULE BY MOUTH THREE T IMES DAILY 30 Active RESULTS No Results PROCEDURES Procedure Date Ordered Result Body Site Dental no charge Jul 04, 2017 INSTRUCTIONS MEDICATIONS ADMINISTERED No Known Medications MEDICAL (GENERAL) HISTORY Type Description Date Medical History seizures Medical History hyperlipidemia Medical History constipation Surgical History cholecystectomy Surgical History hysterectomy Surgical History appendectomy Hospitalization History seizures Hospitalization History surgeries Hospitalization History seizures 2015 Hospitalization History pneumonia 2015
--- OUTSIDE RECORDS SUMMARY | 2020-03-30 16:41 | XMS REPORT ---
Author Author Riri DUMAS Organization [facility] Address [address] [place] [address] Care Team Providers Care Road Design Draftsperson Name Role Phone PUSHPA DUMAS Unavailable PROBLEMS Type Condition ICD9-CM Code [id number] Code Onset Dates Condition S tatus SNOMED Code Problem Epigastric pain R10.13 Active 7992 2009 Problem Cough due to bronchospasm J98.01 Acti ve 0098907 Problem Chronic idiopathic constipation K59.04 Active 59283456 Problem Vertigo R42 Active 238415009 Problem Pain in joint, upper arm 719.42 Activ e 595488261 Problem Adolescent idiopathic scoliosis of thoracolumbar region M41.125 Active 189074881 Problem Pain in joint, forearm 719.43 Active 901296115 Problem Pain in joint, ankle and foot 719.47 Active 115829666 Problem Frequent headaches R51 Active 7 38019508 Problem Mild intermittent asthma without complication J45. 20 Active 776253359 Problem Pain in right knee M25.561 Active 3 9490469 Problem Low back pain M54.5 Active 484773 007 Problem Unspecified urinary calculus 592.9 A ctive 528094941 Problem Unspecified hemorrhoids without mention of complication 45 5.6 Active 05977715 Problem Unspecified urticaria 708.9 Active 251616788 Problem Lumbago 724.2 Active 648634397 Problem Seizure disorder G40.909 Active 128 397558 Problem Mikayla-rectal abscess K61.1 Active 28579464 Problem Delirium due to conditions classified elsewhere 293.0 Active 4830637 Problem Asthma exacerbation J45.901 Active 667036241 Problem Scoliosis (and kyphoscoliosis), idiopathic 737.30 Active 50404942 Problem Edema, unspecified R60.9 Active 7 4815657 Problem Duodenitis K29.80 Active 50318618 ALLERGIES Substance Reaction Event Type Date Status Codeine Sulfate itching Drug Allergy Jul, Active Tramadol Unknown Drug Allergy Jul, Active Surgical Tape And Bandaids Unknown Non Drug Allergy Jul, 17 Active ENCOUNTERS Encounter Location Date Diagnosis [facility] [place] [address] [facility] [address] [id number] [place] [address] 537232 Dec, [facility] [place] [address] [facility] [address] [id number] [place] [address] 495878 Dec, [facility] [place] [address] [facility] [address] [id number] [place] [address] 266109 Dec, [facility] [place] [address] [facility] [address] [id number] [place] [address] 394363 Nov, Vertigo R42 and Seizure disorder G40.909 [facility] [place] [address] [facility] [address] [id number] [place] [address] 903571 Aug, Dental examination Z01.20 [facility] [place] [address] [facility] [address] [id number] [place] [address] 145006 Jul, Dental examination Z01.20 [facility] [place] [address] [facility] [address] [id number] [place] [address] 001126 Jul, [facility] [place] [address] [facility] [address] [id number] [place] [address] 796069 Jul, [facility] [place] [address] [facility] [address] [id number] [place] [address] 321536 Jul, Dental examination Z01.20 [facility] [place] [address] [facility] [address] [id number] [place] [address] 248075 Jun, [facility] [place] [address] [facility] [address] [id number] [place] [address] 477434 Jun, Dental examination Z01.20 [facility] [place] [address] [facility] [address] [id number] [place] [address] 479389 Jun, [facility] [place] [address] [facility] [address] [id number] [place] [address] 845127 Jun, Dental examination Z01.20 [facility] [place] [address] [facility] [address] [id number] [place] [address] 359618 Jun, Edema, unspecified R60.9 ; Screening for lipoid disorders Z13.220 and Pericardial effusion I31.3 [facility] [place] [address] [facility] [address] [id number] [place] [address] 330166 May, [facility] [place] [address] [place] [address] [address] [id number] [place] [address] 600888 May, Acute costochondritis M94.0 ; Frequent headaches R51 and Seizure disorder G40.909 [facility] [place] [address] [place] [address] [address] [id number] [place] [address] 106315 May, Pericardial effusion I31.[address] [facility] [place] [address] [place] [address] [address] [id number] [place] [address] 038140 May, [facility] [place] [address] [place] [address] [address] [id number] [place] [address] 968436 Feb, [facility] [place] [address] [place] [address] [address] [id number] [place] [address] 598286 January, Seizure disorder G40.909 [facility] [place] [address] [place] [address] [address] [id number] [place] [address] 557645 January, Dental examination Z01.20 [facility] [place] [address] [place] [address] [address] [id number] [place] [address] 957877 Dec, Seizure disorder G40.909 ; Low back pain M54.5 ; Cervical radiculopathy M54.12 ; Mild intermittent asthma without complication J45.20 ; Frequent headaches R51 ; Adolescent idiopathic scoliosis of thoracolumbar region M41.125 and Pain in right knee M25.561 [facility] [place] [address] [place] [address] [address] [id number] [place] [address] 240591 Nov, [facility] [place] [address] [place] [address] [address] [id number] [place] [address] 190062 Nov, [facility] [place] [address] [place] [address] [address] [id number] [place] [address] 152842 Nov, Epigastric pain R10.13 ; Asthma exacerbation J45.901 and Seizure disorder G40.909 [facility] [place] [address] [place] [address] [address] [id number] [place] [address] 784154 Oct, Seizure disorder G40.909 ; Chronic idiopathic constipation K59.04 and Cough due to bronchospasm J98.01 [facility] [place] [address] [facility] [address] [id number] [place] [address] 836664 Oct, Duodenitis K29.80 ; Epigastric pain R10.13 ; Seizure disorder G40.909 and Chronic idiopathic constipation K59.04 [facility] [place] [address] [facility] [address] [id number] [place] [address] 395526 Oct, Dental examination Z01.20 [facility] [place] [address] [facility] [address] [id number] [place] [address] 630109 Sep, Duodenitis K29.80 ; Epigastric pain R10.13 ; Seizure disorder G40.909 and Asthma exacerbation J45.901 [facility] [place] [address] [facility] [address] [id number] [place] [address] 078972 Sep, Epigastric pain R10.13 and Seizure disorder G40.909 [facility] [place] [address] [facility] [address] [id number] [place] [address] 698513 Sep, [facility] [place] [address] [facility] [address] [id number] [place] [address] 222494 Aug, Seizure disorder G40.909 [facility] [place] [address] [facility] [address] [id number] [place] [address] 291760 Aug, Seizure disorder G40.909 ; Asthma exacerbation J45.901 and Epigastric pain R10.13 [facility] [place] [address] [facility] [address] [id number] [place] [address] 660421 Aug, Bronchitis J40 ; Asthma exacerbation J45.901 and Epigastric pain R10.13 [facility] [place] [address] [facility] [address] [id number] [place] [address] 585323 Aug, [facility] [place] [address] [facility] [address] [id number] [place] [address] 071595 Aug, [facility] [place] [address] [facility] [address] [id number] [place] [address] 547038 Aug, [facility] [place] [address] [facility] [address] [id number] [place] [address] 789917 Jul, Dental examination Z01.20 [facility] [place] [address] [facility] [address] [id number] [place] [address] 109382 Jun, Acute pain of left knee M25.562 and Miakyla-rectal abscess K61.1 [facility] [place] [address] [facility] [address] [id number] [place] [address] 790013 Jun, [facility] [place] [address] [facility] [address] [id number] [place] [address] 447207 Jun, Dental examination Z01.20 [facility] [place] [address] [facility] [address] [id number] [place] [address] 001037 May, [facility] [place] [address] [facility] [address] [id number] [place] [address] 485987 May, Seizure disorder G40.909 and Partial symptomatic epilepsy with complex partial seizures, not intractable, 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.209 [facility] [place] [address] [facility] [address] [id number] [place] [address] 610594 May, Screening for lipoid disorders Z13.220 and Edema, unspecified R60.9 [facility] [place] [address] [facility] [address] [id number] [place] [address] 686060 Apr, [facility] [place] [address] [facility] [address] [id number] [place] [address] 982590 Apr, [facility] [address] [facility] [id number] [address] [place] [address] [id number] Apr, Dental examination V72.2 [facility] [address] [facility] [id number] [address] [place] [address] Dec, [facility] [address] [facility] [id number] [address] [place] [address] Dec, [facility] [address] [facility] [id number] [place] [address] 059437 Sep, [facility] [address] [facility] [id number] [address] [place] [phone] Sep, [facility] [address] [facility] [id number] [address] [place] [address] Jun, [facility] [address] [facility] [id number] [address] [place] [phone] Jun, [facility] [place] [address] [id number] [place] [address] 614001 Jun, [facility] [address] [id number] [address] [place] [address], [place] [address] Jun, [facility] [address] [id number] [address] [place] [address], [place] [address] May, [facility] [place] [address] [id number] [place] [address] 055615 May, [facility] [place] [address] [id number] [place] [address] 222228 May, [facility] [address] [id number] [address] [place] [address], [place] [address] May, [facility] [address] [id number] [address] [place] [address], [place] [address] Mar, [facility] [place] [address] [id number] [place] [address] [id number] Mar, [facility] [address] [id number] [address] [place] [address], [place] [address] Mar, [facility] [place] [address] [facility] [address] [id number] [place] [address] 050434 Mar, [facility] [address] [id number] [address] [place] [phone] Mar, [facility] [address] [id number] [address] [place] [address], [place] [address] Feb, [facility] [place] [address] [id number] [place] [address] 398046 Feb, [facility] [address] [id number] [address] [place] [address], [place] [address] Feb, [facility] [place] [address] [id number] [place] [address] 581659 Feb, [facility] [address] [id number] [address] [place] [phone] Feb, [facility] [place] [address] [facility] [address] [id number] [place] [address] 855492 January, [facility] [address] [facility] [id number] [address] [place] [address] January, [facility] [place] [address] [facility] [address] [id number] [place] [address] 803738 May, [facility] [place] [address] [facility] [address] [id number] [place] [address] 968304 May, [facility] [address] [facility] [id number] [address] [place] [phone] Oct, [facility] [address] [facility] [id number] [address] [place] [phone] Aug, [facility] [address] [facility] [id number] [address] [place] [phone] Nov, [facility] [address] [facility] [id number] [address] [place] [address] Sep, IMMUNIZATIONS No Known Immunizations SOCIAL HISTORY Never Assessed REASON FOR VISIT recheck PLAN OF CARE VITAL SIGNS MEDICATIONS Medication Instructions Dosage Frequency Start Date End Date Duration S tatus Aspirin Adult Low Dose 81 MG Orally Once a day 1 tablet 24h Active Ranitidine HCl 150 MG TAKE 1 TABLET BY MOUTH TWICE DAILY 30 Active Lansoprazole 30 MG Orally 2 times a day 1 capsule 12h Active PredniSONE 20 MG two a day for 3 days then one a day Active Vimpat 200 mg Orally twice a day 1 tablet 12h Feb, 9 0 days Active Ergocalciferol 32694 iu Orally 1 time per week Active Ramelteon 8 MG Orally Once a day 1 tablet at bedtime as needed 24h Active Potassium Chloride ER 10 MEQ TAKE 1 CAPSULE BY MOUTH THREE T IMES DAILY 30 Active Baclofen 10 mg Orally 2 times a day 1 tablet with food or milk 12h Active Melatonin 3 MG Orally Once a day 2tablet at bedtime as needed with frank d 24h Active cetirizine 10 mg 1 tablet by Oral route 1 daily January, Active Meloxicam 15 MG TAKE 1 TABLET BY MOUTH DAILY 30 Active Lacosamide 200 mg Orally twice a day 1 tablet 12h 30 days Active Omeprazole 40 MG Orally Once a day 1 capsule 24h Active Symbicort 160-4.5 MCG/ACT Inhalation Twice a day 2 puffs 12h Sep, Active Potassium Chloride 10 MEQ Orally three times per day 1 capsule with fo od Active Simvastatin 20 MG TAKE 1 TABLET AT BEDTIME. 30 Active Magic Mouthwash Apply medicated swab to sore areas of the mouth to numb the pain As needed Dip cotton swab into medication January, As needed Active Sucralfate 1 GM 1 tablet on an empty stomach 30 minutes before meals and at bedtime Orally 9 Active Senna Concentrate 8.6 MG Orally three times per day 1 tablet Active Citalopram Hydrobromide 40 MG TAKE 1 TABLET BY MOUTH DAILY 30 Active Montelukast Sodium 10 MG TAKE 1 TABLET BY MOUTH DAILY IN [facility] 30 Active Cetirizine HCl 10 MG TAKE 1 TABLET BY MOUTH DAILY 30 Active Pregabalin 200 mg Orally three times a day 1 capsule 8h Active Levetiracetam 500 mg Orally Twice a day take 3 tabs 12h May, Active Hydrochlorothiazide 25 MG TAKE 1 TABLET BY MOUTH DAILY NEEDED FOR SWELLING. 90 Active Zonisamide 100 MG Orally Once a day 1 capsule 24h Active RESULTS No Results PROCEDURES Procedure Date Ordered Result Body Site Dental no charge Jul 11, 2017 INSTRUCTIONS MEDICATIONS ADMINISTERED No Known Medications MEDICAL (GENERAL) HISTORY Type Description Date Medical History seizures Medical History hyperlipidemia Medical History constipation Surgical History cholecystectomy Surgical History hysterectomy Surgical History appendectomy Hospitalization History seizures Hospitalization History surgeries Hospitalization History seizures 2015 Hospitalization History pneumonia 2015
--- OUTSIDE RECORDS SUMMARY | 2020-03-30 16:41 | XMS REPORT ---
Author Author Riri DUMAS [facility] Address Unknown Phone Unavailable Care Team Providers Care Shellfish Dredge Operator Name Role Phone PUSHPA DUMAS Unavailable Allergies No Known Allergies Problems Problem Type Condition Code Onset Dates Condition Statu s Problem Edema 782.3 Active Problem Unspecified urticaria 708.9 Active Problem Unspecified hemorrhoids without mention of complicatio n 455.6 Active Problem Edema, unspecified R60.9 Active Problem Urinary tract infection, site not specified 599.0 Active Problem Seizure disorder G40.909 Active Problem Other screening breast examination V76.19 Active Problem Routine gynecological examination V72.31 Active Problem Hematuria, unspecified 599.70 Activ e Problem Other screening mammogram V76.12 Ac tive Problem Pain in joint, upper arm 719.42 Act uzair Problem Scoliosis (and kyphoscoliosis), idiopathic 737.30 Active Problem Pain in joint, ankle and foot 719.47 Active Problem Pain in joint, forearm 719.43 Activ e Problem Unspecified urinary calculus 592.9 Active Problem Lumbago 724.2 Active Problem Delirium due to conditions classified elsewhere 293.0 Active Medications No Known Medications Results No Known Results Summary Purpose eClinicalWorks Submission
--- OUTSIDE RECORDS SUMMARY | 2020-03-30 16:41 | XMS REPORT ---
Author Author Riri DUMAS Organization [facility] Address [address] [place] [address] Care Team Providers Care Nurse Quality Name Role Phone PUSHPA DUMAS Unavailable PROBLEMS Type Condition ICD9-CM Code [id number] Code Onset Dates Condition S tatus SNOMED Code Problem Duodenitis K29.80 Active 24385016 Problem Chronic idiopathic constipation K59.04 Active 06047021 Problem Epigastric pain R10.13 Active 7992 2009 Problem Low back pain M54.5 Active 081887 007 Problem Lumbago 724.2 Active 569972322 Problem Mild intermittent asthma without complication J45. 20 Active 414614252 Problem Pain in joint, forearm 719.43 Active 940385963 Problem Pain in joint, upper arm 719.42 Activ e 651617561 Problem Pain in right knee M25.561 Active 3 2611756 Problem Cough due to bronchospasm J98.01 Acti ve 9851886 Problem Frequent headaches R51 Active 7 45236213 Problem Adolescent idiopathic scoliosis of thoracolumbar region M41.125 Active 724504547 Problem Unspecified urinary calculus 592.9 A ctive 503285146 Problem Delirium due to conditions classified elsewhere 293.0 Active 0539349 Problem Scoliosis (and kyphoscoliosis), idiopathic 737.30 Active 17985599 Problem Pain in joint, ankle and foot 719.47 Active 430905381 Problem Edema, unspecified R60.9 Active 7 0966240 Problem Seizure disorder G40.909 Active 128 339564 Problem Unspecified hemorrhoids without mention of complication 45 5.6 Active 36979480 Problem Mikayla-rectal abscess K61.1 Active 81659865 Problem Unspecified urticaria 708.9 Active 234057492 Problem Asthma exacerbation J45.901 Active 898923696 ALLERGIES Substance Reaction Event Type Date Status Tramadol Unknown Drug Allergy Jun, Active Surgical Tape And Bandaids Unknown Non Drug Allergy Jun, 16 Active SOCIAL HISTORY No smoking Hx information available PLAN OF CARE Activity Details Follow Up 30 min extraction #2 pending medical clearance Reason: VITAL SIGNS Height 61 in 2016-06-11 Blood pressure systolic 119 mmHg 2016-06-11 Blood pressure diastolic 73 mmHg 2016-06-11 MEDICATIONS Medication Instructions Dosage Frequency Start Date End Date Duration S tatus Baclofen 10 mg Orally 2 times a day 1 tablet with food or milk 12h Active Ergocalciferol 10782 iu Orally 1 time per week Active Hydrochlorothiazide 25 MG TAKE 1 TABLET DAILY NEEDED FOR SWELLING. 90 Active Aspirin Adult Low Dose 81 MG Orally Once a day 1 tablet 24h Active Melatonin 3 MG Orally Once a day 2tablet at bedtime as needed with frank d 24h Active Pregabalin 200 mg Orally three times a day 1 capsule 8h Active Lacosamide 150 MG Orally twice a day 1 tablet 12h Active Montelukast Sodium 10 MG Orally Once a day 1 tablet in the evening 24h Active Potassium Chloride 10 MEQ Orally three times per day 1 capsule with fo od Active Ramelteon 8 MG Orally Once a day 1 tablet at bedtime as needed 24h Active cetirizine 10 mg 1 tablet by Oral route 1 daily January, Active Senna Concentrate 8.6 MG Orally three times per day 1 tablet Active Meloxicam 15 mg Orally 2 times a day 0.5 Tablet 12h January, Active Citalopram Hydrobromide 40 mg Orally Once a day 1 tablet 24h Active Amoxicillin 500 MG Orally 4 times a day 1 capsule 6h 10 days Active Levetiracetam 500 mg Orally Twice a day take 3 tabs 12h May, Active Simvastatin 20 MG Orally Once a day 1 tablet in the evening 24h Active RESULTS No Results PROCEDURES Procedure Date Ordered Related Diagnosis Body Site LTD ORAL EVALUATION - PROBLEM FOCUS Jun 11, 2016 INTRAORL-PERIAPICAL 1 FILM [id number] Jun 11, 2016 IMMUNIZATIONS No Known Immunizations
--- OUTSIDE RECORDS SUMMARY | 2020-03-30 16:41 | XMS REPORT ---
Author Author Riri MAGANA Organization [facility] Address [address] [place] [address] Care Team Providers Care Exploration Driller Name Role Phone JOSE MAGANA Unavailable PROBLEMS Type Condition ICD9-CM Code ZSF49-TG Code Onset Dates Condition S tatus SNOMED Code Problem Duodenitis K29.80 Active 90028453 Problem Chronic idiopathic constipation K59.04 Active 23516090 Problem Epigastric pain R10.13 Active 7992 2009 Problem Pain in right knee M25.561 Active 3 2372407 Problem Pain in joint, forearm 719.43 Active 522365348 Problem Low back pain M54.5 Active 069826 007 Problem Pain in joint, ankle and foot 719.47 Active 630229269 Problem Scoliosis (and kyphoscoliosis), idiopathic 737.30 Active 87602928 Problem Adolescent idiopathic scoliosis of thoracolumbar region M41.125 Active 999181758 Problem Cough due to bronchospasm J98.01 Acti ve 2413533 Problem Frequent headaches R51 Active 7 31542023 Problem Mild intermittent asthma without complication J45. 20 Active 477193434 Problem Lumbago 724.2 Active 754624451 Problem Unspecified urinary calculus 592.9 A ctive 316902854 Problem Pain in joint, upper arm 719.42 Activ e 062995352 Problem Unspecified urticaria 708.9 Active 302509788 Problem Edema, unspecified R60.9 Active 7 2152704 Problem Seizure disorder G40.909 Active 128 289455 Problem Unspecified hemorrhoids without mention of complication 45 5.6 Active 43912851 Problem Mikayla-rectal abscess K61.1 Active 55073823 Problem Delirium due to conditions classified elsewhere 293.0 Active 0666497 Problem Asthma exacerbation J45.901 Active 941909911 ALLERGIES Substance Reaction Event Type Date Status Tramadol Unknown Drug Allergy Oct, Active Surgical Tape And Bandaids Unknown Non Drug Allergy Oct, 17 Active SOCIAL HISTORY No smoking Hx information available PLAN OF CARE Activity Details Follow Up [place] Reason: VITAL SIGNS Blood pressure systolic 120 mmHg 2016-10-09 Blood pressure diastolic 80 mmHg 2016-10-09 MEDICATIONS Medication Instructions Dosage Frequency Start Date End Date Duration S fior Simvastatin 20 MG Orally Once a day 1 tablet in the evening 24h Active Levetiracetam 500 mg Orally Twice a day take 3 tabs 12h 25 May, 2013 Active Hydrochlorothiazide 25 MG TAKE 1 TABLET DAILY NEEDED FOR SWELLING. 90 Active Potassium Chloride 10 MEQ Orally three times per day 1 capsule with fo od Active Senna Concentrate 8.6 MG Orally three times per day 1 tablet Active Lacosamide 200 mg Orally twice a day 1 tablet 12h 30 days Active Ergocalciferol 79809 iu Orally 1 time per week Active Symbicort 160-4.5 MCG/ACT Inhalation Twice a day 2 puffs 12h Sep, Active Meloxicam 15 MG TAKE 1 TABLET BY MOUTH DAILY 30 Active Melatonin 3 MG Orally Once a day 2tablet at bedtime as needed with frank d 24h Active Citalopram Hydrobromide 40 MG TAKE 1 TABLET BY MOUTH DAILY 30 Active Pregabalin 200 mg Orally three times a day 1 capsule 8h Active Aspirin Adult Low Dose 81 MG Orally Once a day 1 tablet 24h Active Nexium 40 MG Orally Once a day 1 capsule 24h 10 Sep, 2016 30 day(s) Active Ramelteon 8 MG Orally Once a day 1 tablet at bedtime as needed 24h Active cetirizine 10 mg 1 tablet by Oral route 1 daily January, Active Montelukast Sodium 10 MG TAKE 1 TABLET BY MOUTH IN THE EVENING 30 Active Zonisamide 100 MG Orally Once a day 1 capsule 24h Active Baclofen 10 mg Orally 2 times a day 1 tablet with food or milk 12h Active Omeprazole 40 MG Orally Once a day 1 capsule 24h Active RESULTS No Results PROCEDURES Procedure Date Ordered Related Diagnosis Body Site COMP ORAL EVALUATION - NEW/EST PT Oct 09, 2016 INTRAORL-PERIAPICAL 1 FILM 21555 Oct 09, 2016 Billing Notes on claim Oct 09, 2016 PANORAMIC FILM SEE ALSO CODE [id number] Oct 09, 2016 INTRAORL-PERIAPICAL EA ADD FILM Oct 09, 2016 BITEWINGS - THREE FILMS Oct 09, 2016 PROPHYLAXIS - ADULT Oct 09, 2016 IMMUNIZATIONS No Known Immunizations
--- OUTSIDE RECORDS SUMMARY | 2020-03-30 16:41 | XMS REPORT ---
Author Author Riri FLOYD Organization [facility] Address [address] [place] [address] Care Team Providers Care Insurance Account Manager Name Role Phone OZ FLOYD Unavailable PROBLEMS Type Condition ICD9-CM Code NVF48-NA Code Onset Dates Condition S tatus SNOMED Code Problem Epigastric pain R10.13 Active 7992 2009 Problem Cough due to bronchospasm J98.01 Acti ve 3682445 Problem Chronic idiopathic constipation K59.04 Active 98478671 Problem Vertigo R42 Active 141328193 Problem Pain in joint, upper arm 719.42 Activ e 845741956 Problem Adolescent idiopathic scoliosis of thoracolumbar region M41.125 Active 176187991 Problem Pain in joint, forearm 719.43 Active 346015632 Problem Pain in joint, ankle and foot 719.47 Active 738996815 Problem Frequent headaches R51 Active 7 71997920 Problem Mild intermittent asthma without complication J45. 20 Active 495178034 Problem Pain in right knee M25.561 Active 3 8222051 Problem Low back pain M54.5 Active 513116 007 Problem Unspecified urinary calculus 592.9 A ctive 576168852 Problem Unspecified hemorrhoids without mention of complication 45 5.6 Active 83504132 Problem Unspecified urticaria 708.9 Active 750100223 Problem Lumbago 724.2 Active 292573362 Problem Seizure disorder G40.909 Active 128 362234 Problem Mikayla-rectal abscess K61.1 Active 31177683 Problem Delirium due to conditions classified elsewhere 293.0 Active 3827646 Problem Asthma exacerbation J45.901 Active 965912207 Problem Scoliosis (and kyphoscoliosis), idiopathic 737.30 Active 99316472 Problem Edema, unspecified R60.9 Active 7 4364381 Problem Duodenitis K29.80 Active 77828625 ALLERGIES No Information ENCOUNTERS Encounter Location Date Diagnosis [facility] [place] [address] [address] [id number] [place] [address] [id number] Dec, [facility] [place] [address] [facility] [address] [id number] [place] [address] 056480 Dec, [facility] [place] [address] [address] [id number] [place] [address] 220664 Dec, [facility] [place] [address] [facility] [address] [id number] [place] [address] 892692 Nov, Vertigo R42 and Seizure disorder G40.909 [facility] [place] [address] [facility] [address] [id number] [place] [address] 619682 Aug, Dental examination Z01.20 [facility] [place] [address] [facility] [address] [id number] [place] [address] 357819 Jul, Dental examination Z01.20 [facility] [place] [address] [facility] [address] [id number] [place] [address] 858623 Jul, [facility] [place] [address] [facility] [address] [id number] [place] [address] 841695 Jul, [facility] [place] [address] [facility] [address] [id number] [place] [address] 278863 Jul, Dental examination Z01.20 [facility] [place] [address] [facility] [address] [id number] [place] [address] 579017 Jun, [facility] [place] [address] [facility] [address] [id number] [place] [address] 207818 Jun, Dental examination Z01.20 [facility] [place] [address] [facility] [address] [id number] [place] [address] 867623 Jun, [facility] [place] [address] [facility] [address] [id number] [place] [address] 355448 Jun, Dental examination Z01.20 [facility] [place] [address] [id number] [place] [address] 375406 Jun, Edema, unspecified R60.9 ; Screening for lipoid disorders Z13.220 and Pericardial effusion I31.3 [facility] [place] [address] [facility] [address] [id number] [place] [address] 771553 May, [facility] [place] [address] [facility] [address] [id number] [place] [address] [id number] 27 May, 2017 Acute costochondritis M94.0 ; Frequent headaches R51 and Seizure disorder G40.909 [facility] [place] [address] [facility] [address] [id number] [place] [address] 422785 May, Pericardial effusion I31.[address] [facility] [place] [address] [place] [address] [address] [id number] [place] [address] 214913 May, [facility] [place] [address] [place] [address] [address] [id number] [place] [address] 180666 Feb, [facility] [place] [address] [place] [address] [address] [id number] [place] [address] 003198 January, Seizure disorder G40.909 [facility] [place] [address] [place] [address] [address] [id number] [place] [address] 086926 January, Dental examination Z01.20 [facility] [place] [address] [place] [address] [address] [id number] [place] [address] 458740 Dec, Seizure disorder G40.909 ; Low back pain M54.5 ; Cervical radiculopathy M54.12 ; Mild intermittent asthma without complication J45.20 ; Frequent headaches R51 ; Adolescent idiopathic scoliosis of thoracolumbar region M41.125 and Pain in right knee M25.561 [facility] [place] [address] [place] [address] [address] [id number] [place] [address] 141135 Nov, [facility] [place] [address] [place] [address] [address] [id number] [place] [address] 633270 Nov, [facility] [place] [address] [place] [address] [address] [id number] [place] [address] 364389 Nov, Epigastric pain R10.13 ; Asthma exacerbation J45.901 and Seizure disorder G40.909 [facility] [place] [address] [place] [address] [address] [id number] [place] [address] 099884 Oct, Seizure disorder G40.909 ; Chronic idiopathic constipation K59.04 and Cough due to bronchospasm J98.01 [facility] [place] [address] [place] [address] [address] [id number] [place] [address] 475338 Oct, Duodenitis K29.80 ; Epigastric pain R10.13 ; Seizure disorder G40.909 and Chronic idiopathic constipation K59.04 [facility] [place] [address] [facility] [address] [id number] [place] [address] 508721 Oct, Dental examination Z01.20 [facility] [place] [address] [facility] [address] [id number] [place] [address] 492074 Sep, Duodenitis K29.80 ; Epigastric pain R10.13 ; Seizure disorder G40.909 and Asthma exacerbation J45.901 [facility] [place] [address] [facility] [address] [id number] [place] [address] 966486 Sep, Epigastric pain R10.13 and Seizure disorder G40.909 [facility] [place] [address] [facility] [address] [id number] [place] [address] 154530 Sep, [facility] [place] [address] [facility] [address] [id number] [place] [address] 226251 Aug, Seizure disorder G40.909 [facility] [place] [address] [place] [address] [address] [id number] [place] [address] 873709 Aug, Seizure disorder G40.909 ; Asthma exacerbation J45.901 and Epigastric pain R10.13 [facility] [place] [address] [facility] [address] [id number] [place] [address] 101731 Aug, Bronchitis J40 ; Asthma exacerbation J45.901 and Epigastric pain R10.13 [facility] [place] [address] [facility] [address] [id number] [place] [address] 680797 Aug, [facility] [place] [address] [facility] [address] [id number] [place] [address] 276819 Aug, [facility] [place] [address] [facility] [address] [id number] [place] [address] 416550 Aug, [facility] [place] [address] [facility] [address] [id number] [place] [address] 007317 Jul, Dental examination Z01.20 [facility] [place] [address] [facility] [address] [id number] [place] [address] 733009 Jun, Acute pain of left knee M25.562 and Mikayla-rectal abscess K61.1 [facility] [place] [address] [place] [address] [address] [id number] [place] [address] 630873 Jun, [facility] [place] [address] [facility] [address] [id number] [place] [address] 113013 Jun, Dental examination Z01.20 [facility] [place] [address] [facility] [address] [id number] [place] [address] 059292 May, [facility] [place] [address] [facility] [address] [id number] [place] [address] 067430 May, Seizure disorder G40.909 and Partial symptomatic epilepsy with complex partial seizures, not intractable, 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.209 [facility] [place] [address] [facility] [address] [id number] [place] [address] 787653 May, Screening for lipoid disorders Z13.220 and Edema, unspecified R60.9 [facility] [place] [address] [facility] [address] [id number] [place] [address] 490334 Apr, [facility] [place] [address] [facility] [address] [id number] [place] [address] 978910 Apr, [facility] [address] [id number] [address] [place] [address] [id number] Apr, Dental examination V72.2 [facility] [address] [facility] [id number] [address] [place] [phone] Dec, [facility] [address] [facility] [id number] [address] [place] [phone] Dec, [facility] [place] [address] [facility] [address] [id number] [place] [address] 057393 Sep, [facility] [address] [facility] [id number] [address] [place] [phone] Sep, [facility] [address] [facility] [id number] [address] [place] [phone] Jun, [facility] [address] [facility] [id number] [address] [place] [phone] Jun, [facility] [place] [address] [facility] [address] [id number] [place] [address] 842978 Jun, [facility] [address] [id number] [facility] [place] [address] Jun, [facility] [place] [address] [id number] [facility] [place] [address] May, [facility] [place] [address] [id number] [place] [address] 578430 May, [facility] [place] [address] [id number] [place] [address] 422799 May, [facility] [place] [facility] [address] [id number] [address] [place] [address], [place] [address] May, [facility] [address] [id number] [address] [place] [address], [place] [address] Mar, [facility] [place] [address] [id number] [place] [address] 120402 Mar, [facility] [address] [id number] [address] [place] [address], [place] [address] Mar, [facility] [place] [address] [id number] [place] [address] 976886 Mar, [facility] [address] [id number] [address] [place] [address], [place] [address] Mar, [facility] [address] [id number] [address] [place] [address], [place] [address] Feb, [facility] [place] [address] [id number] [place] [address] 243719 Feb, [facility] [address] [id number] [address] [place] [address], [place] [address] Feb, [facility] [place] [address] [id number] [place] [address] 178100 Feb, [facility] [address] [id number] [address] [place] [address], [place] [address] Feb, [facility] [place] [address] [id number] [place] [address] 932380 January, [facility] [address] [facility] [id number] [address] [place] [phone] January, [facility] [address] [facility] [address] [id number] [place] [address] 603309 May, [facility] [place] [address] [facility] [id number] [place] [address] 705100 May, [facility] [address] [facility] [id number] [address] [place] [phone] Oct, [facility] [address] [facility] [id number] [address] [place] [phone] Aug, [facility] [address] [facility] [id number] [address] [place] [phone] Nov, [facility] [address] [facility] [id number] [address] [place] [phone] Sep, IMMUNIZATIONS No Known Immunizations SOCIAL HISTORY Never Assessed REASON FOR VISIT Rx Request: [place] PLAN OF CARE VITAL SIGNS MEDICATIONS Unknown [...]
--- OUTSIDE RECORDS SUMMARY | 2020-03-30 16:41 | XMS REPORT ---
Author Author Riri FLOYD Organization [facility] Address [address] [place] [address] Care Team Providers Care Gas Welding Machine Operator Name Role Phone OZ FLOYD Unavailable PROBLEMS Type Condition ICD9-CM Code [id number] Code Onset Dates Condition S tatus SNOMED Code Problem Duodenitis K29.80 Active 94252324 Problem Chronic idiopathic constipation K59.04 Active 26173197 Problem Epigastric pain R10.13 Active 7992 2009 Problem Pain in right knee M25.561 Active 3 1346167 Problem Pain in joint, forearm 719.43 Active 870986120 Problem Low back pain M54.5 Active 699163 007 Problem Pain in joint, ankle and foot 719.47 Active 417097567 Problem Scoliosis (and kyphoscoliosis), idiopathic 737.30 Active 23583956 Problem Adolescent idiopathic scoliosis of thoracolumbar region M41.125 Active 497131010 Problem Cough due to bronchospasm J98.01 Acti ve 5338229 Problem Frequent headaches R51 Active 7 90521453 Problem Mild intermittent asthma without complication J45. 20 Active 641423240 Problem Lumbago 724.2 Active 781659218 Problem Unspecified urinary calculus 592.9 A ctive 808137065 Problem Pain in joint, upper arm 719.42 Activ e 377159938 Problem Unspecified urticaria 708.9 Active 863259132 Problem Edema, unspecified R60.9 Active 7 2403631 Problem Seizure disorder G40.909 Active 128 410055 Problem Unspecified hemorrhoids without mention of complication 45 5.6 Active 63072808 Problem Mikayla-rectal abscess K61.1 Active 72397352 Problem Delirium due to conditions classified elsewhere 293.0 Active 6909307 Problem Asthma exacerbation J45.901 Active 635766682 ALLERGIES No Information SOCIAL HISTORY Never Assessed PLAN OF CARE VITAL SIGNS MEDICATIONS Medication Instructions Dosage Frequency Start Date End Date Duration S tatus Lacosamide 200 mg Orally twice a day 1 tablet 12h 30 days Active RESULTS No Results PROCEDURES No Known procedures IMMUNIZATIONS No Known Immunizations MEDICAL (GENERAL) HISTORY Type Description Date Medical History seizures Medical History hyperlipidemia Medical History constipation Surgical History cholecystectomy Surgical History hysterectomy Surgical History appendectomy Hospitalization History seizures Hospitalization History surgeries Hospitalization History seizures 2015 Hospitalization History pneumonia 2015
--- OUTSIDE RECORDS SUMMARY | 2020-03-30 16:41 | XMS REPORT ---
Author Author Riri FLOYD Organization [facility] Address [address] [place] [address] Care Team Providers Care Computer Aided Drafter Name Role Phone OZ FLOYD Unavailable PROBLEMS Type Condition ICD9-CM Code [id number] Code Onset Dates Condition S tatus SNOMED Code Problem Duodenitis K29.80 Active 92538151 Problem Chronic idiopathic constipation K59.04 Active 26442564 Problem Epigastric pain R10.13 Active 7992 2009 Problem Pain in right knee M25.561 Active 3 6396971 Problem Pain in joint, forearm 719.43 Active 959354074 Problem Low back pain M54.5 Active 131416 007 Problem Pain in joint, ankle and foot 719.47 Active 197200175 Problem Scoliosis (and kyphoscoliosis), idiopathic 737.30 Active 72016590 Problem Adolescent idiopathic scoliosis of thoracolumbar region M41.125 Active 144858641 Problem Cough due to bronchospasm J98.01 Acti ve 4423900 Problem Frequent headaches R51 Active 7 72068606 Problem Mild intermittent asthma without complication J45. 20 Active 425913586 Problem Lumbago 724.2 Active 967486924 Problem Unspecified urinary calculus 592.9 A ctive 170864441 Problem Pain in joint, upper arm 719.42 Activ e 363844119 Problem Unspecified urticaria 708.9 Active 512725902 Problem Edema, unspecified R60.9 Active 7 9826318 Problem Seizure disorder G40.909 Active 128 742549 Problem Unspecified hemorrhoids without mention of complication 45 5.6 Active 19628326 Problem Mikayla-rectal abscess K61.1 Active 29452567 Problem Delirium due to conditions classified elsewhere 293.0 Active 3162574 Problem Asthma exacerbation J45.901 Active 596634148 ALLERGIES Substance Reaction Event Type Date Status Tramadol Unknown Drug Allergy Sep, Active Surgical Tape And Bandaids Unknown Non Drug Allergy 25 Abdulkadir, 20 17 Active SOCIAL HISTORY No smoking Hx information available PLAN OF CARE Activity Details Follow Up 1 Week Reason: VITAL SIGNS Height 61 in 2016-10-02 Weight 246.2 lbs 2016-10-02 Temperature 98.2 degrees Fahrenheit 2016-10-02 Heart Rate 96 bpm 2016-10-02 Respiratory Rate 18 2016-10-02 BMI 46.51 kg/m2 2016-10-02 Blood pressure systolic 120 mmHg 2016-10-02 Blood pressure diastolic 82 mmHg 2016-10-02 MEDICATIONS Medication Instructions Dosage Frequency Start Date End Date Duration S tatus Nexium 40 MG Orally Once a day 1 capsule 24h Sep, 30 day(s) Active Montelukast Sodium 10 MG TAKE 1 TABLET BY MOUTH IN THE EVENING 30 Active Aspirin Adult Low Dose 81 MG Orally Once a day 1 tablet 24h Active Meloxicam 15 MG TAKE 1 TABLET BY MOUTH DAILY 30 Active Omeprazole 40 MG Orally Once a day 1 capsule 24h Active cetirizine 10 mg 1 tablet by Oral route 1 daily January, Active Citalopram Hydrobromide 40 MG TAKE 1 TABLET BY MOUTH DAILY 30 Active Potassium Chloride 10 MEQ Orally three times per day 1 capsule with fo od Active Baclofen 10 mg Orally 2 times a day 1 tablet with food or milk 12h Active Symbicort 160-4.5 MCG/ACT Inhalation Twice a day 2 puffs 12h Sep, Active Levetiracetam 500 mg Orally Twice a day take 3 tabs 12h May, Active Zonisamide 100 MG Orally Once a day 1 capsule 24h Active Pregabalin 200 mg Orally three times a day 1 capsule 8h Active Ramelteon 8 MG Orally Once a day 1 tablet at bedtime as needed 24h Active Lacosamide 200 mg Orally twice a day 1 tablet 12h 30 days Active Simvastatin 20 MG Orally Once a day 1 tablet in the evening 24h Active Melatonin 3 MG Orally Once a day 2tablet at bedtime as needed with frank d 24h Active Senna Concentrate 8.6 MG Orally three times per day 1 tablet Active Hydrochlorothiazide 25 MG TAKE 1 TABLET DAILY NEEDED FOR SWELLING. 90 Active Ergocalciferol 89018 iu Orally 1 time per week Active RESULTS No Results PROCEDURES Procedure Date Ordered Related Diagnosis Body Site Office Visit, Est Pt., Level 3 Oct 02, 2016 IMMUNIZATIONS No Known Immunizations
--- OUTSIDE RECORDS SUMMARY | 2020-03-30 16:41 | XMS REPORT ---
Author Author Riri FLOYD Organization [facility] Address [address] [place] [address] Care Team Providers Care Apparatus Operator Name Role Phone OZ FLOYD Unavailable PROBLEMS Type Condition ICD9-CM Code [id number] Code Onset Dates Condition S tatus SNOMED Code Problem Unspecified hemorrhoids without mention of complication 45 5.6 Active 47840263 Problem Routine gynecological examination V72.31 Active 669933176944157 Problem Unspecified urticaria 708.9 Active 094023301 Problem Seizure disorder G40.909 Active 128 963912 Problem Edema, unspecified R60.9 Active 7 0322170 Problem Other screening mammogram V76.12 Acti ve 84228503 Problem Other screening breast examination V76.19 Active 45108221 Problem Urinary tract infection, site not specified 599.0 Active 55982670 Problem Hematuria, unspecified 599.70 Active 75056994 Problem Pain in joint, upper arm 719.42 Activ e 347338767 Problem Pain in joint, forearm 719.43 Active 212453909 Problem Pain in joint, ankle and foot 719.47 Active 832100708 Problem Unspecified urinary calculus 592.9 A ctive 327139413 Problem Lumbago 724.2 Active 864046683 Problem Delirium due to conditions classified elsewhere 293.0 Active 5096448 Problem Scoliosis (and kyphoscoliosis), idiopathic 737.30 Active 21833564 Problem Edema 782.3 Active 85691925 ALLERGIES Unknown Allergies SOCIAL HISTORY No smoking Hx information available PLAN OF CARE VITAL SIGNS MEDICATIONS Medication Instructions Dosage Frequency Start Date End Date Duration S tatus Pregabalin 200 mg Orally three times a day 1 capsule 8h Active RESULTS No Results PROCEDURES No Known procedures IMMUNIZATIONS No Known Immunizations
--- OUTSIDE RECORDS SUMMARY | 2020-03-30 16:41 | XMS REPORT ---
Author Author Riri FLOYD Organization [facility] Address [address] [place] [address] Care Team Providers Care Tank Refinisher Name Role Phone OZ FLOYD Unavailable PROBLEMS Type Condition ICD9-CM Code YYS87-RA Code Onset Dates Condition S tatus SNOMED Code Problem Epigastric pain R10.13 Active 7992 2009 Problem Cough due to bronchospasm J98.01 Acti ve 6477798 Problem Chronic idiopathic constipation K59.04 Active 11273244 Problem Vertigo R42 Active 388549838 Problem Pain in joint, upper arm 719.42 Activ e 129378349 Problem Adolescent idiopathic scoliosis of thoracolumbar region M41.125 Active 767107478 Problem Pain in joint, forearm 719.43 Active 896368133 Problem Pain in joint, ankle and foot 719.47 Active 027531151 Problem Frequent headaches R51 Active 7 78514503 Problem Mild intermittent asthma without complication J45. 20 Active 033333914 Problem Pain in right knee M25.561 Active 3 2383371 Problem Low back pain M54.5 Active 716380 007 Problem Unspecified urinary calculus 592.9 A ctive 085487700 Problem Unspecified hemorrhoids without mention of complication 45 5.6 Active 15369510 Problem Unspecified urticaria 708.9 Active 982374904 Problem Lumbago 724.2 Active 760653971 Problem Seizure disorder G40.909 Active 128 010811 Problem Mikayla-rectal abscess K61.1 Active 13713878 Problem Delirium due to conditions classified elsewhere 293.0 Active 6818915 Problem Asthma exacerbation J45.901 Active 876369832 Problem Scoliosis (and kyphoscoliosis), idiopathic 737.30 Active 54957828 Problem Edema, unspecified R60.9 Active 7 1129641 Problem Duodenitis K29.80 Active 41099762 ALLERGIES No Information ENCOUNTERS Encounter Location Date Diagnosis [facility] [place] [address] [facility] [address] [id number] [place] [address] 629470 Dec, [facility] [place] [address] [facility] [address] [id number] [place] [address] 465198 Dec, [facility] [place] [address] [facility] [address] [id number] [place] [address] 223946 Dec, [facility] [place] [address] [facility] [address] [id number] [place] [address] 950619 Nov, Vertigo R42 and Seizure disorder G40.909 [facility] [place] [address] [facility] [address] [id number] [place] [address] 980998 Aug, Dental examination Z01.20 [facility] [place] [address] [facility] [address] [id number] [place] [address] 385870 Jul, Dental examination Z01.20 [facility] [place] [address] [facility] [address] [id number] [place] [address] 402091 Jul, [facility] [place] [address] [facility] [address] [id number] [place] [address] 444639 Jul, [facility] [place] [address] [facility] [address] [id number] [place] [address] 760201 Jul, Dental examination Z01.20 [facility] [place] [address] [facility] [address] [id number] [place] [address] 170072 Jun, [facility] [place] [address] [facility] [address] [id number] [place] [address] 216915 Jun, Dental examination Z01.20 [facility] [place] [address] [facility] [address] [id number] [place] [address] 312717 Jun, [facility] [place] [address] [facility] [address] [id number] [place] [address] 949353 Jun, Dental examination Z01.20 [facility] [place] [address] [id number] [place] [address] 812222 Jun, Edema, unspecified R60.9 ; Screening for lipoid disorders Z13.220 and Pericardial effusion I31.3 [facility] [place] [address] [facility] [address] [id number] [place] [address] 289511 May, [facility] [place] [address] [facility] [address] [id number] [place], [place] [address] 440868 27 May, 2017 Acute costochondritis M94.0 ; Frequent headaches R51 and Seizure disorder G40.909 [facility] [place] [address] [facility] [address] [id number] [place] [address] 210198 May, Pericardial effusion I31.3 [facility] [place] [address] [place] [address] [address] [id number] [place] [address] 813220 May, [facility] [place] [address] [place] [address] [address] [id number] [place] [address] 860780 Feb, [facility] [place] [address] [place] [address] [address] [id number] [place] [address] 812226 January, Seizure disorder G40.909 [facility] [place] [address] [place] [address] [address] [id number] [place] [address] 626900 January, Dental examination Z01.20 [facility] [place] [address] [place] [address] [address] [id number] [place] [address] 674665 Dec, Seizure disorder G40.909 ; Low back pain M54.5 ; Cervical radiculopathy M54.12 ; Mild intermittent asthma without complication J45.20 ; Frequent headaches R51 ; Adolescent idiopathic scoliosis of thoracolumbar region M41.125 and Pain in right knee M25.561 [facility] [place] [address] [place] [address] [address] [id number] [place] [address] 199835 Nov, [facility] [place] [address] [place] [address] [address] [id number] [place] [address] 278608 Nov, [facility] [place] [address] [place] [address] [address] [id number] [place] [address] 775024 Nov, Epigastric pain R10.13 ; Asthma exacerbation J45.901 and Seizure disorder G40.909 [facility] [place] [address] [place] [address] [address] [id number] [place] [address] 725262 Oct, Seizure disorder G40.909 ; Chronic idiopathic constipation K59.04 and Cough due to bronchospasm J98.01 [facility] [place] [address] [place] [address] [address] [id number] [place] [address] 869656 Oct, Duodenitis K29.80 ; Epigastric pain R10.13 ; Seizure disorder G40.909 and Chronic idiopathic constipation K59.04 [facility] [place] [address] [facility] [address] [id number] [place] [address] 232595 Oct, Dental examination Z01.20 [facility] [place] [address] [facility] [address] [id number] [place] [address] 997161 Sep, Duodenitis K29.80 ; Epigastric pain R10.13 ; Seizure disorder G40.909 and Asthma exacerbation J45.901 [facility] [place] [address] [facility] [address] [id number] [place] [address] 757844 Sep, Epigastric pain R10.13 and Seizure disorder G40.909 [facility] [place] [address] [facility] [address] [id number] [place] [address] 190777 Sep, [facility] [place] [address] [facility] [address] [id number] [place] [address] 322466 Aug, Seizure disorder G40.909 [facility] [place] [address] [place] [address] [address] [id number] [place] [address] 336155 Aug, Seizure disorder G40.909 ; Asthma exacerbation J45.901 and Epigastric pain R10.13 [facility] [place] [address] [facility] [address] [id number] [place] [address] 308704 Aug, Bronchitis J40 ; Asthma exacerbation J45.901 and Epigastric pain R10.13 [facility] [place] [address] [facility] [address] [id number] [place] [address] 446887 Aug, [facility] [place] [address] [facility] [address] [id number] [place] [address] 839074 Aug, [facility] [place] [address] [facility] [address] [id number] [place] [address] 724367 Aug, [facility] [place] [address] [facility] [address] [id number] [place] [address] 031182 Jul, Dental examination Z01.20 [facility] [place] [address] [facility] [address] [id number] [place] [address] 567167 Jun, Acute pain of left knee M25.562 and Mikayla-rectal abscess K61.1 [facility] [place] [address] [place] [address] [address] [id number] [place] [address] 552813 Jun, [facility] [place] [address] [facility] [address] [id number] [place] [address] 474190 Jun, Dental examination Z01.20 [facility] [place] [address] [facility] [address] [id number] [place] [address] 824869 May, [facility] [place] [address] [facility] [address] [id number] [place] [address] 660661 May, Seizure disorder G40.909 and Partial symptomatic epilepsy with complex partial seizures, not intractable, 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.209 [facility] [place] [address] [facility] [address] [id number] [place] [address] 808337 May, Screening for lipoid disorders Z13.220 and Edema, unspecified R60.9 [facility] [place] [address] [facility] [address] [id number] [place] [address] 940577 Apr, [facility] [place] [address] [facility] [address] [id number] [place] [address] 733860 Apr, [facility] [address] [id number] [address] [place] [address] [id number] Apr, Dental examination V72.2 [facility] [address] [facility] [id number] [address] [place] [address] Dec, [facility] [address] [facility] [id number] [address] [place] [address] Dec, [facility] [place] [address] [facility] [address] [id number] [place] [address] 352324 Sep, [facility] [address] [facility] [id number] [address] [place] [address] Sep, [facility] [address] [facility] [id number] [address] [place] [address] Jun, [facility] [address] [facility] [id number] [address] [place] [address] Jun, [facility] [place] [address] [facility] [address] [id number] [place] [address] 523643 Jun, [facility] [address] [id number] [facility] [place] [address] Jun, [facility] [address] [id number] [facility] [place] [address] May, [facility] [place] [address] [id number] [place] [address] 929457 May, [facility] [place] [address] [id number] [place] [address] 071132 May, [facility] [address] [id number] [address] [place] [address], [place] [address] May, [facility] [address] [id number] [address] [place] [address], [place] [address] Mar, [facility] [place] [address] [id number] [place] [address] 226402 Mar, [facility] [address] [id number] [address] [place] [address], [place] [address] Mar, [facility] [place] [address] [id number] [place] [address] 576174 Mar, [facility] [address] [id number] [address] [place] [address], [place] [address] Mar, [facility] [address] [id number] [address] [place] [address], [place] [address] Feb, [facility] [place] [address] [id number] [place] [address] 830870 Feb, [facility] [address] [id number] [address] [place] [address], [place] [address] Feb, [facility] [place] [address] [id number] [place] [address] 191514 Feb, [facility] [address] [id number] [address] [place] [address], [place] [address] Feb, [facility] [place] [address] [id number] [place] [address] 355861 January, [facility] [address] [facility] [id number] [address] [place] [phone] January, [facility] [address] [facility] [address] [id number] [place] [address] 790907 May, [facility] [place] [address] [facility] [address] [id number] [place] [address] 344158 May, [facility] [address] [facility] [id number] [address] [place] [phone] Oct, [facility] [address] [facility] [id number] [address] [place] [address] Aug, [facility] [address] [facility] [id number] [address] [place] [address] Nov, [facility] [address] [facility] [id number] [address] [place] [phone] Sep, IMMUNIZATIONS No Known Immunizations SOCIAL HISTORY Never Assessed REASON FOR VISIT PALS PLAN OF CARE VITAL SIGNS MEDICATIONS Medication [...]
--- OUTSIDE RECORDS SUMMARY | 2020-03-30 16:41 | XMS REPORT ---
Author Author Riri FLOYD Organization [facility] Address [address] [place] [address] Care Team Providers Care Beverage Host Name Role Phone OZ FLOYD Unavailable PROBLEMS Type Condition ICD9-CM Code NJL00-QL Code Onset Dates Condition S tatus SNOMED Code Problem Epigastric pain R10.13 Active 7992 2009 Problem Cough due to bronchospasm J98.01 Acti ve 2086522 Problem Chronic idiopathic constipation K59.04 Active 88980873 Problem Vertigo R42 Active 913655529 Problem Pain in joint, upper arm 719.42 Activ e 000795404 Problem Adolescent idiopathic scoliosis of thoracolumbar region M41.125 Active 874950819 Problem Pain in joint, forearm 719.43 Active 478219728 Problem Pain in joint, ankle and foot 719.47 Active 438323408 Problem Frequent headaches R51 Active 7 20955230 Problem Mild intermittent asthma without complication J45. 20 Active 917986014 Problem Pain in right knee M25.561 Active 3 9845957 Problem Low back pain M54.5 Active 981060 007 Problem Unspecified urinary calculus 592.9 A ctive 402748327 Problem Unspecified hemorrhoids without mention of complication 45 5.6 Active 69146528 Problem Unspecified urticaria 708.9 Active 206435073 Problem Lumbago 724.2 Active 966801957 Problem Seizure disorder G40.909 Active 128 903178 Problem Mikayla-rectal abscess K61.1 Active 68363631 Problem Delirium due to conditions classified elsewhere 293.0 Active 8097746 Problem Asthma exacerbation J45.901 Active 908712829 Problem Scoliosis (and kyphoscoliosis), idiopathic 737.30 Active 03537855 Problem Edema, unspecified R60.9 Active 7 9714506 Problem Duodenitis K29.80 Active 92034652 ALLERGIES Substance Reaction Event Type Date Status Codeine Sulfate itching Drug Allergy May, Active Tramadol Unknown Drug Allergy May, Active Surgical Tape And Bandaids Unknown Non Drug Allergy May, 17 Active ENCOUNTERS Encounter Location Date Diagnosis [facility] [place] [address] [facility] [address] [id number] [place] [address] 614007 Dec, [facility] [place] [address] [facility] [address] [id number] [place] [address] 340665 Dec, [facility] [place] [address] [facility] [address] [id number] [place] [address] 198358 Dec, [facility] [place] [address] [facility] [address] [id number] [place] [address] 529990 Nov, Vertigo R42 and Seizure disorder G40.909 [facility] [place] [address] [facility] [address] [id number] [place] [address] 498557 Aug, Dental examination Z01.20 [facility] [place] [address] [facility] [address] [id number] [place] [address] 749958 Jul, Dental examination Z01.20 [facility] [place] [address] [facility] [address] [id number] [place] [address] 842477 Jul, [facility] [place] [address] [facility] [address] [id number] [place] [address] 651721 Jul, [facility] [place] [address] [facility] [address] [id number] [place] [address] 634160 Jul, Dental examination Z01.20 [facility] [place] [address] [facility] [address] [id number] [place] [address] 692005 Jun, [facility] [place] [address] [facility] [address] [id number] [place] [address] 517154 Jun, Dental examination Z01.20 [facility] [place] [address] [facility] [address] [id number] [place] [address] 702794 Jun, [facility] [place] [address] [facility] [address] [id number] [place] [address] 448837 Jun, Dental examination Z01.20 [facility] [place] [address] [facility] [address] [id number] [place] [address] 730340 Jun, Edema, unspecified R60.9 ; Screening for lipoid disorders Z13.220 and Pericardial effusion I31.3 [facility] [place] [address] [facility] [address] [id number] [place] [address] 144395 May, [facility] [place] [address] [facility] [address] [id number] [place] [address] 078065 May, Acute costochondritis M94.0 ; Frequent headaches R51 and Seizure disorder G40.909 [facility] [place] [address] [facility] [address] [id number] [place] [address] 526487 May, Pericardial effusion I31.3 [facility] [place] [address] [facility] [address] [id number] [place] [address] 483009 19 May, 2017 [facility] [place] [address] [facility] [address] [id number] [place] [address] 241917 Feb, [facility] [place] [address] [place] [address] [address] [id number] [place] [address] 295654 January, Seizure disorder G40.909 [facility] [place] [address] [place] [address] [address] [id number] [place] [address] 277262 January, Dental examination Z01.20 [facility] [place] [address] [place] [address] [address] [id number] [place] [address] 098292 Dec, Seizure disorder G40.909 ; Low back pain M54.5 ; Cervical radiculopathy M54.12 ; Mild intermittent asthma without complication J45.20 ; Frequent headaches R51 ; Adolescent idiopathic scoliosis of thoracolumbar region M41.125 and Pain in right knee M25.561 [facility] [place] [address] [place] [address] [address] [id number] [place] [address] 004412 Nov, [facility] [place] [address] [place] [address] [address] [id number] [place] [address] 843232 Nov, [facility] [place] [address] [place] [address] [address] [id number] [place] [address] 891656 Nov, Epigastric pain R10.13 ; Asthma exacerbation J45.901 and Seizure disorder G40.909 [facility] [place] [address] [facility] [address] [id number] [place] [address] 353106 Oct, Seizure disorder G40.909 ; Chronic idiopathic constipation K59.04 and Cough due to bronchospasm J98.01 [facility] [place] [address] [facility] [address] [id number] [place] [address] 854853 Oct, Duodenitis K29.80 ; Epigastric pain R10.13 ; Seizure disorder G40.909 and Chronic idiopathic constipation K59.04 [facility] [place] [address] [facility] [address] [id number] [place] [address] 233281 Oct, Dental examination Z01.20 [facility] [place] [address] [facility] [address] [id number] [place] [address] 694768 Sep, Duodenitis K29.80 ; Epigastric pain R10.13 ; Seizure disorder G40.909 and Asthma exacerbation J45.901 [facility] [place] [address] [facility] [address] [id number] [place] [address] 144787 Sep, Epigastric pain R10.13 and Seizure disorder G40.909 [facility] [place] [address] [facility] [address] [id number] [place] [address] 762755 Sep, [facility] [place] [address] [facility] [address] [id number] [place] [address] 927016 Aug, Seizure disorder G40.909 [facility] [place] [address] [facility] [address] [id number] [place] [address] 580318 Aug, Seizure disorder G40.909 ; Asthma exacerbation J45.901 and Epigastric pain R10.13 [facility] [place] [address] [facility] [address] [id number] [place] [address] 589050 Aug, Bronchitis J40 ; Asthma exacerbation J45.901 and Epigastric pain R10.13 [facility] [place] [address] [facility] [address] [id number] [place] [address] 756850 Aug, [facility] [place] [address] [facility] [address] [id number] [place] [address] 058645 Aug, [facility] [place] [address] [facility] [address] [id number] [place] [address] 601368 Aug, [facility] [place] [address] [facility] [address] [id number] [place] [address] 777883 Jul, Dental examination Z01.20 [facility] [place] [address] [facility] [address] [id number] [place] [address] 544185 Jun, Acute pain of left knee M25.562 and Mikayla-rectal abscess K61.1 [facility] [place] [address] [facility] [address] [id number] [place] [address] 890543 Jun, [facility] [place] [address] [facility] [address] [id number] [place] [address] 893907 Jun, Dental examination Z01.20 [facility] [place] [address] [facility] [address] [id number] [place] [address] 075344 May, [facility] [place] [address] [facility] [address] [id number] [place] [address] 359381 May, Seizure disorder G40.909 and Partial symptomatic epilepsy with complex partial seizures, not intractable, 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.209 [facility] [place] [address] [facility] [address] [id number] [place] [address] 337194 May, Screening for lipoid disorders Z13.220 and Edema, unspecified R60.9 [facility] [place] [address] [facility] [address] [id number] [place] [address] 339765 Apr, [facility] [place] [address] [facility] [address] [id number] [place] [address] 667126 Apr, [facility] [address] [facility] [id number] [address] [place] [address] [id number] Apr, Dental examination V72.2 [facility] [place] [address] [facility] [id number] [address] [place] [phone] Dec, [facility] [place] [address] [facility] [id number] [address] [place] [phone] Dec, [facility] [place] [address] [facility] [address] [id number] [place], [place] [address] 793613 Sep, [facility] [place] [address] [facility] [id number] [address] [place] [phone] Sep, [facility] [place] [address] [facility] [id number] [address] [place] [phone] Jun, [facility] [place] [address] [facility] [id number] [address] [place] [phone] Jun, [facility] [place] [address] [id number] [place] [address] 709700 Jun, [facility] [address] [id number] [address] [place] [address], [place] [address] Jun, [facility] [address] [id number] [address] [place] [address], [place] [address] May, [facility] [place] [address] [id number] [place] [address] 204334 May, [facility] [place] [address] [id number] [place] [address] 477801 May, [facility] [address] [id number] [address] [place] [address], [place] [address] May, [facility] [address] [id number] [address] [place] [address], [place] [address] Mar, [facility] [place] [address] [id number] [place] [address] [id number] Mar, [facility] [address] [id number] [address] [place] [address], [place] [address] Mar, [facility] [place] [address] [facility] [address] [id number] [place] [address] 609262 Mar, [facility] [address] [id number] [address] [place] [phone] Mar, [facility] [address] [id number] [address] [place] [address], [place] [address] Feb, [facility] [place] [address] [id number] [place] [address] 879672 Feb, [facility] [address] [id number] [address] [place] [address], [place] [address] Feb, [facility] [place] [address] [id number] [place] [address] 310890 Feb, [facility] [address] [id number] [address] [place] [address], [place] [address] Feb, [facility] [place] [address] [facility] [id number] [place], [place] [address] 955343 January, [facility] [place] [address] [facility] [id number] [address] [place] [phone] January, [facility] [place] [address] [facility] [id number] [place], [place] [address] 591500 May, [facility] [place] [address] [facility] [id number] [place] [address] 124929 May, [facility] [place] [address] [facility] [id number] [address] [place] [phone] Oct, [facility] [place] [address] [facility] [id number] [address] [place] [phone] Aug, [facility] [place] [address] [facility] [id number] [address] [place] [phone] Nov, [facility] [place] [address] [facility] [id number] [address] [place] [phone] Sep, IMMUNIZATIONS No Known Immunizations SOCIAL HISTORY Never Assessed REASON FOR VISIT hosp f/u [facility] -- chest pain; feeling better...............................lwileyr n PLAN OF CARE Activity Details Follow Up 4 Weeks Reason: VITAL SIGNS Height 61 in 2017-06-04 Weight 212.3 lbs 2017-06-04 Temperature 98 degrees Fahrenheit 2017-06-04 Heart Rate 72 bpm 2017-06-04 Respiratory Rate 18 2017-06-04 BMI 40.11 kg/m2 2017-06-04 Blood pressure systolic 120 mmHg 2017-06-04 Blood pressure diastolic 82 mmHg 2017-06-04 MEDICATIONS Medication Instructions Dosage Frequency Start Date End Date Duration S tatus Ramelteon 8 MG Orally Once a day 1 tablet at bedtime as needed 24h Active Lacosamide 200 mg Orally twice a day 1 tablet 12h 30 days Active Baclofen 10 mg Orally 2 times a day 1 tablet with food or milk 12h Active Ranitidine HCl 150 MG TAKE 1 TABLET BY MOUTH TWICE DAILY 30 Active Melatonin 3 MG Orally Once a day 2tablet at bedtime as needed with frank d 24h Active cetirizine 10 mg 1 tablet by Oral route 1 daily January, Active Montelukast Sodium 10 MG TAKE 1 TABLET BY MOUTH DAILY IN THE KATY STEPHANE 30 Active Levetiracetam 500 mg Orally Twice a day take 3 tabs 12h May, Active Ergocalciferol 67608 iu Orally 1 time per week Active Hydrochlorothiazide 25 MG TAKE 1 TABLET BY MOUTH DAILY NEEDED FOR SWELLING. 90 Active Omeprazole 40 MG Orally Once a day 1 capsule 24h Active Symbicort 160-4.5 MCG/ACT Inhalation Twice a day 2 puffs 12h Sep, Active Aspirin Adult Low Dose 81 MG Orally Once a day 1 tablet 24h Active Zonisamide 100 MG Orally Once a day 1 capsule 24h Active Simvastatin 20 MG TAKE 1 TABLET AT BEDTIME. 30 Active PredniSONE 20 MG two a day for 3 days then one a day Active Pregabalin 200 mg Orally three times a day 1 capsule 8h Active Potassium Chloride 10 MEQ Orally three times per day 1 capsule with fo od Active Sucralfate 1 GM 1 tablet on an empty stomach 30 minutes before meals and at bedtime Orally 9 Active Citalopram Hydrobromide 40 MG TAKE 1 TABLET BY MOUTH DAILY 30 Active Meloxicam 15 MG TAKE 1 TABLET BY MOUTH DAILY 30 Active Senna Concentrate 8.6 MG Orally three times per day 1 tablet Active Vimpat 200 mg Orally twice a day 1 tablet 12h Feb, 9 0 days Active Cetirizine HCl 10 MG TAKE 1 TABLET BY MOUTH DAILY 30 Active Magic Mouthwash Apply medicated swab to sore areas of the mouth to numb the pain As needed Dip cotton swab into medication January, As needed Active RESULTS No Results PROCEDURES No Known procedures INSTRUCTIONS MEDICATIONS ADMINISTERED No Known Medications MEDICAL (GENERAL) HISTORY Type Description Date Medical History seizures Medical History hyperlipidemia Medical History constipation Surgical History cholecystectomy Surgical History hysterectomy Surgical History appendectomy Hospitalization History seizures Hospitalization History surgeries Hospitalization History seizures 2015 Hospitalization History pneumonia 2015
--- OUTSIDE RECORDS SUMMARY | 2020-03-30 16:42 | XMS REPORT ---
Author Author Riri DUMAS Organization [facility] Address [address] [place] [address] Care Team Providers Care Meter Tester Primary Name Role Phone PUSHPA DUMAS Unavailable PROBLEMS Type Condition ICD9-CM Code OGE40-OJ Code Onset Dates Condition S tatus SNOMED Code Problem Duodenitis K29.80 Active 64437125 Problem Chronic idiopathic constipation K59.04 Active 94767657 Problem Epigastric pain R10.13 Active 7992 2009 Problem Low back pain M54.5 Active 477206 007 Problem Lumbago 724.2 Active 186823749 Problem Mild intermittent asthma without complication J45. 20 Active 885048670 Problem Pain in joint, forearm 719.43 Active 712810877 Problem Pain in joint, upper arm 719.42 Activ e 326277902 Problem Pain in right knee M25.561 Active 3 5545682 Problem Cough due to bronchospasm J98.01 Acti ve 5296241 Problem Frequent headaches R51 Active 7 85530206 Problem Adolescent idiopathic scoliosis of thoracolumbar region M41.125 Active 151809918 Problem Unspecified urinary calculus 592.9 A ctive 397770030 Problem Delirium due to conditions classified elsewhere 293.0 Active 3475694 Problem Scoliosis (and kyphoscoliosis), idiopathic 737.30 Active 72457222 Problem Pain in joint, ankle and foot 719.47 Active 679270764 Problem Edema, unspecified R60.9 Active 7 4002905 Problem Seizure disorder G40.909 Active 128 220570 Problem Unspecified hemorrhoids without mention of complication 45 5.6 Active 55621400 Problem Mikayla-rectal abscess K61.1 Active 24157061 Problem Unspecified urticaria 708.9 Active 652167753 Problem Asthma exacerbation J45.901 Active 177302594 ALLERGIES Substance Reaction Event Type Date Status Tramadol Unknown Drug Allergy Jul, Active Surgical Tape And Bandaids Unknown Non Drug Allergy Jul, 16 Active SOCIAL HISTORY No smoking Hx information available PLAN OF CARE Activity Details Follow Up MAURICE Reason: VITAL SIGNS Height 61 in 2016-07-12 Blood pressure systolic 132 mmHg 2016-07-12 Blood pressure diastolic 76 mmHg 2016-07-12 MEDICATIONS Medication Instructions Dosage Frequency Start Date End Date Duration S fior Ergocalciferol 38761 iu Orally 1 time per week Active Senna Concentrate 8.6 MG Orally three times per day 1 tablet Active Citalopram Hydrobromide 40 mg Orally Once a day 1 tablet 24h Active Baclofen 10 mg Orally 2 times a day 1 tablet with food or milk 12h Active Melatonin 3 MG Orally Once a day 2tablet at bedtime as needed with frank d 24h Active Cipro 500 MG Orally Twice a day 1 tablet 12h Jun,Jul, 6 10 day(s) Active Simvastatin 20 MG Orally Once a day 1 tablet in the evening 24h Active Aspirin Adult Low Dose 81 MG Orally Once a day 1 tablet 24h Active Montelukast Sodium 10 MG Orally Once a day 1 tablet in the evening 24h Active Ramelteon 8 MG Orally Once a day 1 tablet at bedtime as needed 24h Active cetirizine 10 mg 1 tablet by Oral route 1 daily January, Active Pregabalin 200 mg Orally three times a day 1 capsule 8h Active Hydrochlorothiazide 25 MG TAKE 1 TABLET DAILY NEEDED FOR SWELLING. 90 Active Levetiracetam 500 mg Orally Twice a day take 3 tabs 12h May, Active Potassium Chloride 10 MEQ Orally three times per day 1 capsule with fo od Active Meloxicam 15 mg Orally 2 times a day 0.5 Tablet 12h January, Active Lacosamide 150 MG Orally twice a day 1 tablet 12h Active RESULTS No Results PROCEDURES Procedure Date Ordered Related Diagnosis Body Site EXTRAC ERUPTED TOOTH/EXPOSED ROOT Jul 12, 2016 IMMUNIZATIONS No Known Immunizations
--- OUTSIDE RECORDS SUMMARY | 2020-03-30 16:42 | XMS REPORT ---
Author Author Riri FLOYD Organization [facility] Address [address] [place] [address] Care Team Providers Care Supervisor Lace Tearing Name Role Phone OZ FLOYD Unavailable PROBLEMS Type Condition ICD9-CM Code RTN83-GG Code Onset Dates Condition S tatus SNOMED Code Problem Duodenitis K29.80 Active 85444642 Problem Chronic idiopathic constipation K59.04 Active 58343983 Problem Epigastric pain R10.13 Active 7992 2009 Problem Pain in right knee M25.561 Active 3 3396573 Problem Pain in joint, forearm 719.43 Active 422959119 Problem Low back pain M54.5 Active 066951 007 Problem Pain in joint, ankle and foot 719.47 Active 414780419 Problem Scoliosis (and kyphoscoliosis), idiopathic 737.30 Active 89740110 Problem Adolescent idiopathic scoliosis of thoracolumbar region M41.125 Active 785459501 Problem Cough due to bronchospasm J98.01 Acti ve 5452076 Problem Frequent headaches R51 Active 7 15042407 Problem Mild intermittent asthma without complication J45. 20 Active 307182488 Problem Lumbago 724.2 Active 703990758 Problem Unspecified urinary calculus 592.9 A ctive 310644211 Problem Pain in joint, upper arm 719.42 Activ e 496876490 Problem Unspecified urticaria 708.9 Active 824027779 Problem Edema, unspecified R60.9 Active 7 3028202 Problem Seizure disorder G40.909 Active 128 742308 Problem Unspecified hemorrhoids without mention of complication 45 5.6 Active 09788011 Problem Mikayla-rectal abscess K61.1 Active 67189370 Problem Delirium due to conditions classified elsewhere 293.0 Active 7261922 Problem Asthma exacerbation J45.901 Active 255009569 ALLERGIES Substance Reaction Event Type Date Status Tramadol Unknown Drug Allergy Oct, Active Surgical Tape And Bandaids Unknown Non Drug Allergy 28 Feb, 20 17 Active SOCIAL HISTORY Never Assessed PLAN OF CARE Activity Details Follow Up 4 Weeks Reason:cough wheeze VITAL SIGNS Height 61 in 2016-11-05 Weight 236.8 lbs 2016-11-05 Temperature 98.6 degrees Fahrenheit 2016-11-05 Heart Rate 84 bpm 2016-11-05 Respiratory Rate 20 2016-11-05 BMI 44.74 kg/m2 2016-11-05 Blood pressure systolic 118 mmHg 2016-11-05 Blood pressure diastolic 72 mmHg 2016-11-05 MEDICATIONS Medication Instructions Dosage Frequency Start Date End Date Duration S tatus Melatonin 3 MG Orally Once a day 2tablet at bedtime as needed with frank d 24h Active cetirizine 10 mg 1 tablet by Oral route 1 daily January, Active Omeprazole 40 MG Orally Once a day 1 capsule 24h Active Senna Concentrate 8.6 MG Orally three times per day 1 tablet Active Baclofen 10 mg Orally 2 times a day 1 tablet with food or milk 12h Active Simvastatin 20 MG Orally Once a day 1 tablet in the evening 24h Active Montelukast Sodium 10 MG TAKE 1 TABLET BY MOUTH IN THE EVENING 30 Active PredniSONE 20 MG two a day for 3 days then one a day Active Meloxicam 15 MG TAKE 1 TABLET BY MOUTH DAILY 30 Active Aspirin Adult Low Dose 81 MG Orally Once a day 1 tablet 24h Active Hydrochlorothiazide 25 MG TAKE 1 TABLET DAILY NEEDED FOR SWELLING. 90 Active Citalopram Hydrobromide 40 MG TAKE 1 TABLET BY MOUTH DAILY 30 Active Ranitidine 1 tablet Oral 2 times a day 1 tab 150 mg 12h Active Symbicort 160-4.5 MCG/ACT Inhalation Twice a day 2 puffs 12h Sep, Active Potassium Chloride 10 MEQ Orally three times per day 1 capsule with fo od Active Sucralfate 1 GM 1 tablet on an empty stomach 30 minutes before meals and at bedtime Orally Active Pregabalin 200 mg Orally three times a day 1 capsule 8h Active Ergocalciferol 77094 iu Orally 1 time per week Active Lacosamide 200 mg Orally twice a day 1 tablet 12h 30 days Active Levetiracetam 500 mg Orally Twice a day take 3 tabs 12h May, Active Ramelteon 8 MG Orally Once a day 1 tablet at bedtime as needed 24h Active Zonisamide 100 MG Orally Once a day 1 capsule 24h Active Potassium Chloride ER 10 MEQ TAKE 1 CAPSULE BY MOUTH THREE T IMES DAILY 30 Active RESULTS No Results PROCEDURES No Known procedures IMMUNIZATIONS No Known Immunizations MEDICAL (GENERAL) HISTORY Type Description Date Medical History seizures Medical History hyperlipidemia Medical History constipation Surgical History cholecystectomy Surgical History hysterectomy Surgical History appendectomy Hospitalization History seizures Hospitalization History surgeries Hospitalization History seizures 2016 Hospitalization History pneumonia 2016
--- OUTSIDE RECORDS SUMMARY | 2020-03-30 16:42 | XMS REPORT ---
Author Author Riri FLOYD Organization [facility] Address [address] [place] [address] Care Team Providers Care Research & Insights Executive Name Role Phone OZ FLOYD Unavailable PROBLEMS Type Condition ICD9-CM Code [id number] Code Onset Dates Condition S tatus SNOMED Code Problem Duodenitis K29.80 Active 52068452 Problem Chronic idiopathic constipation K59.04 Active 06611882 Problem Epigastric pain R10.13 Active 7992 2009 Problem Low back pain M54.5 Active 489090 007 Problem Lumbago 724.2 Active 529853113 Problem Mild intermittent asthma without complication J45. 20 Active 464962089 Problem Pain in joint, forearm 719.43 Active 130135370 Problem Pain in joint, upper arm 719.42 Activ e 577663050 Problem Pain in right knee M25.561 Active 3 7186362 Problem Cough due to bronchospasm J98.01 Acti ve 4587395 Problem Frequent headaches R51 Active 7 96380259 Problem Adolescent idiopathic scoliosis of thoracolumbar region M41.125 Active 808468817 Problem Unspecified urinary calculus 592.9 A ctive 457553491 Problem Delirium due to conditions classified elsewhere 293.0 Active 2925949 Problem Scoliosis (and kyphoscoliosis), idiopathic 737.30 Active 34153066 Problem Pain in joint, ankle and foot 719.47 Active 449782407 Problem Edema, unspecified R60.9 Active 7 7624245 Problem Seizure disorder G40.909 Active 128 321132 Problem Unspecified hemorrhoids without mention of complication 45 5.6 Active 96519627 Problem Mikayla-rectal abscess K61.1 Active 53233749 Problem Unspecified urticaria 708.9 Active 184703464 Problem Asthma exacerbation J45.901 Active 726155748 ALLERGIES Unknown Allergies SOCIAL HISTORY No smoking Hx information available PLAN OF CARE VITAL SIGNS MEDICATIONS Medication Instructions Dosage Frequency Start Date End Date Duration S tatus Lacosamide 200 mg Orally twice a day 1 tablet 12h 30 days Active RESULTS No Results PROCEDURES No Known procedures IMMUNIZATIONS No Known Immunizations
--- OUTSIDE RECORDS SUMMARY | 2020-03-30 16:42 | XMS REPORT | Continuity of Care Document ---
Author Author [facility] Organization [facility] Address [facility] [address] [place] [id number] Phone Unavailable Support Name Relationship Address Phone CAROLINE MARCELINO MD Caregiver [address] [place] [id number] Unavailable JULISA CULVER Next Of Kin [address] [place], [place] [id number] Insurance Providers Payer Name Policy Number Subscriber Name Relationship Medicaid [id number] Shelia Culver 18 Self / Same A s Patient Advance Directives Directive Response Recorded Date/Time Do you have an Advanced Directive? No 07/10 1:52pm Advance Directives No 01/02/17 2:36pm Living Will No 01/02/17 2:36pm Health Care Proxy No 01/02/17 2:36pm Power of Take Off Man for Health Care No 2:36pm Organ, Tissue, or Eye Donor No 01/02/17 2:3 6pm Do you have a signed organ donor card? No 1 09/09/09 1:52pm Chief Complaint and Reason for Visit Chief Complaint SEIZURE-LIKE ACTIVITY Reason for Visit Seizure-like activity Problems Active Problems Medical Problem Onset Date Status Seizure-like activity Unknown Acute Medications Current Home Medications Medication Dose Units Route Directions Days/Qty Instructions Star t Date Levetiracetam 500 Mg 3,000 Mg Oral Twice A Day 01/02/17 Zonisamide 100 Mg 100 Mg Oral Twice A Day Citalopram Hydrobromide 40 Mg 40 Mg Oral Daily 30 01/02/17 Meloxicam 15 Mg 15 Mg Oral Daily 30 01/02/17 Montelukast Sodium 10 Mg 10 Mg Oral Daily 30 01/02/17 Cetirizine Hcl 10 Mg 10 Mg Oral Daily 30 Hydrochlorothiazide 25 Mg 25 Mg Oral Daily 30 01/02/17 Potassium Chloride 10 Meq 10 Meq Oral Three Times A Day 60 01/02/17 Baclofen 10 Mg 10 Mg Oral Twice A Day 15 01/02 Simvastatin 20 Mg 20 Mg Oral Daily 30 Aspirin 81 Mg 81 Mg Oral Daily 30 01/02/17 Multivit With Calcium,Iron,Min* 1 Each 1 Ea Oral Daily 01/02/17 Social History Social History Problem Response Recorded Date/Tony e Alcohol Use none 01/02/2017 2:54pm Drug Use none 01/02/2017 2:54pm Employment Disabled 01/02/2017 2:54pm Hospital Discharge Instructions No hospital discharge instructions. Plan of Care Discharge Date 01/02/17 4:06pm Disposition 01 HOME, SENIOR LIVING,ASSISTED [place] Condition at Discharge Stable Instructions/Education Provided Nonepileptic Seizures (ED) Prescriptions See Medication Section Additional Instructions/Education follow up with your PCP as directed Functional Status Query Response Date Recorded Destiney Coma Scale Total 15 January 02, 2017 4:00pm Patient Behavior Cooperative Appropriate January 02, 2017 4:00pm Allergies, Adverse Reactions, Alerts Allergen Type Severity Reaction Status Last Updated Hydrocodone Allergy Unknown Active 01/02/17 Tramadol Allergy Unknown Active 01/02/17 Immunizations Name Given Type Hx Diphtheria, Pertussis, Tetanus Vaccination Unknown Historical Hx Influenza Vaccination No Historical Hx Pneumococcal Vaccination No Historical Vital Signs Acute Vital Signs Vital Response Date/Time Temperature (Fahrenheit) 98.6 degrees F (97.6 - 99.5) 2016 4:00pm Temperature Source Temporal Artery 01/02/2017 4:00pm Pulse Rate (adult) 82 bpm (60 - 90) 01/02/2017 4:00pm Respiratory Rate 18 bpm (12 - 24) 01/02/2017 4:00pm Blood Pressure 93/60 mm Hg 01/02/2017 4:00pm O2 Sat by Pulse Oximetry 94 % (90 - 100) 01/02/2017 4:00 pm Oxygen Delivery Method 01/02/2017 4:00pm Height 5 ft 1 in Weight 227 lb Body Mass Index 42.0 kg/m^2 Results No known relevant diagnostic tests, laboratory data and/or discharge summary. Procedures No known history of procedures. Encounters Encounter Location Arrival/Admit Date Discharge/Depart Date Attending Provider Departed Emergency Room [place] 01/02/17 2:34pm 01/02/17 4:06p CAROLINE Cabrera MD Recent Diagnosis
--- OUTSIDE RECORDS SUMMARY | 2020-03-30 16:42 | XMS REPORT ---
Author Author Riri FLOYD Organization [facility] Address [address] [place] [address] Care Team Providers Care Scallop Cutter Name Role Phone OZ FLOYD Unavailable PROBLEMS Type Condition ICD9-CM Code [id number] Code Onset Dates Condition S tatus SNOMED Code Problem Duodenitis K29.80 Active 99044063 Problem Chronic idiopathic constipation K59.04 Active 45131836 Problem Epigastric pain R10.13 Active 7992 2009 Problem Pain in right knee M25.561 Active 3 6560970 Problem Pain in joint, forearm 719.43 Active 221979243 Problem Low back pain M54.5 Active 049153 007 Problem Pain in joint, ankle and foot 719.47 Active 855044610 Problem Scoliosis (and kyphoscoliosis), idiopathic 737.30 Active 27957057 Problem Adolescent idiopathic scoliosis of thoracolumbar region M41.125 Active 695193433 Problem Cough due to bronchospasm J98.01 Acti ve 5694891 Problem Frequent headaches R51 Active 7 56212781 Problem Mild intermittent asthma without complication J45. 20 Active 351548320 Problem Lumbago 724.2 Active 937818965 Problem Unspecified urinary calculus 592.9 A ctive 481099122 Problem Pain in joint, upper arm 719.42 Activ e 745899255 Problem Unspecified urticaria 708.9 Active 676423462 Problem Edema, unspecified R60.9 Active 7 9698535 Problem Seizure disorder G40.909 Active 128 635969 Problem Unspecified hemorrhoids without mention of complication 45 5.6 Active 42943016 Problem Mikayla-rectal abscess K61.1 Active 68659855 Problem Delirium due to conditions classified elsewhere 293.0 Active 9100956 Problem Asthma exacerbation J45.901 Active 362186812 ALLERGIES Substance Reaction Event Type Date Status Codeine Sulfate itching Drug Allergy Dec, Active Tramadol Unknown Drug Allergy Dec, Active Surgical Tape And Bandaids Unknown Non Drug Allergy Dec, Active SOCIAL HISTORY Never Assessed PLAN OF CARE Activity Details Follow Up 2 Weeks Reason:seizure VITAL SIGNS Height 61 in 2016-12-16 Weight 235.0 lbs 2016-12-16 Temperature 98.5 degrees Fahrenheit 2016-12-16 Heart Rate 98 bpm 2016-12-16 Respiratory Rate 20 2016-12-16 BMI 44.40 kg/m2 2016-12-16 Blood pressure systolic 152 mmHg 2016-12-16 Blood pressure diastolic 80 mmHg 2016-12-16 MEDICATIONS Medication Instructions Dosage Frequency Start Date End Date Duration S tatus Meloxicam 15 MG TAKE 1 TABLET BY MOUTH DAILY 30 Active Levetiracetam 500 mg Orally Twice a day take 3 tabs 12h May, Active Omeprazole 40 MG Orally Once a day 1 capsule 24h Active cetirizine 10 mg 1 tablet by Oral route 1 daily January, Active Montelukast Sodium 10 MG TAKE 1 TABLET BY MOUTH IN THE EVENING 30 Active Pregabalin 200 mg Orally three times a day 1 capsule 8h Active Ramelteon 8 MG Orally Once a day 1 tablet at bedtime as needed 24h Active Simvastatin 20 MG Orally Once a day 1 tablet in the evening 24h Active Hydrochlorothiazide 25 MG TAKE 1 TABLET DAILY NEEDED FOR SWELLING. 90 Active Aspirin Adult Low Dose 81 MG Orally Once a day 1 tablet 24h Active Lansoprazole 30 MG Orally 2 times a day 1 capsule 12h Active Sucralfate 1 GM 1 tablet on an empty stomach 30 minutes before meals and at bedtime Orally 9 Active Lacosamide 200 mg Orally twice a day 1 tablet 12h 30 days Active Citalopram Hydrobromide 40 MG TAKE 1 TABLET BY MOUTH DAILY 30 Active Ergocalciferol 82398 iu Orally 1 time per week Active Nexium 40 MG Orally Once a day 1 capsule 24h Sep, 30 day(s) Active Potassium Chloride ER 10 MEQ TAKE 1 CAPSULE BY MOUTH THREE T IMES DAILY 30 Active Symbicort 160-4.5 MCG/ACT Inhalation Twice a day 2 puffs 12h Sep, Active Zonisamide 100 MG Orally Once a [...] d 24h Active Ranitidine HCl 150 MG Orally 2 times a day 1 tablet 12h Active Potassium Chloride 10 MEQ Orally three times per day 1 capsule with fo od Active RESULTS No Results PROCEDURES No Known procedures IMMUNIZATIONS No Known Immunizations MEDICAL (GENERAL) HISTORY Type Description Date Medical History seizures Medical History hyperlipidemia Medical History constipation Surgical History cholecystectomy Surgical History hysterectomy Surgical History appendectomy Hospitalization History seizures Hospitalization History surgeries Hospitalization History seizures 2015 Hospitalization History pneumonia 2015
--- OUTSIDE RECORDS SUMMARY | 2020-03-30 16:42 | XMS REPORT | Continuity of Care Document ---
Author Organization Unknown Address Unknown Phone Unavailable Allergies Active Description Code Type Severity Reaction Onset Reported/Identified Relationship to Patient Clinical Status Yes BAND-AID [id number] Drug Allergy N/A N/A Yes CODEINE Drug Allergy N/A N/A Yes HYDROCODONE-ACETAMINOPHEN [id number] Drug Allergy N/A N/A Yes TAPE Drug Allergy N/A N/A Yes codeine ##NOMEN##,AL1,ceStru ct,allergy,1237,63 Unknown N/A N/A Yes HYDROcodone ##NOMEN##,AL1,ceSt ruct,allergy,1237,[id number] Unknown N/A N/A Yes Tape ##NOMEN##,AL1,ceStru ct,allergy,796143,[id number] Unknown N/A N/A Yes codeine Drug N/A N/A Yes HYDROcodone Drug N/A N/A Yes Latex Allergy Drug N/A rash Yes traMADol Drug N/A itching Yes codeine Drug Allergy N/A N/A 09/21/2009 Yes tramadol Drug Allergy N/A N/A 06/02/2013 Medications Medication Packaging Start Date St op Date Route Dosage Sig ORAL 12/05/2014 10/14/2016 ORAL THREE TI MES DAILY ORAL 01/03/2015 06/12/2015 ORAL twice ea ch day ORAL 06/12/2015 ORAL twice ea ch day ORAL 06/29/2015 01/31/2017 ORAL three ti mes each day ORAL 09/26/2015 12/28/2015 ORAL 60 twice da vane ORAL 12/28/2015 01/26/2016 ORAL 120 twice da vane ORAL 01/26/2016 06/10/2016 ORAL 180 twice da vane ORAL 06/10/2016 10/03/2016 ORAL 180 twice da vane ORAL 07/30/2016 12/02/2016 ORAL 60 BEDTIME ORAL 10/03/2016 04/03/2017 ORAL 180 twice da vane ORAL 10/14/2016 ORAL AC T HS ORAL 10/14/2016 ORAL twice ea ch day ORAL 12/02/2016 12/05/2016 ORAL 60 BEDTIME ORAL 12/05/2016 06/02/2017 ORAL 60 BEDTIME ORAL 01/31/2017 06/02/2017 ORAL 60 twice da vane ORAL 04/03/2017 ORAL 180 twice da vane ORAL 06/02/2017 ORAL 60 BEDTIME ORAL 06/02/2017 ORAL 60 twice da vane naproxen naproxen 500 mg ora l tablet 08/12/2018 06/28/2019 Oral 500 mg baclofen baclofen 10 mg oral tablet 11/24/2018 05/21/2019 Oral 1 tab(s) MAXITROL 019 apply by ophthalmic route 3 times every day a small amount into the conjunctival sac of right eye x1 week FOLLOWING surgery zonisamide zonisamide 100 mg oral capsule 05/21/2019 Oral 2 cap(s) baclofen baclofen 10 mg oral tablet 05/21/2019 Oral 1 tab(s) diclofenac diclofenac sodium 50 mg oral delayed release tablet 06/28/2019 Oral 50 mg 1 TABLET TWICE DAILY NEED ED FOR BACK/HIP PAIN naproxen naproxen 500 mg (as sodium) oral tablet, extended release 07/05/2019 07/05/2019 Oral 500 mg Problems Date Dx Coded Attending Type Code Diagnosis Diagnosed By 09/21/2009 WONG HULL DO 477.9 ALLERGIC RHINITIS, CAUSE UNSPECIFIED 09/21/2009 WONG HULL DO 477.9 ALLERGIC RHINITIS, CAUSE UNSPECIFIED 09/21/2009 OZ FLOYD MD 477.9 ALLERGIC RHINITIS, CAUSE UNSPECIFIED 09/21/2009 OZ FLOYD MD 477.9 ALLERGIC RHINITIS, CAUSE UNSPECIFIED 09/21/2009 OZ FLOYD MD 477.9 ALLERGIC RHINITIS, CAUSE UNSPECIFIED 09/21/2009 OZ FLOYD MD 477.9 ALLERGIC RHINITIS, CAUSE UNSPECIFIED 09/21/2009 KENTRELL OH MD 477 .9 ALLERGIC RHINITIS, CAUSE UNSPECIFIED 09/21/2009 KENTRELL OH MD 477 .9 ALLERGIC RHINITIS, CAUSE UNSPECIFIED 11/23/2009 WONG HULL DO 728.85 SPASM OF MUSCLE 11/23/2009 WONG HULL DO 728.85 SPASM OF MUSCLE 11/23/2009 OZ FLOYD MD 728.8 5 SPASM OF MUSCLE 11/23/2009 OZ FLOYD MD 728.8 5 SPASM OF MUSCLE 11/23/2009 OZ FLOYD MD 728.8 5 SPASM OF MUSCLE 11/23/2009 OZ FLOYD MD 728.8 5 SPASM OF MUSCLE 11/23/2009 KENTRELL OH MD A 728 .85 SPASM OF MUSCLE 11/23/2009 KENTRELL OH MD A 728 .85 SPASM OF MUSCLE 06/02/2013 HULL DO, WONG K 293.0 DELIRIUM OF KNOWN (AXIS III) ETIOLOGY 06/02/2013 HULL DO, WONG K 592.9 URINARY CALCULUS 06/02/2013 HULL DO, WONG K 719.47 ankle joint pain 06/02/2013 HULL DO, WONG K 724.2 lower back pain 06/02/2013 HULL DO, WONG K 737.30 SCOLIOSIS 06/02/2013 HULL DO, WONG K 293.0 DELIRIUM OF KNOWN (AXIS III) ETIOLOGY 06/02/2013 HULL DO, WONG K 592.9 URINARY CALCULUS 06/02/2013 HULL DO, WONG K 719.47 ankle joint pain 06/02/2013 HULL DO, WONG K 724.2 lower back pain 06/02/2013 HULL DO, WONG K 737.30 SCOLIOSIS 06/02/2013 OZ FLOYD MD 293.0 DELIRIUM OF KNOWN (AXIS III) ETIOLOGY 06/02/2013 OZ FLOYD MD 592.9 URINARY CALCULUS 06/02/2013 OZ FLOYD MD 719.4 7 ankle joint pain 06/02/2013 OZ FLOYD MD 724.2 lower back pain 06/02/2013 OZ FLOYD MD 737.3 0 SCOLIOSIS 06/02/2013 OZ FLOYD MD 293.0 DELIRIUM OF KNOWN (AXIS III) ETIOLOGY 06/02/2013 OZ FLOYD MD 592.9 URINARY CALCULUS 06/02/2013 OZ FLOYD MD 719.4 7 ankle joint pain 06/02/2013 OZ FLOYD MD 724.2 lower back pain 06/02/2013 OZ FLOYD MD 737.3 0 SCOLIOSIS 06/02/2013 OZ FLOYD MD 293.0 DELIRIUM OF KNOWN (AXIS III) ETIOLOGY 06/02/2013 OZ FLOYD MD 592.9 URINARY CALCULUS 06/02/2013 OZ FLOYD MD 719.4 7 ankle joint pain 06/02/2013 OZ FLOYD MD 724.2 lower back pain 06/02/2013 OZ FLOYD MD 737.3 0 SCOLIOSIS 06/02/2013 OZ FLOYD MD 293.0 DELIRIUM OF KNOWN (AXIS III) ETIOLOGY 06/02/2013 OZ FLOYD MD 592.9 URINARY CALCULUS 06/02/2013 OZ FLOYD MD 719.4 7 ankle joint pain 06/02/2013 OZ FLOYD MD 724.2 lower back pain 06/02/2013 OZ FLOYD MD 737.3 0 SCOLIOSIS 06/02/2013 KENTRELL OH MD 293 .0 DELIRIUM OF KNOWN (AXIS III) ETIOLOGY 06/02/2013 KENTRELL OH MD 592 .9 URINARY CALCULUS 06/02/2013 KENTRELL OH MD 719 .47 ankle joint pain 06/02/2013 KENTRELL OH MD 724 .2 lower back pain 06/02/2013 KENTRELL OH MD 737 .30 SCOLIOSIS 06/02/2013 KENTRELL OH MD 293 .0 DELIRIUM OF KNOWN (AXIS III) ETIOLOGY 06/02/2013 KENTRELL OH MD 592 .9 URINARY CALCULUS 06/02/2013 KENTRELL OH MD 719 .47 ankle joint pain 06/02/2013 KENTRELL OH MD 724 .2 lower back pain 06/02/2013 KENTRELL OH MD 737 .30 SCOLIOSIS 01/18/2014 HULL DO, WONG K 455.6 UNSPECIFIED HEMORRHOIDS WITHOUT COMPLICATION 01/18/2014 HULL DO, WONG K 708.9 UNSPECIFIED URTICARIA 01/18/2014 HULL DO, WONG K 782.3 EDEMA 01/18/2014 OZ FLOYD MD 455.6 UNSPECIFIED HEMORRHOIDS WITHOUT COMPLICATION 01/18/2014 OZ FLOYD MD 708.9 UNSPECIFIED URTICARIA 01/18/2014 OZ FLOYD MD 782.3 DEPENDENT EDEMA DUE TO INACTIVITY 01/18/2014 OZ FLOYD MD 455.6 UNSPECIFIED HEMORRHOIDS WITHOUT COMPLICATION 01/18/2014 OZ FLOYD MD 708.9 UNSPECIFIED URTICARIA 01/18/2014 OZ FLOYD MD 782.3 DEPENDENT EDEMA DUE TO INACTIVITY 01/18/2014 OZ FLOYD MD 455.6 UNSPECIFIED HEMORRHOIDS WITHOUT COMPLICATION 01/18/2014 OZ FLOYD MD 708.9 UNSPECIFIED URTICARIA 01/18/2014 OZ FLOYD MD 782.3 DEPENDENT EDEMA DUE TO INACTIVITY 01/18/2014 OZ FLOYD MD 455.6 UNSPECIFIED HEMORRHOIDS WITHOUT COMPLICATION 01/18/2014 OZ FLOYD MD 708.9 UNSPECIFIED URTICARIA 01/18/2014 OZ FLOYD MD 782.3 DEPENDENT EDEMA DUE TO INACTIVITY 01/18/2014 KENTRELL OH MD 455 .6 UNSPECIFIED HEMORRHOIDS WITHOUT COMPLICATION 01/18/2014 KENTRELL OH MD 708 .9 UNSPECIFIED URTICARIA 01/18/2014 KENTRELL OH MD 782 .3 DEPENDENT EDEMA DUE TO INACTIVITY 01/18/2014 KENTRELL OH MD 455 .6 UNSPECIFIED HEMORRHOIDS WITHOUT COMPLICATION 01/18/2014 KENTRELL OH MD 708 .9 UNSPECIFIED URTICARIA 01/18/2014 KENTRELL OH MD A 782 .3 DEPENDENT EDEMA DUE TO INACTIVITY 02/08/2014 OZ FLOYD MD 599.0 URINARY TRACT INFECTION 02/08/2014 OZ FLOYD MD 599.7 0 blood in urine 02/08/2014 OZ FLOYD MD 599.0 URINARY TRACT INFECTION 02/08/2014 OZ FLOYD MD 599.7 0 blood in urine 02/08/2014 OZ FLOYD MD 599.0 URINARY TRACT INFECTION 02/08/2014 OZ FLOYD MD 599.7 0 blood in urine 02/08/2014 OZ FLOYD MD 599.0 URINARY TRACT INFECTION 02/08/2014 OZ FLOYD MD 599.7 0 blood in urine 02/08/2014 KENTRELL OH MD 599 .0 URINARY TRACT INFECTION 02/08/2014 KENTRELL OH MD 599 .70 blood in urine 02/08/2014 KENTRELL OH MD A 599 .0 URINARY TRACT INFECTION 02/08/2014 KENTRELL OH MD A 599 .70 blood in urine 03/07/2014 OZ FLOYD MD 719.4 2 PAIN IN JOINT INVOLVING UPPER ARM 03/07/2014 OZ FLOYD MD 719.4 3 PAIN IN JOINT INVOLVING FOREARM 03/07/2014 OZ FLOYD MD 719.4 2 PAIN IN JOINT INVOLVING UPPER ARM 03/07/2014 OZ FLOYD MD 719.4 3 PAIN IN JOINT INVOLVING FOREARM 03/07/2014 OZ FLOYD MD 719.4 2 PAIN IN JOINT INVOLVING UPPER ARM 03/07/2014 OZ FLOYD MD 719.4 3 PAIN IN JOINT INVOLVING FOREARM 03/07/2014 KENTRELL OH MD A 719 .42 PAIN IN JOINT INVOLVING UPPER ARM 03/07/2014 KENTRELL OH MD A 719 .43 PAIN IN JOINT INVOLVING FOREARM 03/07/2014 KENTRELL OH MD A 719 .42 PAIN IN JOINT INVOLVING UPPER ARM 03/07/2014 KENTRELL OH MD A 719 .43 PAIN IN JOINT INVOLVING FOREARM 03/18/2014 OZ FLOYD MD V72.3 1 INSTRUMENT CALIBRATOR EXAM, ROUTINE 03/18/2014 OZ FLOYD MD V76.1 2 OTHER SCREENING MAMMOGRAM 03/18/2014 OZ FLOYD MD V76.1 9 OTHER SCREENING BREAST EXAMINATION 03/18/2014 KENTRELL OH MD V72 .31 INSTRUMENT CALIBRATOR EXAM, ROUTINE 03/18/2014 KENTRELL OH MD V76 .12 OTHER SCREENING MAMMOGRAM 03/18/2014 KENTRELL OH MD V76 .19 OTHER SCREENING BREAST EXAMINATION 03/18/2014 KENTRELL OH MD V72 .31 INSTRUMENT CALIBRATOR EXAM, ROUTINE 03/18/2014 KENTRELL OH MD V76 .12 OTHER SCREENING MAMMOGRAM 03/18/2014 KENTRELL OH MD V76 .19 OTHER SCREENING BREAST EXAMINATION 01/11/2019 LIZETH TERRELL Reason For Visit M25.562 Pain in left knee 02/05/2019 W H53.2 Diplopia 02/05/2019 W H50.15 Alt ernating exotropia 02/05/2019 W H53.2 Diplopia 02/05/2019 W H50.15 Alt ernating exotropia 02/05/2019 W H50.21 Hyp ertropia of right eye 02/05/2019 W H53.2 Diplopia 02/05/2019 W G40.909 Se izure disorder 02/05/2019 W H50.15 Alt ernating exotropia 02/05/2019 W H50.21 Hyp ertropia of right eye 02/05/2019 W H53.2 Diplopia 02/11/2019 W G40.909 Se izure disorder 02/11/2019 W H50.15 Alt ernating exotropia 02/11/2019 W H50.21 Hyp ertropia of right eye 02/11/2019 W H53.2 Diplopia 02/11/2019 W G40.909 Se izure disorder 02/11/2019 W H50.15 Alt ernating exotropia 02/11/2019 W H50.21 Hyp ertropia of right eye 02/11/2019 W H53.2 Diplopia 02/11/2019 W G40.909 Se izure disorder 02/11/2019 W H50.15 Alt ernating exotropia 02/11/2019 W H50.21 Hyp ertropia of right eye 02/11/2019 W H53.2 Diplopia 02/23/2019 OZ FLOYD Reason For Visit H53.2 Diplopia 03/03/2019 W H53.2 Diplopia 03/03/2019 W H50.10 Uns pecified exotropia 03/03/2019 W H53.2 Diplopia 03/04/2019 W H50.10 Uns pecified exotropia 03/04/2019 W H53.2 Diplopia 04/02/2019 LIZETH TERRELL Reason For Visit M25.562 Pain in left knee 04/14/2019 LIZETH TERRELL Reason For Visit M25.562 Pain in left knee 04/14/2019 LIZETH TERRELL Final 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, lumbar region 04/14/2019 LIZETH TERRELL Final S8 3.242A Other tear of medial meniscus, current i njury, left knee, initial encounter 04/16/2019 W H53.2 Diplopia 04/16/2019 W H50.15 Alt ernating exotropia 04/16/2019 W H53.2 Diplopia 04/16/2019 W H50.15 Alt ernating exotropia 04/16/2019 W H50.15 Alt ernating exotropia 04/16/2019 W H53.2 Diplopia 04/20/2019 LIZETH TERRELL Final M17.1 2 Unilateral primary osteoarthritis, left knee 04/20/2019 LIZETH TERRELL Reason For Visit M25.562 Pain in left knee 04/20/2019 LIZETH TERRELL Final M48.0 61 Spinal stenosis, lumbar region without neurogenic claudication 04/20/2019 LIZETH TERRELL Final M54.1 6 Radiculopathy, lumbar region 04/26/2019 W H50.15 Alt ernating exotropia 04/26/2019 W H53.2 Diplopia 04/26/2019 W H50.15 Alt ernating exotropia 04/26/2019 W H53.2 Diplopia 04/27/2019 LIZETH TERRELL Reason For Visit M54.16 Radiculopathy, lumbar region 05/25/2019 LIZETH TERRELL Reason For Visit M54.16 Radiculopathy, lumbar region 07/26/2019 JOHNSON VIERA S M4186 Other forms of scoliosis, lumbar region 07/26/2019 JOHNSON VIERA [id number] Spondylosis without myelopathy or radiculopathy, cervical region 07/26/2019 JOHNSON VIERA K15164 Spondylosis without myelopathy or radiculopathy, lumbar region 07/26/2019 JOHNSON VIERA P M545 Low back pain Procedures Code Description [place] [address] UA L CHRIS DIP 02/08/2014 50379 CULT URE URINE 02/09/2014 89162 XRAY ELBOW L COMP MIN 3 VIEWS 03/07/2014 87008 XRAY WRIST L COMP MIN 3 VIEWS 03/14/2014 20929 HEMOCCULT 03/14/2014 20123 UA L CHRIS DIP 03/18/2014 71038 MAMM OGRAM, SCREENING 03/21/2014 UROLOGY VIOT LAYNE 04/01/2014 Neurology Kentrell Oh 06/02/2014 61928 MRI NECK SPINE W/O & W/DYE 12/05/2015 61620 EEG, AWAKE AND DROWSY 12/05/2015 A9579 DANI- BASE MR CONTRAST NOS,1ML 12/05/2015 72456 SPEC IAL EYE EVALUATION 02/05/2019 99102 OFFI CE/OUTPATIENT VISIT, NEW 02/05/2019 03628 REVI SE TWO EYE MUSCLES 03/03/2019 61595 POST OP FOLLOW-UP VISIT 04/16/2019 Results Test Result Range CBC - 06/09/17 08:47 WHITE BLOOD CELL COUNT 6.5 Thousand/uL 3 .8-10.8 RED BLOOD CELL COUNT 4.57 Million/uL 3.8 0-5.10 HEMOGLOBIN 14.0 g/dL 11.7-15.5 HEMATOCRIT 40.6 % 35.0-45.0 MCV 88.8 fL 80.0-100.0 MCH 30.6 pg 27.0-33.0 MCHC 34.5 g/dL 32.0-36.0 RDW 12.9 % 11.0-15.0 PLATELET COUNT 248 Thousand/uL 140-400 MPV 11.6 fL 7.5-12.5 ABSOLUTE NEUTROPHILS 3309 cells/uL 1500- 7800 ABSOLUTE LYMPHOCYTES 2366 cells/uL 850-3 900 ABSOLUTE MONOCYTES 416 cells/uL 200-950 ABSOLUTE EOSINOPHILS 371 cells/uL 15-500 ABSOLUTE BASOPHILS 39 cells/uL 0-200 NEUTROPHILS 50.9 % NRG LYMPHOCYTES 36.4 % NRG MONOCYTES 6.4 % NRG EOSINOPHILS 5.7 % NRG BASOPHILS 0.6 % NRG BMP - 10/09/17 13:25 GFR >60 >=60 GFR NonAfrican [place] 52 >=60 SODIUM:SCNC:PT:SER/PLAS:QN: 139 mmol/L 1 36-145 POTASSIUM:SCNC:PT:SER/PLAS:QN: 3.8 mmol/L 3.5-5.1 CHLORIDE:SCNC:PT:SER/PLAS:QN: 105 mmol/L 98-107 CARBON DIOXIDE:SCNC:PT:SER/PLAS:QN: 26 mmol/L 21-32 ANION GAP 3:SCNC:PT:SER/PLAS:QN: 8 7-16 UREA NITROGEN:MCNC:PT:SER/PLAS:QN: 19 mg/dL 6-20 CREATININE:MCNC:PT:SER/PLAS:QN: 1.1 mg/dL 0.6-1.0 GLUCOSE:MCNC:PT:SER/PLAS:QN: 99 mg/dL 7 0-110 CALCIUM:MCNC:PT:SER/PLAS:QN: 9.2 mg/dL 8 .6-10.2 UREA NITROGEN/CREATININE:MRTO:PT:SER/PLAS:QN: 17.3 10.0- 20.1 ESR/SED RATE - 12/15/18 14:01 SED RATE BY MODIFIED WESTERGREN 11 mm/h < OR = 30 POTASSIUM - 02/16/19 09:00 POTASSIUM 3.8 mmol/L 3.5-5.3 - PANEL (PROFILE 1) - 05/14/19 11 :09 Prescribed Drug 1 Lorazepam NRG Creatinine 150.8 mg/dL > or = 20.0 pH 5.43 4.5 - 9.0 Oxidant NEGATIVE mcg/mL <200 Amphetamines NEGATIVE ng/mL <500 medMATCH Amphetamines CONSISTENT NRG Benzodiazepines NEGATIVE ng/mL <100 medMATCH Benzodiazepines INCONSISTENT N RG Marijuana Metabolite NEGATIVE ng/mL <20 medMATCH Marijuana Metab CONSISTENT NRG Cocaine Metabolite NEGATIVE ng/mL <150 medMATCH Cocaine Metab CONSISTENT NRG Opiates NEGATIVE ng/mL <100 medMATCH Opiates CONSISTENT NRG Oxycodone NEGATIVE ng/mL <100 medMATCH Oxycodone CONSISTENT NRG COMMENT NRG Barbiturates NEGATIVE ng/mL <300 medMATCH Barbiturates CONSISTENT NRG Methadone Metabolite NEGATIVE ng/mL <100 medMATCH Methadone Metab CONSISTENT NRG Phencyclidine NEGATIVE ng/mL <25 medMATCH Phencyclidine CONSISTENT NRG Encounters ACCT No. Visit Date/Time Discharge Status Pt. Type Provider Facility Loc./Unit Complaint [id number] 07/26/2019 10:53:00 07/26/2019 23:59: 59 CLS Outpatient JOHNSON VIERA LOW BACK PAIN [id number] 05/26/2019 08:28:30 9 23:59:59 CLS Preadmit LIZETH TERRELL [facility] RAD LBP; Radiculopathy [id number] 05/25/2019 08:50:07 9 23:59:59 DIS Outpatient LIZETH TERRELL [facility] RAD lbp; radiculopathy [id number] 04/27/2019 10:55:30 9 23:59:59 DIS Outpatient LIZETH TERRELL [facility] Lumbar radicilopathy [id number] 04/20/2019 10:05:51 9 23:59:59 DIS Outpatient LIZETH TERRELL [facility] [id number] 04/14/2019 07:22:11 9 23:59:59 DIS Outpatient LIZETH TERRELL [facility] Left knee pain [id number] 04/02/2019 10:51:57 9 23:59:59 DIS Outpatient LIZETH TERRELL [facility] [id number] 02/23/2019 10:51:48 9 23:59:59 DIS Outpatient OZ FLOYD [facility] Diplopia [id number] 01/20/2019 16:48:22 9 23:59:59 DIS Outpatient OZ FLOYD [facility] screening [id number] 01/11/2019 08:16:42 9 23:59:59 DIS Outpatient LIZETH TERRELL [facility] Xray [id number] 01/11/2019 08:00:15 9 23:59:59 DIS Outpatient LIZETH TERRELL [facility] [id number] 01/07/2019 10:00:00 9 23:59:59 CLS Outpatient LIZETH TERRELL [facility] [id number] 03/30/2018 11:09:35 8 23:59:59 DIS Outpatient LIZETH TERRELL [facility] xray [id number] 03/23/2018 11:16:21 8 23:59:59 CLS Preadmit WING ROBB [facility] hand dysfunction [id number] 03/23/2018 09:46:33 8 23:59:59 DIS Outpatient LIZETH TERRELL [facility] [id number] 12/09/2017 08:48:46 8 23:59:59 DIS Outpatient GILBERT NARVAEZ [facility] RAD diagnostic, breast m ass 11- 12 o'clock on rt [id number] 04/20/2018 02:01:18 Document Registration [id number] 12/05/2015 08:19:00 12/05/2015 23:59 :59 CLS Outpatient KENTRELL OH [facility] RESP [id number] 03/30/2020 14:45:00 P EN Preadmit SELF , YADIRA [facility] RAD LOW BACK PAIN RADIATING TO R T LEG [id number] 06/02/2017 14:55:22 06/02/2017 14:55 :22 DIS Unknown [id number] 07/06/2014 00:00:00 07/06/2014 23:59: 59 CLS Outpatient KENTRELL OH MD [id number] 06/02/2014 09:00:00 06/02/2014 23:59: 59 CLS Outpatient KENTRELL OH MD [id number] 03/18/2014 10:53:00 03/18/2014 23:59: 59 CLS Outpatient OZ FLOYD MD [id number] 03/07/2014 08:56:00 03/07/2014 23:59: 59 CLS Outpatient OZ FLOYD MD [id number] 03/07/2014 08:56:00 03/07/2014 23:59: 59 CLS Outpatient OZ FLOYD MD [id number] 02/08/2014 15:32:00 02/08/2014 23:59: 59 CLS Outpatient OZ FLOYD MD [id number] 01/18/2014 11:04:00 01/18/2014 23:59: 59 CLS Outpatient WONG HULL DO [id number] 06/02/2013 08:44:00 06/02/2013 23:59: 59 CLS Outpatient WONG HULL DO [id number] 07/08/2017 11:49:41 07/08/2017 11:49:41 DIS Outpatient [id number] 07/08/2017 11:48:08 07/08/2017 11:48:09 DIS Outpatient [id number] 04/29/2016 16:14:31 04/29/2016 23:59:59 CLS Outpatient [id number] 04/29/2016 20:28:34 04/29/2016 20:28:34 ACT Outpatient [id number] 04/29/2016 20:17:10 04/29/2016 20:17:10 ACT Outpatient [id number] 04/29/2016 19:57:14 04/29/2016 19:57:14 ACT Outpatient [id number] 04/29/2016 16:25:09 04/29/2016 16:25:09 ACT Outpatient [id number] 04/29/2016 16:21:21 04/29/2016 16:21:22 ACT Outpatient [id number] 12/07/2015 09:46:21 12/07/2015 09:46:22 DIS Outpatient [id number] 12/07/2015 09:46:20 12/07/2015 09:46:20 DIS Outpatient [id number] 12/07/2015 09:41:13 12/07/2015 09:41:14 DIS Outpatient [id number] 12/07/2015 09:41:12 12/07/2015 09:41:13 DIS Outpatient [id number] 12/06/2015 14:41:14 12/06/2015 23:59:59 CLS Outpatient [id number] 12/06/2015 10:16:28 12/06/2015 23:59:59 CLS Outpatient [id number] 12/06/2015 10:10:07 12/06/2015 23:59:59 CLS Outpatient [id number] 12/06/2015 14:43:28 12/06/2015 14:43:28 DIS Outpatient [id number] 12/06/2015 14:41:16 12/06/2015 14:41:16 DIS Outpatient [id number] 12/06/2015 10:16:17 12/06/2015 10:16:20 DIS Outpatient [id number] 12/06/2015 10:11:31 12/06/2015 10:11:33 DIS Outpatient [id number] 12/06/2015 10:10:20 12/06/2015 10:10:22 DIS Outpatient [id number] 04/16/2019 16:00:00 Document Registration [id number] 03/03/2019 14:30:00 Document Registration [id number] 02/16/2019 09:26:21 Document Registration [id number] 02/05/2019 08:30:00 Document Registration [id number] 03/09/2020 13:45:00 03/09/2020 23:59:5 9 CLS Outpatient YADIRA ASIF [facility] [id number] 05/14/2019 09:20:00 Document Registration [id number] 02/16/2019 08:00:00 Document Registration [id number] 12/15/2018 13:20:00 Document Registration [id number] 06/09/2017 08:20:00 Document Registration [id number] 06/28/2019 09:03:25 06/30/2019 23:59:5 9 DIS [id number] 01/26/2019 09:37:11 01/26/2019 23:59:5 9 CLS [facility] [id number] 03/30/2018 08:00:00 03/30/2018 23:59:5 9 CLS Outpatient Johnson Viera [facility] [id number] 05/21/2019 15:42:58 Document Registration [id number] 05/21/2019 15:42:56 Document Registration [id number] 01/26/2019 09:46:28 Document Registration [id number] 04/18/2018 01:19:10 04/18/2018 23:59 :59 CLS Outpatient [id number] 10/09/2017 12:15:00 10/09/2017 21:00: 00 DIS Outpatient Kolton Iniguez [facility]
--- OUTSIDE RECORDS SUMMARY | 2020-03-30 16:42 | XMS REPORT ---
Author Author Riri FLOYD Organization [employer] Address Unknown Phone Unavailable Care Team Providers Care Tube Balancer Name Role Phone OZ FLOYD CP Unavailable [...] joint, ankle and foot 719.47 Active Medications Medication Code System Code Instructions Start Date End Date Status Dosage Hydrochlorothiazide [facility] [address]-77 25 MG TAKE 1 TAB DAILY NEEDED FOR SWELLING. Results No Known Results Summary Purpose [employer] Submission
[2020-03-31] MEDS ORDERED: POTA10CA43 (11:35)
[2020-03-31] MEDS ORDERED: LEVE750T5 (11:35)
[2020-03-31] MEDS ORDERED: GABA-486 (11:35)
[2020-03-31] MEDS ORDERED: MONT10TA26 (11:51)
[2020-03-31] MEDS ORDERED: FAMO20TA5 (11:51)
[2020-03-31] MEDS ORDERED: METH4TAB10 (11:51)
[2020-03-31] MEDS ORDERED: DICL50TA6 (11:51)
[2020-03-31] MEDS ORDERED: HYDR25TA4 (11:51)
[2020-03-31] MEDS ORDERED: LACO200T2 (11:51)
[2020-03-31] MEDS ORDERED: BACL10TA (11:51)
[2020-03-31] MEDS ORDERED: CETI10TA17 (11:51)
[2020-03-31] MEDS ORDERED: SIMV20TA26 (11:51)
[2020-03-31] MEDS ORDERED: ASPI-983 (11:51)
[2020-03-31] MEDS ORDERED: ZONI100C29 (11:51)
[2020-03-31] MEDS ORDERED: CITA40TA11 (11:51)
[2020-03-31] MEDS ORDERED: NAPR-1071 PO (12:15)
== END 2020-03-30 15:49 | disposition home or self-care (01) ==
LOC: EDUNIT# 14:15 → ER 14:18
DX: G40.909 Epilepsy, unspecified, not intractable, without status epilepticus (principal); M54.6 Pain in thoracic spine; Z88.5 Allergy status to narcotic agent
CPT/HCPCS: 36415; 70450; 72125; 72128; 80053; 83735; 85025; 96374

== ENCOUNTER 2020-03-31 10:43 | Emergency (ER) | payer MEDICAID ==
[~2020-03-31] VITALS: Ht 154 cm; Wt 82.1 kg
[2020-03-31] MEDS ORDERED: ASPIRIN 81 MG CHEW (CHILDREN'S ASA) PO ONE (11:00)
--- NOTE | 2020-03-31 11:01 | ED Chest Pain ---
General Stated Complaint: CHEST PAIN Source: patient Exam Limitations: no limitations History of Present Illness Date Seen by Provider: Mar 31, 2020 Time Seen by Provider: 10:46 Initial Comments Patient arrives the ER by private conveyance with her caregiver and chief complaint of some right-sided chest pain reproducible to deep inspiration or direct palpation. She says it started yesterday after she had a seizure and fell while checking in for an MRI of her back. It has persisted and only gotten worse. She rates it as a 10 out of 10. No shortness of air but she cannot take a deep breath and without hurting worse. She is not having fevers chills cough. No nausea or vomiting. No personal history of coronary disease, CHF but she does have a history of asthma. She's been using her albuterol inhaler with no relief of her chest pain. She had a stepbrother who had early onset coronary disease before the age of 60 and denies a history of diabetes, hyperlipidemia, hypertension. She is not a smoker. She has not taken anything for the pain. Allergies and Home Medications Allergies Coded Allergies: codeine (Verified Allergy, Severe, ITCH, 03/30/20) hydrocodone (Verified Allergy, Severe, ITCH, 03/30/20) tramadol (Verified Allergy, Severe, ITCH, 03/30/20) Patient Home Medication List Home Medication List Reviewed: Yes Review of Systems Review of Systems Constitutional: No chills, No fever EENTM: No Blurred Vision, No Double Vision Respiratory: Denies Cough, Denies Shortness of Air Cardiovascular: Chest Pain; Denies Edema, Denies Lightheadedness Gastrointestinal: Denies Constipated, Denies Diarrhea, Denies Nausea Genitourinary: Denies Discharge, Denies Drainage Musculoskeletal: see HPI; No back pain, No joint pain Skin: No pruritus, No rash Psychiatric/Neurological: Denies Headache, Denies Numbness All Other Systems Reviewed Negative Unless Noted: Yes Past Udtxvrk-Wgqcgj-Ahcovm Hx Patient Social History Alcohol Use: Denies Use Recreational Drug Use: No Smoking Status: Never a Smoker Past Medical History Surgeries: Yes Appendectomy, Gallbladder, Hysterectomy, Orthopedic Respiratory: Yes Asthma Cardiac: Yes High Cholesterol Neurological: Yes Seizure Disorder Genitourinary: No Gastrointestinal: No Musculoskeletal: No Endocrine: No Cancer: No Psychosocial: No Integumentary: No Blood Disorders: No Physical Exam Vital Signs Vital Signs - First Documented 03/31/20 11:23 Temp 36.7 Pulse 56 Resp 20 B/P (MAP) 132/78 (96) Pulse Ox 96 Capillary Refill : Height, Weight, BMI Height: '" Weight: lbs. oz. kg; 35.00 BMI Method: General Appearance: No Apparent Distress, WD/WN HEENT: Pharynx Normal, Moist Mucous Membranes Neck: Full Range of Motion, Normal Inspection Respiratory: No Chest Non Tender (midsternal and right anterior upper ribs tender to palpation without rash); Lungs Clear, Normal Breath Sounds, No Accessory Muscle Use, No Respiratory Distress Cardiovascular: Regular Rate, Rhythm, No Edema, Normal Peripheral Pulses Gastrointestinal: Normal Bowel Sounds, Non Tender, Soft Neurologic/Psychiatric: Alert, Oriented x3 Skin: Normal Color, Warm/Dry Progress/Results/Core Measures Results/Orders Lab Results Laboratory Tests Test 03/31/20 11:10 Range/Units White Blood Count 6.3 4.3-11.0 10^3/uL Red Blood Count 4.51 4.35-5.85 10^6/uL Hemoglobin 13.7 11.5-16.0 G/DL Hematocrit 39 35-52 % Mean Corpuscular Volume 87 80-99 FL Mean Corpuscular Hemoglobin 30 25-34 PG Mean Corpuscular Hemoglobin Concent 35 32-36 G/DL Red Cell Distribution Width 12.3 10.0-14.5 % Platelet Count 255 130-400 10^3/uL Mean Platelet Volume 11.2 H 7.4-10.4 FL Neutrophils (%) (Auto) 53 42-75 % Lymphocytes (%) (Auto) 35 12-44 % Monocytes (%) (Auto) 9 0-12 % Eosinophils (%) (Auto) 3 0-10 % Basophils (%) (Auto) 0 0-10 % Neutrophils # (Auto) 3.3 1.8-7.8 X 10^3 Lymphocytes # (Auto) 2.2 1.0-4.0 X 10^3 Monocytes # (Auto) 0.6 0.0-1.0 X 10^3 Eosinophils # (Auto) 0.2 0.0-0.3 10^3/uL Basophils # (Auto) 0.0 0.0-0.1 10^3/uL Prothrombin Time 13.6 12.2-14.7 SEC INR Comment 1.0 0.8-1.4 Activated Partial Thromboplast Time 30 24-35 SEC Sodium Level 142 135-145 MMOL/L Potassium Level 3.7 3.6-5.0 MMOL/L Chloride Level 108 H 98-107 MMOL/L Carbon Dioxide Level 27 21-32 MMOL/L Anion Gap 7 5-14 MMOL/L Blood Urea Nitrogen 18 7-18 MG/DL Creatinine 0.85 0.60-1.30 MG/DL Estimat Glomerular Filtration Rate > 60 BUN/Creatinine Ratio 21 Glucose Level 101 70-105 MG/DL Calcium Level 9.5 8.5-10.1 MG/DL Corrected Calcium 9.5 8.5-10.1 MG/DL Magnesium Level 2.4 1.6-2.4 MG/DL Total Bilirubin 0.3 0.1-1.0 MG/DL Aspartate Amino Transf (AST/SGOT) 14 5-34 U/L Alanine Aminotransferase (ALT/SGPT) 17 0-55 U/L Alkaline Phosphatase 68 40-136 U/L Myoglobin 30.8 10.0-92.0 NG/ML Troponin I < 0.028 <0.028 NG/ML Total Protein 6.9 6.4-8.2 GM/DL Albumin 4.0 3.2-4.5 GM/DL My Orders Orders - TELLO GREENBERG Continuous Ekg Monitoring (03/31/20 10:45) Ekg Tracing (03/31/20 10:45) Cbc With Automated Diff (03/31/20 10:57) Magnesium (03/31/20 10:57) Comprehensive Metabolic Panel (03/31/20 10:57) Myoglobin Serum (03/31/20 10:57) Protime With Inr (03/31/20 10:57) Partial Thromboplastin Time (03/31/20 10:57) O2 (03/31/20 10:57) Ed Iv/Invasive Line Start (03/31/20 10:57) Aspirin Chewable Tablet (Baby Aspirin Ch (03/31/20 11:00) Ribs, Right 2-3 Views (03/31/20 10:57) Acetaminophen Tablet/Caplet (Tylenol T (03/31/20 11:15) Troponin I (03/31/20 10:57) Ketorolac Injection (Toradol Injection) (03/31/20 12:15) Medications Given in ED Current Medications Medications Dose Ordered Sig/Phyllis Route Start Time Stop Time Status Last Admin Dose Admin Acetaminophen 650 mg ONCE ONCE PO 03/31/20 11:15 03/31/20 11:16 DC 03/31/20 11:50 650 MG Aspirin 324 mg ONCE ONCE PO 03/31/20 11:00 03/31/20 11:01 DC 03/31/20 11:49 324 MG Vital Signs/I&O 03/31/20 11:23 Temp 36.7 Pulse 56 Resp 20 B/P (MAP) 132/78 (96) Pulse Ox 96 Progress Progress Note #1: Time: 11:07 Progress Note After having a seizure she started experience pain. She was checking an outpatient and collapsed and then checked into the ER and was worked up. Suspect that most likely this is musculoskeletal. Some Tylenol and aspirin. Since his been going on since yesterday a single negative troponin would be conclusive that she is not having a heart attack. She does have a few risk factors and would need follow-up with her doctor. If her troponin is negative then we could give her a shot of Toradol or other similar NSAID for her pain. Progress Note #2: Time: 12:13 Progress Note Tylenol alone did not make a significant improvement in her pain. We'll give her some NSAIDs and have her take naproxen outpatient. Capsaicin oil, Biofreeze etc. Initial ECG Impression Date: Mar 31, 2020 Initial ECG Impression Time: 11:03 Initial ECG Rate: 61 Initial ECG Rhythm: Normal Sinus Initial ECG Intervals: MO (66) Initial ECG Impression: Normal, Nonspecific Changes Comment Normal sinus rhythm without clinically relevant ST elevation or depression. Diagnostic Imaging Diagonstic Imaging: Xray Plain Films/CT/US/NM/MRI: chest (2 to 3 views focusing on the right ribs) Comments NAME: SHELIA CULVER MED REC#: [id number] PT STATUS: REG ER : 1965 PHYSICIAN: TELLO GREENBERG MD ADMIT DATE: 03/31/20/ER Draft Date of Exam:03/31/20 RIBS, RIGHT 2-3 VIEWS Examination: Right RIBS, 3 views INDICATION: Seizure. Chest pain. Concern for rib fracture. COMPARISON: None available. FINDINGS: No fracture or acute osseous abnormality is appreciated. No displaced rib fracture is identified. Mild degenerative changes involve the spine. Apparent decreased acromiohumeral distance may be artifactual in nature secondary to projection or possibly reflects chronic rotator cuff pathology. The acromioclavicular joint is intact. Visualized right lung is clear. Regional soft tissues are unremarkable. Surgical clips are demonstrated in the right upper abdominal quadrant. IMPRESSION: No displaced rib fracture. Please see above for details. Dictated on workstation # [id number] Dict: 03/31/20 1139 Trans: 03/31/20 1146 [facility] [id number] Interpreted by: ALLY DUNAWAY DO Electronically signed by: Reviewed: Reviewed by Me Departure Impression Primary Impression: Chest wall pain Disposition: HOME, SELF-CARE Condition: Stable Departure-Patient Inst. Decision time for Depature: 12:15 Referrals: SELFYADIRA MD (PCP/Family) Primary Care Physician Patient Instructions: Costochondritis (DC) Add. Discharge Instructions: I believe the pain you're experiencing is related to bruised ribs and irritation of the soft cartilage of your ribs after a fall yesterday. This should get better in the next 1-2 weeks. You may use the naproxen 500 mg twice daily for the next 1-2 weeks to control p ain. Tylenol 1000 mg every 8 hours as necessary for breakthrough pain. Topical creams such as capsaicin oil, Biofreeze, etc. Warm moist heat applications may be helpful for pain. If you are experiencing worsening pain, fever, productive cough or other worr isome symptoms then please return to the nearest ER immediately. Otherwise you may follow-up with your primary care doctor for continued management of your symptoms as necessary. Scripts Naproxen (Naprosyn) 500 Mg Tablet 500 MG PO BID for 14 Days, #30 TAB 0 Refills Prov: TELLO GREENBERG 03/31/20 Work/School Note: Work Release Form Date Seen in the Emergency Department: Mar 31, 2020 Return to Work: Apr 03, 2020 Restrictions: No Restrictions TELLO GREENBERG Mar 31, 2020 11:01
[2020-03-31] MEDS ORDERED: ACETAMINOPHEN 325 MG TABLET PO ONE (11:15)
--- OUTSIDE RECORDS SUMMARY | 2020-03-31 11:24 | XMS REPORT | Continuity of Care Document ---
Author Organization Unknown Address Unknown Phone Unavailable Allergies Active Description Code Type Severity Reaction Onset Reported/Identified Relationship to Patient Clinical Status Yes BAND-AID [id number] Drug Allergy N/A N/A Yes CODEINE Drug Allergy N/A N/A Yes HYDROCODONE-ACETAMINOPHEN [id number] Drug Allergy N/A N/A Yes TAPE Drug Allergy N/A N/A Yes codeine ##NOMEN##,AL1,ceStru ct,allergy,1237,63 Unknown N/A N/A Yes HYDROcodone ##NOMEN##,AL1,ceSt ruct,allergy,1237,50205195 Unknown N/A N/A Yes Tape ##NOMEN##,AL1,ceStru ct,allergy,273176,154454 Unknown N/A N/A Yes codeine Drug N/A [...] HULL DO 728.85 SPASM OF MUSCLE 11/23/2009 ZO FLOYD MD 728.8 5 SPASM OF MUSCLE [...] FOREARM 03/18/2014 OZ FLOYD MD V72.3 1 MEETING SPECIALIST EXAM, ROUTINE 03/18/2014 OZ FLOYD MD V76.1 2 OTHER SCREENING MAMMOGRAM 03/18/2014 OZ FLOYD MD V76.1 9 OTHER SCREENING BREAST EXAMINATION 03/18/2014 KENTRELL OH MD V72 .31 MEETING SPECIALIST EXAM, ROUTINE 03/18/2014 KENTRELL OH MD V76 .12 OTHER SCREENING MAMMOGRAM 03/18/2014 KENTRELL OH MD V76 .19 OTHER SCREENING BREAST EXAMINATION 03/18/2014 KENTRELL OH MD V72 .31 MEETING SPECIALIST EXAM, ROUTINE 03/18/2014 KENTRELL OH MD V76 [...] of scoliosis, lumbar region 07/26/2019 JOHNSON VIERA [id number] Spondylosis without myelopathy or radiculopathy, cervical region 07/26/2019 JOHNSON VIERA [id number] Spondylosis without myelopathy or radiculopathy, lumbar region 07/26/2019 JOHNSON VIERA P M545 Low back pain Procedures Code [place] [address] UA L CHRIS DIP 02/08/2014 28128 CULT URE URINE 02/09/2014 04122 XRAY ELBOW L COMP MIN 3 VIEWS 03/07/2014 27763 XRAY WRIST L COMP MIN 3 VIEWS 03/14/2014 40951 HEMOCCULT 03/14/2014 06199 UA L CHRIS DIP 03/18/2014 29289 MAMM OGRAM, SCREENING 03/21/2014 UROLOGY VITO LAYNE 04/01/2014 Neurology Kentrell Oh 06/02/2014 44053 MRI NECK SPINE W/O & W/DYE 12/05/2015 23174 EEG, AWAKE AND DROWSY 12/05/2015 A9579 DANI- BASE MR CONTRAST NOS,1ML 12/05/2015 87539 SPEC IAL EYE EVALUATION 02/05/2019 67836 OFFI CE/OUTPATIENT VISIT, NEW 02/05/2019 28604 REVI SE TWO EYE MUSCLES 03/03/2019 62727 POST OP FOLLOW-UP VISIT 04/16/2019 Results Test [...] 10/09/17 13:25 GFR >60 >=60 GFR NonAfrican Chadian 52 >=60 SODIUM:SCNC:PT:SER/PLAS:QN: 139 mmol/L 1 36-145 [...] Status Pt. Type Provider Facility Loc./Unit Complaint [id number] 07/26/2019 10:53:00 07/26/2019 23:59: 59 CLS Outpatient JOHNSON VIERA LOW BACK PAIN [id number] 05/26/2019 08:28:30 9 23:59:59 CLS Preadmit LIZETH TERRELL [facility] SUJEY RAD LBP; Radiculopathy [id number] 05/25/2019 08:50:07 9 23:59:59 DIS Outpatient LIZETH TERRELL [facility] SUJEY RAD lbp; radiculopathy [id number] 04/27/2019 10:55:30 9 23:59:59 DIS Outpatient LIZETH TERRELL [facility] SUJEY RAD Lumbar radicilopathy [id number] 04/20/2019 10:05:51 9 23:59:59 DIS Outpatient LIZETH TERRELL [facility] [id number] 04/14/2019 07:22:11 9 23:59:59 DIS Outpatient LIZETH TERRELL [facility] SUJEY RAD Left knee pain [id number] 04/02/2019 10:51:57 9 23:59:59 DIS Outpatient LIZETH TERRELL [facility] [id number] 02/23/2019 10:51:48 9 23:59:59 DIS Outpatient OZ FLOYD [facility] SUJEY RAD Diplopia [id number] 01/20/2019 16:48:22 9 23:59:59 DIS Outpatient OZ FLOYD [facility] SUJEY RAD screening [id number] 01/11/2019 08:16:42 9 23:59:59 DIS Outpatient LIZETH TERRELL [facility] SUJEY RAD Xray [id number] 01/11/2019 08:00:15 9 23:59:59 DIS Outpatient LIZETH TERRELL [facility] [id number] 01/07/2019 10:00:00 9 23:59:59 CLS Outpatient LIZETH TERRELL [facility] [id number] 03/30/2018 11:09:35 8 23:59:59 DIS Outpatient LIZETH TERRELL [facility] SUJEY RAD xray [id number] 03/23/2018 11:16:21 8 23:59:59 CLS Preadmit WING RBOB [facility] SUJEY RAD hand dysfunction [id number] 03/23/2018 09:46:33 8 23:59:59 DIS Outpatient LIZETH TERRELL [facility] [id number] 12/09/2017 08:48:46 8 23:59:59 DIS Outpatient GILBERT NARVAEZ [facility] SUJEY RAD diagnostic, breast m ass 11- 12 o'clock on rt [id number] 04/20/2018 02:01:18 Document Registration [id number] 12/05/2015 08:19:00 12/05/2015 23:59 :59 CLS Outpatient KETNRELL OH [facility] RESP [id number] 03/30/2020 14:45:00 P EN Preadmit SELF , YADIRA [facility] RAD LOW BACK PAIN RADIATING TO R T LEG [id number] 06/02/2017 14:55:22 06/02/2017 14:55 :22 DIS Unknown [id number] 07/06/2014 00:00:00 07/06/2014 23:59: 59 CLS Outpatient KENTRELL OH MD [id number] 06/02/2014 09:00:00 06/02/2014 23:59: 59 CLS Outpatient KENTRELL OH MD [id number] 03/18/2014 10:53:00 03/18/2014 23:59: 59 CLS Outpatient OZ FLOYD MD [id number] 03/07/2014 08:56:00 03/07/2014 23:59: 59 CLS Outpatient OZ FLOYD MD [id number] 03/07/2014 08:56:00 03/07/2014 23:59: 59 CLS Outpatient OZ FLOYD MD [id number] 02/08/2014 15:32:00 02/08/2014 23:59: 59 CLS Outpatient OZ FLOYD MD [id number] 01/18/2014 11:04:00 01/18/2014 23:59: 59 CLS Outpatient WONG HULL DO [id number] 06/02/2013 08:44:00 06/02/2013 23:59: 59 CLS Outpatient WONG HULL DO [id number] 07/08/2017 11:49:41 07/08/2017 11:49:41 DIS Outpatient [id number] 07/08/2017 11:48:08 07/08/2017 11:48:09 DIS Outpatient [id number] 04/29/2016 16:14:31 04/29/2016 23:59:59 CLS Outpatient [id number] 04/29/2016 20:28:34 04/29/2016 20:28:34 ACT Outpatient [id number] 04/29/2016 20:17:10 04/29/2016 20:17:10 ACT Outpatient [id number] 04/29/2016 19:57:14 04/29/2016 19:57:14 ACT Outpatient [id number] 04/29/2016 16:25:09 04/29/2016 16:25:09 ACT Outpatient [id number] 04/29/2016 16:21:21 04/29/2016 16:21:22 ACT Outpatient [id number] 12/07/2015 09:46:21 12/07/2015 09:46:22 DIS Outpatient [id number] 12/07/2015 09:46:20 12/07/2015 09:46:20 DIS Outpatient [id number] 12/07/2015 09:41:13 12/07/2015 09:41:14 DIS Outpatient [id number] 12/07/2015 09:41:12 12/07/2015 09:41:13 DIS Outpatient [id number] 12/06/2015 14:41:14 12/06/2015 23:59:59 CLS Outpatient [id number] 12/06/2015 10:16:28 12/06/2015 23:59:59 CLS Outpatient [id number] 12/06/2015 10:10:07 12/06/2015 23:59:59 CLS Outpatient [id number] 12/06/2015 14:43:28 12/06/2015 14:43:28 DIS Outpatient [id number] 12/06/2015 14:41:16 12/06/2015 14:41:16 DIS Outpatient [id number] 12/06/2015 10:16:17 12/06/2015 10:16:20 DIS Outpatient [id number] 12/06/2015 10:11:31 12/06/2015 10:11:33 DIS Outpatient [id number] 12/06/2015 10:10:20 12/06/2015 10:10:22 DIS Outpatient [id number] 04/16/2019 16:00:00 Document Registration [id number] 03/03/2019 14:30:00 Document Registration [id number] 02/16/2019 09:26:21 Document Registration [id number] 02/05/2019 08:30:00 Document Registration [id number] 03/09/2020 13:45:00 03/09/2020 23:59:5 9 CLS Outpatient YADIRA ASIF [facility] [id number] 05/14/2019 09:20:00 Document Registration [id number] 02/16/2019 08:00:00 Document Registration [id number] 12/15/2018 13:20:00 Document Registration [id number] 06/09/2017 08:20:00 Document Registration [id number] 06/28/2019 09:03:25 06/30/2019 23:59:5 9 DIS [id number] 01/26/2019 09:37:11 01/26/2019 23:59:5 9 [id number] 03/30/2018 08:00:00 03/30/2018 23:59:5 9 CLS Outpatient Johnson Viera [facility] [id number] 05/21/2019 15:42:58 Document Registration [id number] 05/21/2019 15:42:56 Document Registration [id number] 01/26/2019 09:46:28 Document Registration [id number] 04/18/2018 01:19:10 04/18/2018 23:59 :59 CLS Outpatient [id number] 10/09/2017 12:15:00 10/09/2017 21:00: 00 DIS Outpatient Kolton Iniguez [facility]
[2020-03-31 11:25] LABS: BASOPHILS % (AUTO) 0 % (0-10); EOSINOPHILS # (AUTO) 0.2 10^3/uL (0.0-0.3); EOSINOPHILS % (AUTO) 3 % (0-10); HEMATOCRIT 39 % (35-52); HEMOGLOBIN 13.7 G/DL (11.5-16.0); LYMPHOCYTES # (AUTO) 2.2 X 10^3 (1.0-4.0); LYMPHOCYTES % (AUTO) 35 % (12-44); MEAN CORPUSCULAR HEMOGLOBIN 30 PG (25-34); MEAN CORPUSCULAR HGB CONC 35 G/DL (32-36); MEAN CORPUSCULAR VOLUME 87 FL (80-99); MEAN PLATELET VOLUME 11.2 FL (7.4-10.4); MONOCYTES # (AUTO) 0.6 X 10^3 (0.0-1.0); MONOCYTES % (AUTO) 9 % (0-12); NEUTROPHILS # (AUTO) 3.3 X 10^3 (1.8-7.8); NEUTROPHILS % (AUTO) 53 % (42-75); PLATELET COUNT 255 10^3/uL (130-400); RED CELL DISTRIBUTION WIDTH 12.3 % (10.0-14.5); WHITE BLOOD COUNT 6.3 10^3/uL (4.3-11.0)
[2020-03-31] MEDS ORDERED: GABA-486 (11:35)
[2020-03-31] MEDS ORDERED: POTA10CA43 (11:35)
[2020-03-31] MEDS ORDERED: LEVE750T5 (11:35)
[2020-03-31 11:36] LABS: CHLORIDE 108 MMOL/L (98-107); POTASSIUM 3.7 MMOL/L (3.6-5.0); SODIUM 142 MMOL/L (135-145)
[2020-03-31 11:38] LABS: CALCIUM 9.5 MG/DL (8.5-10.1)
[2020-03-31 11:39] LABS: GLUCOSE 101 MG/DL (70-105); TOTAL PROTEIN 6.9 GM/DL (6.4-8.2)
[2020-03-31 11:40] LABS: CARBON DIOXIDE 27 MMOL/L (21-32)
[2020-03-31 11:41] LABS: BILIRUBIN,TOTAL 0.3 MG/DL (0.1-1.0)
[2020-03-31 11:42] LABS: ALKALINE PHOSPHATASE 68 U/L (40-136); CREATININE SERUM 0.85 MG/DL (0.60-1.30); GFR ESTIMATED > 60
[2020-03-31 11:43] LABS: BUN/CREATININE RATIO 21
[2020-03-31 11:45] LABS: ALANINE AMINOTRANSFERASE 17 U/L (0-55); MAGNESIUM 2.4 MG/DL (1.6-2.4)
--- NOTE | 2020-03-31 11:46 | Diagnostic Imaging Report ---
Examination: Right RIBS, 3 views INDICATION: Seizure. Chest pain. Concern for rib fracture. COMPARISON: None available. FINDINGS: No fracture or acute osseous abnormality is appreciated. No displaced rib fracture is identified. Mild degenerative changes involve the spine. Apparent decreased acromiohumeral distance may be artifactual in nature secondary to projection or possibly reflects chronic rotator cuff pathology. The acromioclavicular joint is intact. Visualized right lung is clear. Regional soft tissues are unremarkable. Surgical clips are demonstrated in the right upper abdominal quadrant. IMPRESSION: No displaced rib fracture. Please see above for details. Dictated by: Dictated on workstation # [id number]
[2020-03-31] MEDS ORDERED: ZONI100C29 (11:51)
[2020-03-31] MEDS ORDERED: DICL50TA6 (11:51)
[2020-03-31] MEDS ORDERED: HYDR25TA4 (11:51)
[2020-03-31] MEDS ORDERED: CITA40TA11 (11:51)
[2020-03-31] MEDS ORDERED: SIMV20TA26 (11:51)
[2020-03-31] MEDS ORDERED: CETI10TA17 (11:51)
[2020-03-31] MEDS ORDERED: MONT10TA26 (11:51)
[2020-03-31] MEDS ORDERED: ASPI-983 (11:51)
[2020-03-31] MEDS ORDERED: LACO200T2 (11:51)
[2020-03-31] MEDS ORDERED: BACL10TA (11:51)
[2020-03-31] MEDS ORDERED: METH4TAB10 (11:51)
[2020-03-31] MEDS ORDERED: FAMO20TA5 (11:51)
[2020-03-31 12:10] LABS: PROTHROMBIN TIME PATIENT 13.6 SEC (12.2-14.7)
[2020-03-31] MEDS ORDERED: KETOROLAC 30 MG/ML VIAL IVP ONE (12:15)
[2020-03-31] MEDS ORDERED: NAPR-1071 PO (12:15)
[2020-03-31 12:31] VITALS: BP 99/61
== END 2020-03-31 12:31 | disposition home or self-care (01) ==
LOC: EDUNIT# 10:43 → ER 10:45
DX: R07.89 Other chest pain (principal); J45.909 Unspecified asthma, uncomplicated; Z88.5 Allergy status to narcotic agent; W19.XXXA Unspecified fall, initial encounter
CPT/HCPCS: 36415; 71100; 80053; 83735; 83874; 84484; 85025; 85610; 85730; 93005

== ENCOUNTER → 2020-03-31 | Outpatient (CLI) | payer MEDICAID ==
[~2020-03-31] MED LIST: ASPI-983; BACL10TA; CETI10TA17; CITA40TA11; DICL50TA6; FAMO20TA5; GABA-486; HYDR25TA4; LACO200T2; LEVE750T5; METH4TAB10; MONT10TA26; NAPR-1071 PO; POTA10CA43; SIMV20TA26; ZONI100C29
--- NOTE | 2020-03-31 11:32 | Diagnostic Imaging Report ---
CLINICAL INDICATION: Patient is having low back pain with right leg radiculopathy. Exam: MRI of the lumbar spine performed without IV contrast. Sagittal T2, sagittal T1, sagittal T2 fat-sat, and axial T2. Comparison: None. Findings: There is no acute lumbar spine fracture or dislocation. There is subtle Modic type I degenerative signal changes involving the left side of the L5-S1 level. There is no acute lumbar spine fracture or dislocation. There are degenerative spurs seen throughout the lumbar spine. There is lower lumbar spine facet arthropathy. The visualized portions of the distal thoracic spinal cord, conus medullaris, and cauda equina nerve roots are unremarkable. The conus medullaris tip is seen at the upper L2 vertebral body level. There is no significant paraspinal soft tissue abnormality. L1-L2: There is a mild diffuse disc bulge with mild bilateral facet arthropathy. There is no significant central spinal canal or neural foramen narrowing. L2-L3: There is a mild diffuse disc bulge and mild bilateral facet arthropathy. There is minimal right neural foramen narrowing. There is no significant left neural foramen narrowing or central canal narrowing. L3-L4: There is mild bilateral facet arthropathy. There is subtle broad posterior disc bulge with disc spurs extending into the foraminal regions bilaterally. There is mild bilateral neural foramen narrowing. There is no significant central canal narrowing. L4-L5: There is severe right facet arthropathy/hypertrophy and moderate left facet arthropathy/hypertrophy. There is a diffuse disc bulge with disc spurs extending into the foraminal regions bilaterally. There is ligamentum flavum buckling and prominence of the posterior epidural fat. There is mild central canal narrowing, mild to moderate right neural foramen narrowing and severe left neural foramen narrowing. L5-S1: There is a small broad posterior disc bulge with annular tear involving the right paracentral aspect of the disc. There is moderate left facet arthropathy/hypertrophy and mild to moderate right facet arthropathy. There is no significant central canal narrowing. There is mild to moderate right neural foramen narrowing with severe left neural foramen narrowing. IMPRESSION: 1: There is multilevel lumbar spine degenerative disease with diffuse disc bulges, disc spurs, and facet arthropathy which is described in detail above. 2: There is severe left-sided neural foramen narrowing at the L4-L5 and L5-S1 levels due to facet arthropathy and disc spurs. 3: There is no significant central canal stenosis. Dictated by: Dictated on workstation # [id number]
== END ==
LOC: RAD 09:36
PROVIDERS: ATTEND Family Medicine
DX: M48.07 Spinal stenosis, lumbosacral region (principal); M51.17 Intervertebral disc disorders with radiculopathy, lumbosacral region; M47.27 Other spondylosis with radiculopathy, lumbosacral region
CPT/HCPCS: 72148

== ENCOUNTER 2020-05-11 05:42 | Outpatient (CLI) | payer MEDICAID ==
[~2020-05-11] VITALS: Ht 157 cm; Wt 88.1 kg
[~2020-05-11 05:42] MED LIST changes: +ASPI-1238 PO; -ASPI-983; -BACL10TA; +BACL10TA PO; -CETI10TA17; +CETI10TA17 PO; -CITA40TA11; +CITA40TA11 PO; -DICL50TA6; +DICL50TA6 PO; -FAMO20TA5; +FAMO20TA5 PO; -HYDR25TA4; +HYDR25TA4 PO; -LACO200T2; +LACO200T2 PO; -LEVE750T5; +LEVE750T5 PO; -MONT10TA26; +MONT10TA26 PO; -POTA10CA43; +POTA10CA43 PO; -SIMV20TA26; +SIMV20TA26 PO; -ZONI100C29; +ZONI100C29 PO
[2020-05-11] MEDS ORDERED: LORA-405 SL (13:13)
[2020-05-11] MEDS ORDERED: CYAN250010 PO (13:13)
[2020-05-11] MEDS ORDERED: ASCO500C15 PO (13:13)
[2020-05-11] MEDS ORDERED: SENN-36 PO (13:13)
[2020-05-11] MEDS ORDERED: PROM25TA14 PO (13:13)
== END 2020-05-11 13:26 ==
LOC: PREOP 05:42
PROVIDERS: ATTEND Surgery
DX: Z01.818 Encounter for other preprocedural examination (principal)

== ENCOUNTER 2020-05-18 07:09 | Day surgery (SDC) | payer MEDICAID ==
[~2020-05-18] VITALS: Ht 154.9 cm; Wt 88.1 kg
[2020-05-18] VITALS (10 sets, daily range): BP systolic 109–124; BP diastolic 73–83
[~2020-05-18 07:09] MED LIST changes: +ASCO500C15 PO; +CYAN250010 PO; +LORA-405 SL; +PROM25TA14 PO; +SENN-36 PO
[2020-05-18] MEDS ORDERED: ONDANSETRON 4 MG/2 ML (SDV) Z0FRAN IV ONE (07:30)
[2020-05-18] MEDS ORDERED: SCOPOLAMINE 1.5 MG (TRANSDERM-SCOP) PATCH TOP ONE (07:30)
[2020-05-18] MEDS ORDERED: FAMOTIDINE 20MG/2ML IV (PEPCID) IV ONE (07:30)
[2020-05-18] MEDS ORDERED: MIDAZOLAM 2 MG/2 ML (VERSED) VIAL ONE (07:34)
[2020-05-18] MEDS ORDERED: ONDANSETRON 4 MG/2 ML (SDV) Z0FRAN ONE (07:34)
[2020-05-18] MEDS ORDERED: fentaNYL INJECTION 100 MCG/2 ML AMP ONE (07:34)
[2020-05-18] MEDS ORDERED: LIDOCAINE PF 2% 5 ML (XYLOCAINE) VIAL ONE (07:34)
[2020-05-18] MEDS ORDERED: proPOfol 200 MG/20 ML (DIPRIVAN) VIAL IV ONE (07:34)
[2020-05-18] MEDS ORDERED: BUPIVACAINE 0.25% 30 ML (SENSORCAINE) VIAL ONE (07:37)
[2020-05-18] MEDS ORDERED: LACTATED RINGERS 1,000 ML IV PRN (07:46)
[2020-05-18] MEDS ORDERED: ceFAZolin 2 GM IV Premixed 50 ML IV ONE (08:00)
--- NOTE | 2020-05-18 08:09 | Progress Note-Pre Operative ---
Pre-Operative Progress Note H&P Reviewed The H&P was reviewed, patient examined and no changes noted. Time Seen by Provider: 08:04 Date H&P Reviewed: May 18, 2020 Time H&P Reviewed: 08:05 Pre-Operative Diagnosis: Right breast mass, side marked SAMAN NAIK DO May 18, 2020 08:09
[2020-05-18] MEDS ORDERED: SEVOFLURANE (ULTANE) 15 ML INHAL SOLN ONE (08:55)
--- NOTE | 2020-05-18 08:57 | Progress Note-Post Operative ---
Post-Operative Progess Note Surgeon (s)/Assembler Final (s) Surgeon SAMAN NAIK DO Assembler Final: RYDER Camacho Pre-Operative Diagnosis Right breast mass, side marked Post-Operative Diagnosis same pending path Procedure & Operative Findings Date of Procedure 05/18/20 Procedure Performed/Findings Exc right breast mass Anesthesia Type LMA Estimated Blood Loss Estimated blood loss (mL): scant Specimens/Packing Specimens Removed right breast mass SAMAN NAIK DO May 18, 2020 08:57
--- NOTE | 2020-05-18 08:59 | Discharge Inst-Surgical ---
Discharge Inst-Surgical Depart Medication/Instructions New, Converted or Re-Newed RX: Other (use tylenol or motrin at home for pain) Patient Instructions Follow up Appt: Make appointment for 1 week. [phone] Instructions: No strenuous activity. May shower in 24 hours, no tub bath or soaking. Use incentive spirometer at home as directed. No Smoking Skin/Wound Care: May remove bandages in am. You need to leave the Dermabond on incision it will fall off on it's own. Symptoms to Report: Appetite Changes, Extremity Discoloration, Numbness/Tingling, Swelling Increased, Bleeding Excessive, Eyesight Changes, Pain Increased, Urine Color Change, Constipation(Persistent), Fever over 101 degree F, Pain/Pressure in chest, Urinating Difficulty, Cough Up/Vomit Blood, Heart Beat Irreg/Pounding, Pain/Pressure in jaw, Cramps in feet or legs, Lightheadedness, Pain/Pressure in shoulder, Diarrhea(Persistent), Memory Changes Suddenly, Questions/Concerns, Weight gain consecutive days, Dizziness/Fainting, Nausea/Vomiting, Shortness of Breath, Weight gain over 2 pounds If questions or concerns contact your physician Or seek help at emergency department. Activity Activity as Tolerated: Yes Activity Instructions: Avoid Stress to Incision Driving Instructions: You May Drive Diet Discharge Diet: No Restrictions Diet After 24 Hours: Clear Liquid if Nauseous If Any Problems/Questions/Issu: Contact Your Physician, Go to Emergency Room Skin/Wound Care Infection Signs and Symptoms: Increased Redness, Foul Odor of Wound, Increased Drainage, Skin Itchy or Has a Rash, Increased Swelling, Temperature Above 101 F Wound Care Comment: wear tight fitting sports bra 31/03 for one week Bathing Instructions: Shower Stitches/[place]/Dermabond Dis: Dermabond Ice Pack: Ice On and Off Site SAMAN NAIK DO May 18, 2020 08:59
--- NOTE | 2020-05-18 21:44 | OPERATIVE REPORT ---
DATE OF SERVICE: PREOPERATIVE DIAGNOSIS: Right breast mass. POSTOPERATIVE DIAGNOSIS: Right breast mass, pending pathology. PROCEDURE: Excision of right breast mass. SURGEON: Mario Morejon DO SUPERVISOR RUBBER COVERING: Cathie Pitt MS3. ANESTHESIA: LMA. SPECIMEN: Right breast mass from the 2 o'clock region. BLOOD LOSS: Scant. FLUIDS: Per anesthesia. POSTOPERATIVE CONDITION: Stable. INDICATION FOR PROCEDURE: The patient is a 55-year-old female who has a mass in the right breast, right around the 2 o'clock position about 10 cm from the nipple areolar line, it causes her pain. She had an ultrasound, which was read as BI-RADS category 2, but because it was causing the patient pain, she wanted this removed. FINDINGS: The patient had a right breast mass removed, it looked like just a lipoma. PROCEDURE NOTE: After informed consent was obtained, the patient was brought to the operating room. Site had been marked previously and agreed upon during timeout. She was brought to the operating room, placed on the table in supine position, sterilely prepped and draped in normal fashion. Local lidocaine was used to infiltrate above the area which is at the 2 o'clock line, somewhere between 6 and 10 cm from the areolar complex. I made a curvilinear incision after first infiltrating over this area and then around in a regional block, made the incision with #15 blade, carried down to skin into subcutaneous tissue and deepened down to subcutaneous tissue with Bovie electrocautery. Encountered a lump, it looked like a lipoma, removed this and then palpated around, did not feel any other masses or pathology throughout the entire upper inner quadrant. At this point, copiously irrigated with normal saline. Hemostasis obtained using Bovie electrocautery. I then elected to close the incision with 4-0 undyed Monocryl, 3 interrupted subcuticular stitches. Area was cleaned and dried and skin Affix was placed as well as a pressure and fluff dressing. The patient tolerated the procedure, was transferred to recovery room in stable condition. Sponge, instrument and needle count correct at the end of the case. Job ID: [id number] DocumentID: [id number] Dictated Date: 05/18/2020 13:52:53 Circle Saw Operator Date: 05/18/2020 21:43:38 Dictated By: MARIO MOREJON DO [facility]
== END 2020-05-18 11:15 ==
LOC: SDC 07:09
PROVIDERS: ATTEND Surgery
DX: N63.10 Unspecified lump in the right breast, unspecified quadrant (principal); J45.909 Unspecified asthma, uncomplicated; F32.9 Major depressive disorder, single episode, unspecified; K21.9 Gastro-esophageal reflux disease without esophagitis; F41.9 Anxiety disorder, unspecified; E66.9 Obesity, unspecified; Z68.36 Body mass index [BMI] 36.0-36.9, adult; Z79.899 Other long term (current) drug therapy; Z88.5 Allergy status to narcotic agent; Z88.8 Allergy status to other drugs, medicaments and biological substances
CPT/HCPCS: 87081; 88305

== ENCOUNTER 2020-08-22 13:08 | Emergency (ER) | payer MEDICAID ==
[~2020-08-22] VITALS: Ht 154.9 cm; Wt 84.8 kg
[~2020-08-22 13:08] MED LIST changes: -ASCO500C15 PO; +ASCO500C18 PO; -MONT10TA26 PO; +MONT10TA97 PO
--- NOTE | 2020-08-22 13:20 | ED Neurological Problem ---
General Chief Complaint: Neurological Problems Stated Complaint: SEIZURE History of Present Illness Date Seen by Provider: Aug 22, 2020 Time Seen by Provider: 13:10 Initial Comments 55-year-old female with past medical history significant for seizures, presents via EMS was called for active seizure while at home. Patient collapsed the restroom, family heard her hit the floor and called 911. On EMS arrival, patient was no longer seizing and was postictal with normal vitals. An IV was started and brought to the ER without any necessary intervention. Patient complains of some pain to her head and R wrist. Allergies and Home Medications Allergies Coded Allergies: codeine (Verified Allergy, Severe, ITCH, 05/18/20) hydrocodone (Verified Allergy, Severe, ITCH, 05/18/20) tramadol (Verified Allergy, Severe, ITCH, 05/18/20) Home Medications Ascorbic Acid 500 Mg Capsule.er, 500 MG PO BID, (Reported) Aspirin 81 Mg Tablet.dr, 81 MG PO DAILY, (Reported) Baclofen 10 Mg Tablet, 10 MG PO BID, (Reported) Cetirizine HCl 10 Mg Tablet, 10 MG PO DAILY, (Reported) Citalopram Hydrobromide 40 Mg Tablet, 40 MG PO DAILY, (Reported) Cyanocobalamin (Vitamin B-12) 2,500 Mcg Tablet, 2,500 MCG PO DAILY, (Reported) Diclofenac Sodium 50 Mg Tablet.dr, 50 MG PO DAILY, (Reported) Famotidine 20 Mg Tablet, 20 MG PO DAILY, (Reported) Hydrochlorothiazide 25 Mg Tablet, 25 MG PO DAILY, (Reported) Lacosamide 200 Mg Tablet, 20 MG PO BID, (Reported) Levetiracetam 750 Mg Tablet, 750 MG PO BID, (Reported) Lorazepam 1 Mg Tablet, 1 MG SL for SEIZURE ACTIVITY, (Reported) Lorazepam 2 Mg/1 Ml Oral.conc, 1 MG PO Q2H PRN for SEIZURE ACTIVITY Prescribed by: FERNANDO AGUIRRE on 08/22/20 1408 Montelukast Sodium 10 Mg Tablet, 10 MG PO DAILY, (Reported) Potassium Chloride 10 Meq Capsule.er, 10 MEQ PO TID, (Reported) Promethazine HCl 25 Mg Tablet, 25 MG PO Q6H PRN for NAUSEA/VOMITING, (Reported) Sennosides 8.6 Mg Tablet, 8.6 MG PO TID, (Reported) Simvastatin 20 Mg Tablet, 20 MG PO DAILY, (Reported) Zonisamide 100 Mg Capsule, 100 MG PO HS, (Reported) Patient Home Medication List Home Medication List Reviewed: Yes Review of Systems Review of Systems Constitutional: No dizziness, No fever, No malaise, No weakness Ears, Nose, Mouth, Throat: no symptoms reported Respiratory: no symptoms reported; No cough, No short of breath Cardiovascular: No chest pain, No edema, No palpitations, No syncope Gastrointestinal: No abdominal pain, No nausea, No vomiting Musculoskeletal: No back pain; joint pain (mild right wrist discomfort) Skin: No change in color, No lesions, No lumps, No rash Psychiatric/Neurological: See HPI; Denies Cognitive Dysfunction, Denies Headache, Denies Numbness, Denies Tingling; Tonic Clonic Seizures; Denies Unable to Move Lower Ext, Denies Unable to Move Upper Ext, Denies Weakness Past Nnjlyno-Ewvcog-Philir Hx Past Med/Social Hx: Reviewed Nursing Past Med/Soc Hx Patient Social History 2nd Hand Smoke Exposure: No Recent Hopitalizations: No Immunizations Up To Date Date of Influenza Vaccine: Jun 14, 2019 Seasonal Allergies Seasonal Allergies: Yes Past Medical History Surgeries: Yes (KNEE SCOPE) Appendectomy, Gallbladder, Hysterectomy, Orthopedic Respiratory: Yes Asthma Cardiac: Yes High Cholesterol Neurological: Yes (LAST SEIZURE-MARCH 2020) Seizure Disorder KIER HAND History: Hysterectomy Sexually Transmitted Disease: No HIV/AIDS: No Genitourinary: Yes Kidney Stones Gastrointestinal: Yes Gastroesophageal Reflux, Chronic Constipation Musculoskeletal: Yes Degenerate Disk Disease, Arthritis, Chronic Back Pain Endocrine: No HEENT: Yes (GLASSES, DENTURES) Loss of Vision: Denies Hearing Impairment: Denies Cancer: No Psychosocial: Yes Depression Integumentary: No Blood Disorders: No Adverse Reaction/Blood Tranf: No (N/A) Physical Exam Vital Signs Vital Signs - First Documented 08/22/20 13:11 Temp 37.0 Pulse 77 Resp 20 B/P (MAP) 120/69 (86) Pulse Ox 95 O2 Delivery Room Air Capillary Refill : Height, Weight, BMI Height: '" Weight: lbs. oz. kg; 36.71 BMI Method: General Appearance: WD/WN, no apparent distress HEENT: PERRL/EOMI, normal ENT inspection, other (no head contusion or abrasion) Neck: non-tender, full range of motion, supple, normal inspection Respiratory: chest non-tender, lungs clear, normal breath sounds, no respiratory distress, no accessory muscle use Cardiovascular: regular rate, rhythm, no edema, no gallop, no JVD Gastrointestinal: non tender, soft Back: normal inspection, no CVA tenderness, no vertebral tenderness Extremities: normal range of motion, non-tender, normal inspection, no pedal edema, normal capillary refill, other (R wrist w minimal discomfort, no point tenderness, edema, ecchymosis or limitation of mvmt.) 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 II-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 nml as tested, no motor/sensory deficits, alert, normal mood/affect, oriented x 3 Skin: normal color, warm/dry Focused Exam Lactate Level 08/22/20 13:30: Lactic Acid Level 1.62 Lactic Acid Level Laboratory Tests Test 08/22/20 13:30 Lactic Acid Level 1.62 MMOL/L (0.50-2.00) Progress/Results/Core Measures Results/Orders Lab Results Laboratory Tests Test 08/22/20 13:12 08/22/20 13:30 Range/Units White Blood Count 8.5 4.3-11.0 10^3/uL Red Blood Count 4.91 4.35-5.85 10^6/uL Hemoglobin 15.1 11.5-16.0 G/DL Hematocrit 44 35-52 % Mean Corpuscular Volume 90 80-99 FL Mean Corpuscular Hemoglobin 31 25-34 PG Mean Corpuscular Hemoglobin Concent 34 32-36 G/DL Red Cell Distribution Width 13.1 10.0-14.5 % Platelet Count 300 130-400 10^3/uL Mean Platelet Volume 10.7 H 7.4-10.4 FL Immature Granulocyte % (Auto) 0 % Neutrophils (%) (Auto) 63 42-75 % Lymphocytes (%) (Auto) 29 12-44 % Monocytes (%) (Auto) 7 0-12 % Eosinophils (%) (Auto) 1 0-10 % Basophils (%) (Auto) 0 0-10 % Neutrophils # (Auto) 5.3 1.8-7.8 X 10^3 Lymphocytes # (Auto) 2.4 1.0-4.0 X 10^3 Monocytes # (Auto) 0.6 0.0-1.0 X 10^3 Eosinophils # (Auto) 0.1 0.0-0.3 10^3/uL Basophils # (Auto) 0.0 0.0-0.1 10^3/uL Immature Granulocyte # (Auto) 0.0 0.0-0.1 10^3/uL Sodium Level 144 135-145 MMOL/L Potassium Level 4.0 3.6-5.0 MMOL/L Chloride Level 109 H 98-107 MMOL/L Carbon Dioxide Level 26 21-32 MMOL/L Anion Gap 9 5-14 MMOL/L Blood Urea Nitrogen 23 H 7-18 MG/DL Creatinine 0.84 0.60-1.30 MG/DL Estimat Glomerular Filtration Rate > 60 BUN/Creatinine Ratio 27 Glucose Level 94 70-105 MG/DL Calcium Level 10.1 8.5-10.1 MG/DL Corrected Calcium 10.0 8.5-10.1 MG/DL Total Bilirubin 0.3 0.1-1.0 MG/DL Aspartate Amino Transf (AST/SGOT) 15 5-34 U/L Alanine Aminotransferase (ALT/SGPT) 16 0-55 U/L Alkaline Phosphatase 73 40-136 U/L Total Protein 6.7 6.4-8.2 GM/DL Albumin 4.1 3.2-4.5 GM/DL Urine Color YELLOW Urine Clarity CLEAR Urine pH 6.0 5-9 Urine Specific Lovilia 1.025 H 1.016-1.022 Urine Protein NEGATIVE NEGATIVE Urine Glucose (UA) NEGATIVE NEGATIVE Urine Ketones NEGATIVE NEGATIVE Urine Nitrite NEGATIVE NEGATIVE Urine Bilirubin NEGATIVE NEGATIVE Urine Urobilinogen 0.2 < = 1.0 MG/DL Urine Leukocyte Esterase 1+ H NEGATIVE Urine RBC (Auto) TRACE H NEGATIVE Urine RBC 0-2 /HPF Urine WBC 10-25 H /HPF Urine Squamous Epithelial Cells 5-10 /HPF Urine Crystals NONE /LPF Urine Bacteria TR /HPF Urine Casts NONE /LPF Urine Mucus MODERATE H /LPF Urine Culture Indicated YES Lactic Acid Level 1.62 0.50-2.00 MMOL/L My Orders Orders - CASSIUSVENSTFERNANDO HERRON DO Ed Iv/Invasive Line Start (08/22/20 13:14) Comprehensive Metabolic Panel (08/22/20 13:14) Cbc With Automated Diff (08/22/20 13:14) Lactic Acid Analyzer (08/22/20 13:14) Urinalysis (08/22/20 13:14) Urine Culture (08/22/20 13:30) Vital Signs/I&O 08/22/20 08/22/20 13:11 14:53 Temp 37.0 Pulse 77 74 Resp 20 18 B/P (MAP) 120/69 (86) 115/70 Pulse Ox 95 95 O2 Delivery Room Air Room Air Progress Progress Note : Progress Note uneventful ER stay. Patient awake and alert, normal exam, labs and no need for CT of head. 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 Advised to call by phone today to ask about adjustment to current meds. Given Rx for Ativan (liquid) for prn use as pt states she normally gets ativan when her seizures start (she has 24h assistance), but today they couldn't find her medication. Initial ECG Impression Date: Aug 22, 2020 Initial ECG Impression Time: 13:15 Initial ECG Rate: 80 Initial ECG Rhythm: Normal Sinus Initial ECG Intervals: Normal Departure Impression Primary Impression: Seizure disorder Disposition: 01 HOME, SELF-CARE Condition: Improved Departure-Patient Inst. Decision time for Depature: 14:07 Referrals: YADIRA ASIF MD (PCP/Family) Primary Care Physician Patient Instructions: Seizures, Adult (DC) Add. Discharge Instructions: Call Dr Oh's office today to notify them of your seizure and to ask about possible adjustments to your medication All discharge instructions reviewed with patient and/or family. Voiced understanding. Scripts Lorazepam (Lorazepam Intensol) 2 Mg/1 Ml Oral.conc 1 MG PO Q2H PRN for SEIZURE ACTIVITY, #30 ML Prov: FERNANDO AGUIRRE DO 08/22/20 FERNANDO AGUIRRE DO Aug 22, 2020 13:20
[2020-08-22 13:36] LABS: BASOPHILS % (AUTO) 0 % (0-10); EOSINOPHILS % (AUTO) 1 % (0-10); HEMATOCRIT 44 % (35-52); HEMOGLOBIN 15.1 G/DL (11.5-16.0); LYMPHOCYTES % (AUTO) 29 % (12-44); MEAN CORPUSCULAR HEMOGLOBIN 31 PG (25-34); MEAN CORPUSCULAR HGB CONC 34 G/DL (32-36); MEAN CORPUSCULAR VOLUME 90 FL (80-99); MEAN PLATELET VOLUME 10.7 FL (7.4-10.4); MONOCYTES % (AUTO) 7 % (0-12); NEUTROPHILS % (AUTO) 63 % (42-75); PLATELET COUNT 300 10^3/uL (130-400); WHITE BLOOD COUNT 8.5 10^3/uL (4.3-11.0)
[2020-08-22 13:37] LABS: EOSINOPHILS # (AUTO) 0.1 10^3/uL (0.0-0.3); LYMPHOCYTES # (AUTO) 2.4 X 10^3 (1.0-4.0); MONOCYTES # (AUTO) 0.6 X 10^3 (0.0-1.0); NEUTROPHILS # (AUTO) 5.3 X 10^3 (1.8-7.8)
[2020-08-22 13:51] LABS: BACTERIA,URINE TR /HPF; BILIRUBIN,URINE NEGATIVE (NEGATIVE); CLARITY,URINE CLEAR; COLOR,URINE YELLOW; GLUCOSE, URINE (UA) NEGATIVE (NEGATIVE); KETONES,URINE NEGATIVE (NEGATIVE); LEUKOCYTE ESTERASE ,URINE 1+ (NEGATIVE); NITRITE,URINE NEGATIVE (NEGATIVE); PROTEIN,URINE NEGATIVE (NEGATIVE); RBC,URINE 0-2 /HPF
[2020-08-22 14:07] LABS: ALANINE AMINOTRANSFERASE 16 U/L (0-55); ALBUMIN 4.1 GM/DL (3.2-4.5); ALKALINE PHOSPHATASE 73 U/L (40-136); BILIRUBIN,TOTAL 0.3 MG/DL (0.1-1.0); BUN/CREATININE RATIO 27; CALCIUM 10.1 MG/DL (8.5-10.1); CARBON DIOXIDE 26 MMOL/L (21-32); CHLORIDE 109 MMOL/L (98-107); CREATININE SERUM 0.84 MG/DL (0.60-1.30); GFR ESTIMATED > 60; GLUCOSE 94 MG/DL (70-105); SODIUM 144 MMOL/L (135-145); TOTAL PROTEIN 6.7 GM/DL (6.4-8.2)
[2020-08-22] MEDS ORDERED: LORA2ORA PO (14:07)
[2020-08-22 14:53] VITALS: BP 115/70
== END 2020-08-22 14:57 | disposition home or self-care (01) ==
LOC: EDUNIT# 13:08 → ER FS 13:09
DX: G40.909 Epilepsy, unspecified, not intractable, without status epilepticus (principal); E78.00 Pure hypercholesterolemia, unspecified; K21.9 Gastro-esophageal reflux disease without esophagitis; K59.09 Other constipation; Z87.442 Personal history of urinary calculi; Z79.82 Long term (current) use of aspirin; Z88.5 Allergy status to narcotic agent
CPT/HCPCS: 36415; 80053; 81000; 83605; 85025; 87088; 93005

== ENCOUNTER 2022-05-16 13:29 | Emergency (ER) | payer MEDICAID ==
[~2022-05-16] VITALS: Ht 155 cm; Wt 90.0 kg
[~2022-05-16 13:29] MED LIST changes: +ASCO500T7 PO; -CITA40TA11 PO; +CITA40TA13 PO; -GABA-486; +GABA-486 PO; +LEVE500T6 PO; +LEVE500T99 PO; +LORA2ORA PO; +MONT-40 PO; -MONT10TA97 PO; +NORT25CA PO; -ZONI100C29 PO; +ZONI100C79 PO; +ZONI50CA15 PO
[2022-05-16] MEDS ORDERED: morphine INJ 10 MG/ML 1ML (SYR OR VIAL) IVP STA (13:57)
[2022-05-16] MEDS ORDERED: ONDANSETRON 4 MG/2 ML (SDV) Z0FRAN IVP ONE (14:00)
--- NOTE | 2022-05-16 14:03 | ED Neurological Problem ---
General Chief Complaint: Neurological Problems Stated Complaint: SEIZURE Source: patient, family () Exam Limitations: clinical condition History of Present Illness Date Seen by Provider: May 16, 2022 Time Seen by Provider: 13:49 Initial Comments Patient is a 57-year-old female who presents to the emergency department today with a chief complaint of seizure x2 while at [facility] in their waiting room. Reportedly she had her initial seizure lasted a minute and a half, she did have a fall onto the floor but her states it was "a gentle fall" as he assisted her down. Subsequent to the first 1 she had a second 1 that lasted also about a minute and a half. EMS reported to her nurse that she has been nonverbal but eyes open since that time. On my arrival she is able to answer yes and no and nod her head. She complains of a headache as well as neck pain. Not really following commands very well or speaking other than that. No reported illnesses. She is on antiseizure medications. Her states that she has had 3 seizures in the last couple of months. She has a neurologist nu rse practitioner that she sees. No recent changes to her medications. She was at a follow-up appointment with her nurse practitioner today. No history of diabetes, hypertension. Chronic back pain. History of what sounds like "complex migraines". When she gets a headache on her right side she tends to have numbness/loss of function to the left. states that when she has a headache or "postictal state" last longer. She is quite tearful. Review of systems obtained from the as the patient is mostly nonverbal at this time. Timing/Duration: 1/2 hour Severity: moderate Allergies and Home Medications Allergies Coded Allergies: codeine (Verified Allergy, Severe, ITCH, 05/18/20) hydrocodone (Verified Allergy, Severe, ITCH, 05/18/20) tramadol (Verified Allergy, Severe, ITCH, 05/18/20) Patient Home Medication List Home Medication List Reviewed: Yes Ascorbic Acid (Ascorbic Acid) 500 Mg Tablet, 500 MG PO BID, (Reported) Entered as Reported by: DEVIKA BUSTAMANTE on 09/14/20 1028 Aspirin (Aspirin EC) 81 Mg Tablet.dr, 81 MG PO DAILY, (Reported) Entered as Reported by: ELEAZAR MCNAMARA on 03/31/20 1151 Baclofen (Baclofen) 10 Mg Tablet, 10 MG PO BID, (Reported) Entered as Reported by: ELEAZAR MCNAMARA on 03/31/20 1151 Cetirizine HCl (Cetirizine HCl) 10 Mg Tablet, 10 MG PO HS, (Reported) Entered as Reported by: ELEAZAR MCNAMARA on 03/31/20 115 Citalopram Hydrobromide (Citalopram HBr) 40 Mg Tablet, 40 MG PO DAILY, (Reported) Entered as Reported by: ELEAZAR MCNAMARA on 03/31/20 115 Famotidine (Famotidine) 20 Mg Tablet, 20 MG PO DAILY, (Reported) Entered as Reported by: ELEAZAR MCNAMARA on 03/31/20 115 Gabapentin (Gabapentin) 100 Mg Capsule, 100-200 MG PO TID PRN for NEUROPATHY, (Reported) Entered as Reported by: ELEAZAR MCNAMARA on 03/31/20 1135 Hydrochlorothiazide (Hydrochlorothiazide) 25 Mg Tablet, 25 MG PO DAILY, (Reported) Entered as Reported by: ELEAZAR MCNAMARA on 03/31/20 115 Lacosamide (Vimpat) 200 Mg Tablet, 20 MG PO BID, (Reported) Entered as Reported by: ELEAZAR MCNAMARA on 03/31/20 115 Levetiracetam (Levetiracetam) 750 Mg Tablet, 750 MG PO DAILY, (Reported) Entered as Reported by: ELEAZAR MCNAMARA on 03/31/20 1135 Levetiracetam (Levetiracetam) 500 Mg Tablet, 500 MG PO HS, (Reported) Entered as Reported by: DEVIKA BUSTAMANTE on 09/14/20 1028 Lorazepam (Lorazepam Intensol) 2 Mg/1 Ml Oral.conc, 1 MG PO Q2H PRN for SEIZURE ACTIVITY, (Reported) Entered as Reported by: DEVIKA BUSTAMANTE on 09/14/20 1028 Montelukast Sodium (Montelukast Sodium) 10 Mg Tablet, 10 MG PO HS, (Reported) Entered as Reported by: ELEAZAR MCNAMARA on 03/31/20 1151 Nortriptyline HCl (Nortriptyline HCl) 25 Mg Capsule, 25 MG PO HS, (Reported) Entered as Reported by: DEVIKA BUSTAMANTE on 09/14/20 1028 Potassium Chloride (Potassium Chloride) 10 Meq Capsule.er, 10 MEQ PO TID, (Reported) Entered as Reported by: ELEAZAR MCNAMARA on 03/31/20 1135 Promethazine HCl (Promethazine Tablet) 25 Mg Tablet, 25 MG PO Q6H PRN for NAUSEA/VOMITING, (Reported) Entered as Reported by: JOSE CARDENAS on 05/11/20 1313 Sennosides (Senokot) 8.6 Mg Tablet, 8.6 MG PO TID, (Reported) Entered as Reported by: JOSE CARDENAS on 05/11/20 1313 Simvastatin (Simvastatin) 20 Mg Tablet, 20 MG PO HS, (Reported) Entered as Reported by: ELEAZAR MCNAMARA on 03/31/20 1151 Zonisamide (Zonisamide) 100 Mg Capsule, 100 MG PO HS, (Reported) Entered as Reported by: ELEAZAR MCNAMARA on 03/31/20 1151 Zonisamide (Zonisamide) 50 Mg Capsule, 50 MG PO HS, (Reported) Entered as Reported by: DEVIKA BUSTAMANTE on 09/14/20 1028 Review of Systems Review of Systems Constitutional: see HPI unable to obtain from the patient due to "post ictal state" Past Phpklah-Stbmws-Kqfhza Hx Seasonal Allergies Seasonal Allergies: Yes Past Medical History Surgeries: Yes (KNEE SCOPE) Appendectomy, Gallbladder, Hysterectomy, Orthopedic Respiratory: Yes Asthma Cardiac: Yes High Cholesterol Neurological: Yes Seizure Disorder 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 Sexually Transmitted Disease: No HIV/AIDS: No Genitourinary: Yes Kidney Stones Gastrointestinal: Yes Gastroesophageal Reflux, Chronic Constipation Musculoskeletal: Yes Degenerate Disk Disease, Arthritis, Chronic Back Pain Endocrine: No HEENT: Yes (GLASSES, DENTURES) Loss of Vision: Denies Hearing Impairment: Denies Cancer: No Psychosocial: Yes Anxiety, Depression Integumentary: No Blood Disorders: No Adverse Reaction/Blood Tranf: No (N/A) Family Medical History CAD Under 55 Years Old Physical Exam Vital Signs Vital Signs - First Documented 05/16/22 13:30 Temp 37.0 Pulse 93 Resp 13 B/P (MAP) 137/97 (110) Pulse Ox 96 O2 Delivery Room Air Capillary Refill : Height, Weight, BMI Height: '" Weight: lbs. oz. kg; 36.21 BMI Method: General Appearance: WD/WN, mild distress (teary) HEENT: other (injected conjunctivae and swolen eylids (upper and lower) from crying; upper dentures in place - no bite wounds to the tongue; no raccoon eyes, no battles sign.) Neck: other (placed in cervical collar on arrival.) Respiratory: lungs clear, normal breath sounds, no respiratory distress, no accessory muscle use Cardiovascular: regular rate, rhythm Gastrointestinal: soft Back: normal inspection, no vertebral tenderness, other (midline scar lower back) Extremities: normal inspection Neurologic/Psychiatric: alert, other (tearful) Crainal Nerves: PERRL Motor/Sensory: no sensory deficit Skin: normal color, warm/dry Progress/Results/Core Measures Results/Orders Lab Results Laboratory Tests Test 05/16/22 13:34 05/16/22 13:39 Range/Units Sodium Level 142 135-145 MMOL/L Potassium Level 3.5 L 3.6-5.0 MMOL/L Chloride Level 107 98-107 MMOL/L Carbon Dioxide Level 23 21-32 MMOL/L Anion Gap 12 5-14 MMOL/L Blood Urea Nitrogen 19 H 7-18 MG/DL Creatinine 0.81 0.60-1.30 MG/DL Estimat Glomerular Filtration Rate 85 BUN/Creatinine Ratio 23 Glucose Level 93 70-105 MG/DL Calcium Level 9.4 8.5-10.1 MG/DL Glucometer 95 70-110 MG/DL My Orders Orders - ROJELIO SEAY MD Basic Metabolic Panel (05/16/22 13:57) Accucheck Stat ONCE (05/16/22 13:57) Morphine Injection (Morphine Injection (05/16/22 13:57) Ondansetron Injection (Zofran Injectio (05/16/22 14:00) Ct Head/Cervical Spine Wo (05/16/22 13:57) Ketorolac Injection (Toradol Injection) (05/16/22 15:30) Medications Given in ED Current Medications Medications Dose Ordered Sig/Phyllis Route Start Time Stop Time Status Last Admin Dose Admin Ketorolac Tromethamine 15 mg ONCE ONCE IVP 05/16/22 15:30 05/16/22 15:31 DC 05/16/22 15:28 15 MG Ondansetron HCl 4 mg ONCE ONCE IVP 05/16/22 14:00 9/8/22 14:01 DC 05/16/22 14:02 4 MG Vital Signs/I&O 05/16/22 13:30 Temp 37.0 Pulse 93 Resp 13 B/P (MAP) 137/97 (110) Pulse Ox 96 O2 Delivery Room Air Progress Progress Note #1: Time: 15:[address] brain and cervical spine negative for any acute pathology. Cervical collar removed at 1500. moving upper extremities normally. refuses (or cannot) move RLE. Will provide some toradol and reassess. She is still quite tearful. Progress Note #2: Time: 16:39 Progress Note Patient was able to help herself with all extremities on and off the bed gong. SHe endorses "numbness" to the right hand and leg. Imaging and labs reassuring. Will send her home to follow up with her PCP. Her states these are all "normal" after effects" of her seizures. She maintains anesthesia on exam with sharp pin prick to right foot and leg but she states she wants to go home and she can manage with a wheelchair. She is able to answer questions appropriately and accurately. poor overall effort with exam. No facial weakness, speech difficulties, vision issues. no slurred speech. states this is exactly what happened after last fall when she hit her head (although she did not hit her head today). CT again, normal. Diagnostic Imaging Diagonstic Imaging: CT Comments [facility]. [place], [place] NAME: [facility] REC#: [id number] PT STATUS: REG ER : 1965 PHYSICIAN: ROJELIO SEAY MD ADMIT DATE: 05/16/22/ER Draft Date of Exam:05/16/22 CT HEAD/CERVICAL SPINE WO INDICATION: Seizure with fall and head and neck pain. TECHNIQUE: Multiple contiguous axial images were obtained through the brain and cervical spine without the use of intravenous contrast. Sagittal and coronal reformations through the cervical spine were then performed. Auto Exposure Controls were utilized during the CT exam to meet ALARA standards for radiation dose reduction. COMPARISON: Comparison made to previous head and C-spine CT of 03/30/2020. CT HEAD FINDINGS: There were no extra-axial fluid collections. No intracranial hemorrhage. No intracranial mass or mass effect. No midline shift. The ventricles are normal in size and position. There were no focal parenchymal abnormalities in the brain. Calvarial windows show no fracture. There is retention cyst or polyp in the left maxillary sinus. CT CERVICAL SPINE FINDINGS: There was no evidence of cervical spine fracture. There was no subluxation or malalignment. Disc space narrowing and osteophyte formation at C5-C6 and C6-C7 are noted. The facets are in good alignment. IMPRESSION: CT head shows no acute intracranial abnormality or calvarial fracture. CT cervical spine shows degenerative changes in the lower cervical spine with no acute fracture or subluxation. Dictated on workstation # [id number] Dict: 05/16/22 1428 Trans: 05/16/22 1437 [id number] Interpreted by: JAZZY ESCAMILLA MD Electronically signed by: Departure Impression Primary Impression: Seizure Additional Impressions: Seizure disorder complex migraine Disposition: 01 HOME, SELF-CARE Condition: Improved Departure-Patient Inst. Referrals: YADIRA ASIF MD (PCP/Family) Primary Care Physician Patient Instructions: Migraines in Adults, Seizures Add. Discharge Instructions: Continue to take your daily medications as prescribed. Drink plenty of fluids to stay well-hydrated and obtain adequate rest this evening. Call your primary care doctor's office tomorrow for a follow-up appointment next week Your imaging studies and labs have all been reviewed and are normal today. Return to the emergency department for any new, concerning or emergent complaints. Copy Copies To 1: YADIRA ASIF MD, KATHRYN M MD May 16, 2022 14:03
[2022-05-16 14:08] LABS: POTASSIUM 3.5 MMOL/L (3.6-5.0)
[2022-05-16 14:09] LABS: CALCIUM 9.4 MG/DL (8.5-10.1)
[2022-05-16 14:13] LABS: CREATININE SERUM 0.81 MG/DL (0.60-1.30)
--- NOTE | 2022-05-16 14:38 | Diagnostic Imaging Report ---
INDICATION: Seizure with fall and head and neck pain. TECHNIQUE: Multiple contiguous axial images were obtained through the brain and cervical spine without the use of intravenous contrast. Sagittal and coronal reformations through the cervical spine were then performed. Auto Exposure Controls were utilized during the CT exam to meet ALARA standards for radiation dose reduction. COMPARISON: Comparison made to previous head and C-spine CT of 03/30/2020. CT HEAD FINDINGS: There were no extra-axial fluid collections. No intracranial hemorrhage. No intracranial mass or mass effect. No midline shift. The ventricles are normal in size and position. There were no focal parenchymal abnormalities in the brain. Calvarial windows show no fracture. There is retention cyst or polyp in the left maxillary sinus. CT CERVICAL SPINE FINDINGS: There was no evidence of cervical spine fracture. There was no subluxation or malalignment. Disc space narrowing and osteophyte formation at C5-C6 and C6-C7 are noted. The facets are in good alignment. IMPRESSION: CT head shows no acute intracranial abnormality or calvarial fracture. CT cervical spine shows degenerative changes in the lower cervical spine with no acute fracture or subluxation. Dictated by: Dictated on workstation # [id number]
[2022-05-16] MEDS ORDERED: KETOROLAC 30 MG/ML VIAL IVP ONE (15:30)
[2022-05-16 17:20] VITALS: BP 111/90
== END 2022-05-16 17:05 | disposition home or self-care (01) ==
LOC: EDUNIT# 13:29 → ER 13:30
DX: G40.909 Epilepsy, unspecified, not intractable, without status epilepticus (principal); G43.909 Migraine, unspecified, not intractable, without status migrainosus; Z79.899 Other long term (current) drug therapy
CPT/HCPCS: 36415; 70450; 72125; 80048; 82947